=== PATIENT | female | born 1960 | race Caucasian/White ===

== ENCOUNTER 2019-12-01 08:35 | Inpatient (IN) | payer OTHER ==
[~2019-12-01] VITALS: Ht 157.5 cm; Wt 73.2 kg
[~2019-12-01 08:35] MED LIST: ACET325T9 PO; CIPR500T94 PO; LISI-334 PO; MAGN400T22 PO; METR500T PO; NICO1PAT27 TD; OXYC1TAB7 PO; POTA20TA4 PO; SLOW RELEASE I142 MG PO
--- NOTE | 2019-12-01 08:54 | PHYS DOC ---
Past Medical History Past Medical History: Diverticulitis, Other Additional Past Medical Histor: genital warts, miscarriage Past Surgical History: Other Additional Past Surgical Histo: genital warts surgery Smoking Status: Former Smoker Alcohol Use: Occasionally Drug Use: Marijuana General Adult EDM: Chief Complaint: ABDOMINAL PAIN HPI: HPI: Patient is a 59 year old female who was brought here by EMS from home due to left lower abdominal pain for the last 5 days. The pain became more intensified this morning so she called EMS to take her here for evaluation. Patient denies any fever, no diarrhea. Patient denies any cough. No exposure to anybody who tested positive for COVID-19. Review of Systems: Review of Systems: Constitutional: Denies fever or chills. [] Eyes: Denies change in visual acuity. [] HENT: Denies nasal congestion or sore throat. [] Respiratory: Denies cough or shortness of breath. [] Cardiovascular: Denies chest pain or edema. [] GI: Positive for abdominal pain, nausea vomiting, no diarrhea : Denies dysuria. [] Musculoskeletal: Denies back pain or joint pain. [] Integument: Denies rash. [] Neurologic: Denies headache, focal weakness or sensory changes. [] Endocrine: Denies polyuria or polydipsia. [] Lymphatic: Denies swollen glands. [] Psychiatric: Denies depression or anxiety. [] Heart Score: Risk Factors: Risk Factors: DM, Current or recent (<one month) smoker, HTN, HLP, family history of CAD, obesity. Risk Scores: Score 0 - 3: 2.5% MACE over next 6 weeks - Discharge Home Score 4 - 6: 20.3% MACE over next 6 weeks - Admit for Clinical Observation Score 7 - 10: 72.7% MACE over next 6 weeks - Early Invasive Strategies Allergies: Allergies: Allergies Coded Allergies Type Severity Reaction Last Updated Verified No Known Drug Allergies 09/26/15 No Physical Exam: PE: Constitutional: Well developed, well nourished, no acute distress, non-toxic appearance. [] HENT: Normocephalic, atraumatic, bilateral external ears normal, oropharynx moist, no oral exudates, nose normal. [] Eyes: PERRLA, EOMI, conjunctiva normal, no discharge. [] Neck: Normal range of motion, no tenderness, supple, no stridor. [] Cardiovascular:Heart rate regular rhythm, no murmur [] Lungs & Thorax: Bilateral breath sounds clear to auscultation [] Abdomen: Bowel sounds normal, soft, there is tenderness to palpation in the left lower abdominal area, no rebound, no guarding, no masses, no pulsatile masses. [] Skin: Warm, dry, no erythema, no rash. [] Back: No tenderness, no CVA tenderness. [] Extremities: No tenderness, no cyanosis, no clubbing, ROM intact, no edema. [] Neurologic: Alert and oriented X 3, normal motor function, normal sensory function, no focal deficits noted. [] Psychologic: Affect normal, judgement normal, mood normal. [] Current Patient Data: Labs: Laboratory Tests Test 12/01/19 08:47 White Blood Count 10.8 x10^3/uL Red Blood Count 4.69 x10^6/uL Hemoglobin 10.6 g/dL Hematocrit 33.0 % Mean Corpuscular Volume 70 fL Mean Corpuscular Hemoglobin 23 pg Mean Corpuscular Hemoglobin Concent 32 g/dL Red Cell Distribution Width 17.7 % Platelet Count 124 x10^3/uL Neutrophils (%) (Auto) 81 % Lymphocytes (%) (Auto) 12 % Monocytes (%) (Auto) 6 % Eosinophils (%) (Auto) 0 % Basophils (%) (Auto) 0 % Neutrophils # (Auto) 8.8 x10^3/uL Lymphocytes # (Auto) 1.3 x10^3/uL Monocytes # (Auto) 0.7 x10^3/uL Eosinophils # (Auto) 0.0 x10^3/uL Basophils # (Auto) 0.0 x10^3/uL Platelet Estimate Decreased Large Platelets Few Polychromasia Slight Hypochromasia Slight Anisocytosis Slight Target Cells Few Tear Drop Cells Few Ovalocytes Few Prothrombin Time 15.7 SEC Prothromb Time International Ratio 1.3 Activated Partial Thromboplast Time 33 SEC Sodium Level 135 mmol/L Potassium Level 3.8 mmol/L Chloride Level 102 mmol/L Carbon Dioxide Level 23 mmol/L Anion Gap 10 Blood Urea Nitrogen 13 mg/dL Creatinine 0.9 mg/dL Estimated GFR (Cockcroft-Gault) 63.7 BUN/Creatinine Ratio 14 Glucose Level 107 mg/dL Calcium Level 7.9 mg/dL Total Bilirubin 2.7 mg/dL Aspartate Amino Transf (AST/SGOT) 75 U/L Alanine Aminotransferase (ALT/SGPT) 49 U/L Alkaline Phosphatase 129 U/L Total Protein 7.7 g/dL Albumin 2.6 g/dL Albumin/Globulin Ratio 0.5 Lipase 225 U/L Current Medications Medications (Trade) Dose Ordered Sig/Ubaldo Route PRN Reason Start Time Stop Time Status Last Admin Dose Admin Sodium Chloride 1,000 ml @ 1,000 mls/hr 1X ONCE IV 12/01/19 09:00 12/01/19 09:59 DC 12/01/19 09:38 Ondansetron HCl (Zofran) 4 mg 1X ONCE IVP 12/01/19 09:00 12/01/19 09:01 DC 12/01/19 09:38 Morphine Sulfate (Morphine Sulfate) 4 mg 1X ONCE IV 12/01/19 09:15 12/01/19 09:17 DC 12/01/19 09:38 Iohexol (Omnipaque 300 Mg/ml) 75 ml 1X ONCE IV 12/01/19 09:45 12/01/19 09:46 DC 12/01/19 10:10 Metronidazole 100 ml @ 100 mls/hr 1X ONCE IV 12/01/19 11:00 12/01/19 11:59 DC Fentanyl Citrate (Fentanyl 2ml Vial) 75 mcg 1X ONCE IVP 12/01/19 10:45 12/01/19 10:46 DC 12/01/19 10:50 Ondansetron HCl (Zofran) 4 mg PRN Q8HRS PRN IV NAUSEA/VOMITING 12/01/19 10:45 12/02/19 10:44 Morphine Sulfate (Morphine Sulfate) 4 mg PRN Q2HR PRN IV PAIN 12/01/19 10:45 12/02/19 10:44 Sodium Chloride 1,000 ml @ 100 mls/hr Q10H IV 12/01/19 10:36 12/02/19 10:35 EKG: EKG: [] Radiology/Procedures: Radiology/Procedures: [][facility] [address] [place], [place] [id number] IMAGING REPORT Signed PATIENT: ISIAH DESIR ACCOUNT: [id number] : 1960 LOCATION: ER AGE: 59 SEX: F EXAM STATUS: REG ER ORD. PHYSICIAN: FAIZAN BOWEN DO REASON: LLQ ABDOMINAL PAIN PROCEDURE: CT ABD PELV W/ IV CONTRST ONLY EXAM: Abdomen and pelvis CT with intravenous contrast. HISTORY: Left lower quadrant pain. TECHNIQUE: Computed tomographic images of the abdomen and pelvis were obtained following the administration of intravenous contrast. Multiplanar reformatting was performed. *One or more of the following individualized dose reduction techniques were utilized for this examination: 1. Automated exposure control. 2. Adjustment of the mA and/or kV according to patient size. 3. Use of iterative reconstruction technique. COMPARISON: 10/22/2015. FINDINGS: Evaluation of the lower thorax demonstrates mild emphysema. There is basilar atelectasis. There is no infiltrate or pleural effusion. There is hepatic surface nodularity due to cirrhosis. No focal hepatic lesion is seen. There is cholelithiasis. There is splenomegaly, measuring 13.9 cm transaxially. The pancreas and adrenal glands are unremarkable. The stomach is unremarkable. There is no hydronephrosis or suspicious solid or cystic renal lesion. There is a left splenorenal shunt. There is no appendicitis. There are nonspecific air and fluid-filled loops of small bowel within the midabdomen. There is no transition point to suggest obstruction. There is distal colonic diverticulosis. There is superimposed wall thickening and fatty stranding with trace fluid within the mid sigmoid colon due to diverticulitis. No drainable fluid collection is seen. The bladder is unremarkable. There is aortic and aortic branch vessel atherosclerosis. No pathologically enlarged lymph node is seen. There are suspected reactive lymph nodes within the retroperitoneum. There is degenerative change involving the spine. IMPRESSION: 1. Acute diverticulitis involving the mid sigmoid colon. No drainable fluid collection is seen. This is superimposed on distal predominant colonic diverticulosis. 2. Cirrhosis with associated splenomegaly and a left splenorenal shunt. 3. Cholelithiasis. Electronically signed by: Eva Tobias MD (12/01/2019 10:20 AM) [id number] DICTATED and SIGNED BY: EVA TOBIAS MD DATE: 12/01/19 1020 Course & Med Decision Making: Course & Med Decision Making Pertinent Labs and Imaging studies reviewed. (See chart for details) [] Dragon Disclaimer: Dragon Disclaimer: This electronic medical record was generated, in whole or in part, using a voice recognition dictation system. Departure Departure Impression: Primary Impression: Diverticulitis Disposition: ADMITTED INPATIENT Admitting Physician: CELINA (dr. PRUITT) Condition: STABLE Referrals: NO PCP (PCP) Justicifation of Admission Dx: Justifications for Admission: Justification of Admission Dx: N/A FAIZAN BOWEN DO Dec 01, 2019 08:54
[2019-12-01] MEDS ORDERED: IV NORMAL SALINE 1000ML BAG 1,000 ML IV ONE (09:00)
[2019-12-01] MEDS ORDERED: ONDANSETRON PF 4 MG/2 ML VIAL. IVP ONE (09:00)
[2019-12-01 09:01] LABS: BASO % 0 % (0-3); EOS % 0 % (0-3); HEMOGLOBIN 10.6 g/dL (12.0-15.5); LYMPH # 1.3 x10^3/uL (1.0-4.8); LYMPH % 12 % (24-48); MEAN CORPUSCULAR HEMOGLOBIN 23 pg (25-35); MEAN CORPUSCULAR HGB CONC 32 g/dL (31-37); MEAN CORPUSCULAR VOLUME 70 fL (79-100); MONO # 0.7 x10^3/uL (0.0-1.1); MONO % 6 % (0-9); NEUT # 8.8 x10^3/uL (1.8-7.7); NEUT % 81 % (31-73); PLATELET COUNT 124 x10^3/uL (140-400); RED BLOOD COUNT 4.69 x10^6/uL (3.50-5.40); RED CELL DISTRIBUTION WIDTH 17.7 % (11.5-14.5); WHITE BLOOD COUNT 10.8 x10^3/uL (4.0-11.0)
[2019-12-01 09:10] LABS: CALCIUM 7.9 mg/dL (8.5-10.1); CREATININE 0.9 mg/dL (0.6-1.0); GFR 63.7; POTASSIUM 3.8 mmol/L (3.5-5.1); PROTHROMBIN TIME PATIENT 15.7 SEC (11.7-14.0)
[2019-12-01] MEDS ORDERED: MORPHINE SULFATE 4 MG/ML VIAL. IV ONE (09:15)
[2019-12-01 09:16] LABS: ALBUMIN 2.6 g/dL (3.4-5.0); ALBUMIN/GLOBULIN RATIO 0.5 (1.0-1.7); TOTAL BILIRUBIN 2.7 mg/dL (0.2-1.0); TOTAL PROTEIN 7.7 g/dL (6.4-8.2)
[2019-12-01] MEDS ORDERED: IOHEXOL 300 MG/ML 100ML VIAL. IV ONE (09:45)
[2019-12-01 09:59] LABS: ANISOCYTOSIS SLIGHT; HYPOCHROMIA SLIGHT; OVALOCYTES FEW; PLT ESTIMATE DECREASED (ADEQUATE); POLYCHROMASIA SLIGHT; TARGET CELLS FEW; TEAR DROP CELLS FEW
--- NOTE | 2019-12-01 10:23 | RAD ---
EXAM: Abdomen and pelvis CT with intravenous contrast. HISTORY: Left lower quadrant pain. TECHNIQUE: Computed tomographic images of the abdomen and pelvis were obtained following the administration of intravenous contrast. Multiplanar reformatting was performed. *One or more of the following individualized dose reduction techniques were utilized for this examination: 1. Automated exposure control. 2. Adjustment of the mA and/or kV according to patient size. 3. Use of iterative reconstruction technique. COMPARISON: 10/22/2015. FINDINGS: Evaluation of the lower thorax demonstrates mild emphysema. There is basilar atelectasis. There is no infiltrate or pleural effusion. There is hepatic surface nodularity due to cirrhosis. No focal hepatic lesion is seen. There is cholelithiasis. There is splenomegaly, measuring 13.9 cm transaxially. The pancreas and adrenal glands are unremarkable. The stomach is unremarkable. There is no hydronephrosis or suspicious solid or cystic renal lesion. There is a left splenorenal shunt. There is no appendicitis. There are nonspecific air and fluid-filled loops of small bowel within the midabdomen. There is no transition point to suggest obstruction. There is distal colonic diverticulosis. There is superimposed wall thickening and fatty stranding with trace fluid within the mid sigmoid colon due to diverticulitis. No drainable fluid collection is seen. The bladder is unremarkable. There is aortic and aortic branch vessel atherosclerosis. No pathologically enlarged lymph node is seen. There are suspected reactive lymph nodes within the retroperitoneum. There is degenerative change involving the spine. IMPRESSION: 1. Acute diverticulitis involving the mid sigmoid colon. No drainable fluid collection is seen. This is superimposed on distal predominant colonic diverticulosis. 2. Cirrhosis with associated splenomegaly and a left splenorenal shunt. 3. Cholelithiasis. Electronically signed by: Eva Ac MD (12/01/2019 10:20 AM) [id number]
[2019-12-01] MEDS ORDERED: fentaNYL PF VIAL 100 MCG/2 ML VIAL IVP ONE (10:45)
[2019-12-01] MEDS ORDERED: MORPHINE SULFATE 4 MG/ML VIAL. IV PRN (10:45)
[2019-12-01] MEDS ORDERED: ONDANSETRON PF 4 MG/2 ML VIAL. IV PRN (10:45)
--- NOTE | 2019-12-01 11:27 | PDOC1 ---
History and Physical Date of Admission Date of Admission DATE: 12/01/19 TIME: 11:23 Identification/Chief Complaint Chief Complaint Abdominal pain Source Source: Patient History of Present Illness History of Present Illness Ms Joyner is a 59 year old female w/ PMHx diverticulosis with prior perforation from diverticulitis, former smoker, active Hepatitis C who was brought here by EMS from home due to left lower abdominal pain for the last 5 days. The pain became more intensified this morning so she called EMS to take her here for evaluation. Patient denies any fever, no diarrhea. Patient denies any cough. No exposure to anybody who tested positive for COVID-19. CT scan of the abdomen. Reveals diverticulitis in the sigmoid colon without p erforation or leak. Also revealed cirrhosis with splenomegaly and cholelithiasis. No evidence for leak or abscess. No recent dietary indiscretions. Previously had diverticulitis in 2016 and was recommended to have surgery however she lost her insurance and has been lost to care since then, she was also noted to have hepatitis C back then and did not follow-up also due to lack of insurance. She she did have an episode she treated without seeking medical treatment in the last year. She is fastidious about following diverticulosis diet restrictions. Labs significant for WBC 10.8, Hb 10.6 with MCV of 70, platelets 124, INR 1.3, albumin 2.6, NA 135, K3.8, BUN 13, creatinine 0.9, glucose 107, bilirubin 2.7, AST 75, ALT 49, alkaline phosphatase 128. Admitted for further care Past Medical History Cardiovascular: No pertinent hx Pulmonary: No pertinent hx GI: Diverticulosis Heme/Onc: No pertinent hx Hepatobiliary: Hep A/B/C (C) Psych: No pertinent hx Rheumatologic: No pertinent hx Infectious disease: No pertinent hx Renal/: No pertinent hx Endocrine: No pertinent hx Past Surgical History Past Surgical History: No pertinent history Family History Family History: No Significant Social History Smoke: No ALCOHOL: occassional Drugs: None Current Medications Current Medications Current Medications Sodium Chloride 1,000 ml @ 1,000 mls/hr 1X ONCE IV Last administered on 12/01/19at 09:38; Start 12/01/19 at 09:00; Stop 12/01/19 at 09:59; Status DC Ondansetron HCl (Zofran) 4 mg 1X ONCE IVP Last administered on 12/01/19at 09:38; Start 12/01/19 at 09:00; Stop 12/01/19 at 09:01; Status DC Morphine Sulfate (Morphine Sulfate) 4 mg 1X ONCE IV Last administered on 12/01/19at 09:38; Start 12/01/19 at 09:15; Stop 12/01/19 at 09:17; Status DC Iohexol (Omnipaque 300 Mg/ml) 75 ml 1X ONCE IV Last administered on 12/01/19at 10:10; Start 12/01/19 at 09:45; Stop 12/01/19 at 09:46; Status DC Metronidazole 100 ml @ 100 mls/hr 1X ONCE IV ; Start 12/01/19 at 11:00; Stop 12/01/19 at 11:59 Ciprofloxacin/ Dextrose 200 ml @ 200 mls/hr 1X ONCE IV Last administered on 12/01/19at 10:51; Start 12/01/19 at 11:30; Stop 12/01/19 at 12:29 Fentanyl Citrate (Fentanyl 2ml Vial) 75 mcg 1X ONCE IVP Last administered on 12/01/19at 10:50; Start 12/01/19 at 10:45; Stop 12/01/19 at 10:46; Status DC Ondansetron HCl (Zofran) 4 mg PRN Q8HRS PRN IV NAUSEA/VOMITING; Start 12/01/19 at 10:45; Stop 12/02/19 at 10:44 Morphine Sulfate (Morphine Sulfate) 4 mg PRN Q2HR PRN IV PAIN; Start 12/01/19 at 10:45; Stop 12/02/19 at 10:44 Sodium Chloride 1,000 ml @ 100 mls/hr Q10H IV ; Start 12/01/19 at 10:36; Stop 12/02/19 at 10:35 Active Scripts Active Klor-Con M20 (Potassium Chloride) 20 Meq Tab.er.prt 20 Meq PO DAILYWBKFT Oxycodone-Acetaminophen 5-325 (Oxycodone Hcl/Acetaminophen) 1 Each Tablet 1 Tab PO PRN Q4HRS PRN Mag-Oxide (Magnesium Oxide) 400 Mg Tablet 400 Mg PO DAILY Lisinopril 20 Mg Tablet 20 Mg PO DAILY NICODERM CQ 7mg (Nicotine) 1 Each Patch.td24 1 Patch TD DAILY Slow Release Iron (Ferrous Sulfate) 142 Mg Tablet.er 142 Mg PO DAILYWBKFT Reported Tylenol (Acetaminophen) 325 Mg Tablet 650 Mg PO PRN Q4-6HRS PRN Allergies Allergies: Coded Allergies: No Known Drug Allergies (Unverified , 09/26/15) ROS General: YES: Fatigue, Malaise; No: Chills, Night Sweats, Appetite, Other PSYCHOLOGICAL ROS: No: Anxiety, Behavioral Disorder, Concentration difficultie, Decreased libido, Depression, Disorientation, Hallucinations, Hostility, Irritablity, Memory difficulties, Mood Swings, Obsessive thoughts, Physical abuse, Sexual abuse, Sleep disturbances, Suicidal ideation, Other Eyes: No Blurry vision, No Decreased vision, No Double vision, No Dry eyes, No Excessive tearing, No Eye Pain, No Itchy Eyes, No Loss of vision, No Photophobia, No Scotomata, No Uses contacts, No Uses glasses, No Other HEENT: No: Heacaches, Visual Changes, Hearing change, Nasal congestion, Nasal discharge, Oral lesions, Sinus pain, Sore Throat, Epistaxis, Sneezing, Snoring, Tinnitus, Vertigo, Vocal changes, Other ALLERGY AND IMMUNOLOGY: No: Hives, Insect Bite Sensitivity, Itchy/Watery Eyes, Nasal Congestion, Post Nasal Drip, Seasonal Allergies, Other Hematological and Lymphatic: No: Bleeding Problems, Blood Clots, Blood Transfusions, Brusing, Night Sweats, Pallor, Swollen Lymph Nodes, Other ENDOCRINE: No: Breast Changes, Galactorrhea, Hair Pattern Changes, Hot Flashes, Malaise/lethargy, Mood Swings, Palpitations, Polydipsia/polyuria, Skin Changes, Temperature Intolerance, Unexpected Weight Changes, Other Breast: No New/Changing Breast Lumps, No Nipple changes, No Nipple discharge, No Other Respiratory: No: Cough, Hemoptysis, Orthopnea, Pleuritic Pain, Shortness of breath, SOB with excertion, Sputum Changes, Stridor, Tachypnea, Wheezing, Other Cardiovascular: No Chest Pain, No Palpitations, No Orthopnea, No Paroxysmal Noc. Dyspnea, No Edema, No Lt Headedness, No Other Gastrointestinal: Yes Nausea, Yes Abdominal Pain; No Vomiting, No Diarrhea, No Constipation, No Melena, No Hematochezia, No Other Genitourinary: No Dysuria, No Frequency, No Incontinence, No Hematuria, No Retention, No Discharge, No Urgency, No Pain, No Flank Pain, No Other, No , No , No , No , No , No , No Musculoskeletal: No Gait Disturbance, No Joint Pain, No Joint Stiffness, No Joint Swelling, No Muscle Pain, No Muscular Weakness, No Pain In:, No Swelling In:, No Other Neurological: No Behavorial Changes, No Bowel/Bladder ControlChng, No Confusion, No Dizziness, No Gait Disturbance, No Headaches, No Impaired Coord/balance, No Memory Loss, No Numbness/Tingling, No Seizures, No Speech Problems, No Tremors, No Visual Changes, No Weakness, No Other Skin: No Dry Skin, No Eczema, No Hair Changes, No Lumps, No Mole Changes, No Mottling, No Nail Changes, No Pruritus, No Rash, No Skin Lesion Changes, No Other, No Acne Physical Exam General: Alert, Oriented X3, Cooperative, mild distress HEENT: Atraumatic, PERRLA, EOMI, Mucous membr. moist/pink Lungs: Clear to auscultation, Normal air movement Heart: S1S2, RRR, no thrills, no rubs, no gallops, no murmurs Abdomen: Normal bowel sounds, Soft, No hepatosplenomegaly, No masses, Other (LLQ pain) Rectal Exam: not examined Extremities: No clubbing, No cyanosis, No edema, Normal pulses, No tenderness/swelling Skin: No rashes, No breakdown, No significant lesion Neuro: Normal gait, Normal speech, Strength at 5/5 X4 ext, Normal tone, Sensation intact, Cranial nerves 3-12 NL, Reflexes 2+ Psych/Mental Status: Mental status NL, Mood NL Vitals Vitals Vital Signs Date Time Temp Pulse Resp B/P (MAP) Pulse Ox O2 Delivery O2 Flow Rate FiO2 12/01/19 10:50 20 12/01/19 09:08 97.5 61 171/70 (103) 99 Room Air 97.5 Labs Labs Laboratory Tests Test 12/01/19 08:47 White Blood Count 10.8 x10^3/uL (4.0-11.0) Red Blood Count 4.69 x10^6/uL (3.50-5.40) Hemoglobin 10.6 g/dL (12.0-15.5) Hematocrit 33.0 % (36.0-47.0) Mean Corpuscular Volume 70 fL (79-100) Mean Corpuscular Hemoglobin 23 pg (25-35) Mean Corpuscular Hemoglobin Concent 32 g/dL (31-37) Red Cell Distribution Width 17.7 % (11.5-14.5) Platelet Count 124 x10^3/uL (140-400) Neutrophils (%) (Auto) 81 % (31-73) Lymphocytes (%) (Auto) 12 % (24-48) Monocytes (%) (Auto) 6 % (0-9) Eosinophils (%) (Auto) 0 % (0-3) Basophils (%) (Auto) 0 % (0-3) Neutrophils # (Auto) 8.8 x10^3/uL (1.8-7.7) Lymphocytes # (Auto) 1.3 x10^3/uL (1.0-4.8) Monocytes # (Auto) 0.7 x10^3/uL (0.0-1.1) Eosinophils # (Auto) 0.0 x10^3/uL (0.0-0.7) Basophils # (Auto) 0.0 x10^3/uL (0.0-0.2) Platelet Estimate Decreased (ADEQUATE) Large Platelets Few Polychromasia Slight Hypochromasia Slight Anisocytosis Slight Target Cells Few Tear Drop Cells Few Ovalocytes Few Prothrombin Time 15.7 SEC (11.7-14.0) Prothromb Time International Ratio 1.3 (0.8-1.1) Activated Partial Thromboplast Time 33 SEC (24-38) Sodium Level 135 mmol/L (136-145) Potassium Level 3.8 mmol/L (3.5-5.1) Chloride Level 102 mmol/L (98-107) Carbon Dioxide Level 23 mmol/L (21-32) Anion Gap 10 (6-14) Blood Urea Nitrogen 13 mg/dL (7-20) Creatinine 0.9 mg/dL (0.6-1.0) Estimated GFR (Cockcroft-Gault) 63.7 BUN/Creatinine Ratio 14 (6-20) Glucose Level 107 mg/dL (70-99) Calcium Level 7.9 mg/dL (8.5-10.1) Total Bilirubin 2.7 mg/dL (0.2-1.0) Aspartate Amino Transf (AST/SGOT) 75 U/L (15-37) Alanine Aminotransferase (ALT/SGPT) 49 U/L (14-59) Alkaline Phosphatase 129 U/L (46-116) Total Protein 7.7 g/dL (6.4-8.2) Albumin 2.6 g/dL (3.4-5.0) Albumin/Globulin Ratio 0.5 (1.0-1.7) Lipase 225 U/L (73-393) Laboratory Tests Test 12/01/19 08:47 White Blood Count 10.8 x10^3/uL (4.0-11.0) Red Blood Count 4.69 x10^6/uL (3.50-5.40) Hemoglobin 10.6 g/dL (12.0-15.5) Hematocrit 33.0 % (36.0-47.0) Mean Corpuscular Volume 70 fL (79-100) Mean Corpuscular Hemoglobin 23 pg (25-35) Mean Corpuscular Hemoglobin Concent 32 g/dL (31-37) Red Cell Distribution Width 17.7 % (11.5-14.5) Platelet Count 124 x10^3/uL (140-400) Neutrophils (%) (Auto) 81 % (31-73) Lymphocytes (%) (Auto) 12 % (24-48) Monocytes (%) (Auto) 6 % (0-9) Eosinophils (%) (Auto) 0 % (0-3) Basophils (%) (Auto) 0 % (0-3) Neutrophils # (Auto) 8.8 x10^3/uL (1.8-7.7) Lymphocytes # (Auto) 1.3 x10^3/uL (1.0-4.8) Monocytes # (Auto) 0.7 x10^3/uL (0.0-1.1) Eosinophils # (Auto) 0.0 x10^3/uL (0.0-0.7) Basophils # (Auto) 0.0 x10^3/uL (0.0-0.2) Platelet Estimate Decreased (ADEQUATE) Large Platelets Few Polychromasia Slight Hypochromasia Slight Anisocytosis Slight Target Cells Few Tear Drop Cells Few Ovalocytes Few Prothrombin Time 15.7 SEC (11.7-14.0) Prothromb Time International Ratio 1.3 (0.8-1.1) Activated Partial Thromboplast Time 33 SEC (24-38) Sodium Level 135 mmol/L (136-145) Potassium Level 3.8 mmol/L (3.5-5.1) Chloride Level 102 mmol/L (98-107) Carbon Dioxide Level 23 mmol/L (21-32) Anion Gap 10 (6-14) Blood Urea Nitrogen 13 mg/dL (7-20) Creatinine 0.9 mg/dL (0.6-1.0) Estimated GFR (Cockcroft-Gault) 63.7 BUN/Creatinine Ratio 14 (6-20) Glucose Level 107 mg/dL (70-99) Calcium Level 7.9 mg/dL (8.5-10.1) Total Bilirubin 2.7 mg/dL (0.2-1.0) Aspartate Amino Transf (AST/SGOT) 75 U/L (15-37) Alanine Aminotransferase (ALT/SGPT) 49 U/L (14-59) Alkaline Phosphatase 129 U/L (46-116) Total Protein 7.7 g/dL (6.4-8.2) Albumin 2.6 g/dL (3.4-5.0) Albumin/Globulin Ratio 0.5 (1.0-1.7) Lipase 225 U/L (73-393) Images Images CT abdomen/pelvis: Evaluation of the lower thorax demonstrates mild emphysema. There is basilar atelectasis. There is no infiltrate or pleural effusion. There is hepatic surface nodularity due to cirrhosis. No focal hepatic lesion is seen. There is cholelithiasis. There is splenomegaly, measuring 13.9 cm transaxially. The pancreas and adrenal glands are unremarkable. The stomach is unremarkable. There is no hydronephrosis or suspicious solid or cystic renal lesion. There is a left splenorenal shunt. There is no appendicitis. There are nonspecific air and fluid-filled loops of small bowel within the midabdomen. There is no transition point to suggest obstruction. There is distal colonic diverticulosis. There is superimposed wall thickening and fatty stranding with trace fluid within the mid sigmoid colon due to diverticulitis. No drainable fluid collection is seen. The bladder is unremarkable. There is aortic and aortic branch vessel atherosclerosis. No pathologically enlarged lymph node is seen. There are suspected reactive lymph nodes within the retroperitoneum. There is degenerative change involving the spine. IMPRESSION: 1. Acute diverticulitis involving the mid sigmoid colon. No drainable fluid c ollection is seen. This is superimposed on distal predominant colonic diverticulosis. 2. Cirrhosis with associated splenomegaly and a left splenorenal shunt. 3. Cholelithiasis. VTE Prophylaxis Ordered VTE Prophylaxis Devices: Yes VTE Pharmacological Prophylaxi: Yes Assessment/Plan Assessment/Plan A/P: Acute diverticulitis -with prior perforation, high risk. Continue IV Cipro and IV Flagyl. Clear liquid diet, consult GI Chronic anemia - possibly thalassemia versus chronic iron deficiency anemia related to occult GI blood loss vs 2/2 Hep C. Has never had a colonoscopy due to loss to follow up from lack of health insurance since 2016. Hepatitis C - chronic, not treated. GI consulted for consideration of anti- viral treatment, also needs alpha-fetoprotein level checked and ultrasound monitoring every 6 months. 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 MELD 15, 6% 3 month mortality. GI consulted Thrombocytopenialikely secondary to her cirrhosis. Will monitor Transaminitis likely secondary to hepatitis C versus acute diverticulitis, will monitor. GERD - on omeprazole Asymptomatic cholelithiasis FEN - Clear liquid diet PPX - lovenox FULL CODE Dispo - inpatient Justicifation of Admission Dx: Justifications for Admission: Justification of Admission Dx: Yes BANDAR PRUITT MD Dec 01, 2019 11:27
[2019-12-01] MEDS ORDERED: CIPROFLOXACIN 400MG PREMIX 200 ML IV ONE (11:30)
[2019-12-01 12:35] VITALS: BP 165/66
[2019-12-01] MEDS: IV NORMAL SALINE 1000ML BAG 1,000 ML IV SCH ×2 (13:36→21:06)
[2019-12-01 15:00] VITALS: BP 136/65
--- NOTE | 2019-12-01 15:32 | PDOC2 ---
CONSULT Date of Consult Date of Consult DATE: 12/01/19 TIME: 15:21 Reason for Consult Reason for Consult: Abdominal pain, diverticulitis on CT, cirrhosis on CT History of Present Illness Reason for Visit: This is a 59-year-old female who presents with sudden onset of left lower quadrant pain the day before admission which did not improve and subsequently she came to the emergency room. CT scan revealed segmental diverticulitis in the sigmoid region. No evidence for leak or abscess. No recent dietary indiscretions. She was aware of diverticulitis since she had a severe episode back in 2016 requiring percutaneous drainage of a small leak. Surgery was advised at that time but she did not pursue it and then lost her health insurance for quite some time but did not have any further episodes of diverticulitis except for a mild episode in the last year or so that she treated with a clear liquid diet alone. She is pretty careful with her diet and avoids nuts, seeds or other provocative foods. She has a regular bowel pattern without constipation or rectal bleeding. She does have a history of heartburn and reflux that is controlled with omeprazole. She denies nausea, vomiting, dysphagia, fever. She has a known history of hepatitis C which was documented in 2016 but was not treated when she lost her health insurance. At that time she had some nodular liver and mild splenomegaly but those findings have dramatically worsened in the imaging that we see presently. Past Medical History Cardiovascular: No pertinent hx Pulmonary: No pertinent hx GI: No pertinent hx, Diverticulosis, GERD Heme/Onc: No pertinent hx, Anemia NOS Hepatobiliary: No pertinent hx, Cirrhosis, Hep A/B/C Psych: No pertinent hx Rheumatologic: No pertinent hx Infectious disease: No pertinent hx Renal/: No pertinent hx Endocrine: No pertinent hx Past Surgical History Past Surgical History: No pertinent history Family History Family History: No Significant Social History ALCOHOL: occassional Drugs: None Current Problem List Problem List Problems Medical Problems: (1) Diverticulitis Status: Acute Current Medications Current Medications Current Medications Sodium Chloride 1,000 ml @ 1,000 mls/hr 1X ONCE IV Last administered on 12/01/19at 09:38; Start 12/01/19 at 09:00; Stop 12/01/19 at 09:59; Status DC Ondansetron HCl (Zofran) 4 mg 1X ONCE IVP Last administered on 12/01/19at 09:38; Start 12/01/19 at 09:00; Stop 12/01/19 at 09:01; Status DC Morphine Sulfate (Morphine Sulfate) 4 mg 1X ONCE IV Last administered on 12/01/19at 09:38; Start 12/01/19 at 09:15; Stop 12/01/19 at 09:17; Status DC Iohexol (Omnipaque 300 Mg/ml) 75 ml 1X ONCE IV Last administered on 12/01/19at 10:10; Start 12/01/19 at 09:45; Stop 12/01/19 at 09:46; Status DC Metronidazole 100 ml @ 100 mls/hr 1X ONCE IV Last administered on 12/01/19at 14:03; Start 12/01/19 at 11:00; Stop 12/01/19 at 11:59; Status DC Ciprofloxacin/ Dextrose 200 ml @ 200 mls/hr 1X ONCE IV Last administered on 12/01/19at 10:51; Start 12/01/19 at 11:30; Stop 12/01/19 at 12:29; Status DC Fentanyl Citrate (Fentanyl 2ml Vial) 75 mcg 1X ONCE IVP Last administered on 12/01/19at 10:50; Start 12/01/19 at 10:45; Stop 12/01/19 at 10:46; Status DC Ondansetron HCl (Zofran) 4 mg PRN Q8HRS PRN IV NAUSEA/VOMITING; Start 12/01/19 at 10:45; Stop 12/01/19 at 15:03; Status DC Morphine Sulfate (Morphine Sulfate) 4 mg PRN Q2HR PRN IV PAIN Last administered on 12/01/19at 13:37; Start 12/01/19 at 10:45; Stop 12/02/19 at 10:44 Sodium Chloride 1,000 ml @ 100 mls/hr Q10H IV Last administered on 12/01/19at 13:36; Start 12/01/19 at 10:36; Stop 12/02/19 at 10:35 Ondansetron HCl (Zofran) 4 mg PRN Q4HRS PRN IV NAUSEA/VOMITING; Start 12/01/19 at 15:15 Active Scripts Active Klor-Con M20 (Potassium Chloride) 20 Meq Tab.er.prt 20 Meq PO DAILYWBKFT Oxycodone-Acetaminophen 5-325 (Oxycodone Hcl/Acetaminophen) 1 Each Tablet 1 Tab PO PRN Q4HRS PRN Mag-Oxide (Magnesium Oxide) 400 Mg Tablet 400 Mg PO DAILY Lisinopril 20 Mg Tablet 20 Mg PO DAILY NICODERM CQ 7mg (Nicotine) 1 Each Patch.td24 1 Patch TD DAILY Slow Release Iron (Ferrous Sulfate) 142 Mg Tablet.er 142 Mg PO DAILYWBKFT Reported Tylenol (Acetaminophen) 325 Mg Tablet 650 Mg PO PRN Q4-6HRS PRN Allergies Allergies: Coded Allergies: No Known Drug Allergies (Unverified , 09/26/15) Physical Exam General: Alert, Oriented X3, Cooperative HEENT: Atraumatic, PERRLA Lungs: Clear to auscultation Heart: Regular rate, Normal S1, Normal S2 Abdomen: Normal bowel sounds, Soft, Other (Mild to moderate left lower quadrant tenderness without rebound) Extremities: No clubbing, No cyanosis Skin: No rashes Neuro: Normal speech Vitals VITALS Vital Signs Date Time Temp Pulse Resp B/P (MAP) Pulse Ox O2 Delivery O2 Flow Rate FiO2 12/01/19 14:17 16 Room Air 12/01/19 12:35 98.0 65 165/66 (99) 92 98.0 Labs Labs Laboratory Tests Test 12/01/19 08:47 White Blood Count 10.8 x10^3/uL (4.0-11.0) Red Blood Count 4.69 x10^6/uL (3.50-5.40) Hemoglobin 10.6 g/dL (12.0-15.5) Hematocrit 33.0 % (36.0-47.0) Mean Corpuscular Volume 70 fL (79-100) Mean Corpuscular Hemoglobin 23 pg (25-35) Mean Corpuscular Hemoglobin Concent 32 g/dL (31-37) Red Cell Distribution Width 17.7 % (11.5-14.5) Platelet Count 124 x10^3/uL (140-400) Neutrophils (%) (Auto) 81 % (31-73) Lymphocytes (%) (Auto) 12 % (24-48) Monocytes (%) (Auto) 6 % (0-9) Eosinophils (%) (Auto) 0 % (0-3) Basophils (%) (Auto) 0 % (0-3) Neutrophils # (Auto) 8.8 x10^3/uL (1.8-7.7) Lymphocytes # (Auto) 1.3 x10^3/uL (1.0-4.8) Monocytes # (Auto) 0.7 x10^3/uL (0.0-1.1) Eosinophils # (Auto) 0.0 x10^3/uL (0.0-0.7) Basophils # (Auto) 0.0 x10^3/uL (0.0-0.2) Platelet Estimate Decreased (ADEQUATE) Large Platelets Few Polychromasia Slight Hypochromasia Slight Anisocytosis Slight Target Cells Few Tear Drop Cells Few Ovalocytes Few Prothrombin Time 15.7 SEC (11.7-14.0) Prothromb Time International Ratio 1.3 (0.8-1.1) Activated Partial Thromboplast Time 33 SEC (24-38) Sodium Level 135 mmol/L (136-145) Potassium Level 3.8 mmol/L (3.5-5.1) Chloride Level 102 mmol/L (98-107) Carbon Dioxide Level 23 mmol/L (21-32) Anion Gap 10 (6-14) Blood Urea Nitrogen 13 mg/dL (7-20) Creatinine 0.9 mg/dL (0.6-1.0) Estimated GFR (Cockcroft-Gault) 63.7 BUN/Creatinine Ratio 14 (6-20) Glucose Level 107 mg/dL (70-99) Calcium Level 7.9 mg/dL (8.5-10.1) Total Bilirubin 2.7 mg/dL (0.2-1.0) Aspartate Amino Transf (AST/SGOT) 75 U/L (15-37) Alanine Aminotransferase (ALT/SGPT) 49 U/L (14-59) Alkaline Phosphatase 129 U/L (46-116) Total Protein 7.7 g/dL (6.4-8.2) Albumin 2.6 g/dL (3.4-5.0) Albumin/Globulin Ratio 0.5 (1.0-1.7) Lipase 225 U/L (73-393) Laboratory Tests Test 12/01/19 08:47 White Blood Count 10.8 x10^3/uL (4.0-11.0) Red Blood Count 4.69 x10^6/uL (3.50-5.40) Hemoglobin 10.6 g/dL (12.0-15.5) Hematocrit 33.0 % (36.0-47.0) Mean Corpuscular Volume 70 fL (79-100) Mean Corpuscular Hemoglobin 23 pg (25-35) Mean Corpuscular Hemoglobin Concent 32 g/dL (31-37) Red Cell Distribution Width 17.7 % (11.5-14.5) Platelet Count 124 x10^3/uL (140-400) Neutrophils (%) (Auto) 81 % (31-73) Lymphocytes (%) (Auto) 12 % (24-48) Monocytes (%) (Auto) 6 % (0-9) Eosinophils (%) (Auto) 0 % (0-3) Basophils (%) (Auto) 0 % (0-3) Neutrophils # (Auto) 8.8 x10^3/uL (1.8-7.7) Lymphocytes # (Auto) 1.3 x10^3/uL (1.0-4.8) Monocytes # (Auto) 0.7 x10^3/uL (0.0-1.1) Eosinophils # (Auto) 0.0 x10^3/uL (0.0-0.7) Basophils # (Auto) 0.0 x10^3/uL (0.0-0.2) Platelet Estimate Decreased (ADEQUATE) Large Platelets Few Polychromasia Slight Hypochromasia Slight Anisocytosis Slight Target Cells Few Tear Drop Cells Few Ovalocytes Few Prothrombin Time 15.7 SEC (11.7-14.0) Prothromb Time International Ratio 1.3 (0.8-1.1) Activated Partial Thromboplast Time 33 SEC (24-38) Sodium Level 135 mmol/L (136-145) Potassium Level 3.8 mmol/L (3.5-5.1) Chloride Level 102 mmol/L (98-107) Carbon Dioxide Level 23 mmol/L (21-32) Anion Gap 10 (6-14) Blood Urea Nitrogen 13 mg/dL (7-20) Creatinine 0.9 mg/dL (0.6-1.0) Estimated GFR (Cockcroft-Gault) 63.7 BUN/Creatinine Ratio 14 (6-20) Glucose Level 107 mg/dL (70-99) Calcium Level 7.9 mg/dL (8.5-10.1) Total Bilirubin 2.7 mg/dL (0.2-1.0) Aspartate Amino Transf (AST/SGOT) 75 U/L (15-37) Alanine Aminotransferase (ALT/SGPT) 49 U/L (14-59) Alkaline Phosphatase 129 U/L (46-116) Total Protein 7.7 g/dL (6.4-8.2) Albumin 2.6 g/dL (3.4-5.0) Albumin/Globulin Ratio 0.5 (1.0-1.7) Lipase 225 U/L (73-393) Images Images CT scan of the abdomen. Reveals diverticulitis in the sigmoid colon without perforation or leak. Also revealed cirrhosis with splenomegaly and cholel ithiasis. Assessment/Plan Assessment/Plan Diverticulitis. Without perforation at this point. However in reviewing her records from 2016 she had a episode of diverticulitis that was followed a week later by a localized perforation requiring percutaneous drainage. At that time she was advised to have elective surgery but did not pursue it in part because she lost her health insurance later that year. Fortunately since then she has had no further episodes other than a mild episode treated with a clear liquid diet by the patient in the last year. She is fairly strict with her diet and avoids any provocative foods and denies any trigger foods prior to this episode. Her bowel pattern is regular without constipation or bleeding. Chronic anemia. As I review her chart she has had a microcytic anemia since her's admission in 2016. She relates that anemia runs in the family so I wonder if this is a thalassemia versus chronic iron deficiency anemia related to occult GI blood loss. She is never had a colonoscopy which is a concern in this setting. Cirrhosis with hepatitis C. She does drink occasional glass of wine but generally has been known to have hepatitis C for at least 4 years and already had some nodularity and early cirrhosis at that time. She is not been treated due to a loss of health insurance and her cirrhosis has progressed based on the imaging and her presentation with a bilirubin of 2.7 GERD. Symptoms are controlled on omeprazole Asymptomatic cholelithiasis Plan: Clear liquid diet and IV antibiotics, pain control We will check iron profile and hemoglobin electrophoresis to evaluate her chronic microcytic anemia I discussed with her the importance of a screening colonoscopy after she is recovered from this diverticulitis episode. Based on her history of anemia and GERD I would recommend an EGD at that time as well I discussed her hepatitis C diagnosis and the progression of her cirrhosis. Once she is discharged and is stable we can discuss with her insurance the importance of proceeding on with treatment with antiviral agents in the outpatient setting. She will also need every 6-month ultrasounds and alpha-fetoprotein levels to monitor for the increased risk of HCC MANOLO INIGUEZ MD Dec 01, 2019 15:31
[2019-12-01] MEDS: ENOXAPARIN 40 MG/0.4 ML SYRINGE. SQ SCH (15:53)
[2019-12-01] MEDS: HYDROmorphone 2 MG/ML VIAL IV PRN ×2 (15:54→21:09)
[2019-12-01] MEDS: PSYLLIUM HUSK (SUGAR FREE) 1 PKT PACKET PO SCH (17:40)
[2019-12-01 19:00] VITALS: BP 127/64
[2019-12-01] MEDS: CIPROFLOXACIN 200MG PREMIX 100 ML IV SCH (21:06)
[2019-12-01] MEDS: ONDANSETRON PF 4 MG/2 ML VIAL. IV PRN (23:21)
[2019-12-01] MEDS ORDERED: PROCHLORPERAZINE 10 MG/2 ML VIAL. IM PRN (23:30)
[2019-12-02] VITALS (15 sets, daily range): BP systolic 86–134; BP diastolic 44–83
[2019-12-02 04:44] LABS: BASO % 0 % (0-3); EOS % 0 % (0-3); HEMATOCRIT 32.4 % (36.0-47.0); HEMOGLOBIN 10.2 g/dL (12.0-15.5); LYMPH # 0.5 x10^3/uL (1.0-4.8); LYMPH % 3 % (24-48); MEAN CORPUSCULAR HEMOGLOBIN 23 pg (25-35); MEAN CORPUSCULAR HGB CONC 31 g/dL (31-37); MEAN CORPUSCULAR VOLUME 72 fL (79-100); MONO # 0.1 x10^3/uL (0.0-1.1); MONO % 1 % (0-9); NEUT # 16.1 x10^3/uL (1.8-7.7); NEUT % 96 % (31-73); PLATELET COUNT 119 x10^3/uL (140-400); RED CELL DISTRIBUTION WIDTH 17.9 % (11.5-14.5); WHITE BLOOD COUNT 16.8 x10^3/uL (4.0-11.0)
[2019-12-02 05:03] LABS: ALBUMIN 2.2 g/dL (3.4-5.0); ALBUMIN/GLOBULIN RATIO 0.5 (1.0-1.7); CALCIUM 7.5 mg/dL (8.5-10.1); CREATININE 1.6 mg/dL (0.6-1.0); GFR 32.8; POTASSIUM 3.3 mmol/L (3.5-5.1); TOTAL BILIRUBIN 2.4 mg/dL (0.2-1.0); TOTAL PROTEIN 6.7 g/dL (6.4-8.2)
[2019-12-02 06:01] LABS: % BANDS 35 % (0-9); % LYMPHS 1 % (24-48); % METAS 11 % (0-0); % MONOS 2 % (0-10); % SEGS 51 % (35-66); ANISOCYTOSIS MOD; NUCLEATED RBC 2; PLT ESTIMATE DECREASED (ADEQUATE)
[2019-12-02 06:02] LABS: POLYCHROMASIA SLIGHT; TARGET CELLS OCC; TEAR DROP CELLS OCC; TOXIC VACUOLATION MOD
[2019-12-02] MEDS: HYDROmorphone 2 MG/ML VIAL IV PRN (06:35)
--- NOTE | 2019-12-02 07:45 | PDOC ---
GI PROGRESS NOTES Date Date/Time DATE: 12/02/19 TIME: 07:43 Subjective Subjective Describes some emesis last night of liquid. Abdominal pain has improved with Dilaudid pain control. Objective Vitals Vital Signs Date Time Temp Pulse Resp B/P (MAP) Pulse Ox O2 Delivery O2 Flow Rate FiO2 12/02/19 07:08 Room Air 12/02/19 06:35 95 Room Air 12/02/19 03:00 98.6 68 18 122/66 (84) 95 Room Air 98.6 12/01/19 21:39 93 Room Air 12/01/19 21:09 93 Room Air 12/01/19 20:00 Room Air 12/01/19 19:00 98.4 88 18 127/64 (85) 93 Room Air 98.4 12/01/19 16:31 Room Air 12/01/19 16:25 16 Room Air 12/01/19 15:54 16 Room Air 12/01/19 15:00 84 16 136/65 (88) 92 Room Air 12/01/19 14:17 16 Room Air 12/01/19 13:37 16 Room Air 12/01/19 12:35 98.0 65 16 165/66 (99) 92 Room Air 98.0 12/01/19 12:00 66 18 140/64 (89) 91 Room Air 12/01/19 11:00 72 22 146/67 (93) Room Air 12/01/19 10:50 20 12/01/19 10:00 71 18 177/81 (113) 12/01/19 09:38 20 12/01/19 09:08 97.5 61 18 171/70 (103) 99 Room Air 97.5 12/01/19 09:05 60 26 161/74 (103) 98 Room Air 12/01/19 08:35 66 21 171/70 (103) 99 Room Air Labs Labs Laboratory Tests Test 12/01/19 08:47 12/02/19 03:25 White Blood Count 10.8 x10^3/uL (4.0-11.0) 16.8 x10^3/uL (4.0-11.0) Red Blood Count 4.69 x10^6/uL (3.50-5.40) 4.50 x10^6/uL (3.50-5.40) Hemoglobin 10.6 g/dL (12.0-15.5) 10.2 g/dL (12.0-15.5) Hematocrit 33.0 % (36.0-47.0) 32.4 % (36.0-47.0) Mean Corpuscular Volume 70 fL (79-100) 72 fL (79-100) Mean Corpuscular Hemoglobin 23 pg (25-35) 23 pg (25-35) Mean Corpuscular Hemoglobin Concent 32 g/dL (31-37) 31 g/dL (31-37) Red Cell Distribution Width 17.7 % (11.5-14.5) 17.9 % (11.5-14.5) Platelet Count 124 x10^3/uL (140-400) 119 x10^3/uL (140-400) Neutrophils (%) (Auto) 81 % (31-73) 96 % (31-73) Lymphocytes (%) (Auto) 12 % (24-48) 3 % (24-48) Monocytes (%) (Auto) 6 % (0-9) 1 % (0-9) Eosinophils (%) (Auto) 0 % (0-3) 0 % (0-3) Basophils (%) (Auto) 0 % (0-3) 0 % (0-3) Neutrophils # (Auto) 8.8 x10^3/uL (1.8-7.7) 16.1 x10^3/uL (1.8-7.7) Lymphocytes # (Auto) 1.3 x10^3/uL (1.0-4.8) 0.5 x10^3/uL (1.0-4.8) Monocytes # (Auto) 0.7 x10^3/uL (0.0-1.1) 0.1 x10^3/uL (0.0-1.1) Eosinophils # (Auto) 0.0 x10^3/uL (0.0-0.7) 0.0 x10^3/uL (0.0-0.7) Basophils # (Auto) 0.0 x10^3/uL (0.0-0.2) 0.0 x10^3/uL (0.0-0.2) Platelet Estimate Decreased (ADEQUATE) Decreased (ADEQUATE) Large Platelets Few Polychromasia Slight Slight Hypochromasia Slight Anisocytosis Slight Mod Target Cells Few Occ Tear Drop Cells Few Occ Ovalocytes Few Prothrombin Time 15.7 SEC (11.7-14.0) Prothromb Time International Ratio 1.3 (0.8-1.1) Activated Partial Thromboplast Time 33 SEC (24-38) Sodium Level 135 mmol/L (136-145) 135 mmol/L (136-145) Potassium Level 3.8 mmol/L (3.5-5.1) 3.3 mmol/L (3.5-5.1) Chloride Level 102 mmol/L (98-107) 103 mmol/L (98-107) Carbon Dioxide Level 23 mmol/L (21-32) 19 mmol/L (21-32) Anion Gap 10 (6-14) 13 (6-14) Blood Urea Nitrogen 13 mg/dL (7-20) 16 mg/dL (7-20) Creatinine 0.9 mg/dL (0.6-1.0) 1.6 mg/dL (0.6-1.0) Estimated GFR (Cockcroft-Gault) 63.7 32.8 BUN/Creatinine Ratio 14 (6-20) 10 (6-20) Glucose Level 107 mg/dL (70-99) 56 mg/dL (70-99) Calcium Level 7.9 mg/dL (8.5-10.1) 7.5 mg/dL (8.5-10.1) Iron Level 103 ug/dL (50-170) 82 ug/dL (50-170) Total Iron Binding Capacity 211 ug/dL (250-450) 183 ug/dL (250-450) Iron Saturation 49 % (15-34) 45 % (15-34) Total Bilirubin 2.7 mg/dL (0.2-1.0) 2.4 mg/dL (0.2-1.0) Aspartate Amino Transf (AST/SGOT) 75 U/L (15-37) 63 U/L (15-37) Alanine Aminotransferase (ALT/SGPT) 49 U/L (14-59) 37 U/L (14-59) Alkaline Phosphatase 129 U/L (46-116) 339 U/L (46-116) Total Protein 7.7 g/dL (6.4-8.2) 6.7 g/dL (6.4-8.2) Albumin 2.6 g/dL (3.4-5.0) 2.2 g/dL (3.4-5.0) Albumin/Globulin Ratio 0.5 (1.0-1.7) 0.5 (1.0-1.7) Lipase 225 U/L (73-393) Segmented Neutrophils % 51 % (35-66) Band Neutrophils % 35 % (0-9) Lymphocytes % 1 % (24-48) Monocytes % 2 % (0-10) Metamyelocytes % 11 % (0-0) Nucleated Red Blood Cells 2 Toxic Vacuolation Mod Dohle Bodies Present Physical Exam Physical Exam Alert Chest clear Heart regular rate and rhythm Abdomen soft, normal bowel sounds, mildly tender in the left lower quadrant Assessment Assessment Sigmoid diverticulitis. Pain control has improved on Dilaudid. However she did have emesis last night and a bump in her white count. This may raise the question of ileus. Also need to consider if her pain worsens that she may have developed a leak. Hepatitis C. She has genotype 3 from 2016. She has developed cirrhosis. We discussed treatment options for her as an outpatient later. Cirrhosis. Plan Plan Will check KUB to rule out ileus Continue IV antibiotics Continue clear liquid diet but if she continues with emesis we will make her n.p.o. Justicifation of Admission Dx: Justifications for Admission: Justification of Admission Dx: Yes MANOLO NIIGUEZ MD Dec 02, 2019 07:45
[2019-12-02] MEDS: IV NORMAL SALINE 1000ML BAG 1,000 ML IV SCH ×3 (07:56→14:04)
[2019-12-02] MEDS: CIPROFLOXACIN 200MG PREMIX 100 ML IV SCH (07:57)
[2019-12-02] MEDS ORDERED: CIPROFLOXACIN 400MG PREMIX 200 ML IV SCH (09:00)
--- NOTE | 2019-12-02 10:22 | NUR ---
SW following. Discussed with RN, pt from home alone, gets around fine. Currently on IV abx. RN advised no SW needs at this time. SW will continue to follow, should any discharge planning needs arise.
--- NOTE | 2019-12-02 11:31 | PDOC ---
PROGRESS NOTES Chief Complaint Chief Complaint Assessment/Plan A/P: Acute diverticulitis -with prior perforation, high risk. Continue IV Cipro and IV Flagyl. Clear liquid diet, consult GI Chronic anemia - possibly thalassemia versus chronic iron deficiency anemia related to occult GI blood loss vs 2/2 Hep C. Has never had a colonoscopy due to loss to follow up from lack of health insurance since 2016. Hepatitis C - chronic, not treated. GI consulted for consideration of anti- viral treatment, also needs alpha-fetoprotein level checked and ultrasound monitoring every 6 months. 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 MELD 15, 6% 3 month mortality. GI consulted Thrombocytopenialikely secondary to her cirrhosis. Will monitor Transaminitis likely secondary to hepatitis C versus acute diverticulitis, will monitor. GERD - on omeprazole Asymptomatic cholelithiasis elevated lactic acid without evidence of shock Sepsis secondary to diverticulitis, continue to follow hemodynamics closely I have discussed with nursing staff to reach out if she becomes unstable FEN - Clear liquid diet, continue with fluid resuscitation with normal saline at 100 mL/h PPX - lovenox FULL CODE Dispo - inpatient History of Present Illness History of Present Illness 12/01: No acute events reported overnight, case discussed with nursing staff patient in no acute distress no complaints during my visit Vitals Vitals Vital Signs Date Time Temp Pulse Resp B/P (MAP) Pulse Ox O2 Delivery O2 Flow Rate FiO2 12/02/19 11:00 97.5 81 18 97/45 (62) 93 Room Air 97.5 Physical Exam General: Alert, Oriented X3, Cooperative, mild distress Heart: Regular rate, Normal S1, Normal S2 Lungs: Clear Abdomen: Normal bowel sounds, Soft, No hepatosplenomegaly, No masses, Other (LLQ pain) Extremities: No clubbing, No cyanosis, No edema, Normal pulses, No tenderness/swelling Skin: No rashes, No breakdown, No significant lesion Labs LABS Laboratory Tests Test 12/02/19 03:25 12/02/19 08:25 White Blood Count 16.8 x10^3/uL (4.0-11.0) Red Blood Count 4.50 x10^6/uL (3.50-5.40) Hemoglobin 10.2 g/dL (12.0-15.5) Hematocrit 32.4 % (36.0-47.0) Mean Corpuscular Volume 72 fL (79-100) Mean Corpuscular Hemoglobin 23 pg (25-35) Mean Corpuscular Hemoglobin Concent 31 g/dL (31-37) Red Cell Distribution Width 17.9 % (11.5-14.5) Platelet Count 119 x10^3/uL (140-400) Neutrophils (%) (Auto) 96 % (31-73) Lymphocytes (%) (Auto) 3 % (24-48) Monocytes (%) (Auto) 1 % (0-9) Eosinophils (%) (Auto) 0 % (0-3) Basophils (%) (Auto) 0 % (0-3) Neutrophils # (Auto) 16.1 x10^3/uL (1.8-7.7) Lymphocytes # (Auto) 0.5 x10^3/uL (1.0-4.8) Monocytes # (Auto) 0.1 x10^3/uL (0.0-1.1) Eosinophils # (Auto) 0.0 x10^3/uL (0.0-0.7) Basophils # (Auto) 0.0 x10^3/uL (0.0-0.2) Segmented Neutrophils % 51 % (35-66) Band Neutrophils % 35 % (0-9) Lymphocytes % 1 % (24-48) Monocytes % 2 % (0-10) Metamyelocytes % 11 % (0-0) Nucleated Red Blood Cells 2 Toxic Vacuolation Mod Dohle Bodies Present Platelet Estimate Decreased (ADEQUATE) Polychromasia Slight Anisocytosis Mod Target Cells Occ Tear Drop Cells Occ Sodium Level 135 mmol/L (136-145) Potassium Level 3.3 mmol/L (3.5-5.1) Chloride Level 103 mmol/L (98-107) Carbon Dioxide Level 19 mmol/L (21-32) Anion Gap 13 (6-14) Blood Urea Nitrogen 16 mg/dL (7-20) Creatinine 1.6 mg/dL (0.6-1.0) Estimated GFR (Cockcroft-Gault) 32.8 BUN/Creatinine Ratio 10 (6-20) Glucose Level 56 mg/dL (70-99) Calcium Level 7.5 mg/dL (8.5-10.1) Iron Level 82 ug/dL (50-170) Total Iron Binding Capacity 183 ug/dL (250-450) Iron Saturation 45 % (15-34) Total Bilirubin 2.4 mg/dL (0.2-1.0) Aspartate Amino Transf (AST/SGOT) 63 U/L (15-37) Alanine Aminotransferase (ALT/SGPT) 37 U/L (14-59) Alkaline Phosphatase 339 U/L (46-116) Total Protein 6.7 g/dL (6.4-8.2) Albumin 2.2 g/dL (3.4-5.0) Albumin/Globulin Ratio 0.5 (1.0-1.7) Vitamin B12 Level > 2000 pg/mL (247-911) Lactic Acid Level 5.4 mmol/L (0.4-2.0) Review of Systems Review of Systems Pertinent as per HPI otherwise 10 point review of system is negative Assessment and Plan Assessmemt and Plan Problems Medical Problems: (1) Diverticulitis Status: Acute Comment Review of Relevant I have reviewed the following items jing (where applicable) has been applied. Labs Laboratory Tests Test 12/01/19 08:47 12/02/19 03:25 12/02/19 08:25 White Blood Count 10.8 x10^3/uL (4.0-11.0) 16.8 x10^3/uL (4.0-11.0) Red Blood Count 4.69 x10^6/uL (3.50-5.40) 4.50 x10^6/uL (3.50-5.40) Hemoglobin 10.6 g/dL (12.0-15.5) 10.2 g/dL (12.0-15.5) Hematocrit 33.0 % (36.0-47.0) 32.4 % (36.0-47.0) Mean Corpuscular Volume 70 fL (79-100) 72 fL (79-100) Mean Corpuscular Hemoglobin 23 pg (25-35) 23 pg (25-35) Mean Corpuscular Hemoglobin Concent 32 g/dL (31-37) 31 g/dL (31-37) Red Cell Distribution Width 17.7 % (11.5-14.5) 17.9 % (11.5-14.5) Platelet Count 124 x10^3/uL (140-400) 119 x10^3/uL (140-400) Neutrophils (%) (Auto) 81 % (31-73) 96 % (31-73) Lymphocytes (%) (Auto) 12 % (24-48) 3 % (24-48) Monocytes (%) (Auto) 6 % (0-9) 1 % (0-9) Eosinophils (%) (Auto) 0 % (0-3) 0 % (0-3) Basophils (%) (Auto) 0 % (0-3) 0 % (0-3) Neutrophils # (Auto) 8.8 x10^3/uL (1.8-7.7) 16.1 x10^3/uL (1.8-7.7) Lymphocytes # (Auto) 1.3 x10^3/uL (1.0-4.8) 0.5 x10^3/uL (1.0-4.8) Monocytes # (Auto) 0.7 x10^3/uL (0.0-1.1) 0.1 x10^3/uL (0.0-1.1) Eosinophils # (Auto) 0.0 x10^3/uL (0.0-0.7) 0.0 x10^3/uL (0.0-0.7) Basophils # (Auto) 0.0 x10^3/uL (0.0-0.2) 0.0 x10^3/uL (0.0-0.2) Platelet Estimate Decreased (ADEQUATE) Decreased (ADEQUATE) Large Platelets Few Polychromasia Slight Slight Hypochromasia Slight Anisocytosis Slight Mod Target Cells Few Occ Tear Drop Cells Few Occ Ovalocytes Few Prothrombin Time 15.7 SEC (11.7-14.0) Prothromb Time International Ratio 1.3 (0.8-1.1) Activated Partial Thromboplast Time 33 SEC (24-38) Sodium Level 135 mmol/L (136-145) 135 mmol/L (136-145) Potassium Level 3.8 mmol/L (3.5-5.1) 3.3 mmol/L (3.5-5.1) Chloride Level 102 mmol/L (98-107) 103 mmol/L (98-107) Carbon Dioxide Level 23 mmol/L (21-32) 19 mmol/L (21-32) Anion Gap 10 (6-14) 13 (6-14) Blood Urea Nitrogen 13 mg/dL (7-20) 16 mg/dL (7-20) Creatinine 0.9 mg/dL (0.6-1.0) 1.6 mg/dL (0.6-1.0) Estimated GFR (Cockcroft-Gault) 63.7 32.8 BUN/Creatinine Ratio 14 (6-20) 10 (6-20) Glucose Level 107 mg/dL (70-99) 56 mg/dL (70-99) Calcium Level 7.9 mg/dL (8.5-10.1) 7.5 mg/dL (8.5-10.1) Iron Level 103 ug/dL (50-170) 82 ug/dL (50-170) Total Iron Binding Capacity 211 ug/dL (250-450) 183 ug/dL (250-450) Iron Saturation 49 % (15-34) 45 % (15-34) Total Bilirubin 2.7 mg/dL (0.2-1.0) 2.4 mg/dL (0.2-1.0) Aspartate Amino Transf (AST/SGOT) 75 U/L (15-37) 63 U/L (15-37) Alanine Aminotransferase (ALT/SGPT) 49 U/L (14-59) 37 U/L (14-59) Alkaline Phosphatase 129 U/L (46-116) 339 U/L (46-116) Total Protein 7.7 g/dL (6.4-8.2) 6.7 g/dL (6.4-8.2) Albumin 2.6 g/dL (3.4-5.0) 2.2 g/dL (3.4-5.0) Albumin/Globulin Ratio 0.5 (1.0-1.7) 0.5 (1.0-1.7) Lipase 225 U/L (73-393) Segmented Neutrophils % 51 % (35-66) Band Neutrophils % 35 % (0-9) Lymphocytes % 1 % (24-48) Monocytes % 2 % (0-10) Metamyelocytes % 11 % (0-0) Nucleated Red Blood Cells 2 Toxic Vacuolation Mod Dohle Bodies Present Vitamin B12 Level > 2000 pg/mL (247-911) Lactic Acid Level 5.4 mmol/L (0.4-2.0) Laboratory Tests Test 7/27/20 03:25 12/02/19 08:25 White Blood Count 16.8 x10^3/uL (4.0-11.0) Red Blood Count 4.50 x10^6/uL (3.50-5.40) Hemoglobin 10.2 g/dL (12.0-15.5) Hematocrit 32.4 % (36.0-47.0) Mean Corpuscular Volume 72 fL (79-100) Mean Corpuscular Hemoglobin 23 pg (25-35) Mean Corpuscular Hemoglobin Concent 31 g/dL (31-37) Red Cell Distribution Width 17.9 % (11.5-14.5) Platelet Count 119 x10^3/uL (140-400) Neutrophils (%) (Auto) 96 % (31-73) Lymphocytes (%) (Auto) 3 % (24-48) Monocytes (%) (Auto) 1 % (0-9) Eosinophils (%) (Auto) 0 % (0-3) Basophils (%) (Auto) 0 % (0-3) Neutrophils # (Auto) 16.1 x10^3/uL (1.8-7.7) Lymphocytes # (Auto) 0.5 x10^3/uL (1.0-4.8) Monocytes # (Auto) 0.1 x10^3/uL (0.0-1.1) Eosinophils # (Auto) 0.0 x10^3/uL (0.0-0.7) Basophils # (Auto) 0.0 x10^3/uL (0.0-0.2) Segmented Neutrophils % 51 % (35-66) Band Neutrophils % 35 % (0-9) Lymphocytes % 1 % (24-48) Monocytes % 2 % (0-10) Metamyelocytes % 11 % (0-0) Nucleated Red Blood Cells 2 Toxic Vacuolation Mod Dohle Bodies Present Platelet Estimate Decreased (ADEQUATE) Polychromasia Slight Anisocytosis Mod Target Cells Occ Tear Drop Cells Occ Sodium Level 135 mmol/L (136-145) Potassium Level 3.3 mmol/L (3.5-5.1) Chloride Level 103 mmol/L (98-107) Carbon Dioxide Level 19 mmol/L (21-32) Anion Gap 13 (6-14) Blood Urea Nitrogen 16 mg/dL (7-20) Creatinine 1.6 mg/dL (0.6-1.0) Estimated GFR (Cockcroft-Gault) 32.8 BUN/Creatinine Ratio 10 (6-20) Glucose Level 56 mg/dL (70-99) Calcium Level 7.5 mg/dL (8.5-10.1) Iron Level 82 ug/dL (50-170) Total Iron Binding Capacity 183 ug/dL (250-450) Iron Saturation 45 % (15-34) Total Bilirubin 2.4 mg/dL (0.2-1.0) Aspartate Amino Transf (AST/SGOT) 63 U/L (15-37) Alanine Aminotransferase (ALT/SGPT) 37 U/L (14-59) Alkaline Phosphatase 339 U/L (46-116) Total Protein 6.7 g/dL (6.4-8.2) Albumin 2.2 g/dL (3.4-5.0) Albumin/Globulin Ratio 0.5 (1.0-1.7) Vitamin B12 Level > 2000 pg/mL (247-911) Lactic Acid Level 5.4 mmol/L (0.4-2.0) Medications Current Medications Sodium Chloride 1,000 ml @ 1,000 mls/hr 1X ONCE IV Last administered on 12/01/19at 09:38; Start 12/01/19 at 09:00; Stop 12/01/19 at 09:59; Status DC Ondansetron HCl (Zofran) 4 mg 1X ONCE IVP Last administered on 12/01/19at 09:38; Start 12/01/19 at 09:00; Stop 12/01/19 at 09:01; Status DC Morphine Sulfate (Morphine Sulfate) 4 mg 1X ONCE IV Last administered on 12/01/19at 09:38; Start 12/01/19 at 09:15; Stop 12/01/19 at 09:17; Status DC Iohexol (Omnipaque 300 Mg/ml) 75 ml 1X ONCE IV Last administered on 12/01/19at 10:10; Start 12/01/19 at 09:45; Stop 12/01/19 at 09:46; Status DC Metronidazole 100 ml @ 100 mls/hr 1X ONCE IV Last administered on 12/01/19at 14:03; Start 12/01/19 at 11:00; Stop 12/01/19 at 11:59; Status DC Ciprofloxacin/ Dextrose 200 ml @ 200 mls/hr 1X ONCE IV Last administered on 12/01/19at 10:51; Start 12/01/19 at 11:30; Stop 12/01/19 at 12:29; Status DC Fentanyl Citrate (Fentanyl 2ml Vial) 75 mcg 1X ONCE IVP Last administered on 12/01/19at 10:50; Start 12/01/19 at 10:45; Stop 12/01/19 at 10:46; Status DC Ondansetron HCl (Zofran) 4 mg PRN Q8HRS PRN IV NAUSEA/VOMITING; Start 12/01/19 at 10:45; Stop 12/01/19 at 15:03; Status DC Morphine Sulfate (Morphine Sulfate) 4 mg PRN Q2HR PRN IV PAIN Last administered on 12/01/19at 13:37; Start 12/01/19 at 10:45; Stop 12/01/19 at 15:26; Status DC Sodium Chloride 1,000 ml @ 100 mls/hr Q10H IV Last administered on 12/02/19at 07:56; Start 12/01/19 at 10:36; Stop 12/02/19 at 10:35; Status DC Ondansetron HCl (Zofran) 4 mg PRN Q4HRS PRN IV NAUSEA/VOMITING Last administered on 12/01/19at 23:21; Start 12/01/19 at 15:15 Hydromorphone HCl (Dilaudid) 1 mg PRN Q4HRS PRN IV PAIN Last administered on 12/02/19at 06:35; Start 12/01/19 at 15:30 Ciprofloxacin/ Dextrose 100 ml @ 100 mls/hr Q12HR IV Last administered on 12/02/19at 07:57; Start 12/01/19 at 21:00 Metronidazole 100 ml @ 100 mls/hr Q8HRS IV ; Start 12/01/19 at 22:00; Status UNV Ciprofloxacin/ Dextrose 200 ml @ 200 mls/hr DAILY IV ; Start 12/02/19 at 09:00; Status UNV Metronidazole 100 ml @ 100 mls/hr Q12HR IV Last administered on 12/02/19at 09:09; Start 12/01/19 at 21:00 Enoxaparin Sodium (Lovenox 40mg Syringe) 40 mg Q24H SQ Last administered on 12/01/19at 15:53; Start 12/01/19 at 16:00 Psyllium Hydrophilic Mucilloid (Metamucil Fiber Packet) 1 pkt QPM PO Last administered on 12/01/19at 17:40; Start 12/01/19 at 18:00 Prochlorperazine Edisylate (Compazine) 10 mg PRN Q6HRS PRN IM NAUSEA/VOMITING; Start 12/01/19 at 23:30 Active Scripts Active Klor-Con M20 (Potassium Chloride) 20 Meq Tab.er.prt 20 Meq PO DAILYWBKFT Oxycodone-Acetaminophen 5-325 (Oxycodone Hcl/Acetaminophen) 1 Each Tablet 1 Tab PO PRN Q4HRS PRN Mag-Oxide (Magnesium Oxide) 400 Mg Tablet 400 Mg PO DAILY Lisinopril 20 Mg Tablet 20 Mg PO DAILY NICODERM CQ 7mg (Nicotine) 1 Each Patch.td24 1 Patch TD DAILY Slow Release Iron (Ferrous Sulfate) 142 Mg Tablet.er 142 Mg PO DAILYWBKFT Reported Tylenol (Acetaminophen) 325 Mg Tablet 650 Mg PO PRN Q4-6HRS PRN Vitals/I & O Vital Sign - Last 24 Hours 12/01/19 12/01/19 12/01/19 12/01/19 12:00 12:35 13:37 14:17 Temp 98.0 98.0 Pulse 66 65 Resp 18 16 16 16 B/P (MAP) 140/64 (89) 165/66 (99) Pulse Ox 91 92 O2 Delivery Room Air Room Air Room Air Room Air 12/01/19 12/01/19 12/01/19 12/01/19 15:00 15:54 16:25 16:31 Pulse 84 Resp 16 16 16 B/P (MAP) 136/65 (88) Pulse Ox 92 O2 Delivery Room Air Room Air Room Air Room Air 12/01/19 12/01/19 12/01/19 12/01/19 19:00 20:00 21:09 21:39 Temp 98.4 98.4 Pulse 88 Resp 18 B/P (MAP) 127/64 (85) Pulse Ox 93 93 93 O2 Delivery Room Air Room Air Room Air Room Air 12/02/19 12/02/19 12/02/19 12/02/19 03:00 06:35 07:00 07:08 Temp 98.6 97.8 98.6 97.8 Pulse 68 85 Resp 18 18 B/P (MAP) 122/66 (84) 129/63 (85) Pulse Ox 95 95 94 O2 Delivery Room Air Room Air Room Air Room Air 12/02/19 12/02/19 07:55 11:00 Temp 97.5 97.5 Pulse 81 Resp 18 B/P (MAP) 97/45 (62) Pulse Ox 94 93 O2 Delivery Room Air Room Air Intake and Output 12/01/19 12/01/19 12/02/19 15:00 23:00 07:00 Intake Total 200 ml Balance 200 ml Justicifation of Admission Dx: Justifications for Admission: Justification of Admission Dx: Yes MEGHAN CHERY MD Dec 02, 2019 11:31
[2019-12-02] MEDS ORDERED: IV NORMAL SALINE 1000ML BAG 1,000 ML IV SCH (13:27)
[2019-12-02] MEDS ORDERED: IV NORMAL SALINE 1000ML BAG 1,000 ML IV ONE (13:30)
[2019-12-02] MEDS ORDERED: ONDANSETRON PF 4 MG/2 ML VIAL. IVP PRN (13:30)
[2019-12-02] MEDS ORDERED: LACTULOSE 20 GM/30 ML SOLUTION. PO PRN (13:30)
[2019-12-02] MEDS ORDERED: NOREPINEPHRINE VIAL 8 MG in IV DEXTROSE 5% 250 ML IV PRN (13:30)
[2019-12-02] MEDS ORDERED: IV NORMAL SALINE 500ML BAG 500 ML IV PRN (13:30)
--- NOTE | 2019-12-02 13:36 | NUR ---
Notified Dr. Mcclelland of critical lactic acid of 5.5 and last low blood pressure reading, re-took blood pressure and it was 99/52, pulse 83. Received new orders from Dr. Mcclelland for 1 liter bolus of NS and transfer to ICU, notified patient and brine supervisor, received ICU bed of 106. Addendum: 12/02/19 at 1424 by ZANE FRENCH RN Report given to CORAL Noguera in ICU.
[2019-12-02] MEDS: SENNOSIDES/DOCUSATE 8.6/50MG TABLET. PO SCH ×2 (14:00→21:35)
--- NOTE | 2019-12-02 14:41 | RAD ---
KUB compared to CT scan of the abdomen and pelvis dated November 302019 for rule out ileus. FINDINGS: There are scattered abdominal bowel gas in a nonobstructive pattern, with air and stool seen throughout the distal colon and rectum. No significant soft tissue or osseous abnormalities. IMPRESSION: 1. Nonobstructive nonspecific bowel gas pattern. Electronically signed by: Mark Bourne MD (12/02/2019 2:38 PM) [id number]
--- NOTE | 2019-12-02 16:38 | PDOC2 ---
CONSULT Date of Consult Date of Consult DATE: 12/02/19 TIME: 16:35 Reason for Consult Reason for Consult: Diverticulitis Referring Physician Referring Physician: Dr. Betts Identification/Chief Complaint Chief Complaint LLQ abd pain Source Source: Chart review, Patient History of Present Illness Reason for Visit: 59 yo F with hx of diverticulitis, presents with c/o LLQ abd pain. Pain is now resolved and she feels better. Pt was transferred to ICU for concerns for infection, but feels well now. Past Medical History Cardiovascular: No pertinent hx Pulmonary: No pertinent hx GI: Diverticulosis Heme/Onc: No pertinent hx, Anemia NOS Hepatobiliary: Hep A/B/C (C) Psych: No pertinent hx Rheumatologic: No pertinent hx Infectious disease: No pertinent hx Renal/: No pertinent hx Endocrine: No pertinent hx Past Surgical History Past Surgical History: No pertinent history Family History Family History: No Significant Social History No ALCOHOL: occassional Drugs: None Current Problem List Problem List Problems Medical Problems: (1) Diverticulitis Status: Acute Current Medications Current Medications Current Medications Sodium Chloride 1,000 ml @ 1,000 mls/hr 1X ONCE IV Last administered on 12/01/19at 09:38; Start 12/01/19 at 09:00; Stop 12/01/19 at 09:59; Status DC Ondansetron HCl (Zofran) 4 mg 1X ONCE IVP Last administered on 12/01/19at 09:38; Start 12/01/19 at 09:00; Stop 12/01/19 at 09:01; Status DC Morphine Sulfate (Morphine Sulfate) 4 mg 1X ONCE IV Last administered on 12/01/19at 09:38; Start 12/01/19 at 09:15; Stop 12/01/19 at 09:17; Status DC Iohexol (Omnipaque 300 Mg/ml) 75 ml 1X ONCE IV Last administered on 12/01/19at 10:10; Start 12/01/19 at 09:45; Stop 12/01/19 at 09:46; Status DC Metronidazole 100 ml @ 100 mls/hr 1X ONCE IV Last administered on 12/01/19at 14:03; Start 12/01/19 at 11:00; Stop 12/01/19 at 11:59; Status DC Ciprofloxacin/ Dextrose 200 ml @ 200 mls/hr 1X ONCE IV Last administered on 12/01/19at 10:51; Start 12/01/19 at 11:30; Stop 12/01/19 at 12:29; Status DC Fentanyl Citrate (Fentanyl 2ml Vial) 75 mcg 1X ONCE IVP Last administered on 12/01/19at 10:50; Start 12/01/19 at 10:45; Stop 12/01/19 at 10:46; Status DC Ondansetron HCl (Zofran) 4 mg PRN Q8HRS PRN IV NAUSEA/VOMITING; Start 12/01/19 at 10:45; Stop 12/01/19 at 15:03; Status DC Morphine Sulfate (Morphine Sulfate) 4 mg PRN Q2HR PRN IV PAIN Last administered on 12/01/19at 13:37; Start 12/01/19 at 10:45; Stop 12/01/19 at 15:26; Status DC Sodium Chloride 1,000 ml @ 100 mls/hr Q10H IV Last administered on 12/02/19at 07:56; Start 12/01/19 at 10:36; Stop 12/02/19 at 10:35; Status DC Ondansetron HCl (Zofran) 4 mg PRN Q4HRS PRN IV NAUSEA/VOMITING Last administered on 12/01/19at 23:21; Start 12/01/19 at 15:15 Hydromorphone HCl (Dilaudid) 1 mg PRN Q4HRS PRN IV PAIN Last administered on 12/02/19at 06:35; Start 12/01/19 at 15:30 Ciprofloxacin/ Dextrose 100 ml @ 100 mls/hr Q12HR IV Last administered on 12/02/19at 07:57; Start 12/01/19 at 21:00; Stop 12/02/19 at 14:32; Status DC Metronidazole 100 ml @ 100 mls/hr Q8HRS IV ; Start 12/01/19 at 22:00; Status UNV Ciprofloxacin/ Dextrose 200 ml @ 200 mls/hr DAILY IV ; Start 12/02/19 at 09:00; Status UNV Metronidazole 100 ml @ 100 mls/hr Q12HR IV Last administered on 12/02/19at 09:09; Start 12/01/19 at 21:00 Enoxaparin Sodium (Lovenox 40mg Syringe) 40 mg Q24H SQ Last administered on 12/01/19at 15:53; Start 12/01/19 at 16:00 Psyllium Hydrophilic Mucilloid (Metamucil Fiber Packet) 1 pkt QPM PO Last administered on 12/01/19at 17:40; Start 12/01/19 at 18:00 Prochlorperazine Edisylate (Compazine) 10 mg PRN Q6HRS PRN IM NAUSEA/VOMITING; Start 12/01/19 at 23:30 Sodium Chloride 1,000 ml @ 1,000 mls/hr 1X ONCE IV Last administered on 12/02/19at 13:30; Start 12/02/19 at 13:30; Stop 12/02/19 at 14:29; Status DC Lorazepam (Ativan Inj) 0.5 mg PRN Q6HRS PRN IVP ANXIETY / AGITATION; Start 12/02/19 at 13:30 Ondansetron HCl (Zofran) 4 mg PRN Q6HRS PRN IVP NAUSEA/VOMITING; Start 12/02/19 at 13:30 Info (Icu Electrolyte Protocol) 1 ea DAILY MC ; Start 12/03/19 at 09:00 Sodium Chloride 1,000 ml @ 1,000 mls/hr Q1H IV Last administered on 12/02/19at 13:27; Start 12/02/19 at 13:27; Stop 12/02/19 at 14:26; Status DC Senna/Docusate Sodium (Senna Plus) 1 tab BID PO ; Start 12/02/19 at 14:00 Lactulose (Lactulose) 20 gm PRN Q12HR PRN PO CONSTIPATION; Start 12/02/19 at 13:30 Sodium Chloride 1,000 ml @ 1,650 mls/hr Q37M IV ; Start 12/02/19 at 13:27; Stop 12/02/19 at 14:27; Status DC Sodium Chloride 500 ml @ 1,000 mls/hr PRN Q30MIN PRN IV shock; Start 12/02/19 at 13:30 Cefepime HCl (Maxipime) 2 gm Q12HR IVP ; Start 12/02/19 at 14:00 Norepinephrine Bitartrate 8 mg/ Dextrose 258 ml @ 0 mls/hr CONT PRN IV SHOCK; Start 12/02/19 at 13:30 Dobutamine HCl/ Dextrose 250 ml @ 0 mls/hr CONT PRN IV shock; Start 12/02/19 at 13:30 Norepinephrine Bitartrate 8 mg/ Dextrose 258 ml @ 14.067 mls/ hr CONT PRN IV PER PROTOCOL; Start 12/02/19 at 16:15 Active Scripts Active Klor-Con M20 (Potassium Chloride) 20 Meq Tab.er.prt 20 Meq PO DAILYWBKFT Oxycodone-Acetaminophen 5-325 (Oxycodone Hcl/Acetaminophen) 1 Each Tablet 1 Tab PO PRN Q4HRS PRN Mag-Oxide (Magnesium Oxide) 400 Mg Tablet 400 Mg PO DAILY Lisinopril 20 Mg Tablet 20 Mg PO DAILY NICODERM CQ 7mg (Nicotine) 1 Each Patch.td24 1 Patch TD DAILY Slow Release Iron (Ferrous Sulfate) 142 Mg Tablet.er 142 Mg PO DAILYWBKFT Reported Tylenol (Acetaminophen) 325 Mg Tablet 650 Mg PO PRN Q4-6HRS PRN Allergies Allergies: Coded Allergies: No Known Drug Allergies (Unverified , 09/26/15) ROS Gastrointestinal: Yes Abdominal Pain Physical Exam General: Alert, Oriented X3, Cooperative, No acute distress HEENT: Atraumatic, EOMI Lungs: Normal air movement Abdomen: Soft, No tenderness, No masses Extremities: No clubbing, No cyanosis Skin: No rashes, No breakdown Neuro: Normal speech, Sensation intact Psych/Mental Status: Mental status NL, Mood NL Vitals VITALS Vital Signs Date Time Temp Pulse Resp B/P (MAP) Pulse Ox O2 Delivery O2 Flow Rate FiO2 12/02/19 11:00 97.5 81 18 97/45 (62) 93 Room Air 97.5 Labs Labs Laboratory Tests Test 12/01/19 08:47 12/02/19 03:25 12/02/19 08:25 12/02/19 12:30 White Blood Count 10.8 x10^3/uL (4.0-11.0) 16.8 x10^3/uL (4.0-11.0) Red Blood Count 4.69 x10^6/uL (3.50-5.40) 4.50 x10^6/uL (3.50-5.40) Hemoglobin 10.6 g/dL (12.0-15.5) 10.2 g/dL (12.0-15.5) Hematocrit 33.0 % (36.0-47.0) 32.4 % (36.0-47.0) Mean Corpuscular Volume 70 fL (79-100) 72 fL (79-100) Mean Corpuscular Hemoglobin 23 pg (25-35) 23 pg (25-35) Mean Corpuscular Hemoglobin Concent 32 g/dL (31-37) 31 g/dL (31-37) Red Cell Distribution Width 17.7 % (11.5-14.5) 17.9 % (11.5-14.5) Platelet Count 124 x10^3/uL (140-400) 119 x10^3/uL (140-400) Neutrophils (%) (Auto) 81 % (31-73) 96 % (31-73) Lymphocytes (%) (Auto) 12 % (24-48) 3 % (24-48) Monocytes (%) (Auto) 6 % (0-9) 1 % (0-9) Eosinophils (%) (Auto) 0 % (0-3) 0 % (0-3) Basophils (%) (Auto) 0 % (0-3) 0 % (0-3) Neutrophils # (Auto) 8.8 x10^3/uL (1.8-7.7) 16.1 x10^3/uL (1.8-7.7) Lymphocytes # (Auto) 1.3 x10^3/uL (1.0-4.8) 0.5 x10^3/uL (1.0-4.8) Monocytes # (Auto) 0.7 x10^3/uL (0.0-1.1) 0.1 x10^3/uL (0.0-1.1) Eosinophils # (Auto) 0.0 x10^3/uL (0.0-0.7) 0.0 x10^3/uL (0.0-0.7) Basophils # (Auto) 0.0 x10^3/uL (0.0-0.2) 0.0 x10^3/uL (0.0-0.2) Platelet Estimate Decreased (ADEQUATE) Decreased (ADEQUATE) Large Platelets Few Polychromasia Slight Slight Hypochromasia Slight Anisocytosis Slight Mod Target Cells Few Occ Tear Drop Cells Few Occ Ovalocytes Few Prothrombin Time 15.7 SEC (11.7-14.0) Prothromb Time International Ratio 1.3 (0.8-1.1) Activated Partial Thromboplast Time 33 SEC (24-38) Sodium Level 135 mmol/L (136-145) 135 mmol/L (136-145) Potassium Level 3.8 mmol/L (3.5-5.1) 3.3 mmol/L (3.5-5.1) Chloride Level 102 mmol/L (98-107) 103 mmol/L (98-107) Carbon Dioxide Level 23 mmol/L (21-32) 19 mmol/L (21-32) Anion Gap 10 (6-14) 13 (6-14) Blood Urea Nitrogen 13 mg/dL (7-20) 16 mg/dL (7-20) Creatinine 0.9 mg/dL (0.6-1.0) 1.6 mg/dL (0.6-1.0) Estimated GFR (Cockcroft-Gault) 63.7 32.8 BUN/Creatinine Ratio 14 (6-20) 10 (6-20) Glucose Level 107 mg/dL (70-99) 56 mg/dL (70-99) Calcium Level 7.9 mg/dL (8.5-10.1) 7.5 mg/dL (8.5-10.1) Iron Level 103 ug/dL (50-170) 82 ug/dL (50-170) Total Iron Binding Capacity 211 ug/dL (250-450) 183 ug/dL (250-450) Iron Saturation 49 % (15-34) 45 % (15-34) Total Bilirubin 2.7 mg/dL (0.2-1.0) 2.4 mg/dL (0.2-1.0) Aspartate Amino Transf (AST/SGOT) 75 U/L (15-37) 63 U/L (15-37) Alanine Aminotransferase (ALT/SGPT) 49 U/L (14-59) 37 U/L (14-59) Alkaline Phosphatase 129 U/L (46-116) 339 U/L (46-116) Total Protein 7.7 g/dL (6.4-8.2) 6.7 g/dL (6.4-8.2) Albumin 2.6 g/dL (3.4-5.0) 2.2 g/dL (3.4-5.0) Albumin/Globulin Ratio 0.5 (1.0-1.7) 0.5 (1.0-1.7) Lipase 225 U/L (73-393) Segmented Neutrophils % 51 % (35-66) Band Neutrophils % 35 % (0-9) Lymphocytes % 1 % (24-48) Monocytes % 2 % (0-10) Metamyelocytes % 11 % (0-0) Nucleated Red Blood Cells 2 Toxic Vacuolation Mod Dohle Bodies Present Vitamin B12 Level > 2000 pg/mL (247-911) Lactic Acid Level 5.4 mmol/L (0.4-2.0) 5.5 mmol/L (0.4-2.0) Procalcitonin 91.13 ng/mL (0.00-0.10) Laboratory Tests Test 12/02/19 03:25 12/02/19 08:25 12/02/19 12:30 White Blood Count 16.8 x10^3/uL (4.0-11.0) Red Blood Count 4.50 x10^6/uL (3.50-5.40) Hemoglobin 10.2 g/dL (12.0-15.5) Hematocrit 32.4 % (36.0-47.0) Mean Corpuscular Volume 72 fL (79-100) Mean Corpuscular Hemoglobin 23 pg (25-35) Mean Corpuscular Hemoglobin Concent 31 g/dL (31-37) Red Cell Distribution Width 17.9 % (11.5-14.5) Platelet Count 119 x10^3/uL (140-400) Neutrophils (%) (Auto) 96 % (31-73) Lymphocytes (%) (Auto) 3 % (24-48) Monocytes (%) (Auto) 1 % (0-9) Eosinophils (%) (Auto) 0 % (0-3) Basophils (%) (Auto) 0 % (0-3) Neutrophils # (Auto) 16.1 x10^3/uL (1.8-7.7) Lymphocytes # (Auto) 0.5 x10^3/uL (1.0-4.8) Monocytes # (Auto) 0.1 x10^3/uL (0.0-1.1) Eosinophils # (Auto) 0.0 x10^3/uL (0.0-0.7) Basophils # (Auto) 0.0 x10^3/uL (0.0-0.2) Segmented Neutrophils % 51 % (35-66) Band Neutrophils % 35 % (0-9) Lymphocytes % 1 % (24-48) Monocytes % 2 % (0-10) Metamyelocytes % 11 % (0-0) Nucleated Red Blood Cells 2 Toxic Vacuolation Mod Dohle Bodies Present Platelet Estimate Decreased (ADEQUATE) Polychromasia Slight Anisocytosis Mod Target Cells Occ Tear Drop Cells Occ Sodium Level 135 mmol/L (136-145) Potassium Level 3.3 mmol/L (3.5-5.1) Chloride Level 103 mmol/L (98-107) Carbon Dioxide Level 19 mmol/L (21-32) Anion Gap 13 (6-14) Blood Urea Nitrogen 16 mg/dL (7-20) Creatinine 1.6 mg/dL (0.6-1.0) Estimated GFR (Cockcroft-Gault) 32.8 BUN/Creatinine Ratio 10 (6-20) Glucose Level 56 mg/dL (70-99) Calcium Level 7.5 mg/dL (8.5-10.1) Iron Level 82 ug/dL (50-170) Total Iron Binding Capacity 183 ug/dL (250-450) Iron Saturation 45 % (15-34) Total Bilirubin 2.4 mg/dL (0.2-1.0) Aspartate Amino Transf (AST/SGOT) 63 U/L (15-37) Alanine Aminotransferase (ALT/SGPT) 37 U/L (14-59) Alkaline Phosphatase 339 U/L (46-116) Total Protein 6.7 g/dL (6.4-8.2) Albumin 2.2 g/dL (3.4-5.0) Albumin/Globulin Ratio 0.5 (1.0-1.7) Vitamin B12 Level > 2000 pg/mL (247-911) Lactic Acid Level 5.4 mmol/L (0.4-2.0) 5.5 mmol/L (0.4-2.0) Procalcitonin 91.13 ng/mL (0.00-0.10) Images Images CT with diverticulitis and cirrhosis changes Assessment/Plan Assessment/Plan diverticulitis agree with supportive care and abx. given cirrhosis changes and evidence of shunting, pt is a prohibitive surgical candidate. Thanks for consult! CRISTIAN LUIS MD Dec 02, 2019 16:38
[2019-12-02] MEDS: ENOXAPARIN 40 MG/0.4 ML SYRINGE. SQ SCH (16:53)
[2019-12-02] MEDS: CEFEPIME HCL IV Push 2 GM VIAL. IVP SCH ×2 (16:54→21:37)
[2019-12-02] MEDS: NOREPINEPHRINE VIAL 8 MG in IV DEXTROSE 5% 250 ML IV PRN (17:09)
[2019-12-02] MEDS: PSYLLIUM HUSK (SUGAR FREE) 1 PKT PACKET PO SCH (17:13)
--- NOTE | 2019-12-02 19:51 | NUR ---
late entry Received patient into 106. A/O anxious ie Transfer to ICU. Amb from bed in hallway to bed 106 per floor nurse suggestion. Patient denies orthostatic symptoms. Fluids restarted. Pressures w low map. Levo started after #20 IV start per [place] RN REJ. (note call to anesthesia for cetral line but gone for the day)Tearful after BP med started. Ativan per order w assist in relief from anxious feelings diminished. GHas not voisd at this time and denies "urge" . No bladder distension palpated. Titrate meds per parameters . Repeat lactic down 3.2.
[2019-12-02] MEDS: ONDANSETRON PF 4 MG/2 ML VIAL. IV PRN (21:12)
[2019-12-02 21:34] LABS: BILIRUBIN,URINE LARGE (NEG); CLARITY,URINE TURBID; NITRITE,URINE POSITIVE (NEG); PROTEIN,URINE 100 mg/dL (NEG-TRACE)
[2019-12-02 21:44] LABS: COLOR,URINE BROWN
[2019-12-02 21:47] LABS: BACTERIA,URINE MANY /HPF (0-FEW); SQUAMOUS EPITHELIAL CELL,UR MOD /LPF; WBC,URINE >40 /HPF (0-4)
[2019-12-02 23:24] LABS: CALCIUM 7.1 mg/dL (8.5-10.1); GFR 15.9; POTASSIUM 4.6 mmol/L (3.5-5.1)
[2019-12-02 23:40] LABS: BASO % 0 % (0-3); EOS # 0.4 x10^3/uL (0.0-0.7); EOS % 4 % (0-3); HEMATOCRIT 33.2 % (36.0-47.0); HEMOGLOBIN 10.6 g/dL (12.0-15.5); LYMPH # 1.1 x10^3/uL (1.0-4.8); LYMPH % 11 % (24-48); MEAN CORPUSCULAR HEMOGLOBIN 23 pg (25-35); MEAN CORPUSCULAR HGB CONC 32 g/dL (31-37); MEAN CORPUSCULAR VOLUME 72 fL (79-100); MONO # 0.2 x10^3/uL (0.0-1.1); MONO % 2 % (0-9); NEUT # 8.5 x10^3/uL (1.8-7.7); NEUT % 83 % (31-73); PLATELET COUNT 136 x10^3/uL (140-400); RED BLOOD COUNT 4.63 x10^6/uL (3.50-5.40); RED CELL DISTRIBUTION WIDTH 18.3 % (11.5-14.5); WHITE BLOOD COUNT 10.1 x10^3/uL (4.0-11.0)
[2019-12-03] VITALS (24 sets, daily range): BP systolic 90–128; BP diastolic 42–88
--- NOTE | 2019-12-03 00:30 | NUR ---
Pt c/o LLQ tenderness but wants to abstain from pain medications for the time being at roughly 2200. Pt c/o suddenly getting extremely cold at 2230, pt begins shivering uncontrollably and breathing shallow and rapidly to where O2 saturation was only reading between high 70's to mid 80's. Pt provided warm blankets. Pt temperature taken, noted to be 100.3 up from an earlier 98.6. Pt heart rate in 120's and BP 130's/ 80's by 2300. Pt A&O only x2 in comparison to an earlier x4 score. Pt speech slightly slurred. Pt given Ativan IVP. Pt heart rate and breathing rate and shivering decreased shortly after med was given. Stat CBC and BMP was drawn and analyzed. [place] in Lab called to verify pt did not receive potassium today, concern of shift in potassium present from 12/01 am's value of 3.3 to the current potassium level of 4.6. Lab advised that this RN will update them if he receives further instruction/ follow up from provider guidance. Provider paged at [phone]. Provider answering service connected this RN to provider at [phone]. Provider updated on pt events leading to admission and xfer to ICU from upstairs floor, pt diagnoses, pt history, demographics information, current physicians following case, current medical interventions and medications, current vitals, recent details of episode regarding rapid breathing and elevated vitals, pt c/o pain in LLQ, recent UA results and minimal urine presentation/ characteristics, recent CBC and BMP values findings and concern from Lab, insignificant bladder scan findings. Provider ordered this RN to consult renal and infectious disease in am of 12/02. Provider order this RN to not change fluids rate at this time. Provider acknowledged this RN's mention of no Renal Ultrasound being performed yet and advised this RN that renal would typically order ultrasound and advised that one could be ordered for the morning with Renal providers discretion. Provider ordered 27mg Nicotine patch scheduled daily for pt. Will continue to assess and monitor for significant changes in pt status from this point in time.
[2019-12-03] MEDS: NOREPINEPHRINE VIAL 8 MG in IV DEXTROSE 5% 250 ML IV PRN ×3 (06:08→22:01)
[2019-12-03 06:11] LABS: CREATININE 3.1 mg/dL (0.6-1.0); GFR 15.3; POTASSIUM 5.3 mmol/L (3.5-5.1)
[2019-12-03 06:26] LABS: BASO % 0 % (0-3); EOS % 0 % (0-3); HEMATOCRIT 30.8 % (36.0-47.0); HEMOGLOBIN 9.8 g/dL (12.0-15.5); LYMPH # 0.6 x10^3/uL (1.0-4.8); LYMPH % 2 % (24-48); MEAN CORPUSCULAR HEMOGLOBIN 22 pg (25-35); MEAN CORPUSCULAR HGB CONC 32 g/dL (31-37); MEAN CORPUSCULAR VOLUME 70 fL (79-100); MONO # 1.5 x10^3/uL (0.0-1.1); MONO % 4 % (0-9); NEUT # 38.6 x10^3/uL (1.8-7.7); NEUT % 95 % (31-73); PLATELET COUNT 99 x10^3/uL (140-400); RED BLOOD COUNT 4.38 x10^6/uL (3.50-5.40); RED CELL DISTRIBUTION WIDTH 18.2 % (11.5-14.5)
[2019-12-03 06:35] LABS: WHITE BLOOD COUNT 40.8 x10^3/uL (4.0-11.0)
--- NOTE | 2019-12-03 06:54 | PDOC ---
Infectious Disease Note Vital Sign Vital Signs Vital Signs Date Time Temp Pulse Resp B/P (MAP) Pulse Ox O2 Delivery O2 Flow Rate FiO2 12/03/19 05:00 82 17 91/49 (63) 99 Room Air 12/03/19 04:00 98.9 98.9 12/03/19 00:00 3.0 Labs Lab Laboratory Tests Test 12/02/19 08:25 12/02/19 12:30 12/02/19 16:40 12/02/19 20:17 Lactic Acid Level 5.4 mmol/L (0.4-2.0) 5.5 mmol/L (0.4-2.0) 3.2 mmol/L (0.4-2.0) 2.8 mmol/L (0.4-2.0) Procalcitonin 91.13 ng/mL (0.00-0.10) Test 12/02/19 21:30 12/02/19 23:10 12/03/19 05:35 Urine Collection Type Unknown Urine Color Brown Urine Clarity Turbid Urine pH 5.0 (<5.0-8.0) Urine Specific [place] >=1.030 (1.000-1.030) Urine Protein 100 mg/dL (NEG-TRACE) Urine Glucose (UA) Negative mg/dL (NEG) Urine Ketones (Stick) 15 mg/dL (NEG) Urine Blood Negative (NEG) Urine Nitrite Positive (NEG) Urine Bilirubin Large (NEG) Urine Urobilinogen Dipstick 2.0 mg/dL (0.2 mg/dL) Urine Leukocyte Esterase Moderate (NEG) Urine RBC 6-10 /HPF (0-2) Urine WBC >40 /HPF (0-4) Urine Squamous Epithelial Cells Mod /LPF Urine Bacteria Many /HPF (0-FEW) White Blood Count 10.1 x10^3/uL (4.0-11.0) Red Blood Count 4.63 x10^6/uL (3.50-5.40) Hemoglobin 10.6 g/dL (12.0-15.5) Hematocrit 33.2 % (36.0-47.0) Mean Corpuscular Volume 72 fL (79-100) Mean Corpuscular Hemoglobin 23 pg (25-35) Mean Corpuscular Hemoglobin Concent 32 g/dL (31-37) Red Cell Distribution Width 18.3 % (11.5-14.5) Platelet Count 136 x10^3/uL (140-400) Neutrophils (%) (Auto) 83 % (31-73) Lymphocytes (%) (Auto) 11 % (24-48) Monocytes (%) (Auto) 2 % (0-9) Eosinophils (%) (Auto) 4 % (0-3) Basophils (%) (Auto) 0 % (0-3) Neutrophils # (Auto) 8.5 x10^3/uL (1.8-7.7) Lymphocytes # (Auto) 1.1 x10^3/uL (1.0-4.8) Monocytes # (Auto) 0.2 x10^3/uL (0.0-1.1) Eosinophils # (Auto) 0.4 x10^3/uL (0.0-0.7) Basophils # (Auto) 0.0 x10^3/uL (0.0-0.2) Sodium Level 133 mmol/L (136-145) 133 mmol/L (136-145) Potassium Level 4.6 mmol/L (3.5-5.1) 5.3 mmol/L (3.5-5.1) Chloride Level 101 mmol/L (98-107) 102 mmol/L (98-107) Carbon Dioxide Level 16 mmol/L (21-32) 18 mmol/L (21-32) Anion Gap 16 (6-14) 13 (6-14) Blood Urea Nitrogen 26 mg/dL (7-20) 31 mg/dL (7-20) Creatinine 3.0 mg/dL (0.6-1.0) 3.1 mg/dL (0.6-1.0) Estimated GFR (Cockcroft-Gault) 15.9 15.3 Glucose Level 67 mg/dL (70-99) 53 mg/dL (70-99) Calcium Level 7.1 mg/dL (8.5-10.1) 7.0 mg/dL (8.5-10.1) Objective Assessment Sepsis MICHELLE - not retaining based on bladder scan Acute Sigmoid Diverticulitis Leukocytosis Cirrhosis H/o Hep C Possible UTI but a lot of squamous cells Ongoing tobacco abuse Plan Plan of Care Change to Meropenem/Dapto/Fluconoazole F/u labs and cults May need re-imaging but await GI and surgical f/u Renal conulted by primary Crtically ill 35 mins CC time D/w nursing Thank you # [id number] MARICARMEN BOWEN MD Dec 03, 2019 06:54
--- NOTE | 2019-12-03 07:47 | CONS ---
DATE OF CONSULTATION: 12/03/2019 LOCATION: The patient is in room 106. REQUESTING PHYSICIAN: Dr. Garcia. REASON FOR CONSULTATION: Abnormal UA. HISTORY OF PRESENT ILLNESS: The patient is a 59-year-old female with a known history of hepatitis C that she states has not been treated, also has a history of previous diverticulitis of the sigmoid area. She presented to [facility] Emergency Room on 12/01/2019 secondary to left lower abdominal pain that has been going on for several days. She had some nausea, but did not vomit. She did not have any complications with fevers. She has some chills. No gross sweats. No headaches. No sore throat or cough. She denies any bloody stools. Denied any dysuria, frequency or urgency. On arrival, she had a white count of 16.8. She was given Cipro and Flagyl, but then changed to cefepime and Flagyl was continued. She underwent a CT scan of the abdomen and pelvis, which showed acute diverticulitis involving the mid sigmoid colon. She also had cirrhosis and associated splenomegaly with a left splenorenal shunt and cholelithiasis. Subsequently, she was admitted to the hospital where she was then transferred to the ICU after she became more anxious. I was consulted this morning. Currently, she is on Levophed. She is alert and currently comfortable. PAST MEDICAL HISTORY: Positive for diverticulitis, gastroesophageal reflux disease, anemia, hepatitis C, cirrhosis, and diverticular abscess. PAST SURGICAL HISTORY: Positive for previous CT-guided drainage of a pelvic abscess. She has had cataract surgery as well as D and C. REVIEW OF SYSTEMS: Otherwise negative. ALLERGIES: No known drug allergies. SOCIAL HISTORY: She is a smoker. She has no pets at home. Occasional alcohol. FAMILY HISTORY: Mother may have had diverticulitis. CURRENT MEDICATIONS: She received Cipro. She is on metronidazole. Currently, she is on cefepime. She is on Levophed, Lovenox, lactulose, Dilaudid, nicotine patch. PHYSICAL EXAMINATION: VITAL SIGNS: She had a temperature of 100.3, currently is 99, pulse 80, respirations 18, blood pressure 94/43, satting 98% on room air. CONSTITUTIONAL: She is lying in bed. She is cooperative. She looks comfortable. She is in no acute distress. HEENT: Normal conjunctivae. Oral cavity, pharynx was clear. NECK: Supple. Good range of motion. LUNGS: Clear to auscultation. She is on nasal cannula oxygen. HEART: S1, S2. ABDOMEN: Obese. It is mildly distended. There is no guarding. There is mild tenderness. EXTREMITIES: Without clubbing, cyanosis or gross edema. SKIN: Warm to touch without signs of rash. NEUROLOGIC: She is alert, nonfocal. PSYCHIATRIC: Affect is appropriate. LABORATORY DATA: White count increased to 40.8 from 10.1, hemoglobin 9.8, platelets of 99, neutrophils of 95. Creatinine is 3.1, glucose was 53. Creatinine was 0.9 at presentation. Most recent AST 63, ALT 37, alkaline phosphatase 339. Procalcitonin was 91.13. Urinalysis, moderate squamous, greater than 40 wbc's, moderate leukocyte esterase, nitrite positive as well. CT scan reviewed in history of present illness. KUB, nonobstructive, nonspecific bowel gas pattern. IMPRESSION: 1. Sepsis. 2. Acute kidney injury, not retaining urine based on bladder scan. 3. Acute sigmoid diverticulosis. 4. Leukocytosis. 5. Cirrhosis. 6. Hepatitis C. 7. Possible urinary tract infection with lot of squamous cells. 8. Ongoing tobacco abuse. RECOMMENDATIONS: We will change to meropenem, daptomycin and fluconazole. Follow up labs and cultures. She may need reimaging. She is critically ill. Renal has been consulted by primary. I spent 35 minutes of critical care time. This was discussed with nursing. Thank you for allowing me to participate in the patient's care. If you have any further questions, please do not hesitate to contact me. MARICARMEN BOWEN MD DR: HUBER/yakov JOB#: [id number] / [id number] RICCI
[2019-12-03] MEDS: FLUCONAZOLE 200MG/100ML PREMIX 100 ML IV SCH (08:10)
[2019-12-03] MEDS: MEROPENEM 500 MG in IV NORMAL SALINE 50ML 50 ML IV SCH ×3 (08:10→21:33)
[2019-12-03 08:16] LABS: % BANDS 24 % (0-9); % LYMPHS 2 % (24-48); % METAS 3 % (0-0); % MONOS 3 % (0-10); % SEGS 68 % (35-66); ANISOCYTOSIS SLIGHT; PLT ESTIMATE DECREASED (ADEQUATE); POLYCHROMASIA SLIGHT
[2019-12-03 08:17] LABS: TOXIC GRANULATION SLIGHT; TOXIC VACUOLATION MOD
[2019-12-03 08:18] LABS: TARGET CELLS OCC; TEAR DROP CELLS OCC
[2019-12-03] MEDS: SENNOSIDES/DOCUSATE 8.6/50MG TABLET. PO SCH ×2 (09:00→21:32)
[2019-12-03] MEDS: NICOTINE 21MG PATCH. TD SCH (09:00)
[2019-12-03] MEDS: ELECTROLYTE (ICU) PROTOCOL. MC SCH (09:00)
--- NOTE | 2019-12-03 09:22 | PDOC ---
PROGRESS NOTES Subjective Subjective episode of hypotension last night, pain; levophed started; pt more comfortable this morning Objective Objective Vital Signs Date Time Temp Pulse Resp B/P (MAP) Pulse Ox O2 Delivery O2 Flow Rate FiO2 12/03/19 06:00 80 18 94/43 (60) 98 Room Air 12/03/19 04:00 98.9 98.9 12/03/19 00:00 3.0 Intake and Output 12/03/19 07:00 Intake Total 3227 ml Output Total 30 ml Balance 3197 ml Intake Oral 600 ml IV Total 2627 ml Output Urine Total 30 ml Physical Exam Abdomen: Soft (mildly tender LLQ, no guarding or peritoneal signs) General: Alert, Oriented X3 HEENT: Atraumatic Neuro: Normal speech Psych/Mental Status: Mental status NL Assessment Assessment Problems Medical Problems: (1) Diverticulitis Status: Acute Plan Plan of Care Continue medical management; no new surgical recs Comment Review of Relevant I have reviewed the following items jing (where applicable) has been applied. Labs Laboratory Tests Test 12/02/19 03:25 12/02/19 08:25 12/02/19 12:30 12/02/19 16:40 White Blood Count 16.8 x10^3/uL (4.0-11.0) Red Blood Count 4.50 x10^6/uL (3.50-5.40) Hemoglobin 10.2 g/dL (12.0-15.5) Hematocrit 32.4 % (36.0-47.0) Mean Corpuscular Volume 72 fL (79-100) Mean Corpuscular Hemoglobin 23 pg (25-35) Mean Corpuscular Hemoglobin Concent 31 g/dL (31-37) Red Cell Distribution Width 17.9 % (11.5-14.5) Platelet Count 119 x10^3/uL (140-400) Neutrophils (%) (Auto) 96 % (31-73) Lymphocytes (%) (Auto) 3 % (24-48) Monocytes (%) (Auto) 1 % (0-9) Eosinophils (%) (Auto) 0 % (0-3) Basophils (%) (Auto) 0 % (0-3) Neutrophils # (Auto) 16.1 x10^3/uL (1.8-7.7) Lymphocytes # (Auto) 0.5 x10^3/uL (1.0-4.8) Monocytes # (Auto) 0.1 x10^3/uL (0.0-1.1) Eosinophils # (Auto) 0.0 x10^3/uL (0.0-0.7) Basophils # (Auto) 0.0 x10^3/uL (0.0-0.2) Segmented Neutrophils % 51 % (35-66) Band Neutrophils % 35 % (0-9) Lymphocytes % 1 % (24-48) Monocytes % 2 % (0-10) Metamyelocytes % 11 % (0-0) Nucleated Red Blood Cells 2 Toxic Vacuolation Mod Dohle Bodies Present Platelet Estimate Decreased (ADEQUATE) Polychromasia Slight Anisocytosis Mod Target Cells Occ Tear Drop Cells Occ Sodium Level 135 mmol/L (136-145) Potassium Level 3.3 mmol/L (3.5-5.1) Chloride Level 103 mmol/L (98-107) Carbon Dioxide Level 19 mmol/L (21-32) Anion Gap 13 (6-14) Blood Urea Nitrogen 16 mg/dL (7-20) Creatinine 1.6 mg/dL (0.6-1.0) Estimated GFR (Cockcroft-Gault) 32.8 BUN/Creatinine Ratio 10 (6-20) Glucose Level 56 mg/dL (70-99) Calcium Level 7.5 mg/dL (8.5-10.1) Iron Level 82 ug/dL (50-170) Total Iron Binding Capacity 183 ug/dL (250-450) Iron Saturation 45 % (15-34) Total Bilirubin 2.4 mg/dL (0.2-1.0) Aspartate Amino Transf (AST/SGOT) 63 U/L (15-37) Alanine Aminotransferase (ALT/SGPT) 37 U/L (14-59) Alkaline Phosphatase 339 U/L (46-116) Total Protein 6.7 g/dL (6.4-8.2) Albumin 2.2 g/dL (3.4-5.0) Albumin/Globulin Ratio 0.5 (1.0-1.7) Vitamin B12 Level > 2000 pg/mL (247-911) Lactic Acid Level 5.4 mmol/L (0.4-2.0) 5.5 mmol/L (0.4-2.0) 3.2 mmol/L (0.4-2.0) Procalcitonin 91.13 ng/mL (0.00-0.10) Test 12/02/19 20:17 12/02/19 21:30 12/02/19 23:10 12/03/19 05:35 Lactic Acid Level 2.8 mmol/L (0.4-2.0) Urine Collection Type Unknown Urine Color Brown Urine Clarity Turbid Urine pH 5.0 (<5.0-8.0) Urine Specific [place] >=1.030 (1.000-1.030) Urine Protein 100 mg/dL (NEG-TRACE) Urine Glucose (UA) Negative mg/dL (NEG) Urine Ketones (Stick) 15 mg/dL (NEG) Urine Blood Negative (NEG) Urine Nitrite Positive (NEG) Urine Bilirubin Large (NEG) Urine Urobilinogen Dipstick 2.0 mg/dL (0.2 mg/dL) Urine Leukocyte Esterase Moderate (NEG) Urine RBC 6-10 /HPF (0-2) Urine WBC >40 /HPF (0-4) Urine Squamous Epithelial Cells Mod /LPF Urine Bacteria Many /HPF (0-FEW) White Blood Count 10.1 x10^3/uL (4.0-11.0) Red Blood Count 4.63 x10^6/uL (3.50-5.40) Hemoglobin 10.6 g/dL (12.0-15.5) Hematocrit 33.2 % (36.0-47.0) Mean Corpuscular Volume 72 fL (79-100) Mean Corpuscular Hemoglobin 23 pg (25-35) Mean Corpuscular Hemoglobin Concent 32 g/dL (31-37) Red Cell Distribution Width 18.3 % (11.5-14.5) Platelet Count 136 x10^3/uL (140-400) Neutrophils (%) (Auto) 83 % (31-73) Lymphocytes (%) (Auto) 11 % (24-48) Monocytes (%) (Auto) 2 % (0-9) Eosinophils (%) (Auto) 4 % (0-3) Basophils (%) (Auto) 0 % (0-3) Neutrophils # (Auto) 8.5 x10^3/uL (1.8-7.7) Lymphocytes # (Auto) 1.1 x10^3/uL (1.0-4.8) Monocytes # (Auto) 0.2 x10^3/uL (0.0-1.1) Eosinophils # (Auto) 0.4 x10^3/uL (0.0-0.7) Basophils # (Auto) 0.0 x10^3/uL (0.0-0.2) Sodium Level 133 mmol/L (136-145) 133 mmol/L (136-145) Potassium Level 4.6 mmol/L (3.5-5.1) 5.3 mmol/L (3.5-5.1) Chloride Level 101 mmol/L (98-107) 102 mmol/L (98-107) Carbon Dioxide Level 16 mmol/L (21-32) 18 mmol/L (21-32) Anion Gap 16 (6-14) 13 (6-14) Blood Urea Nitrogen 26 mg/dL (7-20) 31 mg/dL (7-20) Creatinine 3.0 mg/dL (0.6-1.0) 3.1 mg/dL (0.6-1.0) Estimated GFR (Cockcroft-Gault) 15.9 15.3 Glucose Level 67 mg/dL (70-99) 53 mg/dL (70-99) Calcium Level 7.1 mg/dL (8.5-10.1) 7.0 mg/dL (8.5-10.1) Test 12/03/19 06:15 White Blood Count 40.8 x10^3/uL (4.0-11.0) Red Blood Count 4.38 x10^6/uL (3.50-5.40) Hemoglobin 9.8 g/dL (12.0-15.5) Hematocrit 30.8 % (36.0-47.0) Mean Corpuscular Volume 70 fL (79-100) Mean Corpuscular Hemoglobin 22 pg (25-35) Mean Corpuscular Hemoglobin Concent 32 g/dL (31-37) Red Cell Distribution Width 18.2 % (11.5-14.5) Platelet Count 99 x10^3/uL (140-400) Neutrophils (%) (Auto) 95 % (31-73) Lymphocytes (%) (Auto) 2 % (24-48) Monocytes (%) (Auto) 4 % (0-9) Eosinophils (%) (Auto) 0 % (0-3) Basophils (%) (Auto) 0 % (0-3) Neutrophils # (Auto) 38.6 x10^3/uL (1.8-7.7) Lymphocytes # (Auto) 0.6 x10^3/uL (1.0-4.8) Monocytes # (Auto) 1.5 x10^3/uL (0.0-1.1) Eosinophils # (Auto) 0.0 x10^3/uL (0.0-0.7) Basophils # (Auto) 0.0 x10^3/uL (0.0-0.2) Segmented Neutrophils % 68 % (35-66) Band Neutrophils % 24 % (0-9) Lymphocytes % 2 % (24-48) Monocytes % 3 % (0-10) Metamyelocytes % 3 % (0-0) Toxic Granulation Slight Toxic Vacuolation Mod Dohle Bodies Mod Platelet Estimate Decreased (ADEQUATE) Polychromasia Slight Anisocytosis Slight Target Cells Occ Tear Drop Cells Occ Laboratory Tests Test 12/02/19 12:30 12/02/19 16:40 12/02/19 20:17 12/02/19 21:30 Lactic Acid Level 5.5 mmol/L (0.4-2.0) 3.2 mmol/L (0.4-2.0) 2.8 mmol/L (0.4-2.0) Urine Collection Type Unknown Urine Color Brown Urine Clarity Turbid Urine pH 5.0 (<5.0-8.0) Urine Specific [place] >=1.030 (1.000-1.030) Urine Protein 100 mg/dL (NEG-TRACE) Urine Glucose (UA) Negative mg/dL (NEG) Urine Ketones (Stick) 15 mg/dL (NEG) Urine Blood Negative (NEG) Urine Nitrite Positive (NEG) Urine Bilirubin Large (NEG) Urine Urobilinogen Dipstick 2.0 mg/dL (0.2 mg/dL) Urine Leukocyte Esterase Moderate (NEG) Urine RBC 6-10 /HPF (0-2) Urine WBC >40 /HPF (0-4) Urine Squamous Epithelial Cells Mod /LPF Urine Bacteria Many /HPF (0-FEW) Test 12/02/19 23:10 12/03/19 05:35 12/03/19 06:15 White Blood Count 10.1 x10^3/uL (4.0-11.0) 40.8 x10^3/uL (4.0-11.0) Red Blood Count 4.63 x10^6/uL (3.50-5.40) 4.38 x10^6/uL (3.50-5.40) Hemoglobin 10.6 g/dL (12.0-15.5) 9.8 g/dL (12.0-15.5) Hematocrit 33.2 % (36.0-47.0) 30.8 % (36.0-47.0) Mean Corpuscular Volume 72 fL (79-100) 70 fL (79-100) Mean Corpuscular Hemoglobin 23 pg (25-35) 22 pg (25-35) Mean Corpuscular Hemoglobin Concent 32 g/dL (31-37) 32 g/dL (31-37) Red Cell Distribution Width 18.3 % (11.5-14.5) 18.2 % (11.5-14.5) Platelet Count 136 x10^3/uL (140-400) 99 x10^3/uL (140-400) Neutrophils (%) (Auto) 83 % (31-73) 95 % (31-73) Lymphocytes (%) (Auto) 11 % (24-48) 2 % (24-48) Monocytes (%) (Auto) 2 % (0-9) 4 % (0-9) Eosinophils (%) (Auto) 4 % (0-3) 0 % (0-3) Basophils (%) (Auto) 0 % (0-3) 0 % (0-3) Neutrophils # (Auto) 8.5 x10^3/uL (1.8-7.7) 38.6 x10^3/uL (1.8-7.7) Lymphocytes # (Auto) 1.1 x10^3/uL (1.0-4.8) 0.6 x10^3/uL (1.0-4.8) Monocytes # (Auto) 0.2 x10^3/uL (0.0-1.1) 1.5 x10^3/uL (0.0-1.1) Eosinophils # (Auto) 0.4 x10^3/uL (0.0-0.7) 0.0 x10^3/uL (0.0-0.7) Basophils # (Auto) 0.0 x10^3/uL (0.0-0.2) 0.0 x10^3/uL (0.0-0.2) Sodium Level 133 mmol/L (136-145) 133 mmol/L (136-145) Potassium Level 4.6 mmol/L (3.5-5.1) 5.3 mmol/L (3.5-5.1) Chloride Level 101 mmol/L (98-107) 102 mmol/L (98-107) Carbon Dioxide Level 16 mmol/L (21-32) 18 mmol/L (21-32) Anion Gap 16 (6-14) 13 (6-14) Blood Urea Nitrogen 26 mg/dL (7-20) 31 mg/dL (7-20) Creatinine 3.0 mg/dL (0.6-1.0) 3.1 mg/dL (0.6-1.0) Estimated GFR (Cockcroft-Gault) 15.9 15.3 Glucose Level 67 mg/dL (70-99) 53 mg/dL (70-99) Calcium Level 7.1 mg/dL (8.5-10.1) 7.0 mg/dL (8.5-10.1) Segmented Neutrophils % 68 % (35-66) Band Neutrophils % 24 % (0-9) Lymphocytes % 2 % (24-48) Monocytes % 3 % (0-10) Metamyelocytes % 3 % (0-0) Toxic Granulation Slight Toxic Vacuolation Mod Dohle Bodies Mod Platelet Estimate Decreased (ADEQUATE) Polychromasia Slight Anisocytosis Slight Target Cells Occ Tear Drop Cells Occ Medications Current Medications Sodium Chloride 1,000 ml @ 1,000 mls/hr 1X ONCE IV Last administered on 12/01/19at 09:38; Start 12/01/19 at 09:00; Stop 12/01/19 at 09:59; Status DC Ondansetron HCl (Zofran) 4 mg 1X ONCE IVP Last administered on 12/01/19at 09:38; Start 12/01/19 at 09:00; Stop 12/01/19 at 09:01; Status DC Morphine Sulfate (Morphine Sulfate) 4 mg 1X ONCE IV Last administered on 12/01/19at 09:38; Start 12/01/19 at 09:15; Stop 12/01/19 at 09:17; Status DC Iohexol (Omnipaque 300 Mg/ml) 75 ml 1X ONCE IV Last administered on 12/01/19at 10:10; Start 12/01/19 at 09:45; Stop 12/01/19 at 09:46; Status DC Metronidazole 100 ml @ 100 mls/hr 1X ONCE IV Last administered on 12/01/19at 14:03; Start 12/01/19 at 11:00; Stop 12/01/19 at 11:59; Status DC Ciprofloxacin/ Dextrose 200 ml @ 200 mls/hr 1X ONCE IV Last administered on 12/01/19at 10:51; Start 12/01/19 at 11:30; Stop 12/01/19 at 12:29; Status DC Fentanyl Citrate (Fentanyl 2ml Vial) 75 mcg 1X ONCE IVP Last administered on 12/01/19at 10:50; Start 12/01/19 at 10:45; Stop 12/01/19 at 10:46; Status DC Ondansetron HCl (Zofran) 4 mg PRN Q8HRS PRN IV NAUSEA/VOMITING; Start 12/01/19 at 10:45; Stop 12/01/19 at 15:03; Status DC Morphine Sulfate (Morphine Sulfate) 4 mg PRN Q2HR PRN IV PAIN Last administered on 12/01/19at 13:37; Start 12/01/19 at 10:45; Stop 12/01/19 at 15:26; Status DC Sodium Chloride 1,000 ml @ 100 mls/hr Q10H IV Last administered on 12/02/19at 07:56; Start 12/01/19 at 10:36; Stop 12/02/19 at 10:35; Status DC Ondansetron HCl (Zofran) 4 mg PRN Q4HRS PRN IV NAUSEA/VOMITING Last administered on 12/02/19at 21:12; Start 12/01/19 at 15:15; Stop 12/03/19 at 07:45; Status DC Hydromorphone HCl (Dilaudid) 1 mg PRN Q4HRS PRN IV PAIN Last administered on 12/02/19at 06:35; Start 12/01/19 at 15:30 Ciprofloxacin/ Dextrose 100 ml @ 100 mls/hr Q12HR IV Last administered on 12/02/19at 07:57; Start 12/01/19 at 21:00; Stop 12/02/19 at 14:32; Status DC Metronidazole 100 ml @ 100 mls/hr Q8HRS IV ; Start 12/01/19 at 22:00; Status UNV Ciprofloxacin/ Dextrose 200 ml @ 200 mls/hr DAILY IV ; Start 12/02/19 at 09:00; Status UNV Metronidazole 100 ml @ 100 mls/hr Q12HR IV Last administered on 12/02/19at 21:36; Start 12/01/19 at 21:00; Stop 12/03/19 at 06:41; Status DC Enoxaparin Sodium (Lovenox 40mg Syringe) 40 mg Q24H SQ Last administered on 12/02/19at 16:53; Start 12/01/19 at 16:00 Psyllium Hydrophilic Mucilloid (Metamucil Fiber Packet) 1 pkt QPM PO Last administered on 12/01/19at 17:40; Start 12/01/19 at 18:00 Prochlorperazine Edisylate (Compazine) 10 mg PRN Q6HRS PRN IM NAUSEA/VOMITING; Start 12/01/19 at 23:30 Sodium Chloride 1,000 ml @ 1,000 mls/hr 1X ONCE IV Last administered on 12/02/19at 13:30; Start 12/02/19 at 13:30; Stop 12/02/19 at 14:29; Status DC Lorazepam (Ativan Inj) 0.5 mg PRN Q6HRS PRN IVP ANXIETY / AGITATION Last administered on 12/02/19at 22:35; Start 12/02/19 at 13:30 Ondansetron HCl (Zofran) 4 mg PRN Q6HRS PRN IVP NAUSEA/VOMITING; Start 12/02/19 at 13:30 Info (Icu Electrolyte Protocol) 1 ea DAILY MC ; Start 12/03/19 at 09:00 Sodium Chloride 1,000 ml @ 1,000 mls/hr Q1H IV Last administered on 12/02/19at 13:27; Start 12/02/19 at 13:27; Stop 12/02/19 at 14:26; Status DC Senna/Docusate Sodium (Senna Plus) 1 tab BID PO Last administered on 12/02/19at 21:35; Start 12/02/19 at 14:00 Lactulose (Lactulose) 20 gm PRN Q12HR PRN PO CONSTIPATION; Start 12/02/19 at 13:30 Sodium Chloride 1,000 ml @ 1,650 mls/hr Q37M IV Last administered on 12/02/19at 14:04; Start 12/02/19 at 13:27; Stop 12/02/19 at 14:27; Status DC Sodium Chloride 500 ml @ 1,000 mls/hr PRN Q30MIN PRN IV SEE PARAMETERS; Start 12/02/19 at 13:30 Cefepime HCl (Maxipime) 2 gm Q12HR IVP Last administered on 12/02/19at 21:37; Start 12/02/19 at 14:00; Stop 12/03/19 at 06:41; Status DC Norepinephrine Bitartrate 8 mg/ Dextrose 258 ml @ 0 mls/hr CONT PRN IV SHOCK; Start 12/02/19 at 13:30; Stop 12/03/19 at 07:44; Status DC Dobutamine HCl/ Dextrose 250 ml @ 0 mls/hr CONT PRN IV PER PROTOCOL; Start 12/02/19 at 13:30 Norepinephrine Bitartrate 8 mg/ Dextrose 258 ml @ 14.067 mls/ hr CONT PRN IV PER PROTOCOL Last administered on 12/03/19at 06:08; Start 12/02/19 at 16:15 Nicotine (Nicoderm Cq 21mg) 1 patch DAILY TD ; Start 12/03/19 at 09:00 Meropenem 500 mg/ Sodium Chloride 50 ml @ 100 mls/hr Q8HRS IV Last administe red on 12/03/19at 08:10; Start 12/03/19 at 07:00 Daptomycin 440 mg/ Sodium Chloride 50 ml @ 100 mls/hr QODAY IV ; Start 12/03/19 at 09:00 Fluconazole/ Sodium Chloride 100 ml @ 100 mls/hr Q24H IV Last administered on 12/03/19at 08:10; Start 12/03/19 at 06:30 Active Scripts Active Klor-Con M20 (Potassium Chloride) 20 Meq Tab.er.prt 20 Meq PO DAILYWBKFT Oxycodone-Acetaminophen 5-325 (Oxycodone Hcl/Acetaminophen) 1 Each Tablet 1 Tab PO PRN Q4HRS PRN Mag-Oxide (Magnesium Oxide) 400 Mg Tablet 400 Mg PO DAILY Lisinopril 20 Mg Tablet 20 Mg PO DAILY NICODERM CQ 7mg (Nicotine) 1 Each Patch.td24 1 Patch TD DAILY Slow Release Iron (Ferrous Sulfate) 142 Mg Tablet.er 142 Mg PO DAILYWBKFT Reported Tylenol (Acetaminophen) 325 Mg Tablet 650 Mg PO PRN Q4-6HRS PRN Vitals/I & O Vital Sign - Last 24 Hours 12/02/19 12/02/19 12/02/19 12/02/19 11:00 14:15 14:30 15:00 Temp 97.5 97.5 Pulse 81 80 78 Resp 18 16 B/P (MAP) 97/45 (62) 98/51 (67) 100/53 (69) Pulse Ox 93 92 O2 Delivery Room Air Room Air Room Air Room Air 12/02/19 12/02/19 12/02/19 12/02/19 15:30 16:00 16:30 17:00 Temp 98.0 98.0 Pulse 76 82 88 78 Resp 18 26 15 12 B/P (MAP) 92/48 (63) 92/50 (64) 100/54 (69) 86/44 (58) Pulse Ox 91 92 O2 Delivery Room Air Room Air Room Air Room Air 12/02/19 12/02/19 12/02/19 12/02/19 18:00 18:30 20:00 20:00 Temp 98.6 98.6 Pulse 84 88 76 Resp 18 28 13 B/P (MAP) 100/48 (65) 88/52 (64) 99/56 (70) Pulse Ox 88 93 97 O2 Delivery Room Air Room Air Room Air Nasal Cannula O2 Flow Rate 3.0 12/02/19 12/02/19 12/02/19 12/03/19 21:00 22:00 23:00 00:00 Pulse 80 82 96 Resp 16 18 21 B/P (MAP) 90/50 (63) 115/83 (94) 134/82 (99) Pulse Ox 97 95 98 O2 Delivery Room Air Room Air Room Air Nasal Cannula O2 Flow Rate 3.0 12/03/19 12/03/19 12/03/1928/20 00:00 01:00 02:00 03:00 Temp 100.3 100.3 Pulse 98 88 85 83 Resp 18 17 B/P (MAP) 109/46 (67) 91/42 (58) 100/51 (67) 91/50 (64) Pulse Ox 97 97 98 99 O2 Delivery Room Air Room Air Room Air Room Air 12/03/19 12/03/19 12/03/19 04:00 05:00 06:00 Temp 98.9 98.9 Pulse 84 82 80 Resp 18 B/P (MAP) 91/50 (64) 91/49 (63) 94/43 (60) Pulse Ox 99 99 98 O2 Delivery Room Air Room Air Room Air Intake and Output 12/02/19 12/02/19 12/03/19 15:00 23:00 07:00 Intake Total 250 ml 200 ml 2777 ml Output Total 30 ml 0 ml Balance 250 ml 170 ml 2777 ml Justicifation of Admission Dx: Justifications for Admission: Justification of Admission Dx: Yes HELEN DE SANTIAGO MD Dec 03, 2019 09:22
--- NOTE | 2019-12-03 11:18 | PDOC ---
[facility] PROGRESS NOTE Chief Complaint Chief Complaint Assessment/Plan A/P: Acute diverticulitis -with prior perforation, high risk. We will switch to meropenem, daptomycin and fluconazole per ID recommendations. Clear liquid diet, consult GI. No surgery at this time Chronic anemia - possibly thalassemia versus chronic iron deficiency anemia related to occult GI blood loss vs 2/2 Hep C. Has never had a colonoscopy due to loss to follow up from lack of health insurance since 2016. Hepatitis C - chronic, not treated. GI consulted for consideration of anti- viral treatment, also needs alpha-fetoprotein level checked and ultrasound monitoring every 6 months. 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 MELD 15, 6% 3 month mortality. GI consulted Thrombocytopenialikely secondary to her cirrhosis. Will monitor Transaminitis likely secondary to hepatitis C versus acute diverticulitis, will monitor. GERD - on omeprazole Asymptomatic cholelithiasis elevated lactic acid without evidence of shock Sepsis secondary to diverticulitis, continue to follow hemodynamics closely I have discussed with nursing staff to reach out if she becomes unstable FEN - Clear liquid diet, continue with fluid resuscitation with normal saline at 100 mL/h PPX - lovenox FULL CODE Dispo -continue ICU care while on vasopressors Total total critical care time spent over 32 minutes History of Present Illness History of Present Illness 12/03/2019 No acute events overnight. Patient remains on vasopressors for hemodynamic support. She has already received about 5 L of fluids. She has not had any bloody stools since transferred to the ICU. 12/01: No acute events reported overnight, case discussed with nursing staff patient in no acute distress no complaints during my visit Vitals/I&O Vitals/I&O: Vital Signs Date Time Temp Pulse Resp B/P (MAP) Pulse Ox O2 Delivery O2 Flow Rate FiO2 12/03/19 06:00 80 18 94/43 (60) 98 Room Air 12/03/19 04:00 98.9 98.9 12/03/19 00:00 3.0 I & O 12/02/19 12/02/19 12/03/19 15:00 23:00 07:00 Intake Total 250 ml 200 ml 2777 ml Output Total 30 ml 0 ml Balance 250 ml 170 ml 2777 ml Physical Exam Physical Exam: General: Alert, Oriented X3, Cooperative, mild distress Heart: Regular rate, Normal S1, Normal S2 Lungs: Clear Abdomen: Normal bowel sounds, Soft, No hepatosplenomegaly, No masses, lower abdominal tender to palpation Extremities: No clubbing, No cyanosis, No edema, Normal pulses, No tenderness/swelling Skin: No rashes, No breakdown, No significant lesion General: Alert, Oriented X3 Heart: Regular rate, Normal S1, Normal S2 Lungs: Clear Abdomen: Soft (mildly tender LLQ, no guarding or peritoneal signs) Extremities: No clubbing, No cyanosis Skin: No rashes, No breakdown Labs Labs: Images and labs reviewed Laboratory Tests Test 12/02/19 12:30 12/02/19 16:40 12/02/19 20:17 12/02/19 21:30 Lactic Acid Level 5.5 mmol/L (0.4-2.0) 3.2 mmol/L (0.4-2.0) 2.8 mmol/L (0.4-2.0) Urine Collection Type Unknown Urine Color Brown Urine Clarity Turbid Urine pH 5.0 (<5.0-8.0) Urine Specific [place] >=1.030 (1.000-1.030) Urine Protein 100 mg/dL (NEG-TRACE) Urine Glucose (UA) Negative mg/dL (NEG) Urine Ketones (Stick) 15 mg/dL (NEG) Urine Blood Negative (NEG) Urine Nitrite Positive (NEG) Urine Bilirubin Large (NEG) Urine Urobilinogen Dipstick 2.0 mg/dL (0.2 mg/dL) Urine Leukocyte Esterase Moderate (NEG) Urine RBC 6-10 /HPF (0-2) Urine WBC >40 /HPF (0-4) Urine Squamous Epithelial Cells Mod /LPF Urine Bacteria Many /HPF (0-FEW) Test 12/02/19 23:10 12/03/19 05:35 12/03/19 06:15 White Blood Count 10.1 x10^3/uL (4.0-11.0) 40.8 x10^3/uL (4.0-11.0) Red Blood Count 4.63 x10^6/uL (3.50-5.40) 4.38 x10^6/uL (3.50-5.40) Hemoglobin 10.6 g/dL (12.0-15.5) 9.8 g/dL (12.0-15.5) Hematocrit 33.2 % (36.0-47.0) 30.8 % (36.0-47.0) Mean Corpuscular Volume 72 fL (79-100) 70 fL (79-100) Mean Corpuscular Hemoglobin 23 pg (25-35) 22 pg (25-35) Mean Corpuscular Hemoglobin Concent 32 g/dL (31-37) 32 g/dL (31-37) Red Cell Distribution Width 18.3 % (11.5-14.5) 18.2 % (11.5-14.5) Platelet Count 136 x10^3/uL (140-400) 99 x10^3/uL (140-400) Neutrophils (%) (Auto) 83 % (31-73) 95 % (31-73) Lymphocytes (%) (Auto) 11 % (24-48) 2 % (24-48) Monocytes (%) (Auto) 2 % (0-9) 4 % (0-9) Eosinophils (%) (Auto) 4 % (0-3) 0 % (0-3) Basophils (%) (Auto) 0 % (0-3) 0 % (0-3) Neutrophils # (Auto) 8.5 x10^3/uL (1.8-7.7) 38.6 x10^3/uL (1.8-7.7) Lymphocytes # (Auto) 1.1 x10^3/uL (1.0-4.8) 0.6 x10^3/uL (1.0-4.8) Monocytes # (Auto) 0.2 x10^3/uL (0.0-1.1) 1.5 x10^3/uL (0.0-1.1) Eosinophils # (Auto) 0.4 x10^3/uL (0.0-0.7) 0.0 x10^3/uL (0.0-0.7) Basophils # (Auto) 0.0 x10^3/uL (0.0-0.2) 0.0 x10^3/uL (0.0-0.2) Sodium Level 133 mmol/L (136-145) 133 mmol/L (136-145) Potassium Level 4.6 mmol/L (3.5-5.1) 5.3 mmol/L (3.5-5.1) Chloride Level 101 mmol/L (98-107) 102 mmol/L (98-107) Carbon Dioxide Level 16 mmol/L (21-32) 18 mmol/L (21-32) Anion Gap 16 (6-14) 13 (6-14) Blood Urea Nitrogen 26 mg/dL (7-20) 31 mg/dL (7-20) Creatinine 3.0 mg/dL (0.6-1.0) 3.1 mg/dL (0.6-1.0) Estimated GFR (Cockcroft-Gault) 15.9 15.3 Glucose Level 67 mg/dL (70-99) 53 mg/dL (70-99) Calcium Level 7.1 mg/dL (8.5-10.1) 7.0 mg/dL (8.5-10.1) Segmented Neutrophils % 68 % (35-66) Band Neutrophils % 24 % (0-9) Lymphocytes % 2 % (24-48) Monocytes % 3 % (0-10) Metamyelocytes % 3 % (0-0) Toxic Granulation Slight Toxic Vacuolation Mod Dohle Bodies Mod Platelet Estimate Decreased (ADEQUATE) Polychromasia Slight Anisocytosis Slight Target Cells Occ Tear Drop Cells Occ Assessment and Plan Assessmemt and Plan Problems Medical Problems: (1) Diverticulitis Status: Acute Comment Review of Relevant I have reviewed the following items jing (where applicable) has been applied. Medications: Current Medications Medications (Trade) Dose Ordered Sig/Ubaldo Route PRN Reason Start Time Stop Time Status Last Admin Dose Admin Sodium Chloride 1,000 ml @ 1,000 mls/hr 1X ONCE IV 12/02/19 13:30 12/02/19 14:29 DC 12/02/19 13:30 Lorazepam (Ativan Inj) 0.5 mg PRN Q6HRS PRN IVP ANXIETY / AGITATION 12/02/19 13:30 12/02/19 22:35 Sodium Chloride 1,000 ml @ 1,000 mls/hr Q1H IV 12/02/19 13:27 12/02/19 14:26 DC 12/02/19 13:27 Senna/Docusate Sodium (Senna Plus) 1 tab BID PO 12/02/19 14:00 12/02/19 21:35 Sodium Chloride 1,000 ml @ 1,650 mls/hr Q37M IV 12/02/19 13:27 12/02/19 14:27 DC 12/02/19 14:04 Cefepime HCl (Maxipime) 2 gm Q12HR IVP 12/02/19 14:00 12/03/19 06:41 DC 12/02/19 21:37 Norepinephrine Bitartrate 8 mg/ Dextrose 258 ml @ 14.067 mls/ hr CONT PRN IV PER PROTOCOL 12/02/19 16:15 12/03/19 06:08 Meropenem 500 mg/ Sodium Chloride 50 ml @ 100 mls/hr Q8HRS IV 12/03/19 07:00 12/03/19 08:10 Fluconazole/ Sodium Chloride 100 ml @ 100 mls/hr Q24H IV 12/03/19 06:30 12/03/19 08:10 Justicifation of Admission Dx: Justifications for Admission: Justification of Admission Dx: Yes DANNI ARNDT MD Dec 03, 2019 11:18
[2019-12-03] MEDS ORDERED: IV DEXTROSE 5 %-0.45 % NACL 1,000 ML IV SCH (11:45)
[2019-12-03] MEDS: SODIUM BICARBONATE VIAL 50 MEQ in IV DEXTROSE 5 %-0.45 % NACL 1,000 ML IV SCH ×2 (12:07→22:02)
--- NOTE | 2019-12-03 12:22 | PDOC2 ---
CONSULT Date of Consult Date of Consult DATE: 12/03/19 TIME: 12:15 Reason for Consult Reason for Consult: MICHELLE Referring Physician Referring Physician: EDMOND Identification/Chief Complaint Chief Complaint ABD PAIN Source Source: Chart review, Patient History of Present Illness Reason for Visit: THIS IS A 59 YR OLD WITH ABD PAIN, HAS HX OF DIVERTICULOSIS. NOW ADMITTED WITH DIVERTICULITIS OF THE SIGMOID COLON. APPARENTLY IMAGING ALSO SUGGESTIVE OF CIRRHOSIS ALONG WITH INCREASED LFT'S. LABS C/W MICHELLE WITH CR OF 3.1 AND UTI. ALSO HAS LEUCOCYTOSIS AND UTI AND CURRENTLY SEPTIC WITH HYPOTENSION. SHE IS AWAKE ALERT AND ORIENTED AND APPEARS TO BE COMFORTABLE. NO HX OF ANY CKD AND DENIED ANY HX Past Medical History Cardiovascular: No pertinent hx Pulmonary: No pertinent hx GI: Diverticulosis Heme/Onc: No pertinent hx, Anemia NOS Hepatobiliary: Hep A/B/C (C) Psych: No pertinent hx Rheumatologic: No pertinent hx Infectious disease: No pertinent hx Renal/: No pertinent hx Endocrine: No pertinent hx Past Surgical History Past Surgical History: No pertinent history Family History Family History: No Significant Social History No ALCOHOL: occassional Drugs: None Lives: with Family Current Problem List Problem List Problems Medical Problems: (1) Diverticulitis Status: Acute Current Medications Current Medications Current Medications Sodium Chloride 1,000 ml @ 1,000 mls/hr 1X ONCE IV Last administered on 11/30at 09:38; Start 12/01/19 at 09:00; Stop 12/01/19 at 09:59; Status DC Ondansetron HCl (Zofran) 4 mg 1X ONCE IVP Last administered on 12/01/19at 09:38; Start 12/01/19 at 09:00; Stop 12/01/19 at 09:01; Status DC Morphine Sulfate (Morphine Sulfate) 4 mg 1X ONCE IV Last administered on 12/01/19at 09:38; Start 12/01/19 at 09:15; Stop 12/01/19 at 09:17; Status DC Iohexol (Omnipaque 300 Mg/ml) 75 ml 1X ONCE IV Last administered on 12/01/19at 10:10; Start 12/01/19 at 09:45; Stop 12/01/19 at 09:46; Status DC Metronidazole 100 ml @ 100 mls/hr 1X ONCE IV Last administered on 12/01/19at 14:03; Start 12/01/19 at 11:00; Stop 12/01/19 at 11:59; Status DC Ciprofloxacin/ Dextrose 200 ml @ 200 mls/hr 1X ONCE IV Last administered on 12/01/19at 10:51; Start 12/01/19 at 11:30; Stop 12/01/19 at 12:29; Status DC Fentanyl Citrate (Fentanyl 2ml Vial) 75 mcg 1X ONCE IVP Last administered on at 10:50; Start 12/01/19 at 10:45; Stop 12/01/19 at 10:46; Status DC Ondansetron HCl (Zofran) 4 mg PRN Q8HRS PRN IV NAUSEA/VOMITING; Start 12/01/19 at 10:45; Stop 12/01/19 at 15:03; Status DC Morphine Sulfate (Morphine Sulfate) 4 mg PRN Q2HR PRN IV PAIN Last administered on 12/01/19at 13:37; Start 12/01/19 at 10:45; Stop 12/01/19 at 15:26; Status DC Sodium Chloride 1,000 ml @ 100 mls/hr Q10H IV Last administered on 12/02/19at 07:56; Start 12/01/19 at 10:36; Stop 12/02/19 at 10:35; Status DC Ondansetron HCl (Zofran) 4 mg PRN Q4HRS PRN IV NAUSEA/VOMITING Last administered on 12/02/19at 21:12; Start 12/01/19 at 15:15; Stop 12/03/19 at 07:45; Status DC Hydromorphone HCl (Dilaudid) 1 mg PRN Q4HRS PRN IV PAIN Last administered on 12/02/19at 06:35; Start 12/01/19 at 15:30 Ciprofloxacin/ Dextrose 100 ml @ 100 mls/hr Q12HR IV Last administered on 12/02/19at 07:57; Start 12/01/19 at 21:00; Stop 12/02/19 at 14:32; Status DC Metronidazole 100 ml @ 100 mls/hr Q8HRS IV ; Start 12/01/19 at 22:00; Status UNV Ciprofloxacin/ Dextrose 200 ml @ 200 mls/hr DAILY IV ; Start 12/02/19 at 09:00; Status UNV Metronidazole 100 ml @ 100 mls/hr Q12HR IV Last administered on 12/02/19at 21:36; Start 12/01/19 at 21:00; Stop 12/03/19 at 06:41; Status DC Enoxaparin Sodium (Lovenox 40mg Syringe) 40 mg Q24H SQ Last administered on 12/02/19at 16:53; Start 12/01/19 at 16:00; Stop 12/03/19 at 11:15; Status DC Psyllium Hydrophilic Mucilloid (Metamucil Fiber Packet) 1 pkt QPM PO Last administered on 12/01/19at 17:40; Start 12/01/19 at 18:00 Prochlorperazine Edisylate (Compazine) 10 mg PRN Q6HRS PRN IM NAUSEA/VOMITING; Start 12/01/19 at 23:30 Sodium Chloride 1,000 ml @ 1,000 mls/hr 1X ONCE IV Last administered on 12/02/19at 13:30; Start 12/02/19 at 13:30; Stop 12/02/19 at 14:29; Status DC Lorazepam (Ativan Inj) 0.5 mg PRN Q6HRS PRN IVP ANXIETY / AGITATION Last administered on 12/02/19at 22:35; Start 12/02/19 at 13:30 Ondansetron HCl (Zofran) 4 mg PRN Q6HRS PRN IVP NAUSEA/VOMITING; Start 12/02/19 at 13:30 Info (Icu Electrolyte Protocol) 1 ea DAILY MC ; Start 12/03/19 at 09:00 Sodium Chloride 1,000 ml @ 1,000 mls/hr Q1H IV Last administered on 12/02/19at 13:27; Start 12/02/19 at 13:27; Stop 12/02/19 at 14:26; Status DC Senna/Docusate Sodium (Senna Plus) 1 tab BID PO Last administered on 12/02/19at 21:35; Start 12/02/19 at 14:00 Lactulose (Lactulose) 20 gm PRN Q12HR PRN PO CONSTIPATION; Start 12/02/19 at 13:30 Sodium Chloride 1,000 ml @ 1,650 mls/hr Q37M IV Last administered on 12/02/19at 14:04; Start 12/02/19 at 13:27; Stop 12/02/19 at 14:27; Status DC Sodium Chloride 500 ml @ 1,000 mls/hr PRN Q30MIN PRN IV SEE PARAMETERS; Start 12/02/19 at 13:30 Cefepime HCl (Maxipime) 2 gm Q12HR IVP Last administered on 12/02/19at 21:37; Start 12/02/19 at 14:00; Stop 12/03/19 at 06:41; Status DC Norepinephrine Bitartrate 8 mg/ Dextrose 258 ml @ 0 mls/hr CONT PRN IV SHOCK; Start 12/02/19 at 13:30; Stop 12/03/19 at 07:44; Status DC Dobutamine HCl/ Dextrose 250 ml @ 0 mls/hr CONT PRN IV PER PROTOCOL; Start 12/02/19 at 13:30 Norepinephrine Bitartrate 8 mg/ Dextrose 258 ml @ 14.067 mls/ hr CONT PRN IV PER PROTOCOL Last administered on 12/03/19at 06:08; Start 12/02/19 at 16:15 Nicotine (Nicoderm Cq 21mg) 1 patch DAILY TD ; Start 12/03/19 at 09:00 Meropenem 500 mg/ Sodium Chloride 50 ml @ 100 mls/hr Q8HRS IV Last administered on 12/03/19at 08:10; Start 12/03/19 at 07:00 Daptomycin 440 mg/ Sodium Chloride 50 ml @ 100 mls/hr QODAY IV ; Start 12/03/19 at 09:00 Fluconazole/ Sodium Chloride 100 ml @ 100 mls/hr Q24H IV Last administered on 12/03/19at 08:10; Start 12/03/19 at 06:30 Enoxaparin Sodium (Lovenox 30mg Syringe) 30 mg Q24H SQ ; Start 12/03/19 at 16:00 Dextrose/Sodium Chloride 1,000 ml @ 100 mls/hr Q10H IV ; Start 12/03/19 at 11:45; Stop 12/03/19 at 11:44; Status DC Sodium Bicarbonate 50 meq/Dextrose/ Sodium Chloride 1,050 ml @ 100 mls/hr [id number] IV Last administered on 12/03/19at 12:07; Start 12/03/19 at 12:00 Active Scripts Active Klor-Con M20 (Potassium Chloride) 20 Meq Tab.er.prt 20 Meq PO [id number] Oxycodone-Acetaminophen 5-325 (Oxycodone Hcl/Acetaminophen) 1 Each Tablet 1 Tab PO PRN Q4HRS PRN Mag-Oxide (Magnesium Oxide) 400 Mg Tablet 400 Mg PO DAILY Lisinopril 20 Mg Tablet 20 Mg PO DAILY NICODERM CQ 7mg (Nicotine) 1 Each Patch.td24 1 Patch TD DAILY Slow Release Iron (Ferrous Sulfate) 142 Mg Tablet.er 142 Mg PO DAILYWBKFT Reported Tylenol (Acetaminophen) 325 Mg Tablet 650 Mg PO PRN Q4-6HRS PRN Allergies Allergies: Coded Allergies: No Known Drug Allergies (Unverified , 09/26/15) ROS General: YES: Fatigue, Malaise, Appetite PSYCHOLOGICAL ROS: YES: Anxiety Eyes: Yes Decreased vision HEENT: YES: [place] ALLERGY AND IMMUNOLOGY: YES: Seasonal Allergies Respiratory: YES: Cough Gastrointestinal: Yes Nausea, Yes Abdominal Pain Genitourinary: YES Other (ANURIA) Musculoskeletal: Yes Muscular Weakness Neurological: Yes Weakness Skin: Yes Dry Skin Physical Exam General: Alert, Oriented X3, Cooperative, No acute distress HEENT: Atraumatic, PERRLA, EOMI Lungs: Clear to auscultation Heart: Regular rate Abdomen: Soft, Other (HYPOACTIVE) Extremities: No clubbing, No cyanosis Skin: No rashes Neuro: Normal speech, Sensation intact Psych/Mental Status: Mental status NL, Mood NL MUSCULOSKELETAL: No joint tenderness, No deformity, No swelling Vitals VITALS Vital Signs Date Time Temp Pulse Resp B/P (MAP) Pulse Ox O2 Delivery O2 Flow Rate FiO2 12/03/19 06:00 80 18 94/43 (60) 98 Room Air 12/03/19 04:00 98.9 98.9 12/03/19 00:00 3.0 Labs Labs Laboratory Tests Test 12/02/19 03:25 12/02/19 08:25 12/02/19 12:30 12/02/19 16:40 White Blood Count 16.8 x10^3/uL (4.0-11.0) Red Blood Count 4.50 x10^6/uL (3.50-5.40) Hemoglobin 10.2 g/dL (12.0-15.5) Hematocrit 32.4 % (36.0-47.0) Mean Corpuscular Volume 72 fL (79-100) Mean Corpuscular Hemoglobin 23 pg (25-35) Mean Corpuscular Hemoglobin Concent 31 g/dL (31-37) Red Cell Distribution Width 17.9 % (11.5-14.5) Platelet Count 119 x10^3/uL (140-400) Neutrophils (%) (Auto) 96 % (31-73) Lymphocytes (%) (Auto) 3 % (24-48) Monocytes (%) (Auto) 1 % (0-9) Eosinophils (%) (Auto) 0 % (0-3) Basophils (%) (Auto) 0 % (0-3) Neutrophils # (Auto) 16.1 x10^3/uL (1.8-7.7) Lymphocytes # (Auto) 0.5 x10^3/uL (1.0-4.8) Monocytes # (Auto) 0.1 x10^3/uL (0.0-1.1) Eosinophils # (Auto) 0.0 x10^3/uL (0.0-0.7) Basophils # (Auto) 0.0 x10^3/uL (0.0-0.2) Segmented Neutrophils % 51 % (35-66) Band Neutrophils % 35 % (0-9) Lymphocytes % 1 % (24-48) Monocytes % 2 % (0-10) Metamyelocytes % 11 % (0-0) Nucleated Red Blood Cells 2 Toxic Vacuolation Mod Dohle Bodies Present Platelet Estimate Decreased (ADEQUATE) Polychromasia Slight Anisocytosis Mod Target Cells Occ Tear Drop Cells Occ Sodium Level 135 mmol/L (136-145) Potassium Level 3.3 mmol/L (3.5-5.1) Chloride Level 103 mmol/L (98-107) Carbon Dioxide Level 19 mmol/L (21-32) Anion Gap 13 (6-14) Blood Urea Nitrogen 16 mg/dL (7-20) Creatinine 1.6 mg/dL (0.6-1.0) Estimated GFR (Cockcroft-Gault) 32.8 BUN/Creatinine Ratio 10 (6-20) Glucose Level 56 mg/dL (70-99) Calcium Level 7.5 mg/dL (8.5-10.1) Iron Level 82 ug/dL (50-170) Total Iron Binding Capacity 183 ug/dL (250-450) Iron Saturation 45 % (15-34) Total Bilirubin 2.4 mg/dL (0.2-1.0) Aspartate Amino Transf (AST/SGOT) 63 U/L (15-37) Alanine Aminotransferase (ALT/SGPT) 37 U/L (14-59) Alkaline Phosphatase 339 U/L (46-116) Total Protein 6.7 g/dL (6.4-8.2) Albumin 2.2 g/dL (3.4-5.0) Albumin/Globulin Ratio 0.5 (1.0-1.7) Vitamin B12 Level > 2000 pg/mL (247-911) Lactic Acid Level 5.4 mmol/L (0.4-2.0) 5.5 mmol/L (0.4-2.0) 3.2 mmol/L (0.4-2.0) Procalcitonin 91.13 ng/mL (0.00-0.10) Test 12/02/19 20:17 12/02/19 21:30 12/02/19 23:10 12/03/19 05:35 Lactic Acid Level 2.8 mmol/L (0.4-2.0) Urine Collection Type Unknown Urine Color Brown Urine Clarity Turbid Urine pH 5.0 (<5.0-8.0) Urine Specific [place] >=1.030 (1.000-1.030) Urine Protein 100 mg/dL (NEG-TRACE) Urine Glucose (UA) Negative mg/dL (NEG) Urine Ketones (Stick) 15 mg/dL (NEG) Urine Blood Negative (NEG) Urine Nitrite Positive (NEG) Urine Bilirubin Large (NEG) Urine Urobilinogen Dipstick 2.0 mg/dL (0.2 mg/dL) Urine Leukocyte Esterase Moderate (NEG) Urine RBC 6-10 /HPF (0-2) Urine WBC >40 /HPF (0-4) Urine Squamous Epithelial Cells Mod /LPF Urine Bacteria Many /HPF (0-FEW) White Blood Count 10.1 x10^3/uL (4.0-11.0) Red Blood Count 4.63 x10^6/uL (3.50-5.40) Hemoglobin 10.6 g/dL (12.0-15.5) Hematocrit 33.2 % (36.0-47.0) Mean Corpuscular Volume 72 fL (79-100) Mean Corpuscular Hemoglobin 23 pg (25-35) Mean Corpuscular Hemoglobin Concent 32 g/dL (31-37) Red Cell Distribution Width 18.3 % (11.5-14.5) Platelet Count 136 x10^3/uL (140-400) Neutrophils (%) (Auto) 83 % (31-73) Lymphocytes (%) (Auto) 11 % (24-48) Monocytes (%) (Auto) 2 % (0-9) Eosinophils (%) (Auto) 4 % (0-3) Basophils (%) (Auto) 0 % (0-3) Neutrophils # (Auto) 8.5 x10^3/uL (1.8-7.7) Lymphocytes # (Auto) 1.1 x10^3/uL (1.0-4.8) Monocytes # (Auto) 0.2 x10^3/uL (0.0-1.1) Eosinophils # (Auto) 0.4 x10^3/uL (0.0-0.7) Basophils # (Auto) 0.0 x10^3/uL (0.0-0.2) Sodium Level 133 mmol/L (136-145) 133 mmol/L (136-145) Potassium Level 4.6 mmol/L (3.5-5.1) 5.3 mmol/L (3.5-5.1) Chloride Level 101 mmol/L (98-107) 102 mmol/L (98-107) Carbon Dioxide Level 16 mmol/L (21-32) 18 mmol/L (21-32) Anion Gap 16 (6-14) 13 (6-14) Blood Urea Nitrogen 26 mg/dL (7-20) 31 mg/dL (7-20) Creatinine 3.0 mg/dL (0.6-1.0) 3.1 mg/dL (0.6-1.0) Estimated GFR (Cockcroft-Gault) 15.9 15.3 Glucose Level 67 mg/dL (70-99) 53 mg/dL (70-99) Calcium Level 7.1 mg/dL (8.5-10.1) 7.0 mg/dL (8.5-10.1) Test 12/03/19 06:15 White Blood Count 40.8 x10^3/uL (4.0-11.0) Red Blood Count 4.38 x10^6/uL (3.50-5.40) Hemoglobin 9.8 g/dL (12.0-15.5) Hematocrit 30.8 % (36.0-47.0) Mean Corpuscular Volume 70 fL (79-100) Mean Corpuscular Hemoglobin 22 pg (25-35) Mean Corpuscular Hemoglobin Concent 32 g/dL (31-37) Red Cell Distribution Width 18.2 % (11.5-14.5) Platelet Count 99 x10^3/uL (140-400) Neutrophils (%) (Auto) 95 % (31-73) Lymphocytes (%) (Auto) 2 % (24-48) Monocytes (%) (Auto) 4 % (0-9) Eosinophils (%) (Auto) 0 % (0-3) Basophils (%) (Auto) 0 % (0-3) Neutrophils # (Auto) 38.6 x10^3/uL (1.8-7.7) Lymphocytes # (Auto) 0.6 x10^3/uL (1.0-4.8) Monocytes # (Auto) 1.5 x10^3/uL (0.0-1.1) Eosinophils # (Auto) 0.0 x10^3/uL (0.0-0.7) Basophils # (Auto) 0.0 x10^3/uL (0.0-0.2) Segmented Neutrophils % 68 % (35-66) Band Neutrophils % 24 % (0-9) Lymphocytes % 2 % (24-48) Monocytes % 3 % (0-10) Metamyelocytes % 3 % (0-0) Toxic Granulation Slight Toxic Vacuolation Mod Dohle Bodies Mod Platelet Estimate Decreased (ADEQUATE) Polychromasia Slight Anisocytosis Slight Target Cells Occ Tear Drop Cells Occ Laboratory Tests Test 12/02/19 12:30 12/02/19 16:40 12/02/19 20:17 12/02/19 21:30 Lactic Acid Level 5.5 mmol/L (0.4-2.0) 3.2 mmol/L (0.4-2.0) 2.8 mmol/L (0.4-2.0) Urine Collection Type Unknown Urine Color Brown Urine Clarity Turbid Urine pH 5.0 (<5.0-8.0) Urine Specific [place] >=1.030 (1.000-1.030) Urine Protein 100 mg/dL (NEG-TRACE) Urine Glucose (UA) Negative mg/dL (NEG) Urine Ketones (Stick) 15 mg/dL (NEG) Urine Blood Negative (NEG) Urine Nitrite Positive (NEG) Urine Bilirubin Large (NEG) Urine Urobilinogen Dipstick 2.0 mg/dL (0.2 mg/dL) Urine Leukocyte Esterase Moderate (NEG) Urine RBC 6-10 /HPF (0-2) Urine WBC >40 /HPF (0-4) Urine Squamous Epithelial Cells Mod /LPF Urine Bacteria Many /HPF (0-FEW) Test 12/02/19 23:10 12/03/19 05:35 12/03/19 06:15 White Blood Count 10.1 x10^3/uL (4.0-11.0) 40.8 x10^3/uL (4.0-11.0) Red Blood Count 4.63 x10^6/uL (3.50-5.40) 4.38 x10^6/uL (3.50-5.40) Hemoglobin 10.6 g/dL (12.0-15.5) 9.8 g/dL (12.0-15.5) Hematocrit 33.2 % (36.0-47.0) 30.8 % (36.0-47.0) Mean Corpuscular Volume 72 fL (79-100) 70 fL (79-100) Mean Corpuscular Hemoglobin 23 pg (25-35) 22 pg (25-35) Mean Corpuscular Hemoglobin Concent 32 g/dL (31-37) 32 g/dL (31-37) Red Cell Distribution Width 18.3 % (11.5-14.5) 18.2 % (11.5-14.5) Platelet Count 136 x10^3/uL (140-400) 99 x10^3/uL (140-400) Neutrophils (%) (Auto) 83 % (31-73) 95 % (31-73) Lymphocytes (%) (Auto) 11 % (24-48) 2 % (24-48) Monocytes (%) (Auto) 2 % (0-9) 4 % (0-9) Eosinophils (%) (Auto) 4 % (0-3) 0 % (0-3) Basophils (%) (Auto) 0 % (0-3) 0 % (0-3) Neutrophils # (Auto) 8.5 x10^3/uL (1.8-7.7) 38.6 x10^3/uL (1.8-7.7) Lymphocytes # (Auto) 1.1 x10^3/uL (1.0-4.8) 0.6 x10^3/uL (1.0-4.8) Monocytes # (Auto) 0.2 x10^3/uL (0.0-1.1) 1.5 x10^3/uL (0.0-1.1) Eosinophils # (Auto) 0.4 x10^3/uL (0.0-0.7) 0.0 x10^3/uL (0.0-0.7) Basophils # (Auto) 0.0 x10^3/uL (0.0-0.2) 0.0 x10^3/uL (0.0-0.2) Sodium Level 133 mmol/L (136-145) 133 mmol/L (136-145) Potassium Level 4.6 mmol/L (3.5-5.1) 5.3 mmol/L (3.5-5.1) Chloride Level 101 mmol/L (98-107) 102 mmol/L (98-107) Carbon Dioxide Level 16 mmol/L (21-32) 18 mmol/L (21-32) Anion Gap 16 (6-14) 13 (6-14) Blood Urea Nitrogen 26 mg/dL (7-20) 31 mg/dL (7-20) Creatinine 3.0 mg/dL (0.6-1.0) 3.1 mg/dL (0.6-1.0) Estimated GFR (Cockcroft-Gault) 15.9 15.3 Glucose Level 67 mg/dL (70-99) 53 mg/dL (70-99) Calcium Level 7.1 mg/dL (8.5-10.1) 7.0 mg/dL (8.5-10.1) Segmented Neutrophils % 68 % (35-66) Band Neutrophils % 24 % (0-9) Lymphocytes % 2 % (24-48) Monocytes % 3 % (0-10) Metamyelocytes % 3 % (0-0) Toxic Granulation Slight Toxic Vacuolation Mod Dohle Bodies Mod Platelet Estimate Decreased (ADEQUATE) Polychromasia Slight Anisocytosis Slight Target Cells Occ Tear Drop Cells Occ Assessment/Plan Assessment/Plan IMP MICHELLE WITH CR OF 3.1 LEUCOCYTOSIS URINARY TRACT INFECTION ACUTE DIVERTICULITIS HEP C HX CIRRHOSIS SEPSIS HYPOTENSION PLAN ANTIBIOTICS HCO3 GTT PRESSORS NEEDED PLACE VANCE WILL PROB NEED DIALYSIS D/W PT WILL FOLLOW I ERIC LEMA MD Dec 03, 2019 12:22
--- NOTE | 2019-12-03 12:37 | PDOC ---
GI PROGRESS NOTES Date Date/Time DATE: 12/03/19 TIME: 12:33 Subjective Subjective Significant changes from yesterday. Although KUB was unremarkable her lactic acid level remained quite high and this morning her white blood cell count jumped to over 40,000. Her pain has not really changed but we are concerned at this point about the possibility of abscess. Objective Vitals Vital Signs Date Time Temp Pulse Resp B/P (MAP) Pulse Ox O2 Delivery O2 Flow Rate FiO2 12/03/19 06:00 80 18 94/43 (60) 98 Room Air 12/03/19 05:00 82 17 91/49 (63) 99 Room Air 12/03/19 04:00 98.9 84 23 91/50 (64) 99 Room Air 98.9 12/03/19 03:00 83 17 91/50 (64) 99 Room Air 12/03/19 02:00 85 18 100/51 (67) 98 Room Air 12/03/19 01:00 88 17 91/42 (58) 97 Room Air 12/03/19 00:00 100.3 98 23 109/46 (67) 97 Room Air 100.3 12/03/19 00:00 Nasal Cannula 3.0 12/02/19 23:00 96 21 134/82 (99) 98 Room Air 12/02/19 22:00 82 18 115/83 (94) 95 Room Air 12/02/19 21:00 80 16 90/50 (63) 97 Room Air 12/02/19 20:00 Nasal Cannula 3.0 12/02/19 20:00 98.6 76 13 99/56 (70) 97 Room Air 98.6 12/02/19 18:30 88 28 88/52 (64) 93 Room Air 12/02/19 18:00 84 18 100/48 (65) 88 Room Air 12/02/19 17:00 78 12 86/44 (58) 92 Room Air 12/02/19 16:30 88 15 100/54 (69) Room Air 12/02/19 16:00 98.0 82 26 92/50 (64) 91 Room Air 98.0 12/02/19 15:30 76 18 92/48 (63) Room Air 12/02/19 15:00 78 100/53 (69) Room Air 12/02/19 14:30 Room Air 12/02/19 14:15 80 16 98/51 (67) 92 Room Air Labs Labs Laboratory Tests Test 12/02/19 16:40 12/02/19 20:17 12/02/19 21:30 12/02/19 23:10 Lactic Acid Level 3.2 mmol/L (0.4-2.0) 2.8 mmol/L (0.4-2.0) Urine Collection Type Unknown Urine Color Brown Urine Clarity Turbid Urine pH 5.0 (<5.0-8.0) Urine Specific [place] >=1.030 (1.000-1.030) Urine Protein 100 mg/dL (NEG-TRACE) Urine Glucose (UA) Negative mg/dL (NEG) Urine Ketones (Stick) 15 mg/dL (NEG) Urine Blood Negative (NEG) Urine Nitrite Positive (NEG) Urine Bilirubin Large (NEG) Urine Urobilinogen Dipstick 2.0 mg/dL (0.2 mg/dL) Urine Leukocyte Esterase Moderate (NEG) Urine RBC 6-10 /HPF (0-2) Urine WBC >40 /HPF (0-4) Urine Squamous Epithelial Cells Mod /LPF Urine Bacteria Many /HPF (0-FEW) White Blood Count 10.1 x10^3/uL (4.0-11.0) Red Blood Count 4.63 x10^6/uL (3.50-5.40) Hemoglobin 10.6 g/dL (12.0-15.5) Hematocrit 33.2 % (36.0-47.0) Mean Corpuscular Volume 72 fL (79-100) Mean Corpuscular Hemoglobin 23 pg (25-35) Mean Corpuscular Hemoglobin Concent 32 g/dL (31-37) Red Cell Distribution Width 18.3 % (11.5-14.5) Platelet Count 136 x10^3/uL (140-400) Neutrophils (%) (Auto) 83 % (31-73) Lymphocytes (%) (Auto) 11 % (24-48) Monocytes (%) (Auto) 2 % (0-9) Eosinophils (%) (Auto) 4 % (0-3) Basophils (%) (Auto) 0 % (0-3) Neutrophils # (Auto) 8.5 x10^3/uL (1.8-7.7) Lymphocytes # (Auto) 1.1 x10^3/uL (1.0-4.8) Monocytes # (Auto) 0.2 x10^3/uL (0.0-1.1) Eosinophils # (Auto) 0.4 x10^3/uL (0.0-0.7) Basophils # (Auto) 0.0 x10^3/uL (0.0-0.2) Sodium Level 133 mmol/L (136-145) Potassium Level 4.6 mmol/L (3.5-5.1) Chloride Level 101 mmol/L (98-107) Carbon Dioxide Level 16 mmol/L (21-32) Anion Gap 16 (6-14) Blood Urea Nitrogen 26 mg/dL (7-20) Creatinine 3.0 mg/dL (0.6-1.0) Estimated GFR (Cockcroft-Gault) 15.9 Glucose Level 67 mg/dL (70-99) Calcium Level 7.1 mg/dL (8.5-10.1) Test 12/03/19 05:35 12/03/19 06:15 Sodium Level 133 mmol/L (136-145) Potassium Level 5.3 mmol/L (3.5-5.1) Chloride Level 102 mmol/L (98-107) Carbon Dioxide Level 18 mmol/L (21-32) Anion Gap 13 (6-14) Blood Urea Nitrogen 31 mg/dL (7-20) Creatinine 3.1 mg/dL (0.6-1.0) Estimated GFR (Cockcroft-Gault) 15.3 Glucose Level 53 mg/dL (70-99) Calcium Level 7.0 mg/dL (8.5-10.1) White Blood Count 40.8 x10^3/uL (4.0-11.0) Red Blood Count 4.38 x10^6/uL (3.50-5.40) Hemoglobin 9.8 g/dL (12.0-15.5) Hematocrit 30.8 % (36.0-47.0) Mean Corpuscular Volume 70 fL (79-100) Mean Corpuscular Hemoglobin 22 pg (25-35) Mean Corpuscular Hemoglobin Concent 32 g/dL (31-37) Red Cell Distribution Width 18.2 % (11.5-14.5) Platelet Count 99 x10^3/uL (140-400) Neutrophils (%) (Auto) 95 % (31-73) Lymphocytes (%) (Auto) 2 % (24-48) Monocytes (%) (Auto) 4 % (0-9) Eosinophils (%) (Auto) 0 % (0-3) Basophils (%) (Auto) 0 % (0-3) Neutrophils # (Auto) 38.6 x10^3/uL (1.8-7.7) Lymphocytes # (Auto) 0.6 x10^3/uL (1.0-4.8) Monocytes # (Auto) 1.5 x10^3/uL (0.0-1.1) Eosinophils # (Auto) 0.0 x10^3/uL (0.0-0.7) Basophils # (Auto) 0.0 x10^3/uL (0.0-0.2) Segmented Neutrophils % 68 % (35-66) Band Neutrophils % 24 % (0-9) Lymphocytes % 2 % (24-48) Monocytes % 3 % (0-10) Metamyelocytes % 3 % (0-0) Toxic Granulation Slight Toxic Vacuolation Mod Dohle Bodies Mod Platelet Estimate Decreased (ADEQUATE) Polychromasia Slight Anisocytosis Slight Target Cells Occ Tear Drop Cells Occ Physical Exam Physical Exam Alert Chest clear Heart regular rate and rhythm Abdomen soft, normal bowel sounds, tender in the left lower quadrant but without rebound. Assessment Assessment Sigmoid diverticulitis. Pain control has improved on Dilaudid. However she did have emesis Monday night and a dramatic increase in her white count and lactic acid. This may raise the question of sepsis, localized perforation and/or abscess. She was transferred to the ICU yesterday due to the the elevated lactic acid and this morning her white count dramatically increased over 40,000. ID has broadened her antibiotic coverage. Hepatitis C. She has genotype 3 from 2016. She has developed cirrhosis. We discussed treatment options for her as an outpatient later. Cirrhosis. Plan Plan Consider repeat noncontrast CT of the abdomen and pelvis Continue IV antibiotics as ordered by ID Continue clear liquid diet but if she has further pain or emesis we will make her n.p.o. Justicifation of Admission Dx: Justifications for Admission: Justification of Admission Dx: Yes MANOLO INIGUEZ MD Dec 03, 2019 12:37
--- NOTE | 2019-12-03 13:23 | NUR ---
SS following for discharge planning. SS reviewed pt chart and discussed with pt RN. Pt is from home and is currently on room air. Pt on IV Daptomycin, IV Meropenem, and IV Fluconazole. Pt on Levophed. Pt to have CT of abdomen today. SS will continue to follow for discharge planning.
--- NOTE | 2019-12-03 15:14 | RAD ---
Exam: CT abdomen and pelvis without contrast INDICATION: History of diverticulitis, worsening white blood cell count TECHNIQUE: Sequential axial images through the abdomen and pelvis obtained without IV contrast. Sagittal and coronal reformatted images were reconstructed from the axial data and reviewed. Comparisons: CT 12/01/2019 FINDINGS: Heart size is normal. No pericardial effusion. Trace right and left pleural effusions greater on the right. There is adjacent atelectasis. Evaluation of solid organs is limited secondary to noncontrast technique. Mild diffuse hepatic steatosis. Mildly nodular contour is noted to the liver. Spleen is mildly enlarged measuring 14.3 cm in long axis. Pancreas and adrenals are unremarkable. Gallstones are noted in the dependent portion of the gallbladder. No pericholecystic fluid or wall thickening. No perinephric inflammation or hydronephrosis. No renal or ureteral calculi are identified. Bladder is partially distended and not well evaluated. Uterus is absent. No abnormal adnexal mass. Extensive diverticulosis at the descending and sigmoid colon with inflammatory changes at the mid sigmoid colon. Small amount of extraluminal air is noted adjacent to the site of wall thickening. There is mild adjacent inflammatory changes. No focal fluid collection is seen. Remainder of the large and small bowel are unremarkable. No obstruction. Abdominal aorta has a normal course and caliber. Extensive collateral vessels are again noted predominantly at the left periaortic region. No enlarged intra-abdominal lymph nodes are identified. No suspicious osseous lesions or acute fractures. Soft tissue anasarca noted at the flanks bilaterally. IMPRESSION: 1. Redemonstration of diverticulitis at the sigmoid colon with a small adjacent contained perforation. No focal fluid collection to suggest abscess. 2. Interval development of trace bilateral pleural effusions greater on the right. Additionally there is soft tissue anasarca. Correlate with volume status. 3. Other stable findings as described above. Exposure: One or more of the following in the visualized dose reduction techniques were utilized for this examination: 1. Automated exposure control 2. Adjustment of the MA and/or KV according to patient size 3. Use of iterative of reconstructive technique Electronically signed by: Uzair Marr MD (12/03/2019 3:11 PM) [id number]
[2019-12-03] MEDS: ENOXAPARIN 30 MG/0.3 ML SYRINGE. SQ SCH (17:40)
[2019-12-03] MEDS: DAPTOmycin (GENERIC) IVPB 440 MG in IV NORMAL SALINE 50ML 50 ML IV SCH (17:47)
[2019-12-03] MEDS: PSYLLIUM HUSK (SUGAR FREE) 1 PKT PACKET PO SCH (17:48)
[2019-12-04] VITALS (25 sets, daily range): BP systolic 102–145; BP diastolic 55–87
[2019-12-04] MEDS ORDERED: ALBUTEROL SULFATE 2.5 MG/3 ML NEBU. NEB ONE (02:15)
--- NOTE | 2019-12-04 03:11 | RAD ---
Chest AP portable at 0252: Reason for examination: Wheezing. Comparison is made to previous chest dated 10/05/2015. The heart size is normal. Mediastinum is unremarkable. Lung swanson however show presence of bilateral interstitial infiltrates which are predominantly upper lobe. No pleural effusions are seen. No acute bony abnormalities are present. IMPRESSION: Bilateral interstitial infiltrates which are predominantly upper lobe. Electronically signed by: Elle Garcia MD (12/04/2019 3:09 AM) [id number]
[2019-12-04 05:29] LABS: BASO % 0 % (0-3); EOS # 0.2 x10^3/uL (0.0-0.7); EOS % 1 % (0-3); HEMATOCRIT 29.9 % (36.0-47.0); HEMOGLOBIN 9.6 g/dL (12.0-15.5); LYMPH # 1.1 x10^3/uL (1.0-4.8); LYMPH % 4 % (24-48); MEAN CORPUSCULAR HEMOGLOBIN 22 pg (25-35); MEAN CORPUSCULAR HGB CONC 32 g/dL (31-37); MEAN CORPUSCULAR VOLUME 70 fL (79-100); MONO % 4 % (0-9); NEUT # 25.3 x10^3/uL (1.8-7.7); NEUT % 92 % (31-73); PLATELET COUNT 70 x10^3/uL (140-400); RED BLOOD COUNT 4.27 x10^6/uL (3.50-5.40); RED CELL DISTRIBUTION WIDTH 18.1 % (11.5-14.5); WHITE BLOOD COUNT 27.6 x10^3/uL (4.0-11.0)
[2019-12-04 05:39] LABS: ALBUMIN 1.9 g/dL (3.4-5.0); ALBUMIN/GLOBULIN RATIO 0.5 (1.0-1.7); CALCIUM 6.5 mg/dL (8.5-10.1); CREATININE 3.4 mg/dL (0.6-1.0); GFR 13.7; TOTAL BILIRUBIN 2.7 mg/dL (0.2-1.0); TOTAL PROTEIN 6.1 g/dL (6.4-8.2)
[2019-12-04] MEDS: MEROPENEM 500 MG in IV NORMAL SALINE 50ML 50 ML IV SCH ×3 (05:44→21:16)
[2019-12-04] MEDS: FLUCONAZOLE 200MG/100ML PREMIX 100 ML IV SCH (05:45)
--- NOTE | 2019-12-04 06:39 | PDOC ---
Infectious Disease Note Subjective Subjective States ok. No F/C/s/abd pain + Cough but no SOA ROS ROS o/w neg Vital Sign Vital Signs Vital Signs Date Time Temp Pulse Resp B/P (MAP) Pulse Ox O2 Delivery O2 Flow Rate FiO2 12/04/19 06:02 82 24 102/68 (79) 98 Nasal Cannula 2.0 12/04/19 04:00 98.1 98.1 Physical Exam PHYSICAL EXAM CONSTITUTIONAL: She is lying in bed. She is cooperative. She looks comfortable. She is in no acute distress. HEENT: Normal conjunctivae. Oral cavity, pharynx was clear. NECK: Supple. Good range of motion. LUNGS: Mild wheeze She is on nasal cannula oxygen. HEART: S1, S2. ABDOMEN: Obese. It is mildly distended. There is no guarding. There is no gross tenderness. : Vital EXTREMITIES: Without clubbing, cyanosis or gross edema. SKIN: Warm to touch without signs of rash. NEUROLOGIC: She is alert, nonfocal but slightly confused PSYCHIATRIC: Affect is appropriate. Labs Lab Laboratory Tests Test 12/04/19 05:05 White Blood Count 27.6 x10^3/uL (4.0-11.0) Red Blood Count 4.27 x10^6/uL (3.50-5.40) Hemoglobin 9.6 g/dL (12.0-15.5) Hematocrit 29.9 % (36.0-47.0) Mean Corpuscular Volume 70 fL (79-100) Mean Corpuscular Hemoglobin 22 pg (25-35) Mean Corpuscular Hemoglobin Concent 32 g/dL (31-37) Red Cell Distribution Width 18.1 % (11.5-14.5) Platelet Count 70 x10^3/uL (140-400) Neutrophils (%) (Auto) 92 % (31-73) Lymphocytes (%) (Auto) 4 % (24-48) Monocytes (%) (Auto) 4 % (0-9) Eosinophils (%) (Auto) 1 % (0-3) Basophils (%) (Auto) 0 % (0-3) Neutrophils # (Auto) 25.3 x10^3/uL (1.8-7.7) Lymphocytes # (Auto) 1.1 x10^3/uL (1.0-4.8) Monocytes # (Auto) 1.0 x10^3/uL (0.0-1.1) Eosinophils # (Auto) 0.2 x10^3/uL (0.0-0.7) Basophils # (Auto) 0.0 x10^3/uL (0.0-0.2) Sodium Level 130 mmol/L (136-145) Potassium Level 4.0 mmol/L (3.5-5.1) Chloride Level 101 mmol/L (98-107) Carbon Dioxide Level 19 mmol/L (21-32) Anion Gap 10 (6-14) Blood Urea Nitrogen 45 mg/dL (7-20) Creatinine 3.4 mg/dL (0.6-1.0) Estimated GFR (Cockcroft-Gault) 13.7 BUN/Creatinine Ratio 13 (6-20) Glucose Level 142 mg/dL (70-99) Calcium Level 6.5 mg/dL (8.5-10.1) Total Bilirubin 2.7 mg/dL (0.2-1.0) Aspartate Amino Transf (AST/SGOT) 213 U/L (15-37) Alanine Aminotransferase (ALT/SGPT) 113 U/L (14-59) Alkaline Phosphatase 124 U/L (46-116) Total Protein 6.1 g/dL (6.4-8.2) Albumin 1.9 g/dL (3.4-5.0) Albumin/Globulin Ratio 0.5 (1.0-1.7) Micro CT IMPRESSION: 1. Redemonstration of diverticulitis at the sigmoid colon with a small adjacent contained perforation. No focal fluid collection to suggest abscess. 2. Interval development of trace bilateral pleural effusions greater on the right. Additionally there is soft tissue anasarca. Correlate with volume status. CXR: IMPRESSION: Bilateral interstitial infiltrates which are predominantly upper lobe. Objective Assessment Sepsis - Levophed tapering down MICHELLE - Acute Sigmoid Diverticulitis Leukocytosis - better Thrombocytopenia Transaminitis Mild Wheeze today - breathing treatments given Cirrhosis H/o Hep C Possible UTI but a lot of squamous cells Ongoing tobacco abuse Plan Plan of Care Changed to Meropenem/Dapto/Fluconoazole 12/02 Adjust Meropenem to q 12 12/03 F/u labs and cults Resp per primary - appears comfortable currently - Add BNP Critically ill D/w nursing MARICARMEN BOWEN MD Dec 04, 2019 06:39
--- NOTE | 2019-12-04 08:54 | NUR ---
Merrem scheduled for 899 not given since 0600 dose just completed at 0700
[2019-12-04] MEDS: NICOTINE 21MG PATCH. TD SCH (09:00)
[2019-12-04] MEDS: ELECTROLYTE (ICU) PROTOCOL. MC SCH (09:00)
[2019-12-04] MEDS: SENNOSIDES/DOCUSATE 8.6/50MG TABLET. PO SCH ×2 (09:11→21:00)
[2019-12-04] MEDS: SODIUM BICARBONATE VIAL 50 MEQ in IV DEXTROSE 5 %-0.45 % NACL 1,000 ML IV SCH ×2 (09:12→20:25)
[2019-12-04] MEDS ORDERED: FUROSEMIDE 40 MG/4 ML VIAL. IVP ONE (09:15)
--- NOTE | 2019-12-04 10:02 | PDOC ---
Renal-Progress Notes Subjective Notes Notes NO NEW COMPLAINTS History of Present Illness Hx of present illness STABLE Vitals Vitals Vital Signs Date Time Temp Pulse Resp B/P (MAP) Pulse Ox O2 Delivery O2 Flow Rate FiO2 12/04/19 09:00 73 24 124/66 (85) 95 Nasal Cannula 2.0 12/04/19 07:00 97.6 97.6 Weight Weight [ ] I.O. Intake and Output Intake and Output 12/04/19 07:00 Intake Total 1306 ml Output Total 310 ml Balance 996 ml Intake Oral 50 ml IV Total 1256 ml Output Urine Total 310 ml Labs Labs Laboratory Tests Test 12/04/19 05:05 White Blood Count 27.6 x10^3/uL (4.0-11.0) Red Blood Count 4.27 x10^6/uL (3.50-5.40) Hemoglobin 9.6 g/dL (12.0-15.5) Hematocrit 29.9 % (36.0-47.0) Mean Corpuscular Volume 70 fL (79-100) Mean Corpuscular Hemoglobin 22 pg (25-35) Mean Corpuscular Hemoglobin Concent 32 g/dL (31-37) Red Cell Distribution Width 18.1 % (11.5-14.5) Platelet Count 70 x10^3/uL (140-400) Neutrophils (%) (Auto) 92 % (31-73) Lymphocytes (%) (Auto) 4 % (24-48) Monocytes (%) (Auto) 4 % (0-9) Eosinophils (%) (Auto) 1 % (0-3) Basophils (%) (Auto) 0 % (0-3) Neutrophils # (Auto) 25.3 x10^3/uL (1.8-7.7) Lymphocytes # (Auto) 1.1 x10^3/uL (1.0-4.8) Monocytes # (Auto) 1.0 x10^3/uL (0.0-1.1) Eosinophils # (Auto) 0.2 x10^3/uL (0.0-0.7) Basophils # (Auto) 0.0 x10^3/uL (0.0-0.2) Sodium Level 130 mmol/L (136-145) Potassium Level 4.0 mmol/L (3.5-5.1) Chloride Level 101 mmol/L (98-107) Carbon Dioxide Level 19 mmol/L (21-32) Anion Gap 10 (6-14) Blood Urea Nitrogen 45 mg/dL (7-20) Creatinine 3.4 mg/dL (0.6-1.0) Estimated GFR (Cockcroft-Gault) 13.7 BUN/Creatinine Ratio 13 (6-20) Glucose Level 142 mg/dL (70-99) Calcium Level 6.5 mg/dL (8.5-10.1) Total Bilirubin 2.7 mg/dL (0.2-1.0) Aspartate Amino Transf (AST/SGOT) 213 U/L (15-37) Alanine Aminotransferase (ALT/SGPT) 113 U/L (14-59) Alkaline Phosphatase 124 U/L (46-116) PC-Rrc-S-Type Natriuretic Peptide > 91935 pg/mL (0-124) Total Protein 6.1 g/dL (6.4-8.2) Albumin 1.9 g/dL (3.4-5.0) Albumin/Globulin Ratio 0.5 (1.0-1.7) Micro Micro Microbiology 12/02/19 Urine Culture - Final, Complete Review of Systems Constitutional: yes: weakness, alert Ears/Nose/Throat: Yes: no symptom reported Eyes: Yes: no symptom reported Pulmonary: Yes no symptom reported Cardiovascular: Yes no symptom reported Gastrointestional: Yes: no symptom reported Musculoskeletal: Yes: no symptom reported Psychiatric/Neurological: Yes: no symptom reported Physical Exam General Appearance: no apparent distress Skin: warm Respiratory: decreased breath sounds Heart: S1S2 Abdomen: soft, bowel sounds present Genitourinary: hurley catheter Extremities: pulses present, no edema Neurology: alert Assessment Assessment IMP MICHELLE WITH CR OF 3.5 HYPERVOLEMIA LEUCOCYTOSIS URINARY TRACT INFECTION ACUTE DIVERTICULITIS HEP C HX CIRRHOSIS SEPSIS HYPOTENSION PLAN ANTIBIOTICS HCO3 GTT PRESSORS NEEDED LOW DOSE LASIX PLACE [facility]LEY MAY NEED DIALYSIS D/W PT WILL FOLLOW ERIC LEMA MD Dec 04, 2019 10:02
--- NOTE | 2019-12-04 12:36 | PDOC ---
SURGICAL PROGRESS NOTE Subjective Pt awake in ICU, but minimally responsive, does not appear to have abd pain Vital Signs Vital Signs Date Time Temp Pulse Resp B/P (MAP) Pulse Ox O2 Delivery O2 Flow Rate FiO2 12/04/19 10:00 73 24 119/68 (85) 93 Nasal Cannula 2.0 12/04/19 07:00 97.6 97.6 I&O Intake and Output 12/04/19 07:00 Intake Total 1306 ml Output Total 310 ml Balance 996 ml Intake Oral 50 ml IV Total 1256 ml Output Urine Total 310 ml General: Alert, No acute distress Abdomen: Soft, No tenderness Labs Laboratory Tests Test 12/02/19 16:40 12/02/19 20:17 12/02/19 21:30 12/02/19 23:10 Lactic Acid Level 3.2 mmol/L (0.4-2.0) 2.8 mmol/L (0.4-2.0) Urine Collection Type Unknown Urine Color Brown Urine Clarity Turbid Urine pH 5.0 (<5.0-8.0) Urine Specific Kimberly >=1.030 (1.000-1.030) Urine Protein 100 mg/dL (NEG-TRACE) Urine Glucose (UA) Negative mg/dL (NEG) Urine Ketones (Stick) 15 mg/dL (NEG) Urine Blood Negative (NEG) Urine Nitrite Positive (NEG) Urine Bilirubin Large (NEG) Urine Urobilinogen Dipstick 2.0 mg/dL (0.2 mg/dL) Urine Leukocyte Esterase Moderate (NEG) Urine RBC 6-10 /HPF (0-2) Urine WBC >40 /HPF (0-4) Urine Squamous Epithelial Cells Mod /LPF Urine Bacteria Many /HPF (0-FEW) White Blood Count 10.1 x10^3/uL (4.0-11.0) Red Blood Count 4.63 x10^6/uL (3.50-5.40) Hemoglobin 10.6 g/dL (12.0-15.5) Hematocrit 33.2 % (36.0-47.0) Mean Corpuscular Volume 72 fL (79-100) Mean Corpuscular Hemoglobin 23 pg (25-35) Mean Corpuscular Hemoglobin Concent 32 g/dL (31-37) Red Cell Distribution Width 18.3 % (11.5-14.5) Platelet Count 136 x10^3/uL (140-400) Neutrophils (%) (Auto) 83 % (31-73) Lymphocytes (%) (Auto) 11 % (24-48) Monocytes (%) (Auto) 2 % (0-9) Eosinophils (%) (Auto) 4 % (0-3) Basophils (%) (Auto) 0 % (0-3) Neutrophils # (Auto) 8.5 x10^3/uL (1.8-7.7) Lymphocytes # (Auto) 1.1 x10^3/uL (1.0-4.8) Monocytes # (Auto) 0.2 x10^3/uL (0.0-1.1) Eosinophils # (Auto) 0.4 x10^3/uL (0.0-0.7) Basophils # (Auto) 0.0 x10^3/uL (0.0-0.2) Sodium Level 133 mmol/L (136-145) Potassium Level 4.6 mmol/L (3.5-5.1) Chloride Level 101 mmol/L (98-107) Carbon Dioxide Level 16 mmol/L (21-32) Anion Gap 16 (6-14) Blood Urea Nitrogen 26 mg/dL (7-20) Creatinine 3.0 mg/dL (0.6-1.0) Estimated GFR (Cockcroft-Gault) 15.9 Glucose Level 67 mg/dL (70-99) Calcium Level 7.1 mg/dL (8.5-10.1) Test 12/03/19 05:35 12/03/19 06:15 12/04/19 05:05 Sodium Level 133 mmol/L (136-145) 130 mmol/L (136-145) Potassium Level 5.3 mmol/L (3.5-5.1) 4.0 mmol/L (3.5-5.1) Chloride Level 102 mmol/L (98-107) 101 mmol/L (98-107) Carbon Dioxide Level 18 mmol/L (21-32) 19 mmol/L (21-32) Anion Gap 13 (6-14) 10 (6-14) Blood Urea Nitrogen 31 mg/dL (7-20) 45 mg/dL (7-20) Creatinine 3.1 mg/dL (0.6-1.0) 3.4 mg/dL (0.6-1.0) Estimated GFR (Cockcroft-Gault) 15.3 13.7 Glucose Level 53 mg/dL (70-99) 142 mg/dL (70-99) Calcium Level 7.0 mg/dL (8.5-10.1) 6.5 mg/dL (8.5-10.1) White Blood Count 40.8 x10^3/uL (4.0-11.0) 27.6 x10^3/uL (4.0-11.0) Red Blood Count 4.38 x10^6/uL (3.50-5.40) 4.27 x10^6/uL (3.50-5.40) Hemoglobin 9.8 g/dL (12.0-15.5) 9.6 g/dL (12.0-15.5) Hematocrit 30.8 % (36.0-47.0) 29.9 % (36.0-47.0) Mean Corpuscular Volume 70 fL (79-100) 70 fL (79-100) Mean Corpuscular Hemoglobin 22 pg (25-35) 22 pg (25-35) Mean Corpuscular Hemoglobin Concent 32 g/dL (31-37) 32 g/dL (31-37) Red Cell Distribution Width 18.2 % (11.5-14.5) 18.1 % (11.5-14.5) Platelet Count 99 x10^3/uL (140-400) 70 x10^3/uL (140-400) Neutrophils (%) (Auto) 95 % (31-73) 92 % (31-73) Lymphocytes (%) (Auto) 2 % (24-48) 4 % (24-48) Monocytes (%) (Auto) 4 % (0-9) 4 % (0-9) Eosinophils (%) (Auto) 0 % (0-3) 1 % (0-3) Basophils (%) (Auto) 0 % (0-3) 0 % (0-3) Neutrophils # (Auto) 38.6 x10^3/uL (1.8-7.7) 25.3 x10^3/uL (1.8-7.7) Lymphocytes # (Auto) 0.6 x10^3/uL (1.0-4.8) 1.1 x10^3/uL (1.0-4.8) Monocytes # (Auto) 1.5 x10^3/uL (0.0-1.1) 1.0 x10^3/uL (0.0-1.1) Eosinophils # (Auto) 0.0 x10^3/uL (0.0-0.7) 0.2 x10^3/uL (0.0-0.7) Basophils # (Auto) 0.0 x10^3/uL (0.0-0.2) 0.0 x10^3/uL (0.0-0.2) Segmented Neutrophils % 68 % (35-66) Band Neutrophils % 24 % (0-9) Lymphocytes % 2 % (24-48) Monocytes % 3 % (0-10) Metamyelocytes % 3 % (0-0) Toxic Granulation Slight Toxic Vacuolation Mod Dohle Bodies Mod Platelet Estimate Decreased (ADEQUATE) Polychromasia Slight Anisocytosis Slight Target Cells Occ Tear Drop Cells Occ BUN/Creatinine Ratio 13 (6-20) Total Bilirubin 2.7 mg/dL (0.2-1.0) Aspartate Amino Transf (AST/SGOT) 213 U/L (15-37) Alanine Aminotransferase (ALT/SGPT) 113 U/L (14-59) Alkaline Phosphatase 124 U/L (46-116) IO-Ifp-R-Type Natriuretic Peptide > 63404 pg/mL (0-124) Total Protein 6.1 g/dL (6.4-8.2) Albumin 1.9 g/dL (3.4-5.0) Albumin/Globulin Ratio 0.5 (1.0-1.7) Laboratory Tests Test 12/04/19 05:05 White Blood Count 27.6 x10^3/uL (4.0-11.0) Red Blood Count 4.27 x10^6/uL (3.50-5.40) Hemoglobin 9.6 g/dL (12.0-15.5) Hematocrit 29.9 % (36.0-47.0) Mean Corpuscular Volume 70 fL (79-100) Mean Corpuscular Hemoglobin 22 pg (25-35) Mean Corpuscular Hemoglobin Concent 32 g/dL (31-37) Red Cell Distribution Width 18.1 % (11.5-14.5) Platelet Count 70 x10^3/uL (140-400) Neutrophils (%) (Auto) 92 % (31-73) Lymphocytes (%) (Auto) 4 % (24-48) Monocytes (%) (Auto) 4 % (0-9) Eosinophils (%) (Auto) 1 % (0-3) Basophils (%) (Auto) 0 % (0-3) Neutrophils # (Auto) 25.3 x10^3/uL (1.8-7.7) Lymphocytes # (Auto) 1.1 x10^3/uL (1.0-4.8) Monocytes # (Auto) 1.0 x10^3/uL (0.0-1.1) Eosinophils # (Auto) 0.2 x10^3/uL (0.0-0.7) Basophils # (Auto) 0.0 x10^3/uL (0.0-0.2) Sodium Level 130 mmol/L (136-145) Potassium Level 4.0 mmol/L (3.5-5.1) Chloride Level 101 mmol/L (98-107) Carbon Dioxide Level 19 mmol/L (21-32) Anion Gap 10 (6-14) Blood Urea Nitrogen 45 mg/dL (7-20) Creatinine 3.4 mg/dL (0.6-1.0) Estimated GFR (Cockcroft-Gault) 13.7 BUN/Creatinine Ratio 13 (6-20) Glucose Level 142 mg/dL (70-99) Calcium Level 6.5 mg/dL (8.5-10.1) Total Bilirubin 2.7 mg/dL (0.2-1.0) Aspartate Amino Transf (AST/SGOT) 213 U/L (15-37) Alanine Aminotransferase (ALT/SGPT) 113 U/L (14-59) Alkaline Phosphatase 124 U/L (46-116) LP-Sxb-H-Type Natriuretic Peptide > 38548 pg/mL (0-124) Total Protein 6.1 g/dL (6.4-8.2) Albumin 1.9 g/dL (3.4-5.0) Albumin/Globulin Ratio 0.5 (1.0-1.7) I have reviewed the following CT with diverticulitis, but no abscess Problem List Problems Medical Problems: (1) Diverticulitis Status: Acute Assessment/Plan diverticulitis cont abx unknown etiology of significant WBC elevation pt remains prohibitive surgical candidate, given cirrhosis and CHF. Justicifation of Admission Dx: Justifications for Admission: Justification of Admission Dx: Yes CRISTIAN LUIS MD Dec 04, 2019 12:36
--- NOTE | 2019-12-04 13:45 | PDOC ---
GI PROGRESS NOTES Date Date/Time DATE: 12/04/19 TIME: 13:43 Subjective Subjective Somnolent, somewhat confused in the ICU today. Denies abdominal pain. Objective Vitals Vital Signs Date Time Temp Pulse Resp B/P (MAP) Pulse Ox O2 Delivery O2 Flow Rate FiO2 12/04/19 10:00 73 24 119/68 (85) 93 Nasal Cannula 2.0 12/04/19 09:00 73 24 124/66 (85) 95 Nasal Cannula 2.0 12/04/19 08:00 Nasal Cannula 3.0 12/04/19 08:00 73 22 134/87 (103) 95 Nasal Cannula 2.0 12/04/19 07:00 97.6 76 28 131/63 (85) 98 Nasal Cannula 3.0 97.6 12/04/19 06:02 82 24 102/68 (79) 98 Nasal Cannula 2.0 12/04/19 05:00 74 19 121/67 (85) 96 Nasal Cannula 2.0 12/04/19 04:00 98.1 74 21 111/62 (78) 94 Nasal Cannula 2.0 98.1 12/04/19 04:00 Nasal Cannula 3.0 12/04/19 03:09 107 16 115/83 (94) 98 Nasal Cannula 2.0 12/04/19 02:42 94 Nasal Cannula 3.0 12/04/19 02:39 86 17 135/65 (88) 98 Nasal Cannula 2.0 12/04/19 02:00 93 17 135/75 (95) 98 Nasal Cannula 3.0 12/04/19 01:00 86 17 135/65 (88) 98 Nasal Cannula 2.0 12/03/19 23:59 Nasal Cannula 3.0 12/03/19 23:59 97.6 86 17 116/59 (78) 98 Nasal Cannula 2.0 97.6 12/03/19 23:00 98 17 115/58 (77) 98 Nasal Cannula 2.0 12/03/19 22:00 101 20 115/68 (84) 98 Nasal Cannula 2.0 12/03/19 21:00 92 23 102/88 (93) 98 Nasal Cannula 2.0 12/03/19 20:00 97.0 78 23 118/58 (78) 95 Nasal Cannula 2.0 97.0 12/03/19 20:00 Nasal Cannula 3.0 12/03/19 19:00 78 18 125/66 (85) 95 Nasal Cannula 2.0 12/03/19 18:00 74 23 127/66 (86) 97 Nasal Cannula 2.0 12/03/19 17:00 98.0 70 26 128/74 (92) 98 Nasal Cannula 2.0 98.0 12/03/19 16:00 Nasal Cannula 3.0 12/03/19 15:00 70 19 100/44 (62) 97 Nasal Cannula 2.0 12/03/19 14:00 64 32 106/50 (68) 97 Nasal Cannula 2.0 Labs Labs Laboratory Tests Test 12/04/19 05:05 White Blood Count 27.6 x10^3/uL (4.0-11.0) Red Blood Count 4.27 x10^6/uL (3.50-5.40) Hemoglobin 9.6 g/dL (12.0-15.5) Hematocrit 29.9 % (36.0-47.0) Mean Corpuscular Volume 70 fL (79-100) Mean Corpuscular Hemoglobin 22 pg (25-35) Mean Corpuscular Hemoglobin Concent 32 g/dL (31-37) Red Cell Distribution Width 18.1 % (11.5-14.5) Platelet Count 70 x10^3/uL (140-400) Neutrophils (%) (Auto) 92 % (31-73) Lymphocytes (%) (Auto) 4 % (24-48) Monocytes (%) (Auto) 4 % (0-9) Eosinophils (%) (Auto) 1 % (0-3) Basophils (%) (Auto) 0 % (0-3) Neutrophils # (Auto) 25.3 x10^3/uL (1.8-7.7) Lymphocytes # (Auto) 1.1 x10^3/uL (1.0-4.8) Monocytes # (Auto) 1.0 x10^3/uL (0.0-1.1) Eosinophils # (Auto) 0.2 x10^3/uL (0.0-0.7) Basophils # (Auto) 0.0 x10^3/uL (0.0-0.2) Sodium Level 130 mmol/L (136-145) Potassium Level 4.0 mmol/L (3.5-5.1) Chloride Level 101 mmol/L (98-107) Carbon Dioxide Level 19 mmol/L (21-32) Anion Gap 10 (6-14) Blood Urea Nitrogen 45 mg/dL (7-20) Creatinine 3.4 mg/dL (0.6-1.0) Estimated GFR (Cockcroft-Gault) 13.7 BUN/Creatinine Ratio 13 (6-20) Glucose Level 142 mg/dL (70-99) Calcium Level 6.5 mg/dL (8.5-10.1) Total Bilirubin 2.7 mg/dL (0.2-1.0) Aspartate Amino Transf (AST/SGOT) 213 U/L (15-37) Alanine Aminotransferase (ALT/SGPT) 113 U/L (14-59) Alkaline Phosphatase 124 U/L (46-116) FT-Lpy-X-Type Natriuretic Peptide > 96719 pg/mL (0-124) Total Protein 6.1 g/dL (6.4-8.2) Albumin 1.9 g/dL (3.4-5.0) Albumin/Globulin Ratio 0.5 (1.0-1.7) Physical Exam Physical Exam Awake but somewhat confused Chest clear Heart regular rate and rhythm Abdomen soft, normal bowel sounds, tender in the left lower quadrant but without rebound. Assessment Assessment Sigmoid diverticulitis. Repeat CT scan yesterday did reveal some small areas of extraluminal gas but no randy perforation or leak. No abscess. She did have emesis Monday night and a dramatic increase in her white count and lactic acid. This may raise the question of sepsis- She was transferred to the ICU yesterday due to the the elevated lactic acid and yesterday her white count dramatically increased over 40,000. ID has broadened her antibiotic coverage.-Source is not completely clear. However her clinical course is likely complicated by her underlying cirrhosis Hepatitis C. She has genotype 3 from 2016. She has developed cirrhosis. We discussed treatment options for her as an outpatient later. Cirrhosis. Plan Plan Continue IV antibiotics as ordered by ID Continue clear liquid diet but if she has further pain or emesis we will make her n.p.o. Justicifation of Admission Dx: Justifications for Admission: Justification of Admission Dx: Yes MANOLO INIGUEZ MD Dec 04, 2019 13:45
--- NOTE | 2019-12-04 14:55 | NUR ---
SS following up with discharge planning. SS reviewed pt chart and discussed with pt RN. Pt is currently requiring oxygen. Pt on IV Daptomycin, IV Meropenem, and IV Fluconazole. Pt on Levophed. Possible LTACH need. SS phoned and faxed referral to [facility], ; fax [phone], if LTACH is needed. SS will continue to follow for discharge planning.
[2019-12-04 15:14] LABS: HGB ELECROPHORESIS COMMENT Note: (.)
--- NOTE | 2019-12-04 15:16 | PDOC ---
[employer] PROGRESS NOTE Chief Complaint Chief Complaint Assessment/Plan Acute diverticulitis -with prior perforation, high risk. We will switch to meropenem, daptomycin and fluconazole per ID recommendations. Clear liquid diet, consult GI. No surgery at this time Chronic anemia - possibly thalassemia versus chronic iron deficiency anemia related to occult GI blood loss vs 2/2 Hep C. Has never had a colonoscopy due to loss to follow up from lack of health insurance since 2016. Hepatitis C - chronic, not treated. GI consulted for consideration of anti- viral treatment, also needs alpha-fetoprotein level checked and ultrasound monitoring every 6 months. 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 MELD 15, 6% 3 month mortality. GI consulted Thrombocytopenialikely secondary to her cirrhosis. Will monitor Transaminitis likely secondary to hepatitis C versus acute diverticulitis, will monitor. GERD - on omeprazole Asymptomatic cholelithiasis elevated lactic acid without evidence of shock Sepsis secondary to diverticulitis, continue to follow hemodynamics closely I have discussed with nursing staff to reach out if she becomes unstable FEN - Clear liquid diet, continue with fluid resuscitation with normal saline at 100 mL/h PPX - lovenox FULL CODE Dispo -continue ICU care while on vasopressors Total total critical care time spent over 35 minutes History of Present Illness History of Present Illness 12/04/2019 No acute events overnight. Patient is tolerating clear liquid diet. Abdominal pain has improved. Patient's chart, labs, images were reviewed and discussed with RN 12/03/2019 No acute events overnight. Patient remains on vasopressors for hemodynamic support. She has already received about 5 L of fluids. She has not had any bloody stools since transferred to the ICU. 12/01: No acute events reported overnight, case discussed with nursing staff patient in no acute distress no complaints during my visit Vitals/I&O Vitals/I&O: Vital Signs Date Time Temp Pulse Resp B/P (MAP) Pulse Ox O2 Delivery O2 Flow Rate FiO2 12/04/19 14:00 77 26 128/69 (88) 92 Nasal Cannula 2.0 12/04/19 12:00 97.5 97.5 I & O 12/03/19 12/03/19 12/04/19 15:00 23:00 07:00 Intake Total 50 ml 650 ml 606 ml Output Total 0 ml 0 ml 310 ml Balance 50 ml 650 ml 296 ml Physical Exam Physical Exam: CONSTITUTIONAL: She is lying in bed. She is cooperative. She looks comfortable. She is in no acute distress. HEENT: Normal conjunctivae. Oral cavity, pharynx was clear. NECK: Supple. Good range of motion. LUNGS: Mild wheeze She is on nasal cannula oxygen. HEART: S1, S2. ABDOMEN: Obese. It is mildly distended. There is no guarding. There is no gross tenderness. : Vital EXTREMITIES: Without clubbing, cyanosis or gross edema. SKIN: Warm to touch without signs of rash. NEUROLOGIC: She is alert, nonfocal but slightly confused PSYCHIATRIC: Affect is appropriate. General: Alert, No acute distress Heart: Regular rate Lungs: Clear Abdomen: Soft, No tenderness Extremities: No clubbing, No cyanosis Skin: No rashes Labs Labs: Laboratory Tests Test 12/04/19 05:05 White Blood Count 27.6 x10^3/uL (4.0-11.0) Red Blood Count 4.27 x10^6/uL (3.50-5.40) Hemoglobin 9.6 g/dL (12.0-15.5) Hematocrit 29.9 % (36.0-47.0) Mean Corpuscular Volume 70 fL (79-100) Mean Corpuscular Hemoglobin 22 pg (25-35) Mean Corpuscular Hemoglobin Concent 32 g/dL (31-37) Red Cell Distribution Width 18.1 % (11.5-14.5) Platelet Count 70 x10^3/uL (140-400) Neutrophils (%) (Auto) 92 % (31-73) Lymphocytes (%) (Auto) 4 % (24-48) Monocytes (%) (Auto) 4 % (0-9) Eosinophils (%) (Auto) 1 % (0-3) Basophils (%) (Auto) 0 % (0-3) Neutrophils # (Auto) 25.3 x10^3/uL (1.8-7.7) Lymphocytes # (Auto) 1.1 x10^3/uL (1.0-4.8) Monocytes # (Auto) 1.0 x10^3/uL (0.0-1.1) Eosinophils # (Auto) 0.2 x10^3/uL (0.0-0.7) Basophils # (Auto) 0.0 x10^3/uL (0.0-0.2) Sodium Level 130 mmol/L (136-145) Potassium Level 4.0 mmol/L (3.5-5.1) Chloride Level 101 mmol/L (98-107) Carbon Dioxide Level 19 mmol/L (21-32) Anion Gap 10 (6-14) Blood Urea Nitrogen 45 mg/dL (7-20) Creatinine 3.4 mg/dL (0.6-1.0) Estimated GFR (Cockcroft-Gault) 13.7 BUN/Creatinine Ratio 13 (6-20) Glucose Level 142 mg/dL (70-99) Calcium Level 6.5 mg/dL (8.5-10.1) Total Bilirubin 2.7 mg/dL (0.2-1.0) Aspartate Amino Transf (AST/SGOT) 213 U/L (15-37) Alanine Aminotransferase (ALT/SGPT) 113 U/L (14-59) Alkaline Phosphatase 124 U/L (46-116) NJ-Svv-S-Type Natriuretic Peptide > 87511 pg/mL (0-124) Total Protein 6.1 g/dL (6.4-8.2) Albumin 1.9 g/dL (3.4-5.0) Albumin/Globulin Ratio 0.5 (1.0-1.7) Assessment and Plan Assessmemt and Plan Problems Medical Problems: (1) Diverticulitis Status: Acute Comment Review of Relevant I have reviewed the following items jing (where applicable) has been applied. Medications: Current Medications Medications (Trade) Dose Ordered Sig/Ubaldo Route PRN Reason Start Time Stop Time Status Last Admin Dose Admin Enoxaparin Sodium (Lovenox 30mg Syringe) 30 mg Q24H SQ 12/03/19 16:00 12/03/19 17:40 Albuterol Sulfate (Ventolin Neb Soln) 2.5 mg 1X ONCE NEB 12/04/19 02:15 12/04/19 02:16 DC 12/04/19 02:42 Furosemide (Lasix) 40 mg 1X ONCE IVP 12/04/19 09:15 12/04/19 09:18 DC 12/04/19 09:44 Justicifation of Admission Dx: Justifications for Admission: Justification of Admission Dx: Yes DANNI ARNDT MD Dec 04, 2019 15:16
[2019-12-04] MEDS: ENOXAPARIN 30 MG/0.3 ML SYRINGE. SQ SCH (16:11)
[2019-12-04] MEDS: NOREPINEPHRINE VIAL 8 MG in IV DEXTROSE 5% 250 ML IV PRN (16:29)
[2019-12-04] MEDS: IPRATRPIUM/ALBUTEROL 0.5/2.5MG 3 ML NEBU. NEB SCH ×2 (16:44→20:05)
[2019-12-04] MEDS: PSYLLIUM HUSK (SUGAR FREE) 1 PKT PACKET PO SCH (18:00)
[2019-12-05] VITALS (31 sets, daily range): BP systolic 94–144; BP diastolic 48–91
[2019-12-05 05:04] LABS: BASO % 0 % (0-3); EOS # 0.1 x10^3/uL (0.0-0.7); EOS % 1 % (0-3); HEMATOCRIT 29.9 % (36.0-47.0); HEMOGLOBIN 9.6 g/dL (12.0-15.5); LYMPH # 0.9 x10^3/uL (1.0-4.8); LYMPH % 5 % (24-48); MEAN CORPUSCULAR HEMOGLOBIN 22 pg (25-35); MEAN CORPUSCULAR HGB CONC 32 g/dL (31-37); MEAN CORPUSCULAR VOLUME 69 fL (79-100); MONO # 1.3 x10^3/uL (0.0-1.1); MONO % 7 % (0-9); NEUT # 17.2 x10^3/uL (1.8-7.7); NEUT % 88 % (31-73); PLATELET COUNT 41 x10^3/uL (140-400); RED BLOOD COUNT 4.32 x10^6/uL (3.50-5.40); WHITE BLOOD COUNT 19.6 x10^3/uL (4.0-11.0)
[2019-12-05 05:20] LABS: ALBUMIN 1.6 g/dL (3.4-5.0); ALBUMIN/GLOBULIN RATIO 0.4 (1.0-1.7); CALCIUM 6.8 mg/dL (8.5-10.1); CREATININE 2.1 mg/dL (0.6-1.0); GFR 23.9; POTASSIUM 3.5 mmol/L (3.5-5.1); TOTAL BILIRUBIN 3.2 mg/dL (0.2-1.0); TOTAL PROTEIN 5.7 g/dL (6.4-8.2)
[2019-12-05] MEDS: FLUCONAZOLE 200MG/100ML PREMIX 100 ML IV SCH (06:11)
--- NOTE | 2019-12-05 06:27 | PDOC ---
Infectious Disease Note Subjective Subjective States ok. No F/C/s/abd pain + Cough but no SOA Vital Sign Vital Signs Vital Signs Date Time Temp Pulse Resp B/P (MAP) Pulse Ox O2 Delivery O2 Flow Rate FiO2 12/05/19 05:00 77 30 118/63 (81) 95 Nasal Cannula 3.0 12/04/19 23:59 97.5 97.5 Physical Exam PHYSICAL EXAM CONSTITUTIONAL: She is lying in bed. She is cooperative. She looks comfortable. She is in no acute distress. HEENT: Normal conjunctivae. Oral cavity, pharynx was clear. NECK: Supple. Good range of motion. LUNGS: She is on nasal cannula oxygen. Mild rhonchi R> L HEART: S1, S2. ABDOMEN: Obese. It is mildly distended. There is no guarding. There is no gross tenderness. : Vital EXTREMITIES: Without clubbing, cyanosis or gross edema. SKIN: Warm to touch without signs of rash. NEUROLOGIC: She is alert, nonfocal but confused PSYCHIATRIC: Affect is appropriate. REJ 12/01 Labs Lab Laboratory Tests Test 12/05/19 04:30 White Blood Count 19.6 x10^3/uL (4.0-11.0) Red Blood Count 4.32 x10^6/uL (3.50-5.40) Hemoglobin 9.6 g/dL (12.0-15.5) Hematocrit 29.9 % (36.0-47.0) Mean Corpuscular Volume 69 fL (79-100) Mean Corpuscular Hemoglobin 22 pg (25-35) Mean Corpuscular Hemoglobin Concent 32 g/dL (31-37) Red Cell Distribution Width 18.0 % (11.5-14.5) Platelet Count 41 x10^3/uL (140-400) Neutrophils (%) (Auto) 88 % (31-73) Lymphocytes (%) (Auto) 5 % (24-48) Monocytes (%) (Auto) 7 % (0-9) Eosinophils (%) (Auto) 1 % (0-3) Basophils (%) (Auto) 0 % (0-3) Neutrophils # (Auto) 17.2 x10^3/uL (1.8-7.7) Lymphocytes # (Auto) 0.9 x10^3/uL (1.0-4.8) Monocytes # (Auto) 1.3 x10^3/uL (0.0-1.1) Eosinophils # (Auto) 0.1 x10^3/uL (0.0-0.7) Basophils # (Auto) 0.0 x10^3/uL (0.0-0.2) Sodium Level 136 mmol/L (136-145) Potassium Level 3.5 mmol/L (3.5-5.1) Chloride Level 105 mmol/L (98-107) Carbon Dioxide Level 24 mmol/L (21-32) Anion Gap 7 (6-14) Blood Urea Nitrogen 45 mg/dL (7-20) Creatinine 2.1 mg/dL (0.6-1.0) Estimated GFR (Cockcroft-Gault) 23.9 BUN/Creatinine Ratio 21 (6-20) Glucose Level 111 mg/dL (70-99) Calcium Level 6.8 mg/dL (8.5-10.1) Total Bilirubin 3.2 mg/dL (0.2-1.0) Aspartate Amino Transf (AST/SGOT) 128 U/L (15-37) Alanine Aminotransferase (ALT/SGPT) 92 U/L (14-59) Alkaline Phosphatase 112 U/L (46-116) Total Protein 5.7 g/dL (6.4-8.2) Albumin 1.6 g/dL (3.4-5.0) Albumin/Globulin Ratio 0.4 (1.0-1.7) Micro CT IMPRESSION: 1. Redemonstration of diverticulitis at the sigmoid colon with a small adjacent contained perforation. No focal fluid collection to suggest abscess. 2. Interval development of trace bilateral pleural effusions greater on the right. Additionally there is soft tissue anasarca. Correlate with volume status. CXR: IMPRESSION: Bilateral interstitial infiltrates which are predominantly upper lobe. Objective Assessment Sepsis - Off Levophed - MICHELLE - improved Acute Sigmoid Diverticulitis Leukocytosis - better Thrombocytopenia - worse Encephalopathy Transaminitis- better CHF - elevated BNP Cirrhosis H/o Hep C Possible UTI but a lot of squamous cells -cults neg Ongoing tobacco abuse Plan Plan of Care Check ammonia Changed to Meropenem/Dapto/Fluconoazole 12/02 Adjusted Meropenem to q 12 12/03 but back to q 8 this am F/u labs in am and cults Critically ill D/w nursing MARICARMEN BOWEN MD Dec 05, 2019 06:27
[2019-12-05] MEDS: IPRATRPIUM/ALBUTEROL 0.5/2.5MG 3 ML NEBU. NEB SCH ×4 (07:32→20:58)
[2019-12-05] MEDS: MEROPENEM 500 MG in IV NORMAL SALINE 50ML 50 ML IV SCH ×3 (08:12→22:01)
[2019-12-05] MEDS: SENNOSIDES/DOCUSATE 8.6/50MG TABLET. PO SCH ×2 (08:12→19:41)
--- NOTE | 2019-12-05 08:16 | RAD ---
EXAM: Chest, single view. HISTORY: Infiltrate. COMPARISON: 12/04/2019 FINDINGS: A frontal view of the chest is obtained. There has been interval increase in right greater than left upper lobe predominant diffuse mixed interstitial and alveolar infiltrate. No pleural effusion or pneumothorax is seen. There is a stable cardiac silhouette. IMPRESSION: Increase in right greater than left upper lobe predominant diffuse mixed interstitial and alveolar infiltrate. Electronically signed by: Eva Ac MD (12/05/2019 8:13 AM) [id number]
[2019-12-05] MEDS: SODIUM BICARBONATE VIAL 50 MEQ in IV DEXTROSE 5 %-0.45 % NACL 1,000 ML IV SCH (08:36)
[2019-12-05] MEDS: BENZONATATE 100 MG CAPSULE. PO SCH ×4 (08:37→22:00)
[2019-12-05] MEDS: NICOTINE 21MG PATCH. TD SCH (08:37)
[2019-12-05] MEDS: ELECTROLYTE (ICU) PROTOCOL. MC SCH (09:00)
[2019-12-05] MEDS ORDERED: FUROSEMIDE 40 MG/4 ML VIAL. IVP ONE (09:00)
[2019-12-05] MEDS: DAPTOmycin (GENERIC) IVPB 440 MG in IV NORMAL SALINE 50ML 50 ML IV SCH (09:12)
[2019-12-05] MEDS: IV RINGERS,LACTATED 1000ML 1,000 ML IV SCH ×2 (09:12→22:58)
--- NOTE | 2019-12-05 09:28 | PDOC ---
SURGICAL PROGRESS NOTE Subjective awake, off pressors Vital Signs Vital Signs Date Time Temp Pulse Resp B/P (MAP) Pulse Ox O2 Delivery O2 Flow Rate FiO2 12/05/19 07:34 97 Nasal Cannula 5.0 12/05/19 07:00 82 30 116/59 (78) 12/05/19 04:00 98.1 98.1 I&O Intake and Output 12/05/19 07:00 Intake Total 2908 ml Output Total 2155 ml Balance 753 ml Intake Oral 50 ml IV Total 2858 ml Output Urine Total 2155 ml # Bowel Movements 3 General: Alert, Cooperative Abdomen: Soft, Other (ND, NTTP) Labs Laboratory Tests Test 12/04/19 05:05 12/05/19 04:30 12/05/19 07:08 White Blood Count 27.6 x10^3/uL (4.0-11.0) 19.6 x10^3/uL (4.0-11.0) Red Blood Count 4.27 x10^6/uL (3.50-5.40) 4.32 x10^6/uL (3.50-5.40) Hemoglobin 9.6 g/dL (12.0-15.5) 9.6 g/dL (12.0-15.5) Hematocrit 29.9 % (36.0-47.0) 29.9 % (36.0-47.0) Mean Corpuscular Volume 70 fL (79-100) 69 fL (79-100) Mean Corpuscular Hemoglobin 22 pg (25-35) 22 pg (25-35) Mean Corpuscular Hemoglobin Concent 32 g/dL (31-37) 32 g/dL (31-37) Red Cell Distribution Width 18.1 % (11.5-14.5) 18.0 % (11.5-14.5) Platelet Count 70 x10^3/uL (140-400) 41 x10^3/uL (140-400) Neutrophils (%) (Auto) 92 % (31-73) 88 % (31-73) Lymphocytes (%) (Auto) 4 % (24-48) 5 % (24-48) Monocytes (%) (Auto) 4 % (0-9) 7 % (0-9) Eosinophils (%) (Auto) 1 % (0-3) 1 % (0-3) Basophils (%) (Auto) 0 % (0-3) 0 % (0-3) Neutrophils # (Auto) 25.3 x10^3/uL (1.8-7.7) 17.2 x10^3/uL (1.8-7.7) Lymphocytes # (Auto) 1.1 x10^3/uL (1.0-4.8) 0.9 x10^3/uL (1.0-4.8) Monocytes # (Auto) 1.0 x10^3/uL (0.0-1.1) 1.3 x10^3/uL (0.0-1.1) Eosinophils # (Auto) 0.2 x10^3/uL (0.0-0.7) 0.1 x10^3/uL (0.0-0.7) Basophils # (Auto) 0.0 x10^3/uL (0.0-0.2) 0.0 x10^3/uL (0.0-0.2) Sodium Level 130 mmol/L (136-145) 136 mmol/L (136-145) Potassium Level 4.0 mmol/L (3.5-5.1) 3.5 mmol/L (3.5-5.1) Chloride Level 101 mmol/L (98-107) 105 mmol/L (98-107) Carbon Dioxide Level 19 mmol/L (21-32) 24 mmol/L (21-32) Anion Gap 10 (6-14) 7 (6-14) Blood Urea Nitrogen 45 mg/dL (7-20) 45 mg/dL (7-20) Creatinine 3.4 mg/dL (0.6-1.0) 2.1 mg/dL (0.6-1.0) Estimated GFR (Cockcroft-Gault) 13.7 23.9 BUN/Creatinine Ratio 13 (6-20) 21 (6-20) Glucose Level 142 mg/dL (70-99) 111 mg/dL (70-99) Calcium Level 6.5 mg/dL (8.5-10.1) 6.8 mg/dL (8.5-10.1) Total Bilirubin 2.7 mg/dL (0.2-1.0) 3.2 mg/dL (0.2-1.0) Aspartate Amino Transf (AST/SGOT) 213 U/L (15-37) 128 U/L (15-37) Alanine Aminotransferase (ALT/SGPT) 113 U/L (14-59) 92 U/L (14-59) Alkaline Phosphatase 124 U/L (46-116) 112 U/L (46-116) UH-Eoc-I-Type Natriuretic Peptide > 04511 pg/mL (0-124) Total Protein 6.1 g/dL (6.4-8.2) 5.7 g/dL (6.4-8.2) Albumin 1.9 g/dL (3.4-5.0) 1.6 g/dL (3.4-5.0) Albumin/Globulin Ratio 0.5 (1.0-1.7) 0.4 (1.0-1.7) Ammonia 39 mcmol/L (11-34) Laboratory Tests Test 12/05/19 04:30 12/05/19 07:08 White Blood Count 19.6 x10^3/uL (4.0-11.0) Red Blood Count 4.32 x10^6/uL (3.50-5.40) Hemoglobin 9.6 g/dL (12.0-15.5) Hematocrit 29.9 % (36.0-47.0) Mean Corpuscular Volume 69 fL (79-100) Mean Corpuscular Hemoglobin 22 pg (25-35) Mean Corpuscular Hemoglobin Concent 32 g/dL (31-37) Red Cell Distribution Width 18.0 % (11.5-14.5) Platelet Count 41 x10^3/uL (140-400) Neutrophils (%) (Auto) 88 % (31-73) Lymphocytes (%) (Auto) 5 % (24-48) Monocytes (%) (Auto) 7 % (0-9) Eosinophils (%) (Auto) 1 % (0-3) Basophils (%) (Auto) 0 % (0-3) Neutrophils # (Auto) 17.2 x10^3/uL (1.8-7.7) Lymphocytes # (Auto) 0.9 x10^3/uL (1.0-4.8) Monocytes # (Auto) 1.3 x10^3/uL (0.0-1.1) Eosinophils # (Auto) 0.1 x10^3/uL (0.0-0.7) Basophils # (Auto) 0.0 x10^3/uL (0.0-0.2) Sodium Level 136 mmol/L (136-145) Potassium Level 3.5 mmol/L (3.5-5.1) Chloride Level 105 mmol/L (98-107) Carbon Dioxide Level 24 mmol/L (21-32) Anion Gap 7 (6-14) Blood Urea Nitrogen 45 mg/dL (7-20) Creatinine 2.1 mg/dL (0.6-1.0) Estimated GFR (Cockcroft-Gault) 23.9 BUN/Creatinine Ratio 21 (6-20) Glucose Level 111 mg/dL (70-99) Calcium Level 6.8 mg/dL (8.5-10.1) Total Bilirubin 3.2 mg/dL (0.2-1.0) Aspartate Amino Transf (AST/SGOT) 128 U/L (15-37) Alanine Aminotransferase (ALT/SGPT) 92 U/L (14-59) Alkaline Phosphatase 112 U/L (46-116) Total Protein 5.7 g/dL (6.4-8.2) Albumin 1.6 g/dL (3.4-5.0) Albumin/Globulin Ratio 0.4 (1.0-1.7) Ammonia 39 mcmol/L (11-34) Problem List Problems Medical Problems: (1) Diverticulitis Status: Acute Assessment/Plan some improvement wbc improved Justicifation of Admission Dx: Justifications for Admission: Justification of Admission Dx: Yes WILBERT WHALEY [employer]ANCE OFFICER Dec 05, 2019 09:28
--- NOTE | 2019-12-05 10:08 | NUR ---
SS following up with discharge planning. SS reviewed pt chart and discussed with pt RN. Pt is currently requiring nasal canula oxygen. Pt on IV Meropenem, IV Daptomycin, and IV Fluconazole. COVID19 negative. Pt accepted at [facility] pending insurance authorization if LTACH is needed. SS will continue to follow for discharge planning.
[2019-12-05] MEDS: POTASSIUM CHLORIDE 10MEQ 100 ML IV SCH ×4 (11:42→15:28)
--- NOTE | 2019-12-05 12:19 | PDOC ---
[employer] PROGRESS NOTE Chief Complaint Chief Complaint Assessment/Plan Acute diverticulitis -with prior perforation, high risk. We will switch to meropenem, daptomycin and fluconazole per ID recommendations. Clear liquid diet, consult GI. No surgery at this time Chronic anemia - possibly thalassemia versus chronic iron deficiency anemia related to occult GI blood loss vs 2/2 Hep C. Has never had a colonoscopy due to loss to follow up from lack of health insurance since 2016. Hepatitis C - chronic, not treated. GI consulted for consideration of anti- viral treatment, also needs alpha-fetoprotein level checked and ultrasound monitoring every 6 months. 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 MELD 15, 6% 3 month mortality. GI consulted Thrombocytopenialikely secondary to her cirrhosis. Will monitor Transaminitis likely secondary to hepatitis C versus acute diverticulitis, will monitor. GERD - on omeprazole Asymptomatic cholelithiasis elevated lactic acid without evidence of shock Sepsis secondary to diverticulitis, continue to follow hemodynamics closely I have discussed with nursing staff to reach out if she becomes unstable Acute pulmonary edema40 mg Lasix IV x1. Acute electrolyte derangementsreplace with IV 40 mEq of potassium Acute metabolic encephalopathytitrate bowel movements to at least 3 times per day. Restart lactulose as needed if worsening confusion. FEN - Clear liquid diet, continue with fluid resuscitation with normal saline at 100 mL/h PPX - lovenox FULL CODE Dispo -continue ICU care while on vasopressors Total total critical care time spent over 40 minutes minutes History of Present Illness History of Present Illness 12/05/2019 No acute events overnight. Patient seen and examined bedside. Patient is tolerating clear liquid diet. Patient does have some confusion on examination. Patient's chart, labs, images were reviewed and discussed with RN 12/04/2019 No acute events overnight. Patient is tolerating clear liquid diet. Abdominal pain has improved. Patient's chart, labs, images were reviewed and discussed with RN 12/03/2019 No acute events overnight. Patient remains on vasopressors for hemodynamic support. She has already received about 5 L of fluids. She has not had any bloody stools since transferred to the ICU. 12/01: No acute events reported overnight, case discussed with nursing staff patient in no acute distress no complaints during my visit Vitals/I&O Vitals/I&O: Vital Signs Date Time Temp Pulse Resp B/P (MAP) Pulse Ox O2 Delivery O2 Flow Rate FiO2 12/05/19 12:09 97 Nasal Cannula 5.0 12/05/19 12:00 97.5 80 29 137/64 (88) 97.5 I & O 12/04/19 12/04/19 12/05/19 15:00 23:00 07:00 Intake Total 50 ml 1493 ml 1365 ml Output Total 900 ml 735 ml 620 ml Balance -850 ml 758 ml 745 ml Physical Exam Physical Exam: CONSTITUTIONAL: She is lying in bed. She is cooperative. She looks comfortable. She is in no acute distress. HEENT: Normal conjunctivae. Oral cavity, pharynx was clear. NECK: Supple. Good range of motion. LUNGS: She is on nasal cannula oxygen. Mild rhonchi R> L HEART: S1, S2. ABDOMEN: Obese. It is mildly distended. There is no guarding. There is no gross tenderness. : Vital EXTREMITIES: Without clubbing, cyanosis or gross edema. SKIN: Warm to touch without signs of rash. NEUROLOGIC: She is alert, nonfocal but confused PSYCHIATRIC: Affect is appropriate. REJ 12/01 General: Alert, Cooperative Heart: Regular rate Lungs: Clear Abdomen: Soft, Other (ND, NTTP) Extremities: No clubbing, No cyanosis Skin: No rashes Labs Labs: Laboratory Tests Test 12/05/19 04:30 12/05/19 07:08 White Blood Count 19.6 x10^3/uL (4.0-11.0) Red Blood Count 4.32 x10^6/uL (3.50-5.40) Hemoglobin 9.6 g/dL (12.0-15.5) Hematocrit 29.9 % (36.0-47.0) Mean Corpuscular Volume 69 fL (79-100) Mean Corpuscular Hemoglobin 22 pg (25-35) Mean Corpuscular Hemoglobin Concent 32 g/dL (31-37) Red Cell Distribution Width 18.0 % (11.5-14.5) Platelet Count 41 x10^3/uL (140-400) Neutrophils (%) (Auto) 88 % (31-73) Lymphocytes (%) (Auto) 5 % (24-48) Monocytes (%) (Auto) 7 % (0-9) Eosinophils (%) (Auto) 1 % (0-3) Basophils (%) (Auto) 0 % (0-3) Neutrophils # (Auto) 17.2 x10^3/uL (1.8-7.7) Lymphocytes # (Auto) 0.9 x10^3/uL (1.0-4.8) Monocytes # (Auto) 1.3 x10^3/uL (0.0-1.1) Eosinophils # (Auto) 0.1 x10^3/uL (0.0-0.7) Basophils # (Auto) 0.0 x10^3/uL (0.0-0.2) Sodium Level 136 mmol/L (136-145) Potassium Level 3.5 mmol/L (3.5-5.1) Chloride Level 105 mmol/L (98-107) Carbon Dioxide Level 24 mmol/L (21-32) Anion Gap 7 (6-14) Blood Urea Nitrogen 45 mg/dL (7-20) Creatinine 2.1 mg/dL (0.6-1.0) Estimated GFR (Cockcroft-Gault) 23.9 BUN/Creatinine Ratio 21 (6-20) Glucose Level 111 mg/dL (70-99) Calcium Level 6.8 mg/dL (8.5-10.1) Total Bilirubin 3.2 mg/dL (0.2-1.0) Aspartate Amino Transf (AST/SGOT) 128 U/L (15-37) Alanine Aminotransferase (ALT/SGPT) 92 U/L (14-59) Alkaline Phosphatase 112 U/L (46-116) Total Protein 5.7 g/dL (6.4-8.2) Albumin 1.6 g/dL (3.4-5.0) Albumin/Globulin Ratio 0.4 (1.0-1.7) Ammonia 39 mcmol/L (11-34) Assessment and Plan Assessmemt and Plan Problems Medical Problems: (1) Diverticulitis Status: Acute Comment Review of Relevant I have reviewed the following items jing (where applicable) has been applied. Medications: Current Medications Medications (Trade) Dose Ordered Sig/Ubaldo Route PRN Reason Start Time Stop Time Status Last Admin Dose Admin Albuterol/ Ipratropium (Duoneb) 3 ml RTQID NEB 12/04/19 17:00 12/05/19 12:06 Meropenem 500 mg/ Sodium Chloride 50 ml @ 100 mls/hr Q8HRS IV 12/05/19 07:00 12/05/19 08:12 Benzonatate (Tessalon Perle) 100 mg [id number] PO 12/05/19 09:00 12/05/19 08:37 Furosemide (Lasix) 40 mg 1X ONCE IVP 12/05/19 09:00 12/05/19 09:01 DC 12/05/19 09:11 Potassium Chloride/Water 100 ml @ 100 mls/hr Q1H IV 12/05/19 10:00 12/05/19 13:59 12/05/19 11:42 Ringer's Solution 1,000 ml @ 75 mls/hr [id number] IV 12/05/19 09:00 12/05/19 09:12 Justicifation of Admission Dx: Justifications for Admission: Justification of Admission Dx: Yes DANNI ARNDT MD Dec 05, 2019 12:19
--- NOTE | 2019-12-05 12:43 | PDOC ---
Renal-Progress Notes Subjective Notes Notes SITTING UP History of Present Illness Hx of present illness BETTER Vitals Vitals Vital Signs Date Time Temp Pulse Resp B/P (MAP) Pulse Ox O2 Delivery O2 Flow Rate FiO2 12/05/19 12:09 97 Nasal Cannula 5.0 12/05/19 12:00 97.5 80 29 137/64 (88) 97.5 Weight Weight [ ] I.O. Intake and Output Intake and Output 12/05/19 07:00 Intake Total 2908 ml Output Total 2255 ml Balance 653 ml Intake Oral 50 ml IV Total 2858 ml Output Urine Total 2255 ml # Bowel Movements 3 Labs Labs Laboratory Tests Test 12/05/19 04:30 12/05/19 07:08 White Blood Count 19.6 x10^3/uL (4.0-11.0) Red Blood Count 4.32 x10^6/uL (3.50-5.40) Hemoglobin 9.6 g/dL (12.0-15.5) Hematocrit 29.9 % (36.0-47.0) Mean Corpuscular Volume 69 fL (79-100) Mean Corpuscular Hemoglobin 22 pg (25-35) Mean Corpuscular Hemoglobin Concent 32 g/dL (31-37) Red Cell Distribution Width 18.0 % (11.5-14.5) Platelet Count 41 x10^3/uL (140-400) Neutrophils (%) (Auto) 88 % (31-73) Lymphocytes (%) (Auto) 5 % (24-48) Monocytes (%) (Auto) 7 % (0-9) Eosinophils (%) (Auto) 1 % (0-3) Basophils (%) (Auto) 0 % (0-3) Neutrophils # (Auto) 17.2 x10^3/uL (1.8-7.7) Lymphocytes # (Auto) 0.9 x10^3/uL (1.0-4.8) Monocytes # (Auto) 1.3 x10^3/uL (0.0-1.1) Eosinophils # (Auto) 0.1 x10^3/uL (0.0-0.7) Basophils # (Auto) 0.0 x10^3/uL (0.0-0.2) Sodium Level 136 mmol/L (136-145) Potassium Level 3.5 mmol/L (3.5-5.1) Chloride Level 105 mmol/L (98-107) Carbon Dioxide Level 24 mmol/L (21-32) Anion Gap 7 (6-14) Blood Urea Nitrogen 45 mg/dL (7-20) Creatinine 2.1 mg/dL (0.6-1.0) Estimated GFR (Cockcroft-Gault) 23.9 BUN/Creatinine Ratio 21 (6-20) Glucose Level 111 mg/dL (70-99) Calcium Level 6.8 mg/dL (8.5-10.1) Total Bilirubin 3.2 mg/dL (0.2-1.0) Aspartate Amino Transf (AST/SGOT) 128 U/L (15-37) Alanine Aminotransferase (ALT/SGPT) 92 U/L (14-59) Alkaline Phosphatase 112 U/L (46-116) Total Protein 5.7 g/dL (6.4-8.2) Albumin 1.6 g/dL (3.4-5.0) Albumin/Globulin Ratio 0.4 (1.0-1.7) Ammonia 39 mcmol/L (11-34) Micro Micro Microbiology 12/02/19 Urine Culture - Final, Complete Review of Systems Constitutional: yes: weakness, alert Ears/Nose/Throat: Yes: no symptom reported Eyes: Yes: no symptom reported Pulmonary: Yes no symptom reported Cardiovascular: Yes no symptom reported Gastrointestional: Yes: no symptom reported Musculoskeletal: Yes: no symptom reported Psychiatric/Neurological: Yes: no symptom reported Physical Exam General Appearance: no apparent distress Skin: warm Respiratory: decreased breath sounds Heart: S1S2 Abdomen: soft, bowel sounds present Genitourinary: hurley catheter Extremities: pulses present, no edema Neurology: alert Assessment Assessment IMP MICHELLE MUCH BETTER WITH CR DOWN TO 2.1 HYPERVOLEMIA-STABLE LEUCOCYTOSIS URINARY TRACT INFECTION ACUTE DIVERTICULITIS HEP C HX CIRRHOSIS SEPSIS HYPOTENSION PLAN ANTIBIOTICS HCO3 GTT PRESSORS NEEDED LOW DOSE LASIX CONT [place]LEY MAY NEED DIALYSIS D/W PT WILL FOLLOW ERIC LEMA MD Dec 05, 2019 12:43
--- NOTE | 2019-12-05 13:43 | PDOC ---
GI PROGRESS NOTES Date Date/Time DATE: 12/05/19 TIME: 13:42 Subjective Subjective Clinically improving. Up in the chair. Less pain. Apparently off pressors today. Objective Vitals Vital Signs Date Time Temp Pulse Resp B/P (MAP) Pulse Ox O2 Delivery O2 Flow Rate FiO2 12/05/19 13:00 80 27 113/57 (75) 94 Nasal Cannula 5.0 12/05/19 12:09 97 Nasal Cannula 5.0 12/05/19 12:00 Nasal Cannula 5.0 12/05/19 12:00 97.5 80 29 137/64 (88) 94 Nasal Cannula 5.0 97.5 12/05/19 11:00 78 30 113/64 (80) 94 Nasal Cannula 5.0 12/05/19 10:00 78 26 96/48 (64) 94 Nasal Cannula 5.0 12/05/19 09:00 80 38 105/58 (74) 90 Nasal Cannula 5.0 12/05/19 08:00 98.4 86 30 144/63 (90) 82 Nasal Cannula 5.0 98.4 12/05/19 08:00 Nasal Cannula 5.0 12/05/19 07:34 97 Nasal Cannula 5.0 12/05/19 07:00 82 30 116/59 (78) 94 Nasal Cannula 3.0 12/05/19 06:00 87 32 120/56 (77) 86 Nasal Cannula 3.0 12/05/19 05:00 77 30 118/63 (81) 95 Nasal Cannula 3.0 12/05/19 04:00 Nasal Cannula 3.0 12/05/19 04:00 98.1 86 30 114/58 (76) 90 Nasal Cannula 3.0 98.1 12/05/19 03:15 75 24 133/68 (89) 93 Nasal Cannula 3.0 12/05/19 03:00 73 28 119/67 (84) 94 Nasal Cannula 3.0 12/05/19 02:30 78 28 110/71 (84) 94 Nasal Cannula 3.0 12/05/19 02:15 76 22 119/64 (82) 94 Nasal Cannula 3.0 12/05/19 02:00 73 28 128/68 (88) 97 Nasal Cannula 3.0 12/05/19 01:30 75 30 135/59 (84) 94 Nasal Cannula 3.0 12/05/19 01:15 75 30 142/91 (108) 94 Nasal Cannula 3.0 12/05/19 01:00 73 32 131/67 (88) 95 Nasal Cannula 3.0 12/05/19 00:45 77 26 123/66 (85) 96 Nasal Cannula 3.0 12/05/19 00:30 80 26 125/64 (84) 95 Nasal Cannula 3.0 12/05/19 00:15 76 28 127/70 (89) 95 Nasal Cannula 3.0 12/04/19 23:59 Nasal Cannula 3.0 12/04/19 23:59 97.5 77 24 145/72 (96) 100 Nasal Cannula 3.0 97.5 12/04/19 23:00 72 26 120/66 (84) 95 Nasal Cannula 3.0 12/04/19 22:00 76 28 119/68 (85) 97 Nasal Cannula 3.0 12/04/19 21:00 82 30 127/63 (84) 93 Nasal Cannula 3.0 12/04/19 20:05 96 Nasal Cannula 3.0 12/04/19 20:00 98.1 81 26 117/62 (80) 98 Nasal Cannula 3.0 98.1 12/04/19 20:00 Nasal Cannula 3.0 12/04/19 19:00 75 28 135/68 (90) 96 Nasal Cannula 3.0 12/04/19 18:00 79 32 124/70 (88) 94 Nasal Cannula 2.0 12/04/19 17:00 98.5 78 28 124/59 (80) 95 Nasal Cannula 2.0 98.5 12/04/19 16:51 97 Nasal Cannula 3.0 12/04/19 16:00 74 28 134/79 (97) 96 Nasal Cannula 2.0 12/04/19 16:00 Nasal Cannula 2.0 12/04/19 15:00 74 26 131/68 (89) 95 Nasal Cannula 2.0 12/04/19 14:00 77 26 128/69 (88) 92 Nasal Cannula 2.0 Labs Labs Laboratory Tests Test 12/05/19 04:30 12/05/19 07:08 White Blood Count 19.6 x10^3/uL (4.0-11.0) Red Blood Count 4.32 x10^6/uL (3.50-5.40) Hemoglobin 9.6 g/dL (12.0-15.5) Hematocrit 29.9 % (36.0-47.0) Mean Corpuscular Volume 69 fL (79-100) Mean Corpuscular Hemoglobin 22 pg (25-35) Mean Corpuscular Hemoglobin Concent 32 g/dL (31-37) Red Cell Distribution Width 18.0 % (11.5-14.5) Platelet Count 41 x10^3/uL (140-400) Neutrophils (%) (Auto) 88 % (31-73) Lymphocytes (%) (Auto) 5 % (24-48) Monocytes (%) (Auto) 7 % (0-9) Eosinophils (%) (Auto) 1 % (0-3) Basophils (%) (Auto) 0 % (0-3) Neutrophils # (Auto) 17.2 x10^3/uL (1.8-7.7) Lymphocytes # (Auto) 0.9 x10^3/uL (1.0-4.8) Monocytes # (Auto) 1.3 x10^3/uL (0.0-1.1) Eosinophils # (Auto) 0.1 x10^3/uL (0.0-0.7) Basophils # (Auto) 0.0 x10^3/uL (0.0-0.2) Sodium Level 136 mmol/L (136-145) Potassium Level 3.5 mmol/L (3.5-5.1) Chloride Level 105 mmol/L (98-107) Carbon Dioxide Level 24 mmol/L (21-32) Anion Gap 7 (6-14) Blood Urea Nitrogen 45 mg/dL (7-20) Creatinine 2.1 mg/dL (0.6-1.0) Estimated GFR (Cockcroft-Gault) 23.9 BUN/Creatinine Ratio 21 (6-20) Glucose Level 111 mg/dL (70-99) Calcium Level 6.8 mg/dL (8.5-10.1) Total Bilirubin 3.2 mg/dL (0.2-1.0) Aspartate Amino Transf (AST/SGOT) 128 U/L (15-37) Alanine Aminotransferase (ALT/SGPT) 92 U/L (14-59) Alkaline Phosphatase 112 U/L (46-116) Total Protein 5.7 g/dL (6.4-8.2) Albumin 1.6 g/dL (3.4-5.0) Albumin/Globulin Ratio 0.4 (1.0-1.7) Ammonia 39 mcmol/L (11-34) Physical Exam Physical Exam Awake but somewhat confused Chest clear Heart regular rate and rhythm Abdomen soft, normal bowel sounds, much less tender in the left lower quadrant but without rebound. Assessment Assessment Sigmoid diverticulitis. Repeat CT scan did reveal some small areas of extraluminal gas but no randy perforation or leak. No abscess. She was transferred to the ICU yesterday due to the the elevated lactic acid and her white count dramatically increased over 40,000. ID has broadened her antibiotic coverage. And now her white count is down to 19,000. -Source is not completely clear. However her clinical course is likely complicated by her underlying cirrhosis Hepatitis C. She has genotype 3 from 2016. She has developed cirrhosis. We discussed treatment options for her as an outpatient later. Cirrhosis. Plan Plan Continue IV antibiotics as ordered by ID Continue liquid diet\ Justicifation of Admission Dx: Justifications for Admission: Justification of Admission Dx: Yes MANOLO INIGUEZ MD Dec 05, 2019 13:43
[2019-12-05] MEDS: ENOXAPARIN 30 MG/0.3 ML SYRINGE. SQ SCH (15:02)
[2019-12-05] MEDS: PSYLLIUM HUSK (SUGAR FREE) 1 PKT PACKET PO SCH (16:13)
[2019-12-06] VITALS (23 sets, daily range): BP systolic 86–110; BP diastolic 41–63
[2019-12-06] MEDS: HYDROmorphone 2 MG/ML VIAL IV PRN (00:40)
[2019-12-06 04:13] LABS: BASO % 0 % (0-3); EOS # 0.2 x10^3/uL (0.0-0.7); EOS % 1 % (0-3); HEMATOCRIT 30.8 % (36.0-47.0); HEMOGLOBIN 9.7 g/dL (12.0-15.5); LYMPH % 4 % (24-48); MEAN CORPUSCULAR HEMOGLOBIN 22 pg (25-35); MEAN CORPUSCULAR HGB CONC 31 g/dL (31-37); MEAN CORPUSCULAR VOLUME 70 fL (79-100); MONO # 0.9 x10^3/uL (0.0-1.1); MONO % 3 % (0-9); NEUT # 23.5 x10^3/uL (1.8-7.7); NEUT % 92 % (31-73); PLATELET COUNT 56 x10^3/uL (140-400); RED BLOOD COUNT 4.38 x10^6/uL (3.50-5.40); RED CELL DISTRIBUTION WIDTH 17.9 % (11.5-14.5); WHITE BLOOD COUNT 25.6 x10^3/uL (4.0-11.0)
[2019-12-06 04:33] LABS: ALBUMIN 1.5 g/dL (3.4-5.0); ALBUMIN/GLOBULIN RATIO 0.4 (1.0-1.7); CALCIUM 7.3 mg/dL (8.5-10.1); CREATININE 1.5 mg/dL (0.6-1.0); GFR 35.3; POTASSIUM 3.9 mmol/L (3.5-5.1); TOTAL BILIRUBIN 4.3 mg/dL (0.2-1.0); TOTAL PROTEIN 5.3 g/dL (6.4-8.2)
[2019-12-06] MEDS ORDERED: NALOXONE 0.4 MG/ML VIAL. ONE (05:01)
[2019-12-06] MEDS: NALOXONE 0.4 MG/ML VIAL. IV PRN ×2 (05:04→05:19)
[2019-12-06] MEDS: MEROPENEM 500 MG in IV NORMAL SALINE 50ML 50 ML IV SCH (05:26)
[2019-12-06] MEDS: FLUCONAZOLE 200MG/100ML PREMIX 100 ML IV SCH (06:31)
--- NOTE | 2019-12-06 06:38 | NUR ---
0040-Patient c/o LLQ abdominal pain at 10/10 on scale. Dilaudid 1 mg IVP given per PRN order. VSS. 0140-Patient resting comfortably at this time. VSS. 0530-During patient rounds at 0500 patient 02 sat 80-85% on 5LNC and hard to wake up. Will open eyes but fall right back to sleep. Patient also mouth breathing. NC up to 15L without change in 02 sat. Ventimask then applied at 50%. Narcan 0.4mg IVP given at 0502. Patient remains drowsy but able to answer yes or no questions with stimulation. 02 sat on ventimask at 50% 85-88%. A second dose of narcan was given at 0519. Bipap 16/6, 16, 40% placed on patient with 02 sat increasing to 94-96%. Patient more awake following second dose of narcan. Other VSS remained stable. Will continue to monitor.
--- NOTE | 2019-12-06 07:59 | PDOC ---
Infectious Disease Note Subjective Subjective On Bipap Opens eyes ROS ROS unable to obtain Vital Sign Vital Signs Vital Signs Date Time Temp Pulse Resp B/P (MAP) Pulse Ox O2 Delivery O2 Flow Rate FiO2 12/06/19 07:00 98.1 83 23 98/45 (62) 99 BiPAP/CPAP 98.1 12/06/19 05:00 5.0 Physical Exam PHYSICAL EXAM CONSTITUTIONAL: She is lying in bed. She is on Bipap. She looks comfortable. She is in no acute distress. HEENT: Normal conjunctivae. NECK: Supple. Good range of motion. LUNGS: Brian rhonchi R> L HEART: S1, S2. ABDOMEN: Obese. It is mildly distended. There is no guarding. There is no gross tenderness. : Vital EXTREMITIES: Without clubbing, cyanosis or gross edema. SKIN: Warm to touch without signs of rash. NEUROLOGIC: She is alert, nonfocal but confused PSYCHIATRIC: Affect is appropriate. REJ 12/01 Labs Lab Laboratory Tests Test 12/05/19 16:39 12/06/19 04:00 Glucose (Fingerstick) 73 mg/dL (70-99) White Blood Count 25.6 x10^3/uL (4.0-11.0) Red Blood Count 4.38 x10^6/uL (3.50-5.40) Hemoglobin 9.7 g/dL (12.0-15.5) Hematocrit 30.8 % (36.0-47.0) Mean Corpuscular Volume 70 fL (79-100) Mean Corpuscular Hemoglobin 22 pg (25-35) Mean Corpuscular Hemoglobin Concent 31 g/dL (31-37) Red Cell Distribution Width 17.9 % (11.5-14.5) Platelet Count 56 x10^3/uL (140-400) Neutrophils (%) (Auto) 92 % (31-73) Lymphocytes (%) (Auto) 4 % (24-48) Monocytes (%) (Auto) 3 % (0-9) Eosinophils (%) (Auto) 1 % (0-3) Basophils (%) (Auto) 0 % (0-3) Neutrophils # (Auto) 23.5 x10^3/uL (1.8-7.7) Lymphocytes # (Auto) 1.0 x10^3/uL (1.0-4.8) Monocytes # (Auto) 0.9 x10^3/uL (0.0-1.1) Eosinophils # (Auto) 0.2 x10^3/uL (0.0-0.7) Basophils # (Auto) 0.0 x10^3/uL (0.0-0.2) Sodium Level 140 mmol/L (136-145) Potassium Level 3.9 mmol/L (3.5-5.1) Chloride Level 108 mmol/L (98-107) Carbon Dioxide Level 28 mmol/L (21-32) Anion Gap 4 (6-14) Blood Urea Nitrogen 46 mg/dL (7-20) Creatinine 1.5 mg/dL (0.6-1.0) Estimated GFR (Cockcroft-Gault) 35.3 BUN/Creatinine Ratio 31 (6-20) Glucose Level 75 mg/dL (70-99) Calcium Level 7.3 mg/dL (8.5-10.1) Magnesium Level 1.7 mg/dL (1.8-2.4) Total Bilirubin 4.3 mg/dL (0.2-1.0) Aspartate Amino Transf (AST/SGOT) 91 U/L (15-37) Alanine Aminotransferase (ALT/SGPT) 68 U/L (14-59) Alkaline Phosphatase 121 U/L (46-116) Creatine Kinase 43 U/L (26-192) Total Protein 5.3 g/dL (6.4-8.2) Albumin 1.5 g/dL (3.4-5.0) Albumin/Globulin Ratio 0.4 (1.0-1.7) Micro CXR 12/04 IMPRESSION: Increase in right greater than left upper lobe predominant diffuse mixed interstitial and alveolar infiltrate. CT IMPRESSION: 1. Redemonstration of diverticulitis at the sigmoid colon with a small adjacent contained perforation. No focal fluid collection to suggest abscess. 2. Interval development of trace bilateral pleural effusions greater on the right. Additionally there is soft tissue anasarca. Correlate with volume status. CXR: IMPRESSION: Bilateral interstitial infiltrates which are predominantly upper lobe. Objective Assessment Sepsis - Off Levophed - MICHELLE - improved Acute Sigmoid Diverticulitis Leukocytosis - increased Lung infiltrates - worse Thrombocytopenia - better Encephalopathy Transaminitis- better CHF - elevated BNP Cirrhosis H/o Hep C Possible UTI but a lot of squamous cells -cults neg Ongoing tobacco abuse Plan Plan of Care Consult Pulm CXR/ABG this am Lasix 40 mg IV times one BNP/TSH/procalcitonin and Troponin I now D/c Dapto with neg cult but begin Zyvox 12/05with CXR and 02 changes With increasing WBC will D/c Meropenem and begin Zosyn 12/05 May need ECHO Discont Fluconoazole 12/02 begin Micafungin F/u labs in am and cults Critically ill D/w nursing MARICARMEN BOWEN MD Dec 06, 2019 07:59
[2019-12-06] MEDS ORDERED: FUROSEMIDE 40 MG/4 ML VIAL. IVP ONE (08:00)
[2019-12-06] MEDS: IPRATRPIUM/ALBUTEROL 0.5/2.5MG 3 ML NEBU. NEB SCH ×4 (08:17→20:37)
--- NOTE | 2019-12-06 08:49 | RAD ---
EXAM: CHEST AP ONLY INDICATION: Reason: worsening resp failure / Spl. Instructions: / History: . TECHNIQUE: Single view COMPARISON: 12/05/2019 FINDINGS: The heart size is normal. The great vessels appear unremarkable. There is no hilar or mediastinal mass. Lungs show bilateral interstitial opacities with more confluent alveolar consolidation in the anterior right upper lobe. There is no pleural effusion or pneumothorax. There are no significant osseous abnormalities. IMPRESSION: Stable bilateral upper lobe predominant interstitial and alveolar opacities. Electronically signed by: Leeann Noyola MD (12/06/2019 8:46 AM) [id number]
[2019-12-06 08:51] LABS: BASE EXCESS ABG -3 mmol/L (-3-3); HCO3 ABG 23 mmol/L (21-28); PCO2 ABG 45 mmHg (35-46); PO2 ABG 76 mmHg (65-108); SAT O2 ABG 93 % (92-99)
[2019-12-06] MEDS: PIPERACILLIN/TAZOBACTAM 3.375 GM in IV NORMAL SALINE 50ML 50 ML IV SCH ×3 (08:57→18:46)
[2019-12-06] MEDS: BENZONATATE 100 MG CAPSULE. PO SCH ×3 (09:00→21:16)
[2019-12-06] MEDS: NICOTINE 21MG PATCH. TD SCH (09:00)
[2019-12-06] MEDS: ELECTROLYTE (ICU) PROTOCOL. MC SCH (09:00)
[2019-12-06] MEDS: SENNOSIDES/DOCUSATE 8.6/50MG TABLET. PO SCH ×2 (09:00→21:16)
[2019-12-06] MEDS ORDERED: MAGNESIUM SULFATE 2GM 50 ML IV ONE ×2 (09:00→11:15)
--- NOTE | 2019-12-06 09:44 | PDOC2 ---
JOHANNE ALLEN [employer] 12/06/19 0944: CARDIAC CONSULT DATE OF CONSULT Date of Consult DATE: 12/06/19 TIME: 09:37 REASON FOR CONSULT Reason for Consult: Respiratory failure, elevated troponin REFERRING PHYSICIAN Referring Physician: Miriam SOURCE Source: Chart review HISTORY OF PRESENT ILLNESS HISTORY OF PRESENT ILLNESS This is a 59 yo female admitted for complains of abdominal pain. She has known recurrent diverticulitis She has been treated with antibiotics with diverticulitis with sepsis. She then developed SOA and now has bipap. She is drowsy so could not obtain any details as far as any cardiac history. No CAD per chart review. PAST MEDICAL HISTORY Cardiovascular: HTN GI: Diverticulosis Heme/Onc: Anemia NOS Hepatobiliary: Hep A/B/C ENT: Other (cataract) PAST SURGICAL HISTORY Past Surgical History: Other (D & C) SOCIAL HISTORY Smoke: <1 pack per day ALCOHOL: occassional CURRENT MEDICATIONS CURRENT MEDICATIONS Current Medications Medications (Trade) Dose Ordered Sig/Ubaldo Route PRN Reason Start Time Stop Time Status Last Admin Dose Admin Potassium Chloride/Water 100 ml @ 100 mls/hr Q1H IV 12/05/19 10:00 12/05/19 13:59 DC 12/05/19 15:28 Naloxone HCl (Narcan) 0.4 mg PRN Q2MIN PRN IV SEE COMMENTS 12/06/19 05:00 12/06/19 05:19 Piperacillin Sod/ Tazobactam Sod 3.375 gm/Sodium Chloride 50 ml @ 100 mls/hr Q6HRS IV 12/06/19 08:00 12/06/19 08:57 Furosemide (Lasix) 40 mg 1X ONCE IVP 12/06/19 08:00 12/06/19 08:05 DC 12/06/19 08:53 Magnesium Sulfate 50 ml @ 25 mls/hr 1X ONCE IV 12/06/19 09:00 12/06/19 10:59 12/06/19 08:56 ALLERGIES ALLERGIES: Coded Allergies: No Known Drug Allergies (Unverified , 09/26/15) ROS Review of System limited, due to bipap use and SOA PHYSICAL EXAM General: mild distress HEENT: Atraumatic Lungs: Other (diminished, bipap) Heart: Regular rate (SR), Normal S1, Normal S2, No murmurs Abdomen: Other (soft with some tenderenss with palpation) Extremities: No cyanosis Skin: No breakdown Neuro: Other (drowsy) Psych/Mental Status: Other (drowsy) MUSCULOSKELETAL: Osteoarthritic changes both hands VITALS/I&O VITALS/I&O: Vital Signs Date Time Temp Pulse Resp B/P (MAP) Pulse Ox O2 Delivery O2 Flow Rate FiO2 12/06/19 09:14 80 22 98/49 (65) 97 BiPAP/CPAP 12/06/19 07:00 98.1 98.1 12/06/19 05:00 5.0 I & O 12/05/19 12/05/19 12/06/19 15:00 23:00 07:00 Intake Total 100 ml 1288 ml 1336 ml Output Total 1735 ml 415 ml 262 ml Balance -1635 ml 873 ml 1074 ml LABS Lab: Laboratory Tests Test 12/05/19 16:39 12/06/19 04:00 Glucose (Fingerstick) 73 mg/dL (70-99) White Blood Count 25.6 x10^3/uL (4.0-11.0) H Red Blood Count 4.38 x10^6/uL (3.50-5.40) Hemoglobin 9.7 g/dL (12.0-15.5) L Hematocrit 30.8 % (36.0-47.0) L Mean Corpuscular Volume 70 fL (79-100) L Mean Corpuscular Hemoglobin 22 pg (25-35) L Mean Corpuscular Hemoglobin Concent 31 g/dL (31-37) Red Cell Distribution Width 17.9 % (11.5-14.5) H Platelet Count 56 x10^3/uL (140-400) L Neutrophils (%) (Auto) 92 % (31-73) H Lymphocytes (%) (Auto) 4 % (24-48) L Monocytes (%) (Auto) 3 % (0-9) Eosinophils (%) (Auto) 1 % (0-3) Basophils (%) (Auto) 0 % (0-3) Neutrophils # (Auto) 23.5 x10^3/uL (1.8-7.7) H Lymphocytes # (Auto) 1.0 x10^3/uL (1.0-4.8) Monocytes # (Auto) 0.9 x10^3/uL (0.0-1.1) Eosinophils # (Auto) 0.2 x10^3/uL (0.0-0.7) Basophils # (Auto) 0.0 x10^3/uL (0.0-0.2) Sodium Level 140 mmol/L (136-145) Potassium Level 3.9 mmol/L (3.5-5.1) Chloride Level 108 mmol/L (98-107) H Carbon Dioxide Level 28 mmol/L (21-32) Anion Gap 4 (6-14) L Blood Urea Nitrogen 46 mg/dL (7-20) H Creatinine 1.5 mg/dL (0.6-1.0) H Estimated GFR (Cockcroft-Gault) 35.3 BUN/Creatinine Ratio 31 (6-20) H Glucose Level 75 mg/dL (70-99) Calcium Level 7.3 mg/dL (8.5-10.1) L Magnesium Level 1.7 mg/dL (1.8-2.4) L Total Bilirubin 4.3 mg/dL (0.2-1.0) H Aspartate Amino Transferase (AST) 91 U/L (15-37) H Alanine Aminotransferase (ALT) 68 U/L (14-59) H Alkaline Phosphatase 121 U/L (46-116) H Creatine Kinase 43 U/L (26-192) Troponin I Quantitative 0.263 ng/mL (0.000-0.055) QE-Ius-H-Type Natriuretic Peptide 83941 pg/mL (0-124) H Total Protein 5.3 g/dL (6.4-8.2) L Albumin 1.5 g/dL (3.4-5.0) L Albumin/Globulin Ratio 0.4 (1.0-1.7) L Procalcitonin 6.97 ng/mL (0.00-0.10) H Thyroid Stimulating Hormone (TSH) 1.021 uIU/mL (0.358-3.74) Laboratory Tests 12/06/19 04:00 Laboratory Tests 12/06/19 04:00 ASSESSMENT/PLAN ASSESSMENT/PLAN 1. Abdominal pain with sigmoid diverticulitis with contained perforation 2. Sepsis/shock with possible pneumonia 3. Acute respiratory failure: requiring bipap with above culprits 4. Severe MICHELLE: Cr improved 5. Microcytic anemia 6. Mildy elevated troponin: suspect demand mediated, type 2 with above culprits 7. Hx of Cirrhosis with hepC: GI following 8. Acute CHF with possible diastolic dysfunction, multifactorial as above 9. Possible COPD with underlying chronic tobaccoism 10. Metabolic encephalopathy Recommendations TTE/EKG Lasix PRN, Pressor as warranted. IVF Bipap , ABGs, Ammonia Antibiotics per ID Supportive care LILIANA NANCE MD 12/06/19 1831: CARDIAC CONSULT ASSESSMENT/PLAN ASSESSMENT/PLAN Patient seen and examined. Agree with M[employer]ER's assessment and plan. Mildly elevated troponin level most probably demand ischemia Acute on chr diast HF better compensated 2D echo showed normal LVF Continue management of sigmoid diverticulitis per GI team and sepsis per ID We will consider outpatient ischemic evaluation Thank you for your consultation JOHANNE ALLEN APRN Dec 06, 2019 09:44 LILIANA NANCE MD Dec 06, 2019 18:31
--- NOTE | 2019-12-06 09:50 | CONS ---
DATE OF CONSULTATION: PULMONARY CONSULTATION ATTENDING PHYSICIAN: Dr. Betts. REASON FOR CONSULTATION: Respiratory failure, hypoxia, and diffuse lung infiltrates. HISTORY OF PRESENT ILLNESS: The patient is a 59-year-old female who has heavy history of tobacco use and previous history of diverticulitis. She presented to the [facility] on 11/30 secondary to left lower abdominal pain, which has been going on for several days. She has some nausea, but no vomiting. The patient had leukocytosis on arrival. A CT abdomen and pelvis showed diverticulitis involving the mid sigmoid colon and also had contained perforation. Over the course of hospital stay, her white cell count has fluctuated, but she has become progressively hypoxic. She was in MICHELLE on admission, which worsened during several days of initial hospital stay. However, her chest x-ray sequence has been reviewed. She developed progressive extensive upper lobe and mid lung infiltrates. She received Lasix on the , , and this morning and chest x-ray findings have not improved. She is currently on BiPAP at 40% FiO2. ABGs are pending. She does have a cough, but no fever. No chest pain. No vomiting reported, but had some stomach pain. No lower extremity edema. I have been asked to see her for further evaluation. She is not on any pressors. PAST MEDICAL HISTORY: Significant for history of diverticulitis and history of tobacco use, suspect underlying COPD. PAST SURGICAL HISTORY: No recent surgeries. FAMILY HISTORY: Noncontributory to lungs. SOCIAL HISTORY: Reportedly had long history of tobacco use. ALLERGIES: None. CURRENT MEDICATIONS: Reviewed as listed in the MRAD including broad-spectrum antibiotics. REVIEW OF SYSTEMS: Twelve-point system obtained. Pertinent positives discussed in my history of present illness, otherwise noncontributory. All systems that were negative were reviewed as well. PHYSICAL EXAMINATION: VITAL SIGNS: Reviewed. Blood pressure 98/49, pulse ox 97%, afebrile. HEENT: Sclerae nonicteric. NECK: Supple. LUNGS: With few crackles posteriorly. CARDIOVASCULAR: With a regular rate. ABDOMEN: Soft, nontender. EXTREMITIES: With trace pitting edema. LABORATORY DATA: Reviewed. Sodium 140, potassium 3.9, BUN 46, and creatinine 1.5. Albumin is 1.5. White cell count was 40,000 on , now 25.6. Platelets are 56. They have been trending down. IMPRESSION: 1. Acute hypoxic respiratory failure, likely secondary to noncardiogenic pulmonary edema/acute lung injury/acute respiratory distress syndrome resulting from acute diverticulitis with contained perforation and possible aspiration. 2. Underlying chronic obstructive pulmonary disease. Unknown FEV1. 3. Abnormal chest x-ray with progression of infiltrates in the upper lobe. Without any response to diuretics. Suggesting less likely cardiogenic edema. 4. Acute diverticulitis with contained perforation. 5. Prerenal azotemia. 6. History of cirrhosis with splenomegaly and cholelithiasis. 7. Severe protein-calorie malnutrition. 8. Thrombocytopenia, likely sepsis induced. 9. Marked leukocytosis secondary to infectious etiology. RECOMMENDATIONS: 1. I have discussed with RN. At this time, I will continue with present BiPAP and keep saturation 94 and above. 2. Continue broad-spectrum antibiotics. 3. Monitor renal function closely and may have to withhold further Lasix. 4. Monitor the clinical response to treatment. 5. Continue nutrition per GI. 6. DVT and stress ulcer prophylaxis. She is currently on Lovenox. 7. Discussed with RN and RT. We will obtain ABGs. We will follow along with you. 8. Hold off on further lasix 9. Monitor platelets CRITICAL CARE TIME: cct 40 min, including review of the chart, imaging studies, and decision making. LAUREN GONZALEZ MD DR: GABE/yakov JOB#: [id number] / [id number] RICCI
--- NOTE | 2019-12-06 10:43 | PDOC ---
SURGICAL PROGRESS NOTE Subjective bipap denies abd pain Vital Signs Vital Signs Date Time Temp Pulse Resp B/P (MAP) Pulse Ox O2 Delivery O2 Flow Rate FiO2 12/06/19 10:28 80 22 90/46 (61) 92 BiPAP/CPAP 12/06/19 07:00 98.1 98.1 12/06/19 05:00 5.0 I&O Intake and Output 12/06/19 07:00 Intake Total 2724 ml Output Total 2412 ml Balance 312 ml Intake Oral 500 ml IV Total 2224 ml Output Urine Total 2412 ml # Bowel Movements 1 General: Cooperative, No acute distress Abdomen: Soft, No tenderness Labs Laboratory Tests Test 12/05/19 04:30 12/05/19 07:08 12/05/19 16:39 12/06/19 04:00 White Blood Count 19.6 x10^3/uL (4.0-11.0) 25.6 x10^3/uL (4.0-11.0) Red Blood Count 4.32 x10^6/uL (3.50-5.40) 4.38 x10^6/uL (3.50-5.40) Hemoglobin 9.6 g/dL (12.0-15.5) 9.7 g/dL (12.0-15.5) Hematocrit 29.9 % (36.0-47.0) 30.8 % (36.0-47.0) Mean Corpuscular Volume 69 fL (79-100) 70 fL (79-100) Mean Corpuscular Hemoglobin 22 pg (25-35) 22 pg (25-35) Mean Corpuscular Hemoglobin Concent 32 g/dL (31-37) 31 g/dL (31-37) Red Cell Distribution Width 18.0 % (11.5-14.5) 17.9 % (11.5-14.5) Platelet Count 41 x10^3/uL (140-400) 56 x10^3/uL (140-400) Neutrophils (%) (Auto) 88 % (31-73) 92 % (31-73) Lymphocytes (%) (Auto) 5 % (24-48) 4 % (24-48) Monocytes (%) (Auto) 7 % (0-9) 3 % (0-9) Eosinophils (%) (Auto) 1 % (0-3) 1 % (0-3) Basophils (%) (Auto) 0 % (0-3) 0 % (0-3) Neutrophils # (Auto) 17.2 x10^3/uL (1.8-7.7) 23.5 x10^3/uL (1.8-7.7) Lymphocytes # (Auto) 0.9 x10^3/uL (1.0-4.8) 1.0 x10^3/uL (1.0-4.8) Monocytes # (Auto) 1.3 x10^3/uL (0.0-1.1) 0.9 x10^3/uL (0.0-1.1) Eosinophils # (Auto) 0.1 x10^3/uL (0.0-0.7) 0.2 x10^3/uL (0.0-0.7) Basophils # (Auto) 0.0 x10^3/uL (0.0-0.2) 0.0 x10^3/uL (0.0-0.2) Sodium Level 136 mmol/L (136-145) 140 mmol/L (136-145) Potassium Level 3.5 mmol/L (3.5-5.1) 3.9 mmol/L (3.5-5.1) Chloride Level 105 mmol/L (98-107) 108 mmol/L (98-107) Carbon Dioxide Level 24 mmol/L (21-32) 28 mmol/L (21-32) Anion Gap 7 (6-14) 4 (6-14) Blood Urea Nitrogen 45 mg/dL (7-20) 46 mg/dL (7-20) Creatinine 2.1 mg/dL (0.6-1.0) 1.5 mg/dL (0.6-1.0) Estimated GFR (Cockcroft-Gault) 23.9 35.3 BUN/Creatinine Ratio 21 (6-20) 31 (6-20) Glucose Level 111 mg/dL (70-99) 75 mg/dL (70-99) Calcium Level 6.8 mg/dL (8.5-10.1) 7.3 mg/dL (8.5-10.1) Total Bilirubin 3.2 mg/dL (0.2-1.0) 4.3 mg/dL (0.2-1.0) Aspartate Amino Transf (AST/SGOT) 128 U/L (15-37) 91 U/L (15-37) Alanine Aminotransferase (ALT/SGPT) 92 U/L (14-59) 68 U/L (14-59) Alkaline Phosphatase 112 U/L (46-116) 121 U/L (46-116) Total Protein 5.7 g/dL (6.4-8.2) 5.3 g/dL (6.4-8.2) Albumin 1.6 g/dL (3.4-5.0) 1.5 g/dL (3.4-5.0) Albumin/Globulin Ratio 0.4 (1.0-1.7) 0.4 (1.0-1.7) Ammonia 39 mcmol/L (11-34) Glucose (Fingerstick) 73 mg/dL (70-99) Magnesium Level 1.7 mg/dL (1.8-2.4) Creatine Kinase 43 U/L (26-192) Troponin I Quantitative 0.263 ng/mL (0.000-0.055) KQ-Gdt-A-Type Natriuretic Peptide 15038 pg/mL (0-124) Procalcitonin 6.97 ng/mL (0.00-0.10) Thyroid Stimulating Hormone (TSH) 1.021 uIU/mL (0.358-3.74) Laboratory Tests Test 12/05/19 16:39 12/06/19 04:00 Glucose (Fingerstick) 73 mg/dL (70-99) White Blood Count 25.6 x10^3/uL (4.0-11.0) Red Blood Count 4.38 x10^6/uL (3.50-5.40) Hemoglobin 9.7 g/dL (12.0-15.5) Hematocrit 30.8 % (36.0-47.0) Mean Corpuscular Volume 70 fL (79-100) Mean Corpuscular Hemoglobin 22 pg (25-35) Mean Corpuscular Hemoglobin Concent 31 g/dL (31-37) Red Cell Distribution Width 17.9 % (11.5-14.5) Platelet Count 56 x10^3/uL (140-400) Neutrophils (%) (Auto) 92 % (31-73) Lymphocytes (%) (Auto) 4 % (24-48) Monocytes (%) (Auto) 3 % (0-9) Eosinophils (%) (Auto) 1 % (0-3) Basophils (%) (Auto) 0 % (0-3) Neutrophils # (Auto) 23.5 x10^3/uL (1.8-7.7) Lymphocytes # (Auto) 1.0 x10^3/uL (1.0-4.8) Monocytes # (Auto) 0.9 x10^3/uL (0.0-1.1) Eosinophils # (Auto) 0.2 x10^3/uL (0.0-0.7) Basophils # (Auto) 0.0 x10^3/uL (0.0-0.2) Sodium Level 140 mmol/L (136-145) Potassium Level 3.9 mmol/L (3.5-5.1) Chloride Level 108 mmol/L (98-107) Carbon Dioxide Level 28 mmol/L (21-32) Anion Gap 4 (6-14) Blood Urea Nitrogen 46 mg/dL (7-20) Creatinine 1.5 mg/dL (0.6-1.0) Estimated GFR (Cockcroft-Gault) 35.3 BUN/Creatinine Ratio 31 (6-20) Glucose Level 75 mg/dL (70-99) Calcium Level 7.3 mg/dL (8.5-10.1) Magnesium Level 1.7 mg/dL (1.8-2.4) Total Bilirubin 4.3 mg/dL (0.2-1.0) Aspartate Amino Transf (AST/SGOT) 91 U/L (15-37) Alanine Aminotransferase (ALT/SGPT) 68 U/L (14-59) Alkaline Phosphatase 121 U/L (46-116) Creatine Kinase 43 U/L (26-192) Troponin I Quantitative 0.263 ng/mL (0.000-0.055) LI-Yzr-Z-Type Natriuretic Peptide 52794 pg/mL (0-124) Total Protein 5.3 g/dL (6.4-8.2) Albumin 1.5 g/dL (3.4-5.0) Albumin/Globulin Ratio 0.4 (1.0-1.7) Procalcitonin 6.97 ng/mL (0.00-0.10) Thyroid Stimulating Hormone (TSH) 1.021 uIU/mL (0.358-3.74) Problem List Problems Medical Problems: (1) Diverticulitis Status: Acute Assessment/Plan WBC up today pulm and cardiac evals noted supportive care Justicifation of Admission Dx: Justifications for Admission: Justification of Admission Dx: Yes WILBERT WHALEY LEADLIGHTER Dec 06, 2019 10:43
[2019-12-06] MEDS: MICAFUNGIN 100 MG in IV DEXTROSE 5% 100ML 100 ML IV SCH (10:50)
--- NOTE | 2019-12-06 11:01 | PDOC ---
Renal-Progress Notes Subjective Notes Notes NO NEW COMPLAINTS History of Present Illness Hx of present illness STABLE Vitals Vitals Vital Signs Date Time Temp Pulse Resp B/P (MAP) Pulse Ox O2 Delivery O2 Flow Rate FiO2 12/06/19 10:28 80 22 90/46 (61) 92 BiPAP/CPAP 12/06/19 07:00 98.1 98.1 12/06/19 05:00 5.0 Weight Weight [ ] I.O. Intake and Output Intake and Output 12/06/19 07:00 Intake Total 2724 ml Output Total 2412 ml Balance 312 ml Intake Oral 500 ml IV Total 2224 ml Output Urine Total 2412 ml # Bowel Movements 1 Labs Labs Laboratory Tests Test 12/05/19 16:39 12/06/19 04:00 Glucose (Fingerstick) 73 mg/dL (70-99) White Blood Count 25.6 x10^3/uL (4.0-11.0) Red Blood Count 4.38 x10^6/uL (3.50-5.40) Hemoglobin 9.7 g/dL (12.0-15.5) Hematocrit 30.8 % (36.0-47.0) Mean Corpuscular Volume 70 fL (79-100) Mean Corpuscular Hemoglobin 22 pg (25-35) Mean Corpuscular Hemoglobin Concent 31 g/dL (31-37) Red Cell Distribution Width 17.9 % (11.5-14.5) Platelet Count 56 x10^3/uL (140-400) Neutrophils (%) (Auto) 92 % (31-73) Lymphocytes (%) (Auto) 4 % (24-48) Monocytes (%) (Auto) 3 % (0-9) Eosinophils (%) (Auto) 1 % (0-3) Basophils (%) (Auto) 0 % (0-3) Neutrophils # (Auto) 23.5 x10^3/uL (1.8-7.7) Lymphocytes # (Auto) 1.0 x10^3/uL (1.0-4.8) Monocytes # (Auto) 0.9 x10^3/uL (0.0-1.1) Eosinophils # (Auto) 0.2 x10^3/uL (0.0-0.7) Basophils # (Auto) 0.0 x10^3/uL (0.0-0.2) Sodium Level 140 mmol/L (136-145) Potassium Level 3.9 mmol/L (3.5-5.1) Chloride Level 108 mmol/L (98-107) Carbon Dioxide Level 28 mmol/L (21-32) Anion Gap 4 (6-14) Blood Urea Nitrogen 46 mg/dL (7-20) Creatinine 1.5 mg/dL (0.6-1.0) Estimated GFR (Cockcroft-Gault) 35.3 BUN/Creatinine Ratio 31 (6-20) Glucose Level 75 mg/dL (70-99) Calcium Level 7.3 mg/dL (8.5-10.1) Magnesium Level 1.7 mg/dL (1.8-2.4) Total Bilirubin 4.3 mg/dL (0.2-1.0) Aspartate Amino Transf (AST/SGOT) 91 U/L (15-37) Alanine Aminotransferase (ALT/SGPT) 68 U/L (14-59) Alkaline Phosphatase 121 U/L (46-116) Creatine Kinase 43 U/L (26-192) Troponin I Quantitative 0.263 ng/mL (0.000-0.055) SZ-Vbq-T-Type Natriuretic Peptide 28200 pg/mL (0-124) Total Protein 5.3 g/dL (6.4-8.2) Albumin 1.5 g/dL (3.4-5.0) Albumin/Globulin Ratio 0.4 (1.0-1.7) Procalcitonin 6.97 ng/mL (0.00-0.10) Thyroid Stimulating Hormone (TSH) 1.021 uIU/mL (0.358-3.74) Micro Micro Microbiology 12/02/19 Urine Culture - Final, Complete Review of Systems Constitutional: yes: weakness, alert Ears/Nose/Throat: Yes: no symptom reported Eyes: Yes: no symptom reported Pulmonary: Yes no symptom reported Cardiovascular: Yes no symptom reported Gastrointestional: Yes: no symptom reported Musculoskeletal: Yes: no symptom reported Psychiatric/Neurological: Yes: no symptom reported Physical Exam General Appearance: no apparent distress Skin: warm Respiratory: decreased breath sounds Heart: S1S2 Abdomen: soft, bowel sounds present Genitourinary: hurley catheter Extremities: pulses present, no edema Neurology: alert Assessment Assessment IMP MICHELLE MUCH BETTER WITH CR DOWN TO 1.5 LOW MAG HYPERVOLEMIA-STABLE LEUCOCYTOSIS URINARY TRACT INFECTION ACUTE DIVERTICULITIS HEP C HX CIRRHOSIS SEPSIS HYPOTENSION PLAN ANTIBIOTICS HCO3 GTT PRESSORS NEEDED LOW DOSE LASIX CONT H[place]LEY MAY NEED DIALYSIS D/W PT WILL FOLLOW ERIC LEMA MD Dec 06, 2019 11:01
[2019-12-06] MEDS: IV RINGERS,LACTATED 1000ML 1,000 ML IV SCH (11:11)
--- NOTE | 2019-12-06 12:15 | NUR ---
SS following up with discharge planning. SS reviewed pt chart and discussed with pt RN. Pt is currently on BIPAP. Pt on IV Micafungin, IV Zosyn, and IV Zyvox. Pt accepted at [facility], ; fax [phone], pending insurance authorization. SS phoned and faxed clinical updates to [facility]. SS will continue to follow for discharge planning.
--- NOTE | 2019-12-06 13:27 | CARD ---
MR#: [id number] Date of Study: 12/06/2019 Ordering Physician: LAUREN GONZALEZ, Referring Physician: LAUREN GONZALEZ, Tech: Regine Magana APPROVED REPORT EXAM: Two-dimensional and M-mode echocardiogram with Doppler and color Doppler. Other Information Quality : Fair Technically limited study due to Bipap breathing INDICATION Dyspnea 2D DIMENSIONS Left Atrium(2D)3.8 (1.6-4.0cm)IVSd1.0 (0.7-1.1cm) Aortic Root(2D)2.7 (2.0-3.7cm)LVDd4.5 (3.9-5.9cm) LVOT Diameter1.9 (1.8-2.4cm)PWd1.0 (0.7-1.1cm) LVDs2.0 (2.5-4.0cm)FS (%) 54.5 % SV79.0 mlLVEF(%)85.4 (>50%) Aortic Valve AoV Peak Ceferino.180.2cm/sAoV VTI41.2cm AO Peak GR.13.0mmHgLVOT VTI 31.59cm AO Mean GR.12mmHg Mitral Valve MV E Bdedtkgh693.9cm/sMV E Peak Gr.6mmHg MV DECEL [id number] A Wqhdcgwg24.7cm/s MV E Mean Gr.3mmHgE/A Ratio1.5 TDI Lateral E' P. V10.94cm/sMedial E' P. V6.76cm/s E/Lateral E'10.2E/Medial E'16.6 Tricuspid Valve TR P. Plccsdtu943nn/sRAP IBDBJMHU9dmHr TR Peak Gr.42vaGjGQZS99tjPi LEFT VENTRICLE The left ventricle is normal size. There is normal left ventricular wall thickness. The left ventricu lar systolic function is normal and the ejection fraction is within normal range. The Ejection Fracti on is 60-65%. There is normal LV segmental wall motion. Transmitral Doppler flow pattern is Grade II- pseudonormal filling dynamics. RIGHT VENTRICLE The right ventricle moderately dilated. There is normal right ventricular wall thickness. The right v entricular systolic function is normal. ATRIA The left atrium is moderately dilated. The right atrium is moderately dilated. The interatrial septum is intact with no evidence for an atrial septal defect or patent foramen ovale as noted on 2-D or Do ppler imaging. AORTIC VALVE The aortic valve is normal in structure and function. Doppler and Color Flow revealed no significant aortic regurgitation. There is no significant aortic valvular stenosis. Calculated aortic valve area is 2.26 cm2 with maximum pressure gradient of 22 mmHg and mean pressure gradient of 12 mmHg. MITRAL VALVE The mitral valve is thickened but opens well. There is no evidence of mitral valve prolapse. There is no mitral valve stenosis. Doppler and Color-flow revealed trace mitral regurgitation. TRICUSPID VALVE The tricuspid valve is normal in structure and function. Doppler and Color Flow revealed trace tricus pid regurgitation with an estimated PAP of 48 mmHg. There is no tricuspid valve prolapse or vegetatio n. PULMONIC VALVE The pulmonic valve is not well visualized. Doppler and Color Flow revealed no pulmonic valvular regur gitation. There is no pulmonic valvular stenosis. GREAT VESSELS The aortic root is normal in size. The IVC is normal in size and collapses >50% with inspiration. PERICARDIAL EFFUSION There is no evidence of significant pericardial effusion. Critical Notification Critical Value: No <Conclusion> The left ventricular systolic function is normal and the ejection fraction is within normal range. Th e Ejection Fraction is 60-65%. There is normal LV segmental wall motion. The right ventricle moderately dilated. Doppler and Color Flow revealed trace tricuspid regurgitation with an estimated PAP of 48 mmHg. Signed by : Abdiel Leung, Electronically Approved : 12/06/2019 13:27:10
--- NOTE | 2019-12-06 14:52 | PDOC ---
[employer] PROGRESS NOTE Chief Complaint Chief Complaint Assessment/Plan Acute pulmonary edema with bilateral infiltrates seen on chest x-ray Acute diverticulitis -with prior perforation, high risk. We will switch to meropenem, daptomycin and fluconazole per ID recommendations. Clear liquid diet, consult GI. No surgery at this time Chronic anemia - possibly thalassemia versus chronic iron deficiency anemia related to occult GI blood loss vs 2/2 Hep C. Has never had a colonoscopy due to loss to follow up from lack of health insurance since 2016. Hepatitis C - chronic, not treated. GI consulted for consideration of anti- viral treatment, also needs alpha-fetoprotein level checked and ultrasound monitoring every 6 months. 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 MELD 15, 6% 3 month mortality. GI consulted Thrombocytopenialikely secondary to her cirrhosis. Will monitor Transaminitis likely secondary to hepatitis C versus acute diverticulitis, will monitor. GERD - on omeprazole Asymptomatic cholelithiasis elevated lactic acid without evidence of shock Sepsis secondary to diverticulitis, continue to follow hemodynamics closely I have discussed with nursing staff to reach out if she becomes unstable Acute pulmonary edema40 mg Lasix IV x1. Acute electrolyte derangementsreplace with IV 40 mEq of potassium Acute metabolic encephalopathytitrate bowel movements to at least 3 times per day. Schedule lactulose to titrate at least 2-3 bowel movements per day Appreciate pulmonary evaluation. Hold Lasix for now FEN - Clear liquid diet, PPX - lovenox FULL CODE Dispo -continue ICU care while on vasopressors Total total critical care time spent over 35 minutes History of Present Illness History of Present Illness 12/06/2019 No acute events overnight. Patient is tolerating BiPAP. No altered mental status at this time. Patient's chart, labs, images were reviewed and discussed with RN 12/05/2019 No acute events overnight. Patient seen and examined bedside. Patient is tolerating clear liquid diet. Patient does have some confusion on examination. Patient's chart, labs, images were reviewed and discussed with RN 12/04/2019 No acute events overnight. Patient is tolerating clear liquid diet. Abdominal pain has improved. Patient's chart, labs, images were reviewed and discussed with RN 12/03/2019 No acute events overnight. Patient remains on vasopressors for hemodynamic support. She has already received about 5 L of fluids. She has not had any bloody stools since transferred to the ICU. 12/01: No acute events reported overnight, case discussed with nursing staff patient in no acute distress no complaints during my visit Vitals/I&O Vitals/I&O: Vital Signs Date Time Temp Pulse Resp B/P (MAP) Pulse Ox O2 Delivery O2 Flow Rate FiO2 12/06/19 14:37 72 26 86/41 (56) 94 BiPAP/CPAP 12/06/19 12:00 97.7 97.7 12/06/19 05:00 5.0 I & O 12/05/19 12/05/19 12/06/19 15:00 23:00 07:00 Intake Total 100 ml 1288 ml 1336 ml Output Total 1735 ml 415 ml 262 ml Balance -1635 ml 873 ml 1074 ml Physical Exam Physical Exam: CONSTITUTIONAL: She is lying in bed. She is on Bipap. She looks comfortable. She is in no acute distress. HEENT: Normal conjunctivae. NECK: Supple. Good range of motion. LUNGS: Brian rhonchi R> L HEART: S1, S2. ABDOMEN: Obese. It is mildly distended. There is no guarding. There is no gross tenderness. : Vital EXTREMITIES: Without clubbing, cyanosis or gross edema. SKIN: Warm to touch without signs of rash. NEUROLOGIC: She is alert, nonfocal but confused PSYCHIATRIC: Affect is appropriate. REJ 12/01 General: Cooperative, No acute distress Heart: Regular rate Lungs: Clear Abdomen: Soft, No tenderness Extremities: No clubbing, No cyanosis Skin: No rashes Labs Labs: Laboratory Tests Test 12/05/19 16:39 12/06/19 04:00 12/06/19 10:40 Glucose (Fingerstick) 73 mg/dL (70-99) White Blood Count 25.6 x10^3/uL (4.0-11.0) Red Blood Count 4.38 x10^6/uL (3.50-5.40) Hemoglobin 9.7 g/dL (12.0-15.5) Hematocrit 30.8 % (36.0-47.0) Mean Corpuscular Volume 70 fL (79-100) Mean Corpuscular Hemoglobin 22 pg (25-35) Mean Corpuscular Hemoglobin Concent 31 g/dL (31-37) Red Cell Distribution Width 17.9 % (11.5-14.5) Platelet Count 56 x10^3/uL (140-400) Neutrophils (%) (Auto) 92 % (31-73) Lymphocytes (%) (Auto) 4 % (24-48) Monocytes (%) (Auto) 3 % (0-9) Eosinophils (%) (Auto) 1 % (0-3) Basophils (%) (Auto) 0 % (0-3) Neutrophils # (Auto) 23.5 x10^3/uL (1.8-7.7) Lymphocytes # (Auto) 1.0 x10^3/uL (1.0-4.8) Monocytes # (Auto) 0.9 x10^3/uL (0.0-1.1) Eosinophils # (Auto) 0.2 x10^3/uL (0.0-0.7) Basophils # (Auto) 0.0 x10^3/uL (0.0-0.2) Sodium Level 140 mmol/L (136-145) Potassium Level 3.9 mmol/L (3.5-5.1) Chloride Level 108 mmol/L (98-107) Carbon Dioxide Level 28 mmol/L (21-32) Anion Gap 4 (6-14) Blood Urea Nitrogen 46 mg/dL (7-20) Creatinine 1.5 mg/dL (0.6-1.0) Estimated GFR (Cockcroft-Gault) 35.3 BUN/Creatinine Ratio 31 (6-20) Glucose Level 75 mg/dL (70-99) Calcium Level 7.3 mg/dL (8.5-10.1) Magnesium Level 1.7 mg/dL (1.8-2.4) Total Bilirubin 4.3 mg/dL (0.2-1.0) Aspartate Amino Transf (AST/SGOT) 91 U/L (15-37) Alanine Aminotransferase (ALT/SGPT) 68 U/L (14-59) Alkaline Phosphatase 121 U/L (46-116) Creatine Kinase 43 U/L (26-192) Troponin I Quantitative 0.263 ng/mL (0.000-0.055) 0.164 ng/mL (0.000-0.055) IG-Vrq-L-Type Natriuretic Peptide 24168 pg/mL (0-124) Total Protein 5.3 g/dL (6.4-8.2) Albumin 1.5 g/dL (3.4-5.0) Albumin/Globulin Ratio 0.4 (1.0-1.7) Procalcitonin 6.97 ng/mL (0.00-0.10) Thyroid Stimulating Hormone (TSH) 1.021 uIU/mL (0.358-3.74) Assessment and Plan Assessmemt and Plan Problems Medical Problems: (1) Diverticulitis Status: Acute Comment Review of Relevant I have reviewed the following items jing (where applicable) has been applied. Medications: Current Medications Medications (Trade) Dose Ordered Sig/Ubaldo Route PRN Reason Start Time Stop Time Status Last Admin Dose Admin Naloxone HCl (Narcan) 0.4 mg PRN Q2MIN PRN IV SEE COMMENTS 12/06/19 05:00 12/06/19 05:19 Piperacillin Sod/ Tazobactam Sod 3.375 gm/Sodium Chloride 50 ml @ 100 mls/hr Q6HRS IV 12/06/19 08:00 12/06/19 13:30 Linezolid/Dextrose 300 ml @ 300 mls/hr Q12HR IV 12/06/19 09:00 12/06/19 09:56 Micafungin Sodium 100 mg/Dextrose 100 ml @ 100 mls/hr Q24H IV 12/06/19 10:00 12/06/19 10:50 Furosemide (Lasix) 40 mg 1X ONCE IVP 12/06/19 08:00 12/06/19 08:05 DC 12/06/19 08:53 Magnesium Sulfate 50 ml @ 25 mls/hr 1X ONCE IV 12/06/19 09:00 12/06/19 10:59 DC 12/06/19 08:56 Justicifation of Admission Dx: Justifications for Admission: Justification of Admission Dx: Yes DANNI ARNDT MD Dec 06, 2019 14:52
--- NOTE | 2019-12-06 14:56 | EKG ---
[facility] [address] [place] [address] Test Date: 2019-12-06 Test Time: 14:52:34 Pat Name: ISIAH DESIR Department: Room: [facility] Gender: F Lab Coordinator: JAIME : 1960 Requested By: JOHANNE ALLEN Order Number: [id number] Reading MD: Measurements Intervals [place] Rate: 70 P: 59 OR: 128 QRS: 70 QRSD: 84 T: 31 QT: 434 QTc: 472 Interpretive Statements SINUS RHYTHM LOW LIMB LEAD VOLTAGE PROLONGED QT NO SPECIFIC ECG ABNORMALITIES RI6.02 No previous ECG available for comparison
[2019-12-06] MEDS ORDERED: ALBUMIN HUMAN 5% 500 ML IV ONE (16:00)
[2019-12-06] MEDS: ENOXAPARIN 30 MG/0.3 ML SYRINGE. SQ SCH (16:00)
--- NOTE | 2019-12-06 16:46 | PDOC ---
GI PROGRESS NOTES Date Date/Time DATE: 12/06/19 TIME: 16:44 Subjective Subjective abd pain improved. But WBC up again Objective Vitals Vital Signs Date Time Temp Pulse Resp B/P (MAP) Pulse Ox O2 Delivery O2 Flow Rate FiO2 12/06/19 16:41 Bi-pap 12/06/19 16:38 97.8 77 22 92/44 (60) 96 BiPAP/CPAP 97.8 12/06/19 15:12 94 BiPAP/CPAP 12/06/19 14:37 72 26 86/41 (56) 94 BiPAP/CPAP 12/06/19 14:32 81 22 99/47 (64) 97 BiPAP/CPAP 12/06/19 13:20 81 22 99/47 (64) 97 BiPAP/CPAP 12/06/19 12:00 Bi-pap 12/06/19 12:00 97.7 80 22 98/48 (65) 96 BiPAP/CPAP 97.7 12/06/19 11:07 79 24 89/42 (58) 95 BiPAP/CPAP 12/06/19 11:07 94 BiPAP/CPAP 12/06/19 10:28 80 22 90/46 (61) 92 BiPAP/CPAP 12/06/19 09:14 80 22 98/49 (65) 97 BiPAP/CPAP 12/06/19 08:51 81 22 95/47 (63) 95 BiPAP/CPAP 12/06/19 08:17 97 BiPAP/CPAP 12/06/19 08:00 Bi-pap 12/06/19 07:00 98.1 83 23 98/45 (62) 99 BiPAP/CPAP 98.1 12/06/19 06:00 67 24 91/44 (60) 100 BiPAP/CPAP 12/06/19 05:32 95 BiPAP/CPAP 12/06/19 05:00 98 14 97/42 (60) 80 Nasal Cannula 5.0 12/06/19 04:00 97.6 70 16 102/63 (76) 94 Nasal Cannula 5.0 97.6 12/06/19 04:00 Nasal Cannula 5.0 12/06/19 03:00 91 14 98/51 (67) 93 Nasal Cannula 5.0 12/06/19 02:00 99 18 110/55 (73) 95 Nasal Cannula 5.0 12/06/19 01:15 24 94 Nasal Cannula 5.0 12/06/19 01:00 82 17 103/59 (74) 94 Nasal Cannula 5.0 12/06/19 00:40 33 92 Nasal Cannula 5.0 12/06/19 00:00 Nasal Cannula 5.0 12/06/19 00:00 97.7 82 33 101/46 (64) 94 Nasal Cannula 5.0 97.7 12/05/19 23:00 82 33 115/53 (73) 92 Nasal Cannula 5.0 12/05/19 22:00 84 32 110/56 (74) 94 Nasal Cannula 5.0 12/05/19 21:00 80 26 140/57 (84) 96 Nasal Cannula 5.0 12/05/19 20:57 94 Nasal Cannula 5.0 12/05/19 20:00 97.9 78 24 118/55 (76) 94 Nasal Cannula 5.0 97.9 12/05/19 20:00 Nasal Cannula 5.0 12/05/19 19:00 82 22 110/54 (72) 94 Nasal Cannula 5.0 12/05/19 18:00 84 29 108/50 (69) 92 Nasal Cannula 5.0 12/05/19 17:00 82 30 125/61 (82) 92 Nasal Cannula 5.0 Labs Labs Laboratory Tests Test 12/06/19 04:00 12/06/19 10:40 12/06/19 15:40 White Blood Count 25.6 x10^3/uL (4.0-11.0) Red Blood Count 4.38 x10^6/uL (3.50-5.40) Hemoglobin 9.7 g/dL (12.0-15.5) Hematocrit 30.8 % (36.0-47.0) Mean Corpuscular Volume 70 fL (79-100) Mean Corpuscular Hemoglobin 22 pg (25-35) Mean Corpuscular Hemoglobin Concent 31 g/dL (31-37) Red Cell Distribution Width 17.9 % (11.5-14.5) Platelet Count 56 x10^3/uL (140-400) Neutrophils (%) (Auto) 92 % (31-73) Lymphocytes (%) (Auto) 4 % (24-48) Monocytes (%) (Auto) 3 % (0-9) Eosinophils (%) (Auto) 1 % (0-3) Basophils (%) (Auto) 0 % (0-3) Neutrophils # (Auto) 23.5 x10^3/uL (1.8-7.7) Lymphocytes # (Auto) 1.0 x10^3/uL (1.0-4.8) Monocytes # (Auto) 0.9 x10^3/uL (0.0-1.1) Eosinophils # (Auto) 0.2 x10^3/uL (0.0-0.7) Basophils # (Auto) 0.0 x10^3/uL (0.0-0.2) Sodium Level 140 mmol/L (136-145) Potassium Level 3.9 mmol/L (3.5-5.1) Chloride Level 108 mmol/L (98-107) Carbon Dioxide Level 28 mmol/L (21-32) Anion Gap 4 (6-14) Blood Urea Nitrogen 46 mg/dL (7-20) Creatinine 1.5 mg/dL (0.6-1.0) Estimated GFR (Cockcroft-Gault) 35.3 BUN/Creatinine Ratio 31 (6-20) Glucose Level 75 mg/dL (70-99) Calcium Level 7.3 mg/dL (8.5-10.1) Magnesium Level 1.7 mg/dL (1.8-2.4) Total Bilirubin 4.3 mg/dL (0.2-1.0) Aspartate Amino Transf (AST/SGOT) 91 U/L (15-37) Alanine Aminotransferase (ALT/SGPT) 68 U/L (14-59) Alkaline Phosphatase 121 U/L (46-116) Creatine Kinase 43 U/L (26-192) Troponin I Quantitative 0.263 ng/mL (0.000-0.055) 0.164 ng/mL (0.000-0.055) SA-Rtz-E-Type Natriuretic Peptide 96862 pg/mL (0-124) Total Protein 5.3 g/dL (6.4-8.2) Albumin 1.5 g/dL (3.4-5.0) Albumin/Globulin Ratio 0.4 (1.0-1.7) Procalcitonin 6.97 ng/mL (0.00-0.10) Thyroid Stimulating Hormone (TSH) 1.021 uIU/mL (0.358-3.74) Ammonia 18 mcmol/L (11-34) Physical Exam Physical Exam Awake Chest clear Heart regular rate and rhythm Abdomen soft, normal bowel sounds, much less tender in the left lower quadrant but without rebound. Assessment Assessment Sigmoid diverticulitis. Repeat CT scan did reveal some small areas of extraluminal gas but no randy perforation or leak. No abscess. She was transferred to the ICU due to the the elevated lactic acid and her white count dramatically increased over 40,000. ID has broadened her antibiotic coverage. her white count was down to 19,000. now back up to 25,000 -Source is not completely clear. However her clinical course is likely complicated by her underlying cirrhosis Hepatitis C. She has genotype 3 from 2016. She has developed cirrhosis. We discussed treatment options for her as an outpatient later. Cirrhosis. Plan Plan Continue IV antibiotics as ordered by ID Continue liquid diet\ Justicifation of Admission Dx: Justifications for Admission: Justification of Admission Dx: Yes MANOLO INIGUEZ MD Dec 06, 2019 16:46
[2019-12-06] MEDS: PSYLLIUM HUSK (SUGAR FREE) 1 PKT PACKET PO SCH (18:00)
[2019-12-06 18:24] LABS: FIO2 ABG 40
[2019-12-07] VITALS (23 sets, daily range): BP systolic 92–116; BP diastolic 46–60
[2019-12-07] MEDS: PIPERACILLIN/TAZOBACTAM 3.375 GM in IV NORMAL SALINE 50ML 50 ML IV SCH ×5 (00:07→23:58)
[2019-12-07] MEDS: IV RINGERS,LACTATED 1000ML 1,000 ML IV SCH (00:08)
--- NOTE | 2019-12-07 06:02 | PDOC ---
Infectious Disease Note Subjective Subjective On Bipap Looks better Conversant but hard to understand with Bipap ROS ROS Difficult to obtain Vital Sign Vital Signs Vital Signs Date Time Temp Pulse Resp B/P (MAP) Pulse Ox O2 Delivery O2 Flow Rate FiO2 12/07/19 05:00 72 26 108/50 (69) 99 BiPAP/CPAP 12/07/19 04:00 97.5 97.5 Physical Exam PHYSICAL EXAM CONSTITUTIONAL: She is lying in bed. She is on Bipap. She looks comfortable. She is in no acute distress. More alert HEENT: Normal conjunctivae. NECK: Supple. Good range of motion. LUNGS: Brian rhonchi R> L HEART: S1, S2. ABDOMEN: Obese. It is mildly distended. There is no guarding. There is no gross tenderness. : Vital EXTREMITIES: Without clubbing, cyanosis or gross edema. SKIN: Warm to touch without signs of rash. NEUROLOGIC: She is alert, nonfocal but confused PSYCHIATRIC: Affect is appropriate. REJ 12/01 Labs Lab Laboratory Tests Test 12/06/19 10:40 12/06/19 15:40 Troponin I Quantitative 0.164 ng/mL (0.000-0.055) Ammonia 18 mcmol/L (11-34) Micro ECHO 12/05<Conclusion> The left ventricular systolic function is normal and the ejection fraction is within normal range. The Ejection Fraction is 60-65%. There is normal LV segmental wall motion. The right ventricle moderately dilated. Doppler and Color Flow revealed trace tricuspid regurgitation with an estimated PAP of 48 mmHg. CXR 12/04 IMPRESSION: Increase in right greater than left upper lobe predominant diffuse mixed interstitial and alveolar infiltrate. CT IMPRESSION: 1. Redemonstration of diverticulitis at the sigmoid colon with a small adjacent contained perforation. No focal fluid collection to suggest abscess. 2. Interval development of trace bilateral pleural effusions greater on the right. Additionally there is soft tissue anasarca. Correlate with volume status. CXR: IMPRESSION: Bilateral interstitial infiltrates which are predominantly upper lobe. Objective Assessment Sepsis - Off Levophed - MICHELLE - improved Acute Sigmoid Diverticulitis Leukocytosis - increased Lung infiltrates - worse Thrombocytopenia - better Encephalopathy Transaminitis- better CHF - elevated BNP Cirrhosis H/o Hep C Possible UTI but a lot of squamous cells -cults neg Ongoing tobacco abuse Plan Plan of Care Zyvox 12/05with CXR and 02 changes With increasing WBC will D/c Meropenem and begin Zosyn 12/05 Discont Fluconoazole 12/02 begin Micafungin F/u labs - pending in am and cults Critically ill D/w nursing MARICARMEN BOWEN MD Dec 07, 2019 06:02
[2019-12-07] MEDS: IPRATRPIUM/ALBUTEROL 0.5/2.5MG 3 ML NEBU. NEB SCH ×4 (07:50→19:59)
[2019-12-07 08:27] LABS: BASE EXCESS ABG -5 mmol/L (-3-3); HCO3 ABG 21 mmol/L (21-28); PCO2 ABG 44 mmHg (35-46); PO2 ABG 91 mmHg (65-108); SAT O2 ABG 95 % (92-99)
--- NOTE | 2019-12-07 08:45 | RAD ---
CHEST AP ONLY INDICATION: pulmonary edema . COMPARISON STUDY: 12/06/2019. FINDINGS: Lungs: Normal lung volume. Stable bilateral perihilar and basilar heterogeneous opacities. Indistinct pulmonary vasculature. Pleura: Stable pleural spaces. Heart and Mediastinum: Stable cardiomediastinal silhouette and great vessels. IMPRESSION: Stable bilateral perihilar and basilar opacities. Electronically signed by: Dannie Turner MD (12/07/2019 8:42 AM) [id number]
[2019-12-07] MEDS: NICOTINE 21MG PATCH. TD SCH (09:00)
[2019-12-07] MEDS: ELECTROLYTE (ICU) PROTOCOL. MC SCH (09:00)
[2019-12-07 09:28] LABS: FIO2 ABG 40% BIPAP
[2019-12-07] MEDS: SENNOSIDES/DOCUSATE 8.6/50MG TABLET. PO SCH ×2 (09:33→21:02)
[2019-12-07] MEDS: BENZONATATE 100 MG CAPSULE. PO SCH ×3 (09:33→21:02)
[2019-12-07] MEDS: MICAFUNGIN 100 MG in IV DEXTROSE 5% 100ML 100 ML IV SCH (09:36)
--- NOTE | 2019-12-07 10:43 | PDOC ---
[employer] PROGRESS NOTE Chief Complaint Chief Complaint Assessment/Plan Acute pulmonary edema with bilateral infiltrates seen on chest x-rayminimal improvement compared to 12/06/2019 chest x-ray Acute diverticulitis -with prior perforation, high risk. Continue with Zyvox and Zosyn. And micafungin. No surgery at this time Chronic anemia - possibly thalassemia versus chronic iron deficiency anemia related to occult GI blood loss vs 2/2 Hep C. Has never had a colonoscopy due to loss to follow up from lack of health insurance since 2016. Hepatitis C - chronic, not treated. GI consulted for consideration of anti- viral treatment, also needs alpha-fetoprotein level checked and ultrasound monitoring every 6 months. 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 MELD 15, 6% 3 month mortality. GI consulted Thrombocytopenialikely secondary to her cirrhosis. Will monitor Transaminitis likely secondary to hepatitis C versus acute diverticulitis, will monitor. GERD - on omeprazole Asymptomatic cholelithiasis elevated lactic acid without evidence of shock Sepsis secondary to diverticulitis, continue to follow hemodynamics closely I have discussed with nursing staff to reach out if she becomes unstable Acute pulmonary edema40 mg Lasix IV x1. Acute electrolyte derangementsreplace with IV 40 mEq of potassium Acute metabolic encephalopathytitrate bowel movements to at least 3 times per day. Schedule lactulose to titrate at least 2-3 bowel movements per day Chronic respiratory acidosis -appropriate compensation. Continue BiPAP PRN Appreciate pulmonary evaluation. Hold Lasix for now 6 chest x-ray in the a.m. FEN - Clear liquid diet, PPX - lovenox FULL CODE Dispo -continue ICU care while on vasopressors Total total critical care time spent over 33 minutes History of Present Illness History of Present Illness 12/07/2019 No acute events overnight. Patient is tolerated nocturnal BiPAP. Patient's chart, labs, images were reviewed and discussed with RN 12/06/2019 No acute events overnight. Patient is tolerating BiPAP. No altered mental status at this time. Patient's chart, labs, images were reviewed and discussed with RN 12/05/2019 No acute events overnight. Patient seen and examined bedside. Patient is tolerating clear liquid diet. Patient does have some confusion on examination. Patient's chart, labs, images were reviewed and discussed with RN 12/04/2019 No acute events overnight. Patient is tolerating clear liquid diet. Abdominal pain has improved. Patient's chart, labs, images were reviewed and discussed with RN 12/03/2019 No acute events overnight. Patient remains on vasopressors for hemodynamic support. She has already received about 5 L of fluids. She has not had any bloody stools since transferred to the ICU. 12/01: No acute events reported overnight, case discussed with nursing staff patient in no acute distress no complaints during my visit Vitals/I&O Vitals/I&O: Vital Signs Date Time Temp Pulse Resp B/P (MAP) Pulse Ox O2 Delivery O2 Flow Rate FiO2 12/07/19 08:00 74 26 98 BiPAP/CPAP 12/07/19 04:00 97.5 97.5 I & O 12/06/19 12/06/19 12/07/19 15:00 23:00 07:00 Intake Total 500 ml 1134 ml 900 ml Output Total 270 ml 75 ml 325 ml Balance 230 ml 1059 ml 575 ml Physical Exam Physical Exam: CONSTITUTIONAL: She is lying in bed. She is on Bipap. She looks comfortable. She is in no acute distress. More alert HEENT: Normal conjunctivae. NECK: Supple. Good range of motion. LUNGS: Brian rhonchi R> L HEART: S1, S2. ABDOMEN: Obese. It is mildly distended. There is no guarding. There is no gross tenderness. : Vital EXTREMITIES: Without clubbing, cyanosis or gross edema. SKIN: Warm to touch without signs of rash. NEUROLOGIC: She is alert, nonfocal but confused PSYCHIATRIC: Affect is appropriate. REJ 12/01 General: mild distress Heart: Regular rate (SR), Normal S1, Normal S2, No murmurs Lungs: Clear Abdomen: Other (soft with some tenderenss with palpation) Extremities: No cyanosis Skin: No breakdown Labs Labs: Laboratory Tests Test 12/06/19 10:40 12/06/19 15:40 12/07/19 08:15 Troponin I Quantitative 0.164 ng/mL (0.000-0.055) Ammonia 18 mcmol/L (11-34) O2 Saturation 95 % (92-99) Arterial Blood pH 7.30 (7.35-7.45) Arterial Blood pCO2 at Patient Temp 44 mmHg (35-46) Arterial Blood pO2 at Patient Temp 91 mmHg (65-108) Arterial Blood HCO3 21 mmol/L (21-28) Arterial Blood Base Excess -5 mmol/L (-3-3) FiO2 40% bipap Assessment and Plan Assessmemt and Plan Problems Medical Problems: (1) Diverticulitis Status: Acute Comment Review of Relevant I have reviewed the following items jing (where applicable) has been applied. Medications: Current Medications Medications (Trade) Dose Ordered Sig/Ubaldo Route PRN Reason Start Time Stop Time Status Last Admin Dose Admin Albumin Human 500 ml @ 125 mls/hr 1X ONCE IV 12/06/19 16:00 12/06/19 19:59 DC 12/06/19 16:42 Justicifation of Admission Dx: Justifications for Admission: Justification of Admission Dx: Yes DANNI ARNDT MD Dec 07, 2019 10:43
--- NOTE | 2019-12-07 11:17 | PDOC ---
CARDIOLOGY PROGRESS NOTE SUBJECTIVE: No acute events overnight. OBJECTIVE: Vital Signs/I&O: Vital Signs Date Time Temp Pulse Resp B/P (MAP) Pulse Ox O2 Delivery O2 Flow Rate FiO2 12/07/19 08:00 74 26 98 BiPAP/CPAP 12/07/19 04:00 97.5 97.5 I & O 12/06/19 12/06/19 12/07/19 15:00 23:00 07:00 Intake Total 500 ml 1134 ml 900 ml Output Total 270 ml 75 ml 325 ml Balance 230 ml 1059 ml 575 ml Objective: On Bipap. a/o x 3. Decreased breath sounds. normal heart tones. Soft abd Trace edema. CURRENT MEDICATIONS: Current Medications Medications (Trade) Dose Ordered Sig/Ubaldo Route PRN Reason Start Time Stop Time Status Last Admin Dose Admin Albumin Human 500 ml @ 125 mls/hr 1X ONCE IV 12/06/19 16:00 12/06/19 19:59 DC 12/06/19 16:42 DIAGNOSTIC TESTING: Labs and imaging reviewed. Labs: Laboratory Tests Test 12/06/19 15:40 12/07/19 08:15 Ammonia 18 mcmol/L (11-34) O2 Saturation 95 % (92-99) Arterial Blood pH 7.30 (7.35-7.45) L Arterial Blood pCO2 at Patient Temp 44 mmHg (35-46) Arterial Blood pO2 at Patient Temp 91 mmHg (65-108) Arterial Blood HCO3 21 mmol/L (21-28) Arterial Blood Base Excess -5 mmol/L (-3-3) L FiO2 40% bipap ASSESSMENT: 1. Abdominal pain with sigmoid diverticulitis with contained perforation 2. Sepsis/shock with possible pneumonia 3. Acute respiratory failure: requiring bipap with above culprits 4. Severe MICHELLE: Cr improved 5. Microcytic anemia 6. Mildy elevated troponin: suspect demand mediated, type 2 with above culprits 7. Hx of Cirrhosis with hepC: GI following 8. Acute CHF with possible diastolic dysfunction, multifactorial as above 9. Possible COPD with underlying chronic tobaccoism 10. Metabolic encephalopathy PLAN: 1. Supportive care from CV standpoint. Echo WNL Will follow along. Thanks Justicifation of Admission Dx: Justifications for Admission: Justification of Admission Dx: Yes DORIAN MCKEON MD Dec 07, 2019 11:17
--- NOTE | 2019-12-07 11:51 | PDOC ---
G I PROGRESS NOTE Subjective On BIPAP. Hard to understand. A little confused? No complaints. Physical Exam Lungs with sonorous sounds bilaterally. RRR Abdomen seems tender LLQ. Review of Relevant I have reviewed the following items jing (where applicable) has been applied. Labs Laboratory Tests Test 12/05/19 16:39 12/06/19 04:00 12/06/19 04:59 12/06/19 10:40 Glucose (Fingerstick) 73 mg/dL (70-99) White Blood Count 25.6 x10^3/uL (4.0-11.0) Red Blood Count 4.38 x10^6/uL (3.50-5.40) Hemoglobin 9.7 g/dL (12.0-15.5) Hematocrit 30.8 % (36.0-47.0) Mean Corpuscular Volume 70 fL (79-100) Mean Corpuscular Hemoglobin 22 pg (25-35) Mean Corpuscular Hemoglobin Concent 31 g/dL (31-37) Red Cell Distribution Width 17.9 % (11.5-14.5) Platelet Count 56 x10^3/uL (140-400) Neutrophils (%) (Auto) 92 % (31-73) Lymphocytes (%) (Auto) 4 % (24-48) Monocytes (%) (Auto) 3 % (0-9) Eosinophils (%) (Auto) 1 % (0-3) Basophils (%) (Auto) 0 % (0-3) Neutrophils # (Auto) 23.5 x10^3/uL (1.8-7.7) Lymphocytes # (Auto) 1.0 x10^3/uL (1.0-4.8) Monocytes # (Auto) 0.9 x10^3/uL (0.0-1.1) Eosinophils # (Auto) 0.2 x10^3/uL (0.0-0.7) Basophils # (Auto) 0.0 x10^3/uL (0.0-0.2) Sodium Level 140 mmol/L (136-145) Potassium Level 3.9 mmol/L (3.5-5.1) Chloride Level 108 mmol/L (98-107) Carbon Dioxide Level 28 mmol/L (21-32) Anion Gap 4 (6-14) Blood Urea Nitrogen 46 mg/dL (7-20) Creatinine 1.5 mg/dL (0.6-1.0) Estimated GFR (Cockcroft-Gault) 35.3 BUN/Creatinine Ratio 31 (6-20) Glucose Level 75 mg/dL (70-99) Calcium Level 7.3 mg/dL (8.5-10.1) Magnesium Level 1.7 mg/dL (1.8-2.4) Total Bilirubin 4.3 mg/dL (0.2-1.0) Aspartate Amino Transf (AST/SGOT) 91 U/L (15-37) Alanine Aminotransferase (ALT/SGPT) 68 U/L (14-59) Alkaline Phosphatase 121 U/L (46-116) Creatine Kinase 43 U/L (26-192) Troponin I Quantitative 0.263 ng/mL (0.000-0.055) 0.164 ng/mL (0.000-0.055) MS-Kju-R-Type Natriuretic Peptide 70199 pg/mL (0-124) Total Protein 5.3 g/dL (6.4-8.2) Albumin 1.5 g/dL (3.4-5.0) Albumin/Globulin Ratio 0.4 (1.0-1.7) Procalcitonin 6.97 ng/mL (0.00-0.10) Thyroid Stimulating Hormone (TSH) 1.021 uIU/mL (0.358-3.74) O2 Saturation 93 % (92-99) Arterial Blood pH 7.33 (7.35-7.45) Arterial Blood pCO2 at Patient Temp 45 mmHg (35-46) Arterial Blood pO2 at Patient Temp 76 mmHg (65-108) Arterial Blood HCO3 23 mmol/L (21-28) Arterial Blood Base Excess -3 mmol/L (-3-3) FiO2 40 Test 12/06/19 15:40 12/07/19 08:15 Ammonia 18 mcmol/L (11-34) O2 Saturation 95 % (92-99) Arterial Blood pH 7.30 (7.35-7.45) Arterial Blood pCO2 at Patient Temp 44 mmHg (35-46) Arterial Blood pO2 at Patient Temp 91 mmHg (65-108) Arterial Blood HCO3 21 mmol/L (21-28) Arterial Blood Base Excess -5 mmol/L (-3-3) FiO2 40% bipap Laboratory Tests Test 12/06/19 15:40 12/07/19 08:15 Ammonia 18 mcmol/L (11-34) O2 Saturation 95 % (92-99) Arterial Blood pH 7.30 (7.35-7.45) Arterial Blood pCO2 at Patient Temp 44 mmHg (35-46) Arterial Blood pO2 at Patient Temp 91 mmHg (65-108) Arterial Blood HCO3 21 mmol/L (21-28) Arterial Blood Base Excess -5 mmol/L (-3-3) FiO2 40% bipap Microbiology 12/02/19 Urine Culture - Final, Complete Stilll with respiratory acidosis. Vitals/I & O Vital Sign - Last 24 Hours 12/06/19 12/06/19 12/06/19 12/06/19 12:00 12:00 12:55 13:20 Temp 97.7 97.7 Pulse 80 81 Resp 22 22 B/P (MAP) 98/48 (65) 99/47 (64) Pulse Ox 96 93 97 O2 Delivery BiPAP/CPAP Bi-pap BiPAP/CPAP BiPAP/CPAP 12/06/19 12/06/19 12/06/19 12/06/19 14:32 14:37 15:12 16:38 Temp 97.8 97.8 Pulse 81 72 77 Resp 22 22 B/P (MAP) 99/47 (64) 86/41 (56) 92/44 (60) Pulse Ox 97 94 94 96 O2 Delivery BiPAP/CPAP BiPAP/CPAP BiPAP/CPAP BiPAP/CPAP 12/06/19 12/06/19 12/06/19 12/06/19 16:41 17:36 18:44 19:00 Pulse 81 78 Resp 24 26 B/P (MAP) 99/46 (63) 107/46 (66) Pulse Ox 94 96 99 O2 Delivery Bi-pap BiPAP/CPAP BiPAP/CPAP BiPAP/CPAP 12/06/19 12/06/19 12/06/19 12/06/19 20:00 20:00 20:37 21:00 Temp 97.3 97.3 Pulse 78 84 Resp 27 B/P (MAP) 100/46 (64) 99/47 (64) Pulse Ox 97 94 98 O2 Delivery Bi-pap BiPAP/CPAP BiPAP/CPAP BiPAP/CPAP 12/06/19 12/06/19 12/06/19 8/1/20 22:00 23:00 23:07 00:00 Temp 97.5 97.5 Pulse 80 84 78 Resp 25 22 25 B/P (MAP) 98/48 (65) 104/51 (68) 101/48 (65) Pulse Ox 98 98 94 97 O2 Delivery BiPAP/CPAP BiPAP/CPAP BiPAP/CPAP BiPAP/CPAP 12/07/19 12/07/19 12/07/19 12/07/19 00:00 01:00 02:00 03:00 Pulse 76 74 71 Resp 23 26 24 B/P (MAP) 95/49 (64) 103/48 (66) 107/53 (71) Pulse Ox 97 97 97 O2 Delivery Bi-pap BiPAP/CPAP BiPAP/CPAP BiPAP/CPAP 12/07/19 12/07/19 12/07/19 12/07/19 04:00 04:00 04:30 05:00 Temp 97.5 97.5 Pulse 77 72 Resp 26 B/P (MAP) 92/52 (65) 108/50 (69) Pulse Ox 99 96 99 O2 Delivery Bi-pap BiPAP/CPAP BiPAP/CPAP BiPAP/CPAP 12/07/19 12/07/19 12/07/19 12/07/19 06:00 07:00 07:31 08:00 Pulse 76 77 74 Resp 28 26 B/P (MAP) 109/53 (71) 109/54 (72) Pulse Ox 99 98 98 98 O2 Delivery BiPAP/CPAP BiPAP/CPAP BiPAP/CPAP BiPAP/CPAP 12/07/19 11:42 Pulse Ox 98 O2 Delivery BiPAP/CPAP Intake and Output 12/06/19 12/06/19 12/07/19 15:00 23:00 07:00 Intake Total 500 ml 1134 ml 900 ml Output Total 270 ml 75 ml 325 ml Balance 230 ml 1059 ml 575 ml Problem List Problems Medical Problems: (1) Diverticulitis Status: Acute Assessment Diverticulitis, stable. Cirrhosis due to HCV--not clear to me PSE is an issue. Normal ammonia and still fuzzy. Respiratory issues. Plan of Care Note Continue support. Justicifation of Admission Dx: Justifications for Admission: Justification of Admission Dx: Yes MARTY CURRY MD Dec 07, 2019 11:51
--- NOTE | 2019-12-07 11:58 | PDOC ---
Renal-Progress Notes Subjective Notes Notes ON BIPAP History of Present Illness Hx of present illness NO CHANGE Vitals Vitals Vital Signs Date Time Temp Pulse Resp B/P (MAP) Pulse Ox O2 Delivery O2 Flow Rate FiO2 12/07/19 11:42 98 BiPAP/CPAP 12/07/19 08:00 74 26 12/07/19 04:00 97.5 97.5 Weight Weight [ ] I.O. Intake and Output Intake and Output 12/07/19 07:00 Intake Total 2534 ml Output Total 670 ml Balance 1864 ml IV Total 2534 ml Output Urine Total 670 ml Labs Labs Laboratory Tests Test 12/06/19 15:40 12/07/19 08:15 Ammonia 18 mcmol/L (11-34) O2 Saturation 95 % (92-99) Arterial Blood pH 7.30 (7.35-7.45) Arterial Blood pCO2 at Patient Temp 44 mmHg (35-46) Arterial Blood pO2 at Patient Temp 91 mmHg (65-108) Arterial Blood HCO3 21 mmol/L (21-28) Arterial Blood Base Excess -5 mmol/L (-3-3) FiO2 40% bipap Micro Micro Microbiology 12/02/19 Urine Culture - Final, Complete Review of Systems Constitutional: yes: weakness, alert Ears/Nose/Throat: Yes: no symptom reported Eyes: Yes: no symptom reported Pulmonary: Yes no symptom reported Cardiovascular: Yes no symptom reported Gastrointestional: Yes: no symptom reported Musculoskeletal: Yes: no symptom reported Psychiatric/Neurological: Yes: no symptom reported Physical Exam General Appearance: no apparent distress Skin: warm Respiratory: decreased breath sounds Heart: S1S2 Abdomen: soft, bowel sounds present Genitourinary: hurley catheter Extremities: pulses present, no edema Neurology: alert Assessment Assessment IMP MICHELLE MUCH BETTER WITH CR DOWN TO 1.5 LOW MAG HYPERVOLEMIA LEUCOCYTOSIS URINARY TRACT INFECTION ACUTE DIVERTICULITIS HEP C HX CIRRHOSIS SEPSIS HYPOTENSION-BETTER PLAN ANTIBIOTICS STOP HER IVF'S OFF PRESSORS IV LASIX CONT HURLEY D/W PT WILL FOLLOW ERIC LEMA MD Dec 07, 2019 11:57
--- NOTE | 2019-12-07 12:03 | PDOC ---
PULMONARY PROGRESS NOTES Subjective was desating, back on bipap 21/10, rr 18, fio2 35%, is weak, has cough Vitals Vital Signs Date Time Temp Pulse Resp B/P (MAP) Pulse Ox O2 Delivery O2 Flow Rate FiO2 12/07/19 11:42 98 BiPAP/CPAP 12/07/19 08:00 74 26 12/07/19 04:00 97.5 97.5 Comments ros as mentioned above otherwise neg General: Alert HEENT: Other (nc at perrl bipap mask on neck no lad no thyromegaly) Lungs: Crackles Cardiovascular: S1, S2 Abdomen: Soft Neuro Exam: Alert Extremities: Other Skin: Warm Labs Laboratory Tests Test 12/05/19 16:39 12/06/19 04:00 12/06/19 04:59 12/06/19 10:40 Glucose (Fingerstick) 73 mg/dL (70-99) White Blood Count 25.6 x10^3/uL (4.0-11.0) Red Blood Count 4.38 x10^6/uL (3.50-5.40) Hemoglobin 9.7 g/dL (12.0-15.5) Hematocrit 30.8 % (36.0-47.0) Mean Corpuscular Volume 70 fL (79-100) Mean Corpuscular Hemoglobin 22 pg (25-35) Mean Corpuscular Hemoglobin Concent 31 g/dL (31-37) Red Cell Distribution Width 17.9 % (11.5-14.5) Platelet Count 56 x10^3/uL (140-400) Neutrophils (%) (Auto) 92 % (31-73) Lymphocytes (%) (Auto) 4 % (24-48) Monocytes (%) (Auto) 3 % (0-9) Eosinophils (%) (Auto) 1 % (0-3) Basophils (%) (Auto) 0 % (0-3) Neutrophils # (Auto) 23.5 x10^3/uL (1.8-7.7) Lymphocytes # (Auto) 1.0 x10^3/uL (1.0-4.8) Monocytes # (Auto) 0.9 x10^3/uL (0.0-1.1) Eosinophils # (Auto) 0.2 x10^3/uL (0.0-0.7) Basophils # (Auto) 0.0 x10^3/uL (0.0-0.2) Sodium Level 140 mmol/L (136-145) Potassium Level 3.9 mmol/L (3.5-5.1) Chloride Level 108 mmol/L (98-107) Carbon Dioxide Level 28 mmol/L (21-32) Anion Gap 4 (6-14) Blood Urea Nitrogen 46 mg/dL (7-20) Creatinine 1.5 mg/dL (0.6-1.0) Estimated GFR (Cockcroft-Gault) 35.3 BUN/Creatinine Ratio 31 (6-20) Glucose Level 75 mg/dL (70-99) Calcium Level 7.3 mg/dL (8.5-10.1) Magnesium Level 1.7 mg/dL (1.8-2.4) Total Bilirubin 4.3 mg/dL (0.2-1.0) Aspartate Amino Transf (AST/SGOT) 91 U/L (15-37) Alanine Aminotransferase (ALT/SGPT) 68 U/L (14-59) Alkaline Phosphatase 121 U/L (46-116) Creatine Kinase 43 U/L (26-192) Troponin I Quantitative 0.263 ng/mL (0.000-0.055) 0.164 ng/mL (0.000-0.055) RR-Iye-N-Type Natriuretic Peptide 47005 pg/mL (0-124) Total Protein 5.3 g/dL (6.4-8.2) Albumin 1.5 g/dL (3.4-5.0) Albumin/Globulin Ratio 0.4 (1.0-1.7) Procalcitonin 6.97 ng/mL (0.00-0.10) Thyroid Stimulating Hormone (TSH) 1.021 uIU/mL (0.358-3.74) O2 Saturation 93 % (92-99) Arterial Blood pH 7.33 (7.35-7.45) Arterial Blood pCO2 at Patient Temp 45 mmHg (35-46) Arterial Blood pO2 at Patient Temp 76 mmHg (65-108) Arterial Blood HCO3 23 mmol/L (21-28) Arterial Blood Base Excess -3 mmol/L (-3-3) FiO2 40 Test 12/06/19 15:40 12/07/19 08:15 Ammonia 18 mcmol/L (11-34) O2 Saturation 95 % (92-99) Arterial Blood pH 7.30 (7.35-7.45) Arterial Blood pCO2 at Patient Temp 44 mmHg (35-46) Arterial Blood pO2 at Patient Temp 91 mmHg (65-108) Arterial Blood HCO3 21 mmol/L (21-28) Arterial Blood Base Excess -5 mmol/L (-3-3) FiO2 40% bipap Laboratory Tests Test 12/06/19 15:40 12/07/19 08:15 Ammonia 18 mcmol/L (11-34) O2 Saturation 95 % (92-99) Arterial Blood pH 7.30 (7.35-7.45) Arterial Blood pCO2 at Patient Temp 44 mmHg (35-46) Arterial Blood pO2 at Patient Temp 91 mmHg (65-108) Arterial Blood HCO3 21 mmol/L (21-28) Arterial Blood Base Excess -5 mmol/L (-3-3) FiO2 40% bipap Medications Active Scripts Medications Dose Route/Sig Max Daily Dose Days Date Category Klor-Con M20 (Potassium Chloride) 20 Meq Tab.er.prt 20 Meq PO DAILYWBKFT 10/14/15 Rx Oxycodone-Acetaminophen 5-325 (Oxycodone Hcl/Acetaminophen) 1 Each Tablet 1 Tab PO PRN Q4HRS PRN 10/14/15 Rx Mag-Oxide (Magnesium Oxide) 400 Mg Tablet 400 Mg PO DAILY 10/14/15 Rx Lisinopril 20 Mg Tablet 20 Mg PO DAILY 10/14/15 Rx Tylenol (Acetaminophen) 325 Mg Tablet 650 Mg PO PRN Q4-6HRS PRN 10/05/15 Reported NICODERM CQ 7mg (Nicotine) 1 Each Patch.td24 1 Patch TD DAILY 10/02/15 Rx Slow Release Iron (Ferrous Sulfate) 142 Mg Tablet.er 142 Mg PO DAILYWBKFT 10/02/15 Rx Comments cxr reviewed Stable bilateral perihilar and basilar opacities. Impression . IMPRESSION: 1. Acute hypoxic respiratory failure, likely secondary to noncardiogenic pulmonary edema/acute lung injury/acute respiratory distress syndrome resulting from acute diverticulitis with contained perforation and possible aspiration. 2. Underlying chronic obstructive pulmonary disease. Unknown FEV1. 3. Abnormal chest x-ray . 4. Acute diverticulitis with contained perforation. 5. Prerenal azotemia. 6. History of cirrhosis with splenomegaly and cholelithiasis. 7. Severe protein-calorie malnutrition. 8. Thrombocytopenia, likely sepsis induced. improving 9. Marked leukocytosis secondary to infectious etiology. improving Plan . RECOMME 1. continue with BiPAP, setting reviewed and 02 titration, keep saturation 90% 2. Continue broad-spectrum antibiotics. 3. Monitor renal function closely lasix prn. 4. Monitor the clinical response to treatment. 5. Continue nutrition per GI. 6. DVT and stress ulcer prophylaxis. She is currently on Lovenox. 7. Discussed with RN and RT. 8. Monitor platelets, wbc, cr discussed w ANGELA Araujo MD Dec 07, 2019 12:03
--- NOTE | 2019-12-07 12:43 | PDOC ---
SURGICAL PROGRESS NOTE Subjective Pt without c/o, on bipap Vital Signs Vital Signs Date Time Temp Pulse Resp B/P (MAP) Pulse Ox O2 Delivery O2 Flow Rate FiO2 12/07/19 11:42 98 BiPAP/CPAP 12/07/19 08:00 74 26 12/07/19 04:00 97.5 97.5 I&O Intake and Output 12/07/19 07:00 Intake Total 2534 ml Output Total 670 ml Balance 1864 ml IV Total 2534 ml Output Urine Total 670 ml General: Alert, moderate distress Abdomen: Soft, No tenderness Labs Laboratory Tests Test 12/05/19 16:39 12/06/19 04:00 12/06/19 04:59 12/06/19 10:40 Glucose (Fingerstick) 73 mg/dL (70-99) White Blood Count 25.6 x10^3/uL (4.0-11.0) Red Blood Count 4.38 x10^6/uL (3.50-5.40) Hemoglobin 9.7 g/dL (12.0-15.5) Hematocrit 30.8 % (36.0-47.0) Mean Corpuscular Volume 70 fL (79-100) Mean Corpuscular Hemoglobin 22 pg (25-35) Mean Corpuscular Hemoglobin Concent 31 g/dL (31-37) Red Cell Distribution Width 17.9 % (11.5-14.5) Platelet Count 56 x10^3/uL (140-400) Neutrophils (%) (Auto) 92 % (31-73) Lymphocytes (%) (Auto) 4 % (24-48) Monocytes (%) (Auto) 3 % (0-9) Eosinophils (%) (Auto) 1 % (0-3) Basophils (%) (Auto) 0 % (0-3) Neutrophils # (Auto) 23.5 x10^3/uL (1.8-7.7) Lymphocytes # (Auto) 1.0 x10^3/uL (1.0-4.8) Monocytes # (Auto) 0.9 x10^3/uL (0.0-1.1) Eosinophils # (Auto) 0.2 x10^3/uL (0.0-0.7) Basophils # (Auto) 0.0 x10^3/uL (0.0-0.2) Sodium Level 140 mmol/L (136-145) Potassium Level 3.9 mmol/L (3.5-5.1) Chloride Level 108 mmol/L (98-107) Carbon Dioxide Level 28 mmol/L (21-32) Anion Gap 4 (6-14) Blood Urea Nitrogen 46 mg/dL (7-20) Creatinine 1.5 mg/dL (0.6-1.0) Estimated GFR (Cockcroft-Gault) 35.3 BUN/Creatinine Ratio 31 (6-20) Glucose Level 75 mg/dL (70-99) Calcium Level 7.3 mg/dL (8.5-10.1) Magnesium Level 1.7 mg/dL (1.8-2.4) Total Bilirubin 4.3 mg/dL (0.2-1.0) Aspartate Amino Transf (AST/SGOT) 91 U/L (15-37) Alanine Aminotransferase (ALT/SGPT) 68 U/L (14-59) Alkaline Phosphatase 121 U/L (46-116) Creatine Kinase 43 U/L (26-192) Troponin I Quantitative 0.263 ng/mL (0.000-0.055) 0.164 ng/mL (0.000-0.055) SD-Fhg-H-Type Natriuretic Peptide 03039 pg/mL (0-124) Total Protein 5.3 g/dL (6.4-8.2) Albumin 1.5 g/dL (3.4-5.0) Albumin/Globulin Ratio 0.4 (1.0-1.7) Procalcitonin 6.97 ng/mL (0.00-0.10) Thyroid Stimulating Hormone (TSH) 1.021 uIU/mL (0.358-3.74) O2 Saturation 93 % (92-99) Arterial Blood pH 7.33 (7.35-7.45) Arterial Blood pCO2 at Patient Temp 45 mmHg (35-46) Arterial Blood pO2 at Patient Temp 76 mmHg (65-108) Arterial Blood HCO3 23 mmol/L (21-28) Arterial Blood Base Excess -3 mmol/L (-3-3) FiO2 40 Test 12/06/19 15:40 12/07/19 08:15 Ammonia 18 mcmol/L (11-34) O2 Saturation 95 % (92-99) Arterial Blood pH 7.30 (7.35-7.45) Arterial Blood pCO2 at Patient Temp 44 mmHg (35-46) Arterial Blood pO2 at Patient Temp 91 mmHg (65-108) Arterial Blood HCO3 21 mmol/L (21-28) Arterial Blood Base Excess -5 mmol/L (-3-3) FiO2 40% bipap Laboratory Tests Test 12/06/19 15:40 12/07/19 08:15 Ammonia 18 mcmol/L (11-34) O2 Saturation 95 % (92-99) Arterial Blood pH 7.30 (7.35-7.45) Arterial Blood pCO2 at Patient Temp 44 mmHg (35-46) Arterial Blood pO2 at Patient Temp 91 mmHg (65-108) Arterial Blood HCO3 21 mmol/L (21-28) Arterial Blood Base Excess -5 mmol/L (-3-3) FiO2 40% bipap Problem List Problems Medical Problems: (1) Diverticulitis Status: Acute Assessment/Plan cont abx and supportive care pt is prohibitive surgical candidate, given cirrhosis and pulm status. Justicifation of Admission Dx: Justifications for Admission: Justification of Admission Dx: Yes CRISTIAN LUIS MD Dec 07, 2019 12:43
[2019-12-07 15:14] LABS: BASO % 0 % (0-3); EOS # 0.2 x10^3/uL (0.0-0.7); EOS % 1 % (0-3); HEMATOCRIT 29.1 % (36.0-47.0); HEMOGLOBIN 9.3 g/dL (12.0-15.5); LYMPH # 1.5 x10^3/uL (1.0-4.8); LYMPH % 9 % (24-48); MEAN CORPUSCULAR HEMOGLOBIN 22 pg (25-35); MEAN CORPUSCULAR HGB CONC 32 g/dL (31-37); MEAN CORPUSCULAR VOLUME 70 fL (79-100); MONO # 0.8 x10^3/uL (0.0-1.1); MONO % 5 % (0-9); NEUT # 14.8 x10^3/uL (1.8-7.7); NEUT % 85 % (31-73); PLATELET COUNT 81 x10^3/uL (140-400); RED BLOOD COUNT 4.15 x10^6/uL (3.50-5.40); RED CELL DISTRIBUTION WIDTH 17.4 % (11.5-14.5); WHITE BLOOD COUNT 17.4 x10^3/uL (4.0-11.0)
[2019-12-07] MEDS ORDERED: FUROSEMIDE 100 MG/10 ML VIAL. IVP ONE (15:30)
[2019-12-07 15:32] LABS: MAGNESIUM 2.2 mg/dL (1.8-2.4); PHOSPHORUS 3.7 mg/dL (2.6-4.7)
[2019-12-07 15:45] LABS: ALBUMIN 1.7 g/dL (3.4-5.0); ALBUMIN/GLOBULIN RATIO 0.5 (1.0-1.7); CALCIUM 7.6 mg/dL (8.5-10.1); CREATININE 1.6 mg/dL (0.6-1.0); GFR 32.8; TOTAL PROTEIN 5.4 g/dL (6.4-8.2)
[2019-12-07] MEDS: ENOXAPARIN 30 MG/0.3 ML SYRINGE. SQ SCH (15:45)
[2019-12-07 16:15] LABS: % BANDS 12 % (0-9); % EOS 4 % (0-5); % LYMPHS 7 % (24-48); % METAS 1 % (0-0); % MONOS 3 % (0-10); % SEGS 73 % (35-66); NUCLEATED RBC 2; PLT ESTIMATE DECREASED (ADEQUATE)
[2019-12-07 16:17] LABS: ANISOCYTOSIS SLIGHT; HYPOCHROMIA MOD; MICROCYTOSIS MOD; OVALOCYTES FEW; SCHISTOCYTES FEW; TARGET CELLS PRESENT; TEAR DROP CELLS OCC; TOXIC GRANULATION MOD
[2019-12-07 16:18] LABS: POIKILOCYTOSIS PRESENT
[2019-12-07] MEDS: PSYLLIUM HUSK (SUGAR FREE) 1 PKT PACKET PO SCH (18:00)
[2019-12-08] VITALS (23 sets, daily range): BP systolic 101–132; BP diastolic 48–77
[2019-12-08] MEDS: PIPERACILLIN/TAZOBACTAM 3.375 GM in IV NORMAL SALINE 50ML 50 ML IV SCH ×3 (05:43→18:35)
[2019-12-08] MEDS: IPRATRPIUM/ALBUTEROL 0.5/2.5MG 3 ML NEBU. NEB SCH ×4 (07:26→20:22)
[2019-12-08] MEDS: BENZONATATE 100 MG CAPSULE. PO SCH ×3 (07:37→22:01)
[2019-12-08] MEDS: SENNOSIDES/DOCUSATE 8.6/50MG TABLET. PO SCH ×2 (07:37→19:40)
[2019-12-08] MEDS: NICOTINE 21MG PATCH. TD SCH (07:38)
--- NOTE | 2019-12-08 07:38 | PDOC ---
Infectious Disease Note Subjective Subjective On Bipap Looks better Conversant but hard to understand with Bipap Hungry Vital Sign Vital Signs Vital Signs Date Time Temp Pulse Resp B/P (MAP) Pulse Ox O2 Delivery O2 Flow Rate FiO2 12/08/19 07:25 95 BiPAP/CPAP 12/08/19 06:00 71 26 102/61 (75) 12/08/19 04:00 97.8 97.8 12/07/19 10:00 6.0 Physical Exam PHYSICAL EXAM CONSTITUTIONAL: She is lying in bed. She is on Bipap. She looks comfortable. She is in no acute distress. More alert. looks better HEENT: Normal conjunctivae. NECK: Supple. Good range of motion. LUNGS: Brian rhonchi R> L HEART: S1, S2. ABDOMEN: Obese. It is mildly distended. There is no guarding. There is no gross tenderness. : Vital EXTREMITIES: Without clubbing, cyanosis or gross edema. SKIN: Warm to touch without signs of rash. NEUROLOGIC: She is alert, nonfocal but confused PSYCHIATRIC: Affect is appropriate. REJ 12/01 Labs Lab Laboratory Tests Test 12/07/19 08:15 12/07/19 14:45 O2 Saturation 95 % (92-99) Arterial Blood pH 7.30 (7.35-7.45) Arterial Blood pCO2 at Patient Temp 44 mmHg (35-46) Arterial Blood pO2 at Patient Temp 91 mmHg (65-108) Arterial Blood HCO3 21 mmol/L (21-28) Arterial Blood Base Excess -5 mmol/L (-3-3) FiO2 40% bipap White Blood Count 17.4 x10^3/uL (4.0-11.0) Red Blood Count 4.15 x10^6/uL (3.50-5.40) Hemoglobin 9.3 g/dL (12.0-15.5) Hematocrit 29.1 % (36.0-47.0) Mean Corpuscular Volume 70 fL (79-100) Mean Corpuscular Hemoglobin 22 pg (25-35) Mean Corpuscular Hemoglobin Concent 32 g/dL (31-37) Red Cell Distribution Width 17.4 % (11.5-14.5) Platelet Count 81 x10^3/uL (140-400) Neutrophils (%) (Auto) 85 % (31-73) Lymphocytes (%) (Auto) 9 % (24-48) Monocytes (%) (Auto) 5 % (0-9) Eosinophils (%) (Auto) 1 % (0-3) Basophils (%) (Auto) 0 % (0-3) Neutrophils # (Auto) 14.8 x10^3/uL (1.8-7.7) Lymphocytes # (Auto) 1.5 x10^3/uL (1.0-4.8) Monocytes # (Auto) 0.8 x10^3/uL (0.0-1.1) Eosinophils # (Auto) 0.2 x10^3/uL (0.0-0.7) Basophils # (Auto) 0.0 x10^3/uL (0.0-0.2) Segmented Neutrophils % 73 % (35-66) Band Neutrophils % 12 % (0-9) Lymphocytes % 7 % (24-48) Monocytes % 3 % (0-10) Eosinophils % 4 % (0-5) Metamyelocytes % 1 % (0-0) Nucleated Red Blood Cells 2 Toxic Granulation Mod Platelet Estimate Decreased (ADEQUATE) Hypochromasia Mod Poikilocytosis Present Basophilic Stippling Present Anisocytosis Slight Microcytosis Mod Target Cells Present Tear Drop Cells Occ Ovalocytes Few Schistocytes Few Sodium Level 140 mmol/L (136-145) Potassium Level 4.0 mmol/L (3.5-5.1) Chloride Level 108 mmol/L (98-107) Carbon Dioxide Level 26 mmol/L (21-32) Anion Gap 6 (6-14) Blood Urea Nitrogen 60 mg/dL (7-20) Creatinine 1.6 mg/dL (0.6-1.0) Estimated GFR (Cockcroft-Gault) 32.8 BUN/Creatinine Ratio 38 (6-20) Glucose Level 107 mg/dL (70-99) Calcium Level 7.6 mg/dL (8.5-10.1) Phosphorus Level 3.7 mg/dL (2.6-4.7) Magnesium Level 2.2 mg/dL (1.8-2.4) Total Bilirubin 4.0 mg/dL (0.2-1.0) Aspartate Amino Transf (AST/SGOT) 68 U/L (15-37) Alanine Aminotransferase (ALT/SGPT) 43 U/L (14-59) Alkaline Phosphatase 95 U/L (46-116) Total Protein 5.4 g/dL (6.4-8.2) Albumin 1.7 g/dL (3.4-5.0) Albumin/Globulin Ratio 0.5 (1.0-1.7) Procalcitonin 4.07 ng/mL (0.00-0.10) Micro ECHO 12/05<Conclusion> The left ventricular systolic function is normal and the ejection fraction is within normal range. The Ejection Fraction is 60-65%. There is normal LV segmental wall motion. The right ventricle moderately dilated. Doppler and Color Flow revealed trace tricuspid regurgitation with an estimated PAP of 48 mmHg. CXR 12/04 IMPRESSION: Increase in right greater than left upper lobe predominant diffuse mixed interstitial and alveolar infiltrate. CT IMPRESSION: 1. Redemonstration of diverticulitis at the sigmoid colon with a small adjacent contained perforation. No focal fluid collection to suggest abscess. 2. Interval development of trace bilateral pleural effusions greater on the right. Additionally there is soft tissue anasarca. Correlate with volume status. CXR: IMPRESSION: Bilateral interstitial infiltrates which are predominantly upper lobe. Objective Assessment Sepsis - Off Levophed - Acute Hypoxic resp failure on Bipap - was off for an hour lst pm MICHELLE - improved Acute Sigmoid Diverticulitis Leukocytosis - better Lung infiltrates - stable Thrombocytopenia - better Encephalopathy Transaminitis- better CHF - elevated BNP Cirrhosis H/o Hep C Possible UTI but a lot of squamous cells -cults neg Ongoing tobacco abuse Plan Plan of Care Zyvox 12/05with CXR and 02 changes With increasing WBC will D/c Meropenem and begin Zosyn 12/05 Discont Fluconoazole 12/02 begin Micafungin F/u labs - pending in am and cults Critically ill D/w nursing MARICARMEN BOWEN MD Dec 08, 2019 07:38
[2019-12-08 08:06] LABS: BASO % 0 % (0-3); EOS # 0.3 x10^3/uL (0.0-0.7); EOS % 2 % (0-3); HEMATOCRIT 28.9 % (36.0-47.0); HEMOGLOBIN 9.2 g/dL (12.0-15.5); LYMPH # 1.5 x10^3/uL (1.0-4.8); LYMPH % 10 % (24-48); MEAN CORPUSCULAR HEMOGLOBIN 22 pg (25-35); MEAN CORPUSCULAR HGB CONC 32 g/dL (31-37); MEAN CORPUSCULAR VOLUME 70 fL (79-100); MONO # 0.7 x10^3/uL (0.0-1.1); MONO % 5 % (0-9); NEUT # 12.8 x10^3/uL (1.8-7.7); NEUT % 83 % (31-73); PLATELET COUNT 99 x10^3/uL (140-400); RED BLOOD COUNT 4.14 x10^6/uL (3.50-5.40); WHITE BLOOD COUNT 15.3 x10^3/uL (4.0-11.0)
[2019-12-08 08:11] LABS: BASE EXCESS ABG 1 mmol/L (-3-3); HCO3 ABG 26 mmol/L (21-28); PCO2 ABG 45 mmHg (35-46); PO2 ABG 73 mmHg (65-108); SAT O2 ABG 93 % (92-99)
[2019-12-08 08:11] LABS: CALCIUM 7.6 mg/dL (8.5-10.1); CREATININE 1.7 mg/dL (0.6-1.0); GFR 30.6; POTASSIUM 3.8 mmol/L (3.5-5.1)
[2019-12-08 08:14] LABS: FIO2 ABG 35% BIPAP
[2019-12-08] MEDS: ELECTROLYTE (ICU) PROTOCOL. MC SCH (09:00)
--- NOTE | 2019-12-08 09:48 | RAD ---
AP chest. HISTORY: Pulmonary edema AP view was taken of the chest. There are bilateral diffuse alveolar and interstitial changes consistent with pulmonary edema although an atypical pneumonia can also have this pattern. There has been no change compared to one day ago. IMPRESSION: 1. No significant change. Electronically signed by: Jhon Monge MD (12/08/2019 9:46 AM) [facility]
[2019-12-08] MEDS: MICAFUNGIN 100 MG in IV DEXTROSE 5% 100ML 100 ML IV SCH (10:30)
--- NOTE | 2019-12-08 11:48 | PDOC ---
G I PROGRESS NOTE Subjective OIff BIPAP and on mask. Denies much pain. No N, V. Physical Exam Paty;ngs clear anteriorly. RRR Abdomen soft, tender most left lower mid-abdomen. Review of Relevant I have reviewed the following items jing (where applicable) has been applied. Labs Laboratory Tests Test 12/06/19 15:40 12/07/19 08:15 12/07/19 14:45 12/08/19 07:45 Ammonia 18 mcmol/L (11-34) O2 Saturation 95 % (92-99) Arterial Blood pH 7.30 (7.35-7.45) Arterial Blood pCO2 at Patient Temp 44 mmHg (35-46) Arterial Blood pO2 at Patient Temp 91 mmHg (65-108) Arterial Blood HCO3 21 mmol/L (21-28) Arterial Blood Base Excess -5 mmol/L (-3-3) FiO2 40% bipap White Blood Count 17.4 x10^3/uL (4.0-11.0) 15.3 x10^3/uL (4.0-11.0) Red Blood Count 4.15 x10^6/uL (3.50-5.40) 4.14 x10^6/uL (3.50-5.40) Hemoglobin 9.3 g/dL (12.0-15.5) 9.2 g/dL (12.0-15.5) Hematocrit 29.1 % (36.0-47.0) 28.9 % (36.0-47.0) Mean Corpuscular Volume 70 fL (79-100) 70 fL (79-100) Mean Corpuscular Hemoglobin 22 pg (25-35) 22 pg (25-35) Mean Corpuscular Hemoglobin Concent 32 g/dL (31-37) 32 g/dL (31-37) Red Cell Distribution Width 17.4 % (11.5-14.5) 17.0 % (11.5-14.5) Platelet Count 81 x10^3/uL (140-400) 99 x10^3/uL (140-400) Neutrophils (%) (Auto) 85 % (31-73) 83 % (31-73) Lymphocytes (%) (Auto) 9 % (24-48) 10 % (24-48) Monocytes (%) (Auto) 5 % (0-9) 5 % (0-9) Eosinophils (%) (Auto) 1 % (0-3) 2 % (0-3) Basophils (%) (Auto) 0 % (0-3) 0 % (0-3) Neutrophils # (Auto) 14.8 x10^3/uL (1.8-7.7) 12.8 x10^3/uL (1.8-7.7) Lymphocytes # (Auto) 1.5 x10^3/uL (1.0-4.8) 1.5 x10^3/uL (1.0-4.8) Monocytes # (Auto) 0.8 x10^3/uL (0.0-1.1) 0.7 x10^3/uL (0.0-1.1) Eosinophils # (Auto) 0.2 x10^3/uL (0.0-0.7) 0.3 x10^3/uL (0.0-0.7) Basophils # (Auto) 0.0 x10^3/uL (0.0-0.2) 0.0 x10^3/uL (0.0-0.2) Segmented Neutrophils % 73 % (35-66) Band Neutrophils % 12 % (0-9) Lymphocytes % 7 % (24-48) Monocytes % 3 % (0-10) Eosinophils % 4 % (0-5) Metamyelocytes % 1 % (0-0) Nucleated Red Blood Cells 2 Toxic Granulation Mod Platelet Estimate Decreased (ADEQUATE) Hypochromasia Mod Poikilocytosis Present Basophilic Stippling Present Anisocytosis Slight Microcytosis Mod Target Cells Present Tear Drop Cells Occ Ovalocytes Few Schistocytes Few Sodium Level 140 mmol/L (136-145) 141 mmol/L (136-145) Potassium Level 4.0 mmol/L (3.5-5.1) 3.8 mmol/L (3.5-5.1) Chloride Level 108 mmol/L (98-107) 107 mmol/L (98-107) Carbon Dioxide Level 26 mmol/L (21-32) 27 mmol/L (21-32) Anion Gap 6 (6-14) 7 (6-14) Blood Urea Nitrogen 60 mg/dL (7-20) 64 mg/dL (7-20) Creatinine 1.6 mg/dL (0.6-1.0) 1.7 mg/dL (0.6-1.0) Estimated GFR (Cockcroft-Gault) 32.8 30.6 BUN/Creatinine Ratio 38 (6-20) Glucose Level 107 mg/dL (70-99) 91 mg/dL (70-99) Calcium Level 7.6 mg/dL (8.5-10.1) 7.6 mg/dL (8.5-10.1) Phosphorus Level 3.7 mg/dL (2.6-4.7) Magnesium Level 2.2 mg/dL (1.8-2.4) 2.1 mg/dL (1.8-2.4) Total Bilirubin 4.0 mg/dL (0.2-1.0) Aspartate Amino Transf (AST/SGOT) 68 U/L (15-37) Alanine Aminotransferase (ALT/SGPT) 43 U/L (14-59) Alkaline Phosphatase 95 U/L (46-116) Total Protein 5.4 g/dL (6.4-8.2) Albumin 1.7 g/dL (3.4-5.0) Albumin/Globulin Ratio 0.5 (1.0-1.7) Procalcitonin 4.07 ng/mL (0.00-0.10) Test 12/08/19 08:00 O2 Saturation 93 % (92-99) Arterial Blood pH 7.39 (7.35-7.45) Arterial Blood pCO2 at Patient Temp 45 mmHg (35-46) Arterial Blood pO2 at Patient Temp 73 mmHg (65-108) Arterial Blood HCO3 26 mmol/L (21-28) Arterial Blood Base Excess 1 mmol/L (-3-3) FiO2 35% bipap Laboratory Tests Test 12/07/19 14:45 12/08/19 07:45 12/08/19 08:00 White Blood Count 17.4 x10^3/uL (4.0-11.0) 15.3 x10^3/uL (4.0-11.0) Red Blood Count 4.15 x10^6/uL (3.50-5.40) 4.14 x10^6/uL (3.50-5.40) Hemoglobin 9.3 g/dL (12.0-15.5) 9.2 g/dL (12.0-15.5) Hematocrit 29.1 % (36.0-47.0) 28.9 % (36.0-47.0) Mean Corpuscular Volume 70 fL (79-100) 70 fL (79-100) Mean Corpuscular Hemoglobin 22 pg (25-35) 22 pg (25-35) Mean Corpuscular Hemoglobin Concent 32 g/dL (31-37) 32 g/dL (31-37) Red Cell Distribution Width 17.4 % (11.5-14.5) 17.0 % (11.5-14.5) Platelet Count 81 x10^3/uL (140-400) 99 x10^3/uL (140-400) Neutrophils (%) (Auto) 85 % (31-73) 83 % (31-73) Lymphocytes (%) (Auto) 9 % (24-48) 10 % (24-48) Monocytes (%) (Auto) 5 % (0-9) 5 % (0-9) Eosinophils (%) (Auto) 1 % (0-3) 2 % (0-3) Basophils (%) (Auto) 0 % (0-3) 0 % (0-3) Neutrophils # (Auto) 14.8 x10^3/uL (1.8-7.7) 12.8 x10^3/uL (1.8-7.7) Lymphocytes # (Auto) 1.5 x10^3/uL (1.0-4.8) 1.5 x10^3/uL (1.0-4.8) Monocytes # (Auto) 0.8 x10^3/uL (0.0-1.1) 0.7 x10^3/uL (0.0-1.1) Eosinophils # (Auto) 0.2 x10^3/uL (0.0-0.7) 0.3 x10^3/uL (0.0-0.7) Basophils # (Auto) 0.0 x10^3/uL (0.0-0.2) 0.0 x10^3/uL (0.0-0.2) Segmented Neutrophils % 73 % (35-66) Band Neutrophils % 12 % (0-9) Lymphocytes % 7 % (24-48) Monocytes % 3 % (0-10) Eosinophils % 4 % (0-5) Metamyelocytes % 1 % (0-0) Nucleated Red Blood Cells 2 Toxic Granulation Mod Platelet Estimate Decreased (ADEQUATE) Hypochromasia Mod Poikilocytosis Present Basophilic Stippling Present Anisocytosis Slight Microcytosis Mod Target Cells Present Tear Drop Cells Occ Ovalocytes Few Schistocytes Few Sodium Level 140 mmol/L (136-145) 141 mmol/L (136-145) Potassium Level 4.0 mmol/L (3.5-5.1) 3.8 mmol/L (3.5-5.1) Chloride Level 108 mmol/L (98-107) 107 mmol/L (98-107) Carbon Dioxide Level 26 mmol/L (21-32) 27 mmol/L (21-32) Anion Gap 6 (6-14) 7 (6-14) Blood Urea Nitrogen 60 mg/dL (7-20) 64 mg/dL (7-20) Creatinine 1.6 mg/dL (0.6-1.0) 1.7 mg/dL (0.6-1.0) Estimated GFR (Cockcroft-Gault) 32.8 30.6 BUN/Creatinine Ratio 38 (6-20) Glucose Level 107 mg/dL (70-99) 91 mg/dL (70-99) Calcium Level 7.6 mg/dL (8.5-10.1) 7.6 mg/dL (8.5-10.1) Phosphorus Level 3.7 mg/dL (2.6-4.7) Magnesium Level 2.2 mg/dL (1.8-2.4) 2.1 mg/dL (1.8-2.4) Total Bilirubin 4.0 mg/dL (0.2-1.0) Aspartate Amino Transf (AST/SGOT) 68 U/L (15-37) Alanine Aminotransferase (ALT/SGPT) 43 U/L (14-59) Alkaline Phosphatase 95 U/L (46-116) Total Protein 5.4 g/dL (6.4-8.2) Albumin 1.7 g/dL (3.4-5.0) Albumin/Globulin Ratio 0.5 (1.0-1.7) Procalcitonin 4.07 ng/mL (0.00-0.10) O2 Saturation 93 % (92-99) Arterial Blood pH 7.39 (7.35-7.45) Arterial Blood pCO2 at Patient Temp 45 mmHg (35-46) Arterial Blood pO2 at Patient Temp 73 mmHg (65-108) Arterial Blood HCO3 26 mmol/L (21-28) Arterial Blood Base Excess 1 mmol/L (-3-3) FiO2 35% bipap Microbiology 12/02/19 Urine Culture - Final, Complete White count falling. Platelet count up. Vitals/I & O Vital Sign - Last 24 Hours 12/07/19 12/07/19 12/07/19 12/07/19 12:00 12:00 13:00 13:35 Temp 97.5 97.5 Pulse 76 74 B/P (MAP) 103/55 (71) 98/50 (66) Pulse Ox 95 95 96 O2 Delivery Bi-pap BiPAP/CPAP BiPAP/CPAP BiPAP/CPAP 12/07/19 12/07/19 12/07/19 12/07/19 14:00 15:00 15:47 16:00 Temp 98.0 98.0 Pulse 77 78 76 Resp 29 28 29 B/P (MAP) 109/54 (72) 98/55 (69) 106/50 (68) Pulse Ox 95 96 95 95 O2 Delivery BiPAP/CPAP BiPAP/CPAP BiPAP/CPAP BiPAP/CPAP 12/07/19 12/07/19 12/07/19 12/07/19 16:00 17:00 17:40 18:00 Pulse 77 79 Resp 28 25 B/P (MAP) 99/47 (64) 94/46 (62) Pulse Ox 96 96 99 O2 Delivery Bi-pap BiPAP/CPAP BiPAP/CPAP BiPAP/CPAP 12/07/19 12/07/19 12/07/19 12/07/19 19:00 19:59 20:00 20:00 Temp 98.2 98.2 Pulse 74 70 Resp 23 23 B/P (MAP) 115/59 (77) 115/56 (75) Pulse Ox 99 98 99 O2 Delivery BiPAP/CPAP BiPAP/CPAP Bi-pap BiPAP/CPAP 12/07/19 12/07/19 12/07/19 12/08/19 21:00 22:00 23:00 00:00 Pulse 75 73 80 Resp 24 21 20 B/P (MAP) 116/60 (78) 109/57 (74) 114/56 (75) Pulse Ox 99 99 94 O2 Delivery BiPAP/CPAP BiPAP/CPAP BiPAP/CPAP Bi-pap 12/08/19 12/08/19 12/08/19 12/08/19 00:00 01:00 01:10 02:00 Temp 98.4 98.4 Pulse 68 72 68 Resp 22 22 22 B/P (MAP) 113/61 (78) 111/60 (77) 111/61 (78) Pulse Ox 97 97 97 98 O2 Delivery BiPAP/CPAP BiPAP/CPAP BiPAP/CPAP BiPAP/CPAP 12/08/19 12/08/19 12/08/19 12/08/19 03:00 03:34 04:00 04:00 Temp 97.8 97.8 Pulse 66 70 Resp 27 24 B/P (MAP) 114/54 (74) 122/63 (82) Pulse Ox 98 95 98 O2 Delivery BiPAP/CPAP BiPAP/CPAP BiPAP/CPAP Bi-pap 12/08/19 12/08/19 12/08/19 12/08/19 05:00 05:10 06:00 07:25 Pulse 74 71 Resp 26 26 B/P (MAP) 115/60 (78) 102/61 (75) Pulse Ox 98 95 98 95 O2 Delivery BiPAP/CPAP BiPAP/CPAP BiPAP/CPAP BiPAP/CPAP 12/08/19 09:39 Pulse Ox 97 O2 Delivery BiPAP/CPAP Intake and Output 12/07/19 12/07/19 12/08/19 15:00 23:00 07:00 Intake Total 450 ml 60 ml Output Total 510 ml 665 ml 200 ml Balance -60 ml -605 ml -200 ml Problem List Problems Medical Problems: (1) Diverticulitis Status: Acute Assessment Diverticulitis, stable. Cirrhosis, from HCV, compensating. Plan of Care Note Continue as now. Justicifation of Admission Dx: Justifications for Admission: Justification of Admission Dx: Yes MARTY CURRY MD Dec 08, 2019 11:48
--- NOTE | 2019-12-08 12:02 | PDOC ---
PULMONARY PROGRESS NOTES Subjective used bipap 21/10, rr 18, overnight, on vm 40% now, is weak, has cough, sob Vitals Vital Signs Date Time Temp Pulse Resp B/P (MAP) Pulse Ox O2 Delivery O2 Flow Rate FiO2 12/08/19 09:39 97 BiPAP/CPAP 12/08/19 06:00 71 26 102/61 (75) 12/08/19 04:00 97.8 97.8 12/07/19 10:00 6.0 Comments ros as mentioned above otherwise neg General: Alert HEENT: Other (nc at perrl bipap mask on neck no lad no thyromegaly) Lungs: Crackles Cardiovascular: S1, S2 Abdomen: Soft Neuro Exam: Alert Extremities: Other Skin: Warm Labs Laboratory Tests Test 12/06/19 15:40 12/07/19 08:15 12/07/19 14:45 12/08/19 07:45 Ammonia 18 mcmol/L (11-34) O2 Saturation 95 % (92-99) Arterial Blood pH 7.30 (7.35-7.45) Arterial Blood pCO2 at Patient Temp 44 mmHg (35-46) Arterial Blood pO2 at Patient Temp 91 mmHg (65-108) Arterial Blood HCO3 21 mmol/L (21-28) Arterial Blood Base Excess -5 mmol/L (-3-3) FiO2 40% bipap White Blood Count 17.4 x10^3/uL (4.0-11.0) 15.3 x10^3/uL (4.0-11.0) Red Blood Count 4.15 x10^6/uL (3.50-5.40) 4.14 x10^6/uL (3.50-5.40) Hemoglobin 9.3 g/dL (12.0-15.5) 9.2 g/dL (12.0-15.5) Hematocrit 29.1 % (36.0-47.0) 28.9 % (36.0-47.0) Mean Corpuscular Volume 70 fL (79-100) 70 fL (79-100) Mean Corpuscular Hemoglobin 22 pg (25-35) 22 pg (25-35) Mean Corpuscular Hemoglobin Concent 32 g/dL (31-37) 32 g/dL (31-37) Red Cell Distribution Width 17.4 % (11.5-14.5) 17.0 % (11.5-14.5) Platelet Count 81 x10^3/uL (140-400) 99 x10^3/uL (140-400) Neutrophils (%) (Auto) 85 % (31-73) 83 % (31-73) Lymphocytes (%) (Auto) 9 % (24-48) 10 % (24-48) Monocytes (%) (Auto) 5 % (0-9) 5 % (0-9) Eosinophils (%) (Auto) 1 % (0-3) 2 % (0-3) Basophils (%) (Auto) 0 % (0-3) 0 % (0-3) Neutrophils # (Auto) 14.8 x10^3/uL (1.8-7.7) 12.8 x10^3/uL (1.8-7.7) Lymphocytes # (Auto) 1.5 x10^3/uL (1.0-4.8) 1.5 x10^3/uL (1.0-4.8) Monocytes # (Auto) 0.8 x10^3/uL (0.0-1.1) 0.7 x10^3/uL (0.0-1.1) Eosinophils # (Auto) 0.2 x10^3/uL (0.0-0.7) 0.3 x10^3/uL (0.0-0.7) Basophils # (Auto) 0.0 x10^3/uL (0.0-0.2) 0.0 x10^3/uL (0.0-0.2) Segmented Neutrophils % 73 % (35-66) Band Neutrophils % 12 % (0-9) Lymphocytes % 7 % (24-48) Monocytes % 3 % (0-10) Eosinophils % 4 % (0-5) Metamyelocytes % 1 % (0-0) Nucleated Red Blood Cells 2 Toxic Granulation Mod Platelet Estimate Decreased (ADEQUATE) Hypochromasia Mod Poikilocytosis Present Basophilic Stippling Present Anisocytosis Slight Microcytosis Mod Target Cells Present Tear Drop Cells Occ Ovalocytes Few Schistocytes Few Sodium Level 140 mmol/L (136-145) 141 mmol/L (136-145) Potassium Level 4.0 mmol/L (3.5-5.1) 3.8 mmol/L (3.5-5.1) Chloride Level 108 mmol/L (98-107) 107 mmol/L (98-107) Carbon Dioxide Level 26 mmol/L (21-32) 27 mmol/L (21-32) Anion Gap 6 (6-14) 7 (6-14) Blood Urea Nitrogen 60 mg/dL (7-20) 64 mg/dL (7-20) Creatinine 1.6 mg/dL (0.6-1.0) 1.7 mg/dL (0.6-1.0) Estimated GFR (Cockcroft-Gault) 32.8 30.6 BUN/Creatinine Ratio 38 (6-20) Glucose Level 107 mg/dL (70-99) 91 mg/dL (70-99) Calcium Level 7.6 mg/dL (8.5-10.1) 7.6 mg/dL (8.5-10.1) Phosphorus Level 3.7 mg/dL (2.6-4.7) Magnesium Level 2.2 mg/dL (1.8-2.4) 2.1 mg/dL (1.8-2.4) Total Bilirubin 4.0 mg/dL (0.2-1.0) Aspartate Amino Transf (AST/SGOT) 68 U/L (15-37) Alanine Aminotransferase (ALT/SGPT) 43 U/L (14-59) Alkaline Phosphatase 95 U/L (46-116) Total Protein 5.4 g/dL (6.4-8.2) Albumin 1.7 g/dL (3.4-5.0) Albumin/Globulin Ratio 0.5 (1.0-1.7) Procalcitonin 4.07 ng/mL (0.00-0.10) Test 12/08/19 08:00 O2 Saturation 93 % (92-99) Arterial Blood pH 7.39 (7.35-7.45) Arterial Blood pCO2 at Patient Temp 45 mmHg (35-46) Arterial Blood pO2 at Patient Temp 73 mmHg (65-108) Arterial Blood HCO3 26 mmol/L (21-28) Arterial Blood Base Excess 1 mmol/L (-3-3) FiO2 35% bipap Laboratory Tests Test 12/07/19 14:45 12/08/19 07:45 12/08/19 08:00 White Blood Count 17.4 x10^3/uL (4.0-11.0) 15.3 x10^3/uL (4.0-11.0) Red Blood Count 4.15 x10^6/uL (3.50-5.40) 4.14 x10^6/uL (3.50-5.40) Hemoglobin 9.3 g/dL (12.0-15.5) 9.2 g/dL (12.0-15.5) Hematocrit 29.1 % (36.0-47.0) 28.9 % (36.0-47.0) Mean Corpuscular Volume 70 fL (79-100) 70 fL (79-100) Mean Corpuscular Hemoglobin 22 pg (25-35) 22 pg (25-35) Mean Corpuscular Hemoglobin Concent 32 g/dL (31-37) 32 g/dL (31-37) Red Cell Distribution Width 17.4 % (11.5-14.5) 17.0 % (11.5-14.5) Platelet Count 81 x10^3/uL (140-400) 99 x10^3/uL (140-400) Neutrophils (%) (Auto) 85 % (31-73) 83 % (31-73) Lymphocytes (%) (Auto) 9 % (24-48) 10 % (24-48) Monocytes (%) (Auto) 5 % (0-9) 5 % (0-9) Eosinophils (%) (Auto) 1 % (0-3) 2 % (0-3) Basophils (%) (Auto) 0 % (0-3) 0 % (0-3) Neutrophils # (Auto) 14.8 x10^3/uL (1.8-7.7) 12.8 x10^3/uL (1.8-7.7) Lymphocytes # (Auto) 1.5 x10^3/uL (1.0-4.8) 1.5 x10^3/uL (1.0-4.8) Monocytes # (Auto) 0.8 x10^3/uL (0.0-1.1) 0.7 x10^3/uL (0.0-1.1) Eosinophils # (Auto) 0.2 x10^3/uL (0.0-0.7) 0.3 x10^3/uL (0.0-0.7) Basophils # (Auto) 0.0 x10^3/uL (0.0-0.2) 0.0 x10^3/uL (0.0-0.2) Segmented Neutrophils % 73 % (35-66) Band Neutrophils % 12 % (0-9) Lymphocytes % 7 % (24-48) Monocytes % 3 % (0-10) Eosinophils % 4 % (0-5) Metamyelocytes % 1 % (0-0) Nucleated Red Blood Cells 2 Toxic Granulation Mod Platelet Estimate Decreased (ADEQUATE) Hypochromasia Mod Poikilocytosis Present Basophilic Stippling Present Anisocytosis Slight Microcytosis Mod Target Cells Present Tear Drop Cells Occ Ovalocytes Few Schistocytes Few Sodium Level 140 mmol/L (136-145) 141 mmol/L (136-145) Potassium Level 4.0 mmol/L (3.5-5.1) 3.8 mmol/L (3.5-5.1) Chloride Level 108 mmol/L (98-107) 107 mmol/L (98-107) Carbon Dioxide Level 26 mmol/L (21-32) 27 mmol/L (21-32) Anion Gap 6 (6-14) 7 (6-14) Blood Urea Nitrogen 60 mg/dL (7-20) 64 mg/dL (7-20) Creatinine 1.6 mg/dL (0.6-1.0) 1.7 mg/dL (0.6-1.0) Estimated GFR (Cockcroft-Gault) 32.8 30.6 BUN/Creatinine Ratio 38 (6-20) Glucose Level 107 mg/dL (70-99) 91 mg/dL (70-99) Calcium Level 7.6 mg/dL (8.5-10.1) 7.6 mg/dL (8.5-10.1) Phosphorus Level 3.7 mg/dL (2.6-4.7) Magnesium Level 2.2 mg/dL (1.8-2.4) 2.1 mg/dL (1.8-2.4) Total Bilirubin 4.0 mg/dL (0.2-1.0) Aspartate Amino Transf (AST/SGOT) 68 U/L (15-37) Alanine Aminotransferase (ALT/SGPT) 43 U/L (14-59) Alkaline Phosphatase 95 U/L (46-116) Total Protein 5.4 g/dL (6.4-8.2) Albumin 1.7 g/dL (3.4-5.0) Albumin/Globulin Ratio 0.5 (1.0-1.7) Procalcitonin 4.07 ng/mL (0.00-0.10) O2 Saturation 93 % (92-99) Arterial Blood pH 7.39 (7.35-7.45) Arterial Blood pCO2 at Patient Temp 45 mmHg (35-46) Arterial Blood pO2 at Patient Temp 73 mmHg (65-108) Arterial Blood HCO3 26 mmol/L (21-28) Arterial Blood Base Excess 1 mmol/L (-3-3) FiO2 35% bipap Medications Active Scripts Medications Dose Route/Sig Max Daily Dose Days Date Category Klor-Con M20 (Potassium Chloride) 20 Meq Tab.er.prt 20 Meq PO DAILYWBKFT 10/14/15 Rx Oxycodone-Acetaminophen 5-325 (Oxycodone Hcl/Acetaminophen) 1 Each Tablet 1 Tab PO PRN Q4HRS PRN 10/14/15 Rx Mag-Oxide (Magnesium Oxide) 400 Mg Tablet 400 Mg PO DAILY 10/14/15 Rx Lisinopril 20 Mg Tablet 20 Mg PO DAILY 10/14/15 Rx Tylenol (Acetaminophen) 325 Mg Tablet 650 Mg PO PRN Q4-6HRS PRN 10/05/15 Reported NICODERM CQ 7mg (Nicotine) 1 Each Patch.td24 1 Patch TD DAILY 10/02/15 Rx Slow Release Iron (Ferrous Sulfate) 142 Mg Tablet.er 142 Mg PO DAILYWBKFT 10/02/15 Rx Comments cxr reviewed bilateral perihilar and basilar opacities.no change Impression . IMPRESSION: 1. Acute hypoxic respiratory failure, likely secondary acute diastolic chf, acute lung injury/acute respiratory distress syndrome resulting from acute diverticulitis with contained perforation and possible aspiration. 2. Underlying chronic obstructive pulmonary disease. Unknown FEV1. 3. Abnormal chest x-ray . 4. Acute diverticulitis with contained perforation. 5. Prerenal azotemia. 6. History of cirrhosis with splenomegaly and cholelithiasis. 7. Severe protein-calorie malnutrition. 8. Thrombocytopenia, likely sepsis induced. improving 9. Marked leukocytosis secondary to infectious etiology. improving Plan . RECOMME 1. continue with BiPAP prn during day, cont at night, setting reviewed and 02 titration, keep saturation 90% 2. Continue broad-spectrum antibiotics. 3. Monitor renal function closely lasix prn. 4. Monitor the clinical response to treatment. 5. Continue nutrition per GI. 6. DVT and stress ulcer prophylaxis. She is currently on Lovenox. 7. Discussed with RN and RT. 8. Monitor platelets, wbc, cr discussed w marylin rt ANGELA WATERMAN MD Dec 08, 2019 12:02
--- NOTE | 2019-12-08 12:08 | PDOC ---
[facility] PROGRESS NOTE Chief Complaint Chief Complaint Assessment/Plan Acute pulmonary edema with bilateral infiltrates seen on chest x-rayminimal improvement compared to 12/06/2019 chest x-ray Acute diverticulitis -with prior perforation, high risk. Continue with Zyvox and Zosyn. And micafungin. No surgery at this time Chronic anemia - possibly thalassemia versus chronic iron deficiency anemia related to occult GI blood loss vs 2/2 Hep C. Has never had a colonoscopy due to loss to follow up from lack of health insurance since 2016. Hepatitis C - chronic, not treated. GI consulted for consideration of anti- viral treatment, also needs alpha-fetoprotein level checked and ultrasound monitoring every 6 months. 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 MELD 15, 6% 3 month mortality. GI consulted Thrombocytopenialikely secondary to her cirrhosis. Will monitor Transaminitis likely secondary to hepatitis C versus acute diverticulitis, will monitor. GERD - on omeprazole Asymptomatic cholelithiasis elevated lactic acid without evidence of shock Sepsis secondary to diverticulitis, continue to follow hemodynamics closely I have discussed with nursing staff to reach out if she becomes unstable Acute pulmonary edema40 mg Lasix IV x1. Acute electrolyte derangementsreplace with IV 40 mEq of potassium Acute metabolic encephalopathytitrate bowel movements to at least 3 times per day. Schedule lactulose to titrate at least 2-3 bowel movements per day Chronic respiratory acidosis -appropriate compensation. Continue BiPAP PRN Appreciate pulmonary evaluation. Patient was diuresed appropriately yesterday Repeat chest x-ray stable FEN - Clear liquid diet, PPX - lovenox FULL CODE Dispo -transferred to telemetry monitoring for Total total critical care time spent over 35 minutes History of Present Illness History of Present Illness 12/07/2019 No acute events overnight. Patient is tolerated nocturnal BiPAP. Patient's chart, labs, images were reviewed and discussed with RN 12/06/2019 No acute events overnight. Patient is tolerating BiPAP. No altered mental status at this time. Patient's chart, labs, images were reviewed and discussed with RN 12/05/2019 No acute events overnight. Patient seen and examined bedside. Patient is tolerating clear liquid diet. Patient does have some confusion on examination. Patient's chart, labs, images were reviewed and discussed with RN 12/04/2019 No acute events overnight. Patient is tolerating clear liquid diet. Abdominal pain has improved. Patient's chart, labs, images were reviewed and discussed with RN 12/03/2019 No acute events overnight. Patient remains on vasopressors for hemodynamic support. She has already received about 5 L of fluids. She has not had any bloody stools since transferred to the ICU. 12/01: No acute events reported overnight, case discussed with nursing staff patient in no acute distress no complaints during my visit Vitals/I&O Vitals/I&O: Vital Signs Date Time Temp Pulse Resp B/P (MAP) Pulse Ox O2 Delivery O2 Flow Rate FiO2 12/08/19 12:02 94 Venturi Mask 15.0 12/08/19 06:00 71 26 102/61 (75) 12/08/19 04:00 97.8 97.8 I & O 12/07/19 12/07/19 12/08/19 15:00 23:00 07:00 Intake Total 450 ml 60 ml Output Total 510 ml 665 ml 200 ml Balance -60 ml -605 ml -200 ml Physical Exam Physical Exam: CONSTITUTIONAL: She is lying in bed. She is on Bipap. She looks comfortable. She is in no acute distress. More alert. looks better HEENT: Normal conjunctivae. NECK: Supple. Good range of motion. LUNGS: Brian rhonchi R> L HEART: S1, S2. ABDOMEN: Obese. It is mildly distended. There is no guarding. There is no gross tenderness. : Vital EXTREMITIES: Without clubbing, cyanosis or gross edema. SKIN: Warm to touch without signs of rash. NEUROLOGIC: She is alert, nonfocal but confused PSYCHIATRIC: Affect is appropriate. REJ 12/01 General: Alert, moderate distress Heart: Regular rate (SR), Normal S1, Normal S2, No murmurs Lungs: Crackles Abdomen: Soft, No tenderness Extremities: No cyanosis Skin: No breakdown Labs Labs: Laboratory Tests Test 12/07/19 14:45 12/08/19 07:45 12/08/19 08:00 White Blood Count 17.4 x10^3/uL (4.0-11.0) 15.3 x10^3/uL (4.0-11.0) Red Blood Count 4.15 x10^6/uL (3.50-5.40) 4.14 x10^6/uL (3.50-5.40) Hemoglobin 9.3 g/dL (12.0-15.5) 9.2 g/dL (12.0-15.5) Hematocrit 29.1 % (36.0-47.0) 28.9 % (36.0-47.0) Mean Corpuscular Volume 70 fL (79-100) 70 fL (79-100) Mean Corpuscular Hemoglobin 22 pg (25-35) 22 pg (25-35) Mean Corpuscular Hemoglobin Concent 32 g/dL (31-37) 32 g/dL (31-37) Red Cell Distribution Width 17.4 % (11.5-14.5) 17.0 % (11.5-14.5) Platelet Count 81 x10^3/uL (140-400) 99 x10^3/uL (140-400) Neutrophils (%) (Auto) 85 % (31-73) 83 % (31-73) Lymphocytes (%) (Auto) 9 % (24-48) 10 % (24-48) Monocytes (%) (Auto) 5 % (0-9) 5 % (0-9) Eosinophils (%) (Auto) 1 % (0-3) 2 % (0-3) Basophils (%) (Auto) 0 % (0-3) 0 % (0-3) Neutrophils # (Auto) 14.8 x10^3/uL (1.8-7.7) 12.8 x10^3/uL (1.8-7.7) Lymphocytes # (Auto) 1.5 x10^3/uL (1.0-4.8) 1.5 x10^3/uL (1.0-4.8) Monocytes # (Auto) 0.8 x10^3/uL (0.0-1.1) 0.7 x10^3/uL (0.0-1.1) Eosinophils # (Auto) 0.2 x10^3/uL (0.0-0.7) 0.3 x10^3/uL (0.0-0.7) Basophils # (Auto) 0.0 x10^3/uL (0.0-0.2) 0.0 x10^3/uL (0.0-0.2) Segmented Neutrophils % 73 % (35-66) Band Neutrophils % 12 % (0-9) Lymphocytes % 7 % (24-48) Monocytes % 3 % (0-10) Eosinophils % 4 % (0-5) Metamyelocytes % 1 % (0-0) Nucleated Red Blood Cells 2 Toxic Granulation Mod Platelet Estimate Decreased (ADEQUATE) Hypochromasia Mod Poikilocytosis Present Basophilic Stippling Present Anisocytosis Slight Microcytosis Mod Target Cells Present Tear Drop Cells Occ Ovalocytes Few Schistocytes Few Sodium Level 140 mmol/L (136-145) 141 mmol/L (136-145) Potassium Level 4.0 mmol/L (3.5-5.1) 3.8 mmol/L (3.5-5.1) Chloride Level 108 mmol/L (98-107) 107 mmol/L (98-107) Carbon Dioxide Level 26 mmol/L (21-32) 27 mmol/L (21-32) Anion Gap 6 (6-14) 7 (6-14) Blood Urea Nitrogen 60 mg/dL (7-20) 64 mg/dL (7-20) Creatinine 1.6 mg/dL (0.6-1.0) 1.7 mg/dL (0.6-1.0) Estimated GFR (Cockcroft-Gault) 32.8 30.6 BUN/Creatinine Ratio 38 (6-20) Glucose Level 107 mg/dL (70-99) 91 mg/dL (70-99) Calcium Level 7.6 mg/dL (8.5-10.1) 7.6 mg/dL (8.5-10.1) Phosphorus Level 3.7 mg/dL (2.6-4.7) Magnesium Level 2.2 mg/dL (1.8-2.4) 2.1 mg/dL (1.8-2.4) Total Bilirubin 4.0 mg/dL (0.2-1.0) Aspartate Amino Transf (AST/SGOT) 68 U/L (15-37) Alanine Aminotransferase (ALT/SGPT) 43 U/L (14-59) Alkaline Phosphatase 95 U/L (46-116) Total Protein 5.4 g/dL (6.4-8.2) Albumin 1.7 g/dL (3.4-5.0) Albumin/Globulin Ratio 0.5 (1.0-1.7) Procalcitonin 4.07 ng/mL (0.00-0.10) O2 Saturation 93 % (92-99) Arterial Blood pH 7.39 (7.35-7.45) Arterial Blood pCO2 at Patient Temp 45 mmHg (35-46) Arterial Blood pO2 at Patient Temp 73 mmHg (65-108) Arterial Blood HCO3 26 mmol/L (21-28) Arterial Blood Base Excess 1 mmol/L (-3-3) FiO2 35% bipap Assessment and Plan Assessmemt and Plan Problems Medical Problems: (1) Diverticulitis Status: Acute Comment Review of Relevant I have reviewed the following items jing (where applicable) has been applied. Medications: Current Medications Medications (Trade) Dose Ordered Sig/Ubaldo Route PRN Reason Start Time Stop Time Status Last Admin Dose Admin Furosemide (Lasix) 60 mg 1X ONCE IVP 12/07/19 15:30 12/07/19 15:31 DC 12/07/19 15:48 Justicifation of Admission Dx: Justifications for Admission: Justification of Admission Dx: Yes DANNI ARNDT MD Dec 08, 2019 12:08
--- NOTE | 2019-12-08 12:09 | PDOC ---
Renal-Progress Notes Subjective Notes Notes WEAKNESS History of Present Illness Hx of present illness STABLE Vitals Vitals Vital Signs Date Time Temp Pulse Resp B/P (MAP) Pulse Ox O2 Delivery O2 Flow Rate FiO2 12/08/19 12:02 94 Venturi Mask 15.0 12/08/19 06:00 71 26 102/61 (75) 12/08/19 04:00 97.8 97.8 Weight Weight [ ] I.O. Intake and Output Intake and Output 12/08/19 07:00 Intake Total 510 ml Output Total 1375 ml Balance -865 ml Intake Oral 210 ml IV Total 300 ml Output Urine Total 1375 ml Labs Labs Laboratory Tests Test 12/07/19 14:45 12/08/19 07:45 12/08/19 08:00 White Blood Count 17.4 x10^3/uL (4.0-11.0) 15.3 x10^3/uL (4.0-11.0) Red Blood Count 4.15 x10^6/uL (3.50-5.40) 4.14 x10^6/uL (3.50-5.40) Hemoglobin 9.3 g/dL (12.0-15.5) 9.2 g/dL (12.0-15.5) Hematocrit 29.1 % (36.0-47.0) 28.9 % (36.0-47.0) Mean Corpuscular Volume 70 fL (79-100) 70 fL (79-100) Mean Corpuscular Hemoglobin 22 pg (25-35) 22 pg (25-35) Mean Corpuscular Hemoglobin Concent 32 g/dL (31-37) 32 g/dL (31-37) Red Cell Distribution Width 17.4 % (11.5-14.5) 17.0 % (11.5-14.5) Platelet Count 81 x10^3/uL (140-400) 99 x10^3/uL (140-400) Neutrophils (%) (Auto) 85 % (31-73) 83 % (31-73) Lymphocytes (%) (Auto) 9 % (24-48) 10 % (24-48) Monocytes (%) (Auto) 5 % (0-9) 5 % (0-9) Eosinophils (%) (Auto) 1 % (0-3) 2 % (0-3) Basophils (%) (Auto) 0 % (0-3) 0 % (0-3) Neutrophils # (Auto) 14.8 x10^3/uL (1.8-7.7) 12.8 x10^3/uL (1.8-7.7) Lymphocytes # (Auto) 1.5 x10^3/uL (1.0-4.8) 1.5 x10^3/uL (1.0-4.8) Monocytes # (Auto) 0.8 x10^3/uL (0.0-1.1) 0.7 x10^3/uL (0.0-1.1) Eosinophils # (Auto) 0.2 x10^3/uL (0.0-0.7) 0.3 x10^3/uL (0.0-0.7) Basophils # (Auto) 0.0 x10^3/uL (0.0-0.2) 0.0 x10^3/uL (0.0-0.2) Segmented Neutrophils % 73 % (35-66) Band Neutrophils % 12 % (0-9) Lymphocytes % 7 % (24-48) Monocytes % 3 % (0-10) Eosinophils % 4 % (0-5) Metamyelocytes % 1 % (0-0) Nucleated Red Blood Cells 2 Toxic Granulation Mod Platelet Estimate Decreased (ADEQUATE) Hypochromasia Mod Poikilocytosis Present Basophilic Stippling Present Anisocytosis Slight Microcytosis Mod Target Cells Present Tear Drop Cells Occ Ovalocytes Few Schistocytes Few Sodium Level 140 mmol/L (136-145) 141 mmol/L (136-145) Potassium Level 4.0 mmol/L (3.5-5.1) 3.8 mmol/L (3.5-5.1) Chloride Level 108 mmol/L (98-107) 107 mmol/L (98-107) Carbon Dioxide Level 26 mmol/L (21-32) 27 mmol/L (21-32) Anion Gap 6 (6-14) 7 (6-14) Blood Urea Nitrogen 60 mg/dL (7-20) 64 mg/dL (7-20) Creatinine 1.6 mg/dL (0.6-1.0) 1.7 mg/dL (0.6-1.0) Estimated GFR (Cockcroft-Gault) 32.8 30.6 BUN/Creatinine Ratio 38 (6-20) Glucose Level 107 mg/dL (70-99) 91 mg/dL (70-99) Calcium Level 7.6 mg/dL (8.5-10.1) 7.6 mg/dL (8.5-10.1) Phosphorus Level 3.7 mg/dL (2.6-4.7) Magnesium Level 2.2 mg/dL (1.8-2.4) 2.1 mg/dL (1.8-2.4) Total Bilirubin 4.0 mg/dL (0.2-1.0) Aspartate Amino Transf (AST/SGOT) 68 U/L (15-37) Alanine Aminotransferase (ALT/SGPT) 43 U/L (14-59) Alkaline Phosphatase 95 U/L (46-116) Total Protein 5.4 g/dL (6.4-8.2) Albumin 1.7 g/dL (3.4-5.0) Albumin/Globulin Ratio 0.5 (1.0-1.7) Procalcitonin 4.07 ng/mL (0.00-0.10) O2 Saturation 93 % (92-99) Arterial Blood pH 7.39 (7.35-7.45) Arterial Blood pCO2 at Patient Temp 45 mmHg (35-46) Arterial Blood pO2 at Patient Temp 73 mmHg (65-108) Arterial Blood HCO3 26 mmol/L (21-28) Arterial Blood Base Excess 1 mmol/L (-3-3) FiO2 35% bipap Micro Micro Microbiology 12/02/19 Urine Culture - Final, Complete Review of Systems Constitutional: yes: weakness, alert Ears/Nose/Throat: Yes: no symptom reported Eyes: Yes: no symptom reported Pulmonary: Yes no symptom reported Cardiovascular: Yes no symptom reported Gastrointestional: Yes: no symptom reported Musculoskeletal: Yes: no symptom reported Psychiatric/Neurological: Yes: no symptom reported Physical Exam General Appearance: no apparent distress Skin: warm Respiratory: decreased breath sounds Heart: S1S2 Abdomen: soft, bowel sounds present Genitourinary: hurley catheter Extremities: pulses present, no edema Neurology: alert Assessment Assessment IMP MICHELLE MUCH BETTER WITH CR DOWN TO 1.7 LOW MAG HYPERVOLEMIA LEUCOCYTOSIS URINARY TRACT INFECTION ACUTE DIVERTICULITIS HEP C HX CIRRHOSIS SEPSIS HYPOTENSION-BETTER PLAN ANTIBIOTICS STOP HER IVF'S OFF PRESSORS IV LASIX PRN CONT HURLEY D/W PT WILL FOLLOW THERAPY WORKING WITH HER TODAY ERIC LEMA MD Dec 08, 2019 12:08
--- NOTE | 2019-12-08 14:09 | PDOC ---
CARDIOLOGY PROGRESS NOTE SUBJECTIVE: No new issues. OBJECTIVE: Vital Signs/I&O: Vital Signs Date Time Temp Pulse Resp B/P (MAP) Pulse Ox O2 Delivery O2 Flow Rate FiO2 12/08/19 12:02 94 Venturi Mask 15.0 12/08/19 09:00 88 109/48 (68) 12/08/19 08:00 97.8 97.8 12/08/19 06:00 26 I & O 12/07/19 12/07/19 12/08/19 15:00 23:00 07:00 Intake Total 450 ml 60 ml Output Total 510 ml 665 ml 200 ml Balance -60 ml -605 ml -200 ml Objective: Sleeping on venti mask normal heart tones no significant edema soft abd CURRENT MEDICATIONS: Current Medications Medications (Trade) Dose Ordered Sig/Ubaldo Route PRN Reason Start Time Stop Time Status Last Admin Dose Admin Furosemide (Lasix) 60 mg 1X ONCE IVP 12/07/19 15:30 12/07/19 15:31 DC 12/07/19 15:48 DIAGNOSTIC TESTING: Labs reviewed Labs: Laboratory Tests 12/08/19 07:45 Laboratory Tests Test 12/07/19 14:45 12/08/19 07:45 12/08/19 08:00 White Blood Count 17.4 x10^3/uL (4.0-11.0) H 15.3 x10^3/uL (4.0-11.0) H Red Blood Count 4.15 x10^6/uL (3.50-5.40) 4.14 x10^6/uL (3.50-5.40) Hemoglobin 9.3 g/dL (12.0-15.5) L 9.2 g/dL (12.0-15.5) L Hematocrit 29.1 % (36.0-47.0) L 28.9 % (36.0-47.0) L Mean Corpuscular Volume 70 fL (79-100) L 70 fL (79-100) L Mean Corpuscular Hemoglobin 22 pg (25-35) L 22 pg (25-35) L Mean Corpuscular Hemoglobin Concent 32 g/dL (31-37) 32 g/dL (31-37) Red Cell Distribution Width 17.4 % (11.5-14.5) H 17.0 % (11.5-14.5) H Platelet Count 81 x10^3/uL (140-400) L 99 x10^3/uL (140-400) L Neutrophils (%) (Auto) 85 % (31-73) H 83 % (31-73) H Lymphocytes (%) (Auto) 9 % (24-48) L 10 % (24-48) L Monocytes (%) (Auto) 5 % (0-9) 5 % (0-9) Eosinophils (%) (Auto) 1 % (0-3) 2 % (0-3) Basophils (%) (Auto) 0 % (0-3) 0 % (0-3) Neutrophils # (Auto) 14.8 x10^3/uL (1.8-7.7) H 12.8 x10^3/uL (1.8-7.7) H Lymphocytes # (Auto) 1.5 x10^3/uL (1.0-4.8) 1.5 x10^3/uL (1.0-4.8) Monocytes # (Auto) 0.8 x10^3/uL (0.0-1.1) 0.7 x10^3/uL (0.0-1.1) Eosinophils # (Auto) 0.2 x10^3/uL (0.0-0.7) 0.3 x10^3/uL (0.0-0.7) Basophils # (Auto) 0.0 x10^3/uL (0.0-0.2) 0.0 x10^3/uL (0.0-0.2) Segmented Neutrophils % 73 % (35-66) H Band Neutrophils % 12 % (0-9) H Lymphocytes % 7 % (24-48) L Monocytes % 3 % (0-10) Eosinophils % 4 % (0-5) Metamyelocytes % 1 % (0-0) H Nucleated Red Blood Cells 2 Toxic Granulation Mod Platelet Estimate Decreased (ADEQUATE) Hypochromasia Mod Poikilocytosis Present Basophilic Stippling Present Anisocytosis Slight Microcytosis Mod Target Cells Present Tear Drop Cells Occ Ovalocytes Few Schistocytes Few Sodium Level 140 mmol/L (136-145) 141 mmol/L (136-145) Potassium Level 4.0 mmol/L (3.5-5.1) 3.8 mmol/L (3.5-5.1) Chloride Level 108 mmol/L (98-107) H 107 mmol/L (98-107) Carbon Dioxide Level 26 mmol/L (21-32) 27 mmol/L (21-32) Anion Gap 6 (6-14) 7 (6-14) Blood Urea Nitrogen 60 mg/dL (7-20) H 64 mg/dL (7-20) H Creatinine 1.6 mg/dL (0.6-1.0) H 1.7 mg/dL (0.6-1.0) H Estimated GFR (Cockcroft-Gault) 32.8 30.6 BUN/Creatinine Ratio 38 (6-20) H Glucose Level 107 mg/dL (70-99) H 91 mg/dL (70-99) Calcium Level 7.6 mg/dL (8.5-10.1) L 7.6 mg/dL (8.5-10.1) L Phosphorus Level 3.7 mg/dL (2.6-4.7) Total Bilirubin 4.0 mg/dL (0.2-1.0) H Aspartate Amino Transf (AST/SGOT) 68 U/L (15-37) H Alkaline Phosphatase 95 U/L (46-116) Total Protein 5.4 g/dL (6.4-8.2) L Albumin 1.7 g/dL (3.4-5.0) L Albumin/Globulin Ratio 0.5 (1.0-1.7) L Procalcitonin 4.07 ng/mL (0.00-0.10) H O2 Saturation 93 % (92-99) Arterial Blood pH 7.39 (7.35-7.45) Arterial Blood pCO2 at Patient Temp 45 mmHg (35-46) Arterial Blood pO2 at Patient Temp 73 mmHg (65-108) Arterial Blood HCO3 26 mmol/L (21-28) Arterial Blood Base Excess 1 mmol/L (-3-3) FiO2 35% bipap ASSESSMENT: 1. Acute diastolic HF with MICHELLE and sepsis 2. Possible asp PNA PLAN: 1. agree with diuresis to maintain slightly negative. 2. No CV issues. Will follow along as needed. Thanks Justicifation of Admission Dx: Justifications for Admission: Justification of Admission Dx: Yes DORIAN MCKEON MD Dec 08, 2019 14:09
--- NOTE | 2019-12-08 15:12 | PDOC ---
SURGICAL PROGRESS NOTE Subjective Pt appears comfortable on bipap, no very conversant Vital Signs Vital Signs Date Time Temp Pulse Resp B/P (MAP) Pulse Ox O2 Delivery O2 Flow Rate FiO2 12/08/19 12:02 94 Venturi Mask 15.0 12/08/19 09:00 88 109/48 (68) 12/08/19 08:00 97.8 97.8 12/08/19 06:00 26 I&O Intake and Output 12/08/19 07:00 Intake Total 510 ml Output Total 1400 ml Balance -890 ml Intake Oral 210 ml IV Total 300 ml Output Urine Total 1400 ml General: Alert, No acute distress Abdomen: Soft, No tenderness Labs Laboratory Tests Test 12/06/19 15:40 12/07/19 08:15 12/07/19 14:45 12/08/19 07:45 Ammonia 18 mcmol/L (11-34) O2 Saturation 95 % (92-99) Arterial Blood pH 7.30 (7.35-7.45) Arterial Blood pCO2 at Patient Temp 44 mmHg (35-46) Arterial Blood pO2 at Patient Temp 91 mmHg (65-108) Arterial Blood HCO3 21 mmol/L (21-28) Arterial Blood Base Excess -5 mmol/L (-3-3) FiO2 40% bipap White Blood Count 17.4 x10^3/uL (4.0-11.0) 15.3 x10^3/uL (4.0-11.0) Red Blood Count 4.15 x10^6/uL (3.50-5.40) 4.14 x10^6/uL (3.50-5.40) Hemoglobin 9.3 g/dL (12.0-15.5) 9.2 g/dL (12.0-15.5) Hematocrit 29.1 % (36.0-47.0) 28.9 % (36.0-47.0) Mean Corpuscular Volume 70 fL (79-100) 70 fL (79-100) Mean Corpuscular Hemoglobin 22 pg (25-35) 22 pg (25-35) Mean Corpuscular Hemoglobin Concent 32 g/dL (31-37) 32 g/dL (31-37) Red Cell Distribution Width 17.4 % (11.5-14.5) 17.0 % (11.5-14.5) Platelet Count 81 x10^3/uL (140-400) 99 x10^3/uL (140-400) Neutrophils (%) (Auto) 85 % (31-73) 83 % (31-73) Lymphocytes (%) (Auto) 9 % (24-48) 10 % (24-48) Monocytes (%) (Auto) 5 % (0-9) 5 % (0-9) Eosinophils (%) (Auto) 1 % (0-3) 2 % (0-3) Basophils (%) (Auto) 0 % (0-3) 0 % (0-3) Neutrophils # (Auto) 14.8 x10^3/uL (1.8-7.7) 12.8 x10^3/uL (1.8-7.7) Lymphocytes # (Auto) 1.5 x10^3/uL (1.0-4.8) 1.5 x10^3/uL (1.0-4.8) Monocytes # (Auto) 0.8 x10^3/uL (0.0-1.1) 0.7 x10^3/uL (0.0-1.1) Eosinophils # (Auto) 0.2 x10^3/uL (0.0-0.7) 0.3 x10^3/uL (0.0-0.7) Basophils # (Auto) 0.0 x10^3/uL (0.0-0.2) 0.0 x10^3/uL (0.0-0.2) Segmented Neutrophils % 73 % (35-66) Band Neutrophils % 12 % (0-9) Lymphocytes % 7 % (24-48) Monocytes % 3 % (0-10) Eosinophils % 4 % (0-5) Metamyelocytes % 1 % (0-0) Nucleated Red Blood Cells 2 Toxic Granulation Mod Platelet Estimate Decreased (ADEQUATE) Hypochromasia Mod Poikilocytosis Present Basophilic Stippling Present Anisocytosis Slight Microcytosis Mod Target Cells Present Tear Drop Cells Occ Ovalocytes Few Schistocytes Few Sodium Level 140 mmol/L (136-145) 141 mmol/L (136-145) Potassium Level 4.0 mmol/L (3.5-5.1) 3.8 mmol/L (3.5-5.1) Chloride Level 108 mmol/L (98-107) 107 mmol/L (98-107) Carbon Dioxide Level 26 mmol/L (21-32) 27 mmol/L (21-32) Anion Gap 6 (6-14) 7 (6-14) Blood Urea Nitrogen 60 mg/dL (7-20) 64 mg/dL (7-20) Creatinine 1.6 mg/dL (0.6-1.0) 1.7 mg/dL (0.6-1.0) Estimated GFR (Cockcroft-Gault) 32.8 30.6 BUN/Creatinine Ratio 38 (6-20) Glucose Level 107 mg/dL (70-99) 91 mg/dL (70-99) Calcium Level 7.6 mg/dL (8.5-10.1) 7.6 mg/dL (8.5-10.1) Phosphorus Level 3.7 mg/dL (2.6-4.7) Magnesium Level 2.2 mg/dL (1.8-2.4) 2.1 mg/dL (1.8-2.4) Total Bilirubin 4.0 mg/dL (0.2-1.0) Aspartate Amino Transf (AST/SGOT) 68 U/L (15-37) Alanine Aminotransferase (ALT/SGPT) 43 U/L (14-59) Alkaline Phosphatase 95 U/L (46-116) Total Protein 5.4 g/dL (6.4-8.2) Albumin 1.7 g/dL (3.4-5.0) Albumin/Globulin Ratio 0.5 (1.0-1.7) Procalcitonin 4.07 ng/mL (0.00-0.10) Test 12/08/19 08:00 O2 Saturation 93 % (92-99) Arterial Blood pH 7.39 (7.35-7.45) Arterial Blood pCO2 at Patient Temp 45 mmHg (35-46) Arterial Blood pO2 at Patient Temp 73 mmHg (65-108) Arterial Blood HCO3 26 mmol/L (21-28) Arterial Blood Base Excess 1 mmol/L (-3-3) FiO2 35% bipap Laboratory Tests Test 12/08/19 07:45 12/08/19 08:00 White Blood Count 15.3 x10^3/uL (4.0-11.0) Red Blood Count 4.14 x10^6/uL (3.50-5.40) Hemoglobin 9.2 g/dL (12.0-15.5) Hematocrit 28.9 % (36.0-47.0) Mean Corpuscular Volume 70 fL (79-100) Mean Corpuscular Hemoglobin 22 pg (25-35) Mean Corpuscular Hemoglobin Concent 32 g/dL (31-37) Red Cell Distribution Width 17.0 % (11.5-14.5) Platelet Count 99 x10^3/uL (140-400) Neutrophils (%) (Auto) 83 % (31-73) Lymphocytes (%) (Auto) 10 % (24-48) Monocytes (%) (Auto) 5 % (0-9) Eosinophils (%) (Auto) 2 % (0-3) Basophils (%) (Auto) 0 % (0-3) Neutrophils # (Auto) 12.8 x10^3/uL (1.8-7.7) Lymphocytes # (Auto) 1.5 x10^3/uL (1.0-4.8) Monocytes # (Auto) 0.7 x10^3/uL (0.0-1.1) Eosinophils # (Auto) 0.3 x10^3/uL (0.0-0.7) Basophils # (Auto) 0.0 x10^3/uL (0.0-0.2) Sodium Level 141 mmol/L (136-145) Potassium Level 3.8 mmol/L (3.5-5.1) Chloride Level 107 mmol/L (98-107) Carbon Dioxide Level 27 mmol/L (21-32) Anion Gap 7 (6-14) Blood Urea Nitrogen 64 mg/dL (7-20) Creatinine 1.7 mg/dL (0.6-1.0) Estimated GFR (Cockcroft-Gault) 30.6 Glucose Level 91 mg/dL (70-99) Calcium Level 7.6 mg/dL (8.5-10.1) Magnesium Level 2.1 mg/dL (1.8-2.4) O2 Saturation 93 % (92-99) Arterial Blood pH 7.39 (7.35-7.45) Arterial Blood pCO2 at Patient Temp 45 mmHg (35-46) Arterial Blood pO2 at Patient Temp 73 mmHg (65-108) Arterial Blood HCO3 26 mmol/L (21-28) Arterial Blood Base Excess 1 mmol/L (-3-3) FiO2 35% bipap Problem List Problems Medical Problems: (1) Diverticulitis Status: Acute Assessment/Plan cont abx and supportive care no surgical plans Justicifation of Admission Dx: Justifications for Admission: Justification of Admission Dx: Yes CRISTIAN LUIS MD Dec 08, 2019 15:12
[2019-12-08] MEDS: PSYLLIUM HUSK (SUGAR FREE) 1 PKT PACKET PO SCH (18:00)
[2019-12-08] MEDS: ENOXAPARIN 30 MG/0.3 ML SYRINGE. SQ SCH (18:13)
[2019-12-09] VITALS (24 sets, daily range): BP systolic 109–155; BP diastolic 58–85
[2019-12-09] MEDS: PIPERACILLIN/TAZOBACTAM 3.375 GM in IV NORMAL SALINE 50ML 50 ML IV SCH ×4 (00:10→18:01)
--- NOTE | 2019-12-09 07:30 | PDOC ---
Infectious Disease Note Subjective Subjective pt says she is feeling better, on Vmask ROS ROS no n/v/d/ Vital Sign Vital Signs Vital Signs Date Time Temp Pulse Resp B/P (MAP) Pulse Ox O2 Delivery O2 Flow Rate FiO2 12/09/19 06:00 75 27 136/65 (88) 95 Venturi Mask 12/09/19 03:35 12.0 12/09/19 03:00 98.2 98.2 Physical Exam PHYSICAL EXAM CONSTITUTIONAL: She is lying in bed. She is on Bipap. She looks comfortable. She is in no acute distress. More alert. looks better HEENT: Normal conjunctivae. NECK: Supple. Good range of motion. LUNGS: Brian rhonchi R> L HEART: S1, S2. ABDOMEN: Obese. It is mildly distended. There is no guarding. There is no gross tenderness. : Vital EXTREMITIES: Without clubbing, cyanosis or gross edema. SKIN: Warm to touch without signs of rash. NEUROLOGIC: She is alert, nonfocal but confused PSYCHIATRIC: Affect is appropriate. REJ 12/01 Labs Lab Laboratory Tests Test 12/08/19 07:45 12/08/19 08:00 White Blood Count 15.3 x10^3/uL (4.0-11.0) Red Blood Count 4.14 x10^6/uL (3.50-5.40) Hemoglobin 9.2 g/dL (12.0-15.5) Hematocrit 28.9 % (36.0-47.0) Mean Corpuscular Volume 70 fL (79-100) Mean Corpuscular Hemoglobin 22 pg (25-35) Mean Corpuscular Hemoglobin Concent 32 g/dL (31-37) Red Cell Distribution Width 17.0 % (11.5-14.5) Platelet Count 99 x10^3/uL (140-400) Neutrophils (%) (Auto) 83 % (31-73) Lymphocytes (%) (Auto) 10 % (24-48) Monocytes (%) (Auto) 5 % (0-9) Eosinophils (%) (Auto) 2 % (0-3) Basophils (%) (Auto) 0 % (0-3) Neutrophils # (Auto) 12.8 x10^3/uL (1.8-7.7) Lymphocytes # (Auto) 1.5 x10^3/uL (1.0-4.8) Monocytes # (Auto) 0.7 x10^3/uL (0.0-1.1) Eosinophils # (Auto) 0.3 x10^3/uL (0.0-0.7) Basophils # (Auto) 0.0 x10^3/uL (0.0-0.2) Sodium Level 141 mmol/L (136-145) Potassium Level 3.8 mmol/L (3.5-5.1) Chloride Level 107 mmol/L (98-107) Carbon Dioxide Level 27 mmol/L (21-32) Anion Gap 7 (6-14) Blood Urea Nitrogen 64 mg/dL (7-20) Creatinine 1.7 mg/dL (0.6-1.0) Estimated GFR (Cockcroft-Gault) 30.6 Glucose Level 91 mg/dL (70-99) Calcium Level 7.6 mg/dL (8.5-10.1) Magnesium Level 2.1 mg/dL (1.8-2.4) O2 Saturation 93 % (92-99) Arterial Blood pH 7.39 (7.35-7.45) Arterial Blood pCO2 at Patient Temp 45 mmHg (35-46) Arterial Blood pO2 at Patient Temp 73 mmHg (65-108) Arterial Blood HCO3 26 mmol/L (21-28) Arterial Blood Base Excess 1 mmol/L (-3-3) FiO2 35% bipap Micro Microbiology 12/02/19 Urine Culture - Final, Complete Objective Assessment Sepsis - Off Levophed - Acute Hypoxic resp failure on Bipap - was off for an hour lst pm MICHELLE - improved Acute Sigmoid Diverticulitis Leukocytosis - better Lung infiltrates - stable Thrombocytopenia - better Encephalopathy Transaminitis- better CHF - elevated BNP Cirrhosis H/o Hep C Possible UTI but a lot of squamous cells -cults neg Ongoing tobacco abuse Plan Plan of Care Zyvox 12/05with CXR and 02 changes With increasing WBC will D/c Meropenem and begin Zosyn 12/05 Discont Fluconoazole 12/02 begin Micafungin F/u labs - pending in am and cults Critically ill D/w nursing JENNI NOGUERA MD Dec 09, 2019 07:29
[2019-12-09] MEDS: IPRATRPIUM/ALBUTEROL 0.5/2.5MG 3 ML NEBU. NEB SCH ×4 (08:06→19:49)
--- NOTE | 2019-12-09 08:49 | PDOC ---
SURGICAL PROGRESS NOTE Subjective mild pain abdomen at times, but overall feels better no n/v Vital Signs Vital Signs Date Time Temp Pulse Resp B/P (MAP) Pulse Ox O2 Delivery O2 Flow Rate FiO2 12/09/19 08:06 94 Venturi Mask 12.0 12/09/19 06:00 75 27 136/65 (88) 12/09/19 03:00 98.2 98.2 I&O Intake and Output 12/09/19 07:00 Intake Total 795 ml Output Total 1245 ml Balance -450 ml Intake Oral 795 ml Output Urine Total 1245 ml # Bowel Movements 1 General: Alert, Cooperative Abdomen: Soft, No tenderness Labs Laboratory Tests Test 12/07/19 14:45 12/08/19 07:45 12/08/19 08:00 White Blood Count 17.4 x10^3/uL (4.0-11.0) 15.3 x10^3/uL (4.0-11.0) Red Blood Count 4.15 x10^6/uL (3.50-5.40) 4.14 x10^6/uL (3.50-5.40) Hemoglobin 9.3 g/dL (12.0-15.5) 9.2 g/dL (12.0-15.5) Hematocrit 29.1 % (36.0-47.0) 28.9 % (36.0-47.0) Mean Corpuscular Volume 70 fL (79-100) 70 fL (79-100) Mean Corpuscular Hemoglobin 22 pg (25-35) 22 pg (25-35) Mean Corpuscular Hemoglobin Concent 32 g/dL (31-37) 32 g/dL (31-37) Red Cell Distribution Width 17.4 % (11.5-14.5) 17.0 % (11.5-14.5) Platelet Count 81 x10^3/uL (140-400) 99 x10^3/uL (140-400) Neutrophils (%) (Auto) 85 % (31-73) 83 % (31-73) Lymphocytes (%) (Auto) 9 % (24-48) 10 % (24-48) Monocytes (%) (Auto) 5 % (0-9) 5 % (0-9) Eosinophils (%) (Auto) 1 % (0-3) 2 % (0-3) Basophils (%) (Auto) 0 % (0-3) 0 % (0-3) Neutrophils # (Auto) 14.8 x10^3/uL (1.8-7.7) 12.8 x10^3/uL (1.8-7.7) Lymphocytes # (Auto) 1.5 x10^3/uL (1.0-4.8) 1.5 x10^3/uL (1.0-4.8) Monocytes # (Auto) 0.8 x10^3/uL (0.0-1.1) 0.7 x10^3/uL (0.0-1.1) Eosinophils # (Auto) 0.2 x10^3/uL (0.0-0.7) 0.3 x10^3/uL (0.0-0.7) Basophils # (Auto) 0.0 x10^3/uL (0.0-0.2) 0.0 x10^3/uL (0.0-0.2) Segmented Neutrophils % 73 % (35-66) Band Neutrophils % 12 % (0-9) Lymphocytes % 7 % (24-48) Monocytes % 3 % (0-10) Eosinophils % 4 % (0-5) Metamyelocytes % 1 % (0-0) Nucleated Red Blood Cells 2 Toxic Granulation Mod Platelet Estimate Decreased (ADEQUATE) Hypochromasia Mod Poikilocytosis Present Basophilic Stippling Present Anisocytosis Slight Microcytosis Mod Target Cells Present Tear Drop Cells Occ Ovalocytes Few Schistocytes Few Sodium Level 140 mmol/L (136-145) 141 mmol/L (136-145) Potassium Level 4.0 mmol/L (3.5-5.1) 3.8 mmol/L (3.5-5.1) Chloride Level 108 mmol/L (98-107) 107 mmol/L (98-107) Carbon Dioxide Level 26 mmol/L (21-32) 27 mmol/L (21-32) Anion Gap 6 (6-14) 7 (6-14) Blood Urea Nitrogen 60 mg/dL (7-20) 64 mg/dL (7-20) Creatinine 1.6 mg/dL (0.6-1.0) 1.7 mg/dL (0.6-1.0) Estimated GFR (Cockcroft-Gault) 32.8 30.6 BUN/Creatinine Ratio 38 (6-20) Glucose Level 107 mg/dL (70-99) 91 mg/dL (70-99) Calcium Level 7.6 mg/dL (8.5-10.1) 7.6 mg/dL (8.5-10.1) Phosphorus Level 3.7 mg/dL (2.6-4.7) Magnesium Level 2.2 mg/dL (1.8-2.4) 2.1 mg/dL (1.8-2.4) Total Bilirubin 4.0 mg/dL (0.2-1.0) Aspartate Amino Transf (AST/SGOT) 68 U/L (15-37) Alanine Aminotransferase (ALT/SGPT) 43 U/L (14-59) Alkaline Phosphatase 95 U/L (46-116) Total Protein 5.4 g/dL (6.4-8.2) Albumin 1.7 g/dL (3.4-5.0) Albumin/Globulin Ratio 0.5 (1.0-1.7) Procalcitonin 4.07 ng/mL (0.00-0.10) O2 Saturation 93 % (92-99) Arterial Blood pH 7.39 (7.35-7.45) Arterial Blood pCO2 at Patient Temp 45 mmHg (35-46) Arterial Blood pO2 at Patient Temp 73 mmHg (65-108) Arterial Blood HCO3 26 mmol/L (21-28) Arterial Blood Base Excess 1 mmol/L (-3-3) FiO2 35% bipap Problem List Problems Medical Problems: (1) Diverticulitis Status: Acute Assessment/Plan supportive measures no surgical plans Justicifation of Admission Dx: Justifications for Admission: Justification of Admission Dx: Yes WILBERT WHALEY SKEIN DRIER Dec 09, 2019 08:49
[2019-12-09] MEDS: NICOTINE 21MG PATCH. TD SCH (09:00)
[2019-12-09] MEDS: SENNOSIDES/DOCUSATE 8.6/50MG TABLET. PO SCH ×2 (09:00→20:38)
[2019-12-09] MEDS: ELECTROLYTE (ICU) PROTOCOL. MC SCH (09:00)
[2019-12-09] MEDS: BENZONATATE 100 MG CAPSULE. PO SCH ×3 (09:06→20:38)
--- NOTE | 2019-12-09 09:16 | PDOC ---
SUBJECTIVE ROS Stable OBJECTIVE Vital Signs Vital Signs Date Time Temp Pulse Resp B/P (MAP) Pulse Ox O2 Delivery O2 Flow Rate FiO2 12/09/19 08:06 94 Venturi Mask 12.0 12/09/19 06:00 75 27 136/65 (88) 12/09/19 03:00 98.2 98.2 I & 0 Intake and Output 12/09/19 07:00 Intake Total 795 ml Output Total 1245 ml Balance -450 ml Intake Oral 795 ml Output Urine Total 1245 ml # Bowel Movements 1 PHYSICAL EXAM Physical Exam GEN : on venturi mask HEENT: Normal conjunctivae. NECK: Supple. LUNGS: Brian rhonchi R> L HEART: S1, S2. ABDOMEN: Obese. no tenderness. : Vital EXTREMITIES: No clubbing, cyanosis or gross edema. SKIN: Warm to touch without signs of rash. NEUROLOGIC: She is alert, nonfocal but confused DIAGNOSIS/ASSESSMENT Assessment & Plan MICHELLE- Improving, stable , peaked at 3.4 Cr 1.7, not at baseline , E Lytes stable Supportive care, avoid nephrotoxins, strict I/O HypoMg- Normal Mg UTI -, Cx negative , per ID Acute Diverticulitis Hx of Hep C Cirrhosis HypoAlbuminemia - severe Sepsis - Improving, Off Pressors COMMENT/RELEVANT DATA Meds Current Medications Medications (Trade) Dose Ordered Sig/Ubaldo Start Time Stop Time Status Last Admin Dose Admin Albumin Human 500 ml @ 125 mls/hr 1X ONCE 12/06/19 16:00 12/06/19 19:59 DC 12/06/19 16:42 125 MLS/HR Albuterol Sulfate (Ventolin Neb Soln) 2.5 mg 1X ONCE 12/04/19 02:15 12/04/19 02:16 DC 12/04/19 02:42 2.5 MG Albuterol/ Ipratropium (Duoneb) 3 ml RTQID 12/04/19 17:00 12/09/19 08:06 3 ML Benzonatate (Tessalon Perle) 100 mg [id number] 12/05/19 09:00 12/09/19 09:06 100 MG Cefepime HCl (Maxipime) 2 gm Q12HR 12/02/19 14:00 12/03/19 06:41 DC 12/02/19 21:37 2 GM Ciprofloxacin/ Dextrose 200 ml @ 200 mls/hr DAILY 12/02/19 09:00 UNV Daptomycin 440 mg/ Sodium Chloride 50 ml @ 100 mls/hr QODAY 12/03/19 09:00 12/06/19 07:48 DC 12/05/19 09:12 100 MLS/HR Dextrose/Sodium Chloride 1,000 ml @ 100 mls/hr Q10H 12/03/19 11:45 12/03/19 11:44 DC Dobutamine HCl/ Dextrose 250 ml @ 0 mls/hr CONT PRN 12/02/19 13:30 Enoxaparin Sodium (Lovenox 30mg Syringe) 30 mg Q24H 12/03/19 16:00 12/08/19 18:13 30 MG Enoxaparin Sodium (Lovenox 40mg Syringe) 40 mg Q24H 12/01/19 16:00 12/03/19 11:15 DC 12/02/19 16:53 40 MG Fentanyl Citrate (Fentanyl 2ml Vial) 75 mcg 1X ONCE 12/01/19 10:45 12/01/19 10:46 DC 12/01/19 10:50 75 MCG Fluconazole/ Sodium Chloride 100 ml @ 100 mls/hr Q24H 12/03/19 06:30 12/06/19 07:57 DC 12/06/19 06:31 100 MLS/HR Furosemide (Lasix) 60 mg 1X ONCE 12/07/19 15:30 12/07/19 15:31 DC 12/07/19 15:48 60 MG Hydromorphone HCl (Dilaudid) 1 mg PRN Q4HRS PRN 12/01/19 15:30 12/07/19 15:22 DC 12/06/19 00:40 1 MG Info (Icu Electrolyte Protocol) 1 ea DAILY 12/03/19 09:00 12/06/19 09:00 1 EA Iohexol (Omnipaque 300 Mg/ml) 75 ml 1X ONCE 12/01/19 09:45 12/01/19 09:46 DC 12/01/19 10:10 75 ML Lactobacillus Rhamnosus (Culturelle) 1 cap BID 12/09/19 21:00 Lactulose (Lactulose) 20 gm PRN Q12HR PRN 12/02/19 13:30 Linezolid/Dextrose 300 ml @ 300 mls/hr Q12HR 12/06/19 09:00 12/09/19 09:06 300 MLS/HR Lorazepam (Ativan Inj) 0.5 mg PRN Q6HRS PRN 12/02/19 13:30 12/08/19 10:32 0.5 MG Magnesium Sulfate 50 ml @ 25 mls/hr 1X ONCE 12/06/19 11:15 12/06/19 13:35 DC Meropenem 500 mg/ Sodium Chloride 50 ml @ 100 mls/hr Q8HRS 12/05/19 07:00 12/06/19 07:48 DC 12/06/19 05:26 100 MLS/HR Metronidazole 100 ml @ 100 mls/hr Q12HR 12/01/19 21:00 12/03/19 06:41 DC 12/02/19 21:36 100 MLS/HR Micafungin Sodium 100 mg/Dextrose 100 ml @ 100 mls/hr Q24H 12/06/19 10:00 12/08/19 10:30 100 MLS/HR Morphine Sulfate (Morphine Sulfate) 4 mg PRN Q2HR PRN 12/01/19 10:45 12/01/19 15:26 DC 12/01/19 13:37 4 MG Naloxone HCl (Narcan) 0.4 mg PRN Q2MIN PRN 12/06/19 05:00 12/06/19 05:19 0.4 MG Nicotine (Nicoderm Cq 21mg) 1 patch DAILY 12/03/19 09:00 Norepinephrine Bitartrate 8 mg/ Dextrose 258 ml @ 14.067 mls/ hr CONT PRN 12/02/19 16:15 12/04/19 16:29 16.881 MLS/HR Ondansetron HCl (Zofran) 4 mg PRN Q6HRS PRN 12/02/19 13:30 Piperacillin Sod/ Tazobactam Sod 3.375 gm/Sodium Chloride 50 ml @ 100 mls/hr Q6HRS 12/06/19 08:00 12/09/19 05:28 100 MLS/HR Potassium Chloride/Water 100 ml @ 100 mls/hr Q1H 12/05/19 10:00 12/05/19 13:59 DC 12/05/19 15:28 100 MLS/HR Prochlorperazine Edisylate (Compazine) 10 mg PRN Q6HRS PRN 12/01/19 23:30 Psyllium Hydrophilic Mucilloid (Metamucil Fiber Packet) 1 pkt QPM 12/01/19 18:00 12/01/19 17:40 1 PKT Ringer's Solution 1,000 ml @ 75 mls/hr [id number] 12/05/19 09:00 12/07/19 15:22 DC 12/07/19 00:08 75 MLS/HR Senna/Docusate Sodium (Senna Plus) 1 tab BID 12/02/19 14:00 12/07/19 21:02 1 TAB Sodium Bicarbonate 50 meq/Dextrose/ Sodium Chloride 1,050 ml @ 100 mls/hr [id number] 12/03/19 12:00 12/05/19 09:00 DC 12/05/19 08:36 100 MLS/HR Sodium Chloride 500 ml @ 1,000 mls/hr PRN Q30MIN PRN 12/02/19 13:30 12/07/19 15:22 DC Results All relevant outside records, renal labs, imaging studies, telemetry/EKG's were reviewed. Justicifation of Admission Dx: Justifications for Admission: Justification of Admission Dx: Yes ANA PALOMINO MD Dec 09, 2019 09:16
--- NOTE | 2019-12-09 09:29 | PDOC ---
[employer] PROGRESS NOTE Chief Complaint Chief Complaint Assessment/Plan Acute pulmonary edema with bilateral infiltrates seen on chest xray - unchanged compared to 12/06/2019 chest x-ray. likely secondary acute diastolic chf, acute lung injury/acute respiratory distress syndrome resulting from acute diverticulitis with contained perforation and possible aspiration. Acute diverticulitis -with prior perforation, high risk. Continue with Zyvox and Zosyn. And micafungin. No surgery at this time Chronic anemia - possibly thalassemia versus chronic iron deficiency anemia related to occult GI blood loss vs 2/2 Hep C. Has never had a colonoscopy due to loss to follow up from lack of health insurance since 2016. Hepatitis C - chronic, not treated. GI consulted for consideration of anti- viral treatment, also needs alpha-fetoprotein level checked and ultrasound monitoring every 6 months. 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 MELD 15, 6% 3 month mortality. GI consulted Thrombocytopenialikely secondary to her cirrhosis. Will monitor Transaminitis likely secondary to hepatitis C versus acute diverticulitis, will monitor. GERD - on omeprazole Asymptomatic cholelithiasis elevated lactic acid without evidence of shock Sepsis secondary to diverticulitis, continue to follow hemodynamics closely I have discussed with nursing staff to reach out if she becomes unstable Acute pulmonary edema40 mg Lasix IV x1. Acute electrolyte derangementsreplace with IV 40 mEq of potassium Acute metabolic encephalopathytitrate bowel movements to at least 3 times per day. Schedule lactulose to titrate at least 2-3 bowel movements per day Chronic respiratory acidosis -appropriate compensation. Continue BiPAP PRN MICHELLE - vasomotor nephropathy, improving Severe protein-calorie malnutrition. Covid-19 pending Appreciate pulmonary evaluation. Patient was diuresed appropriately yesterday Repeat chest x-ray stable FEN - Clear liquid diet, PPX - lovenox FULL CODE Dispo -transferred to telemetry monitoring for Total total critical care time spent over 35 minutes History of Present Illness History of Present Illness 12/01: No acute events reported overnight, case discussed with nursing staff patient in no acute distress no complaints during my visit 12/02: No acute events overnight. Patient remains on vasopressors for hemodynamic support. She has already received about 5 L of fluids. She has not had any bloody stools since transferred to the ICU. 12/03: No acute events overnight. Patient is tolerating clear liquid diet. Abdominal pain has improved. Patient's chart, labs, images were reviewed and discussed with RN 7/30: No acute events overnight. Patient seen and examined bedside. Patient is tolerating clear liquid diet. Patient does have some confusion on examination. Patient's chart, labs, images were reviewed and discussed with RN 12/05: No acute events overnight. Patient is tolerating BiPAP. No altered mental status at this time. Patient's chart, labs, images were reviewed and d iscussed with RN 12/06: No acute events overnight. Patient is tolerated nocturnal BiPAP. Patient's chart, labs, images were reviewed and discussed with RN Seen in ICU on ventimask 12/min. She states she feels better. Very swollen in bilateral UE and LE. Afebrile. CXR unchanged. No pain complaints. Vitals/I&O Vitals/I&O: Vital Signs Date Time Temp Pulse Resp B/P (MAP) Pulse Ox O2 Delivery O2 Flow Rate FiO2 12/09/19 08:06 94 Venturi Mask 12.0 12/09/19 06:00 75 27 136/65 (88) 12/09/19 03:00 98.2 98.2 I & O 12/08/19 12/08/19 12/09/19 15:00 23:00 07:00 Intake Total 550 ml 245 ml Output Total 245 ml 150 ml 850 ml Balance 305 ml 95 ml -850 ml Physical Exam Physical Exam: CONSTITUTIONAL: She is lying in bed. She is on Bipap. She looks comfortable. She is in no acute distress. More alert. looks better HEENT: Normal conjunctivae. NECK: Supple. Good range of motion. LUNGS: Brian rhonchi R> L HEART: S1, S2. ABDOMEN: Obese. It is mildly distended. There is no guarding. There is no g ross tenderness. : Vital EXTREMITIES: Without clubbing, cyanosis or gross edema. SKIN: Warm to touch without signs of rash. NEUROLOGIC: She is alert, nonfocal but confused PSYCHIATRIC: Affect is appropriate. REJ 12/01 General: Alert, Cooperative Heart: Regular rate (SR), Normal S1, Normal S2, No murmurs Lungs: Crackles Abdomen: Soft, No tenderness Extremities: No cyanosis Skin: No breakdown Assessment and Plan Assessmemt and Plan Problems Medical Problems: (1) Diverticulitis Status: Acute Comment Review of Relevant I have reviewed the following items jing (where applicable) has been applied. Justicifation of Admission Dx: Justifications for Admission: Justification of Admission Dx: Yes BANDAR PRUITT MD Dec 09, 2019 09:29
--- NOTE | 2019-12-09 10:00 | PDOC ---
Subjective: Subjective: Feeling better abdomen-maunel. Objective: Objective: D/w nurse - stooling - softeners held. Now being checked for COVID-19. On clears. Vital Signs: Vital Signs Date Time Temp Pulse Resp B/P (MAP) Pulse Ox O2 Delivery O2 Flow Rate FiO2 12/09/19 08:06 94 Venturi Mask 12.0 12/09/19 06:00 75 27 136/65 (88) 12/09/19 03:00 98.2 98.2 Labs: URINE CULTURE Final Final No Growth on 12/04/19 at 0919 Imaging: CXR 12/07 AP view was taken of the chest. There are bilateral diffuse alveolar and interstitial changes consistent with pulmonary edema although an atypical pneumonia can also have this pattern. There has been no change compared toone day ago. IMPRESSION: 1. No significant change. PE: GEN: up in chair LUNGS: breathing mask HEART: RRR ABD: non-distended NEURO/PSYCH: A & O 3, flat A/P: Diverticulitis/microperf - recurrent Resp failure Leukocytosis, chronic anemia, thrombocytopenia, MICHELLE Hep C cirrhosis - outpt treatment previously discussed along w/ need for interval US and AFP checks w/ increased risk of HCC GERD, asymptomatic cholelithiasis CRC screen - none R/o COVID-19 -- Await COVID testing, continue antibiotics. Justicifation of Admission Dx: Justifications for Admission: Justification of Admission Dx: Yes SKYE JARAMILLO Dec 09, 2019 10:00
--- NOTE | 2019-12-09 10:25 | PDOC ---
PULMONARY PROGRESS NOTES Subjective Remains off BIPAP, on Venti-mask, continued non-productive cough, SOB and weakness Afebrile Vitals Vital Signs Date Time Temp Pulse Resp B/P (MAP) Pulse Ox O2 Delivery O2 Flow Rate FiO2 12/09/19 08:06 94 Venturi Mask 12.0 12/09/19 06:00 75 27 136/65 (88) 12/09/19 03:00 98.2 98.2 ROS: No Nausea, No Chest Pain, No Abdominal Pain General: Alert, Oriented X4 HEENT: Other (nc at perrl bipap mask on neck no lad no thyromegaly) Lungs: Crackles Cardiovascular: S1, S2 Abdomen: Soft Neuro Exam: Alert Extremities: Other Skin: Warm Labs Laboratory Tests Test 12/07/19 14:45 12/08/19 07:45 12/08/19 08:00 White Blood Count 17.4 x10^3/uL (4.0-11.0) 15.3 x10^3/uL (4.0-11.0) Red Blood Count 4.15 x10^6/uL (3.50-5.40) 4.14 x10^6/uL (3.50-5.40) Hemoglobin 9.3 g/dL (12.0-15.5) 9.2 g/dL (12.0-15.5) Hematocrit 29.1 % (36.0-47.0) 28.9 % (36.0-47.0) Mean Corpuscular Volume 70 fL (79-100) 70 fL (79-100) Mean Corpuscular Hemoglobin 22 pg (25-35) 22 pg (25-35) Mean Corpuscular Hemoglobin Concent 32 g/dL (31-37) 32 g/dL (31-37) Red Cell Distribution Width 17.4 % (11.5-14.5) 17.0 % (11.5-14.5) Platelet Count 81 x10^3/uL (140-400) 99 x10^3/uL (140-400) Neutrophils (%) (Auto) 85 % (31-73) 83 % (31-73) Lymphocytes (%) (Auto) 9 % (24-48) 10 % (24-48) Monocytes (%) (Auto) 5 % (0-9) 5 % (0-9) Eosinophils (%) (Auto) 1 % (0-3) 2 % (0-3) Basophils (%) (Auto) 0 % (0-3) 0 % (0-3) Neutrophils # (Auto) 14.8 x10^3/uL (1.8-7.7) 12.8 x10^3/uL (1.8-7.7) Lymphocytes # (Auto) 1.5 x10^3/uL (1.0-4.8) 1.5 x10^3/uL (1.0-4.8) Monocytes # (Auto) 0.8 x10^3/uL (0.0-1.1) 0.7 x10^3/uL (0.0-1.1) Eosinophils # (Auto) 0.2 x10^3/uL (0.0-0.7) 0.3 x10^3/uL (0.0-0.7) Basophils # (Auto) 0.0 x10^3/uL (0.0-0.2) 0.0 x10^3/uL (0.0-0.2) Segmented Neutrophils % 73 % (35-66) Band Neutrophils % 12 % (0-9) Lymphocytes % 7 % (24-48) Monocytes % 3 % (0-10) Eosinophils % 4 % (0-5) Metamyelocytes % 1 % (0-0) Nucleated Red Blood Cells 2 Toxic Granulation Mod Platelet Estimate Decreased (ADEQUATE) Hypochromasia Mod Poikilocytosis Present Basophilic Stippling Present Anisocytosis Slight Microcytosis Mod Target Cells Present Tear Drop Cells Occ Ovalocytes Few Schistocytes Few Sodium Level 140 mmol/L (136-145) 141 mmol/L (136-145) Potassium Level 4.0 mmol/L (3.5-5.1) 3.8 mmol/L (3.5-5.1) Chloride Level 108 mmol/L (98-107) 107 mmol/L (98-107) Carbon Dioxide Level 26 mmol/L (21-32) 27 mmol/L (21-32) Anion Gap 6 (6-14) 7 (6-14) Blood Urea Nitrogen 60 mg/dL (7-20) 64 mg/dL (7-20) Creatinine 1.6 mg/dL (0.6-1.0) 1.7 mg/dL (0.6-1.0) Estimated GFR (Cockcroft-Gault) 32.8 30.6 BUN/Creatinine Ratio 38 (6-20) Glucose Level 107 mg/dL (70-99) 91 mg/dL (70-99) Calcium Level 7.6 mg/dL (8.5-10.1) 7.6 mg/dL (8.5-10.1) Phosphorus Level 3.7 mg/dL (2.6-4.7) Magnesium Level 2.2 mg/dL (1.8-2.4) 2.1 mg/dL (1.8-2.4) Total Bilirubin 4.0 mg/dL (0.2-1.0) Aspartate Amino Transf (AST/SGOT) 68 U/L (15-37) Alanine Aminotransferase (ALT/SGPT) 43 U/L (14-59) Alkaline Phosphatase 95 U/L (46-116) Total Protein 5.4 g/dL (6.4-8.2) Albumin 1.7 g/dL (3.4-5.0) Albumin/Globulin Ratio 0.5 (1.0-1.7) Procalcitonin 4.07 ng/mL (0.00-0.10) O2 Saturation 93 % (92-99) Arterial Blood pH 7.39 (7.35-7.45) Arterial Blood pCO2 at Patient Temp 45 mmHg (35-46) Arterial Blood pO2 at Patient Temp 73 mmHg (65-108) Arterial Blood HCO3 26 mmol/L (21-28) Arterial Blood Base Excess 1 mmol/L (-3-3) FiO2 35% bipap Medications Active Scripts Medications Dose Route/Sig Max Daily Dose Days Date Category Klor-Con M20 (Potassium Chloride) 20 Meq Tab.er.prt 20 Meq PO DAILYWBKFT 10/14/15 Rx Oxycodone-Acetaminophen 5-325 (Oxycodone Hcl/Acetaminophen) 1 Each Tablet 1 Tab PO PRN Q4HRS PRN 10/14/15 Rx Mag-Oxide (Magnesium Oxide) 400 Mg Tablet 400 Mg PO DAILY 10/14/15 Rx Lisinopril 20 Mg Tablet 20 Mg PO DAILY 10/14/15 Rx Tylenol (Acetaminophen) 325 Mg Tablet 650 Mg PO PRN Q4-6HRS PRN 10/05/15 Reported NICODERM CQ 7mg (Nicotine) 1 Each Patch.td24 1 Patch TD DAILY 10/02/15 Rx Slow Release Iron (Ferrous Sulfate) 142 Mg Tablet.er 142 Mg PO DAILYWBKFT 10/02/15 Rx Comments cxr reviewed 12/08/2019 bilateral perihilar and basilar opacities.no change Impression . IMPRESSION: 1. Acute hypoxic respiratory failure, likely secondary acute diastolic chf, acute lung injury/acute respiratory distress syndrome resulting from acute diverticulitis with contained perforation and possible aspiration. 2. Underlying chronic obstructive pulmonary disease. Unknown FEV1. 3. Abnormal chest x-ray -ongoing 4. Acute diverticulitis with contained perforation. 5. Prerenal azotemia- improving 6. History of cirrhosis with splenomegaly and cholelithiasis. 7. Severe protein-calorie malnutrition. 8. Thrombocytopenia, likely sepsis induced. improving 9. Marked leukocytosis secondary to infectious etiology. improving 10. Covid-19 pending Plan . 1. continue supplemental oxygen currently venti-mask and with BiPAP prn during day, cont at night, setting reviewed and 02 titration, keep saturation 90% 2. Continue antibiotics per ID, follow cultures 3. Monitor renal function 4. Monitor the clinical response to treatment. 5. Continue nutrition per GI. 6. DVT and stress ulcer prophylaxis. 7. Discussed with RN and RT. 8. Monitor platelets, wbc, cr 9. Await Covid-19 test results, continue isolation precautions, will add steroids D/W RN and RT LAUREN GONZALEZ MD Dec 09, 2019 10:25
[2019-12-09] MEDS: methylPREDNISolone SOD SUCC PF 40 MG/ML VIAL. IV SCH (11:50)
[2019-12-09] MEDS: MICAFUNGIN 100 MG in IV DEXTROSE 5% 100ML 100 ML IV SCH (11:51)
--- NOTE | 2019-12-09 12:38 | NUR ---
SS following up with discharge planning. SS reviewed pt chart and discussed with pt RN. Pt is currently on Venturi mask. Pt on IV Micafungin, IV Zosyn, and IV Zyvox. COVID19 test pending. Pt accepted at [facility], ; fax [phone], pending insurance authorization. Per [facility], [place], denied authorization on 12/06/2019, stating that pt was too critical and needed to remain in the hospital. No peer to peer option provided. [facility] resubmitting for insurance authorization today. SS phoned and faxed clinical updates to [facility]. SS will continue to follow for discharge planning.
--- NOTE | 2019-12-09 13:17 | PDOC ---
ZENAIDA ABEL [employer] MACHINE 12/09/19 1317: CARDIO Progress Notes Date and Time Date of Service 12/09/19 Time of Evaluation 1310 Subjective Subjective: Other (resting in chair ) Vitals Vitals Vital Signs Date Time Temp Pulse Resp B/P (MAP) Pulse Ox O2 Delivery O2 Flow Rate FiO2 12/09/19 12:00 97.9 80 28 117/58 (77) 92 Venturi Mask 97.9 12/09/19 11:28 12.0 Weight Weight [ ] Input and Output Intake and Output Intake and Output 12/09/19 07:00 Intake Total 795 ml Output Total 1305 ml Balance -510 ml Intake Oral 795 ml Output Urine Total 1305 ml # Bowel Movements 1 Microbiology Micro Microbiology 12/02/19 Urine Culture - Final, Complete Review of Systems Constitutional: yes: weakness, alert Ears/Nose/Throat: Yes: no symptom reported Eyes: Yes: no symptom reported Pulmonary: Yes no symptom reported Cardiovascular: Yes no symptom reported Gastrointestional: Yes: no symptom reported Musculoskeletal: Yes: no symptom reported Psychiatric/Neurological: Yes: no symptom reported Physical Exam HEENT: Neck Supple W Full Motion Chest: Symmetric LUNGS: Other (ventimask ) Heart: RRR (tele SR) Extremities: Other (anasarca) Neurology: other (sleeping ) Other Exams visual exam conducted due to pending COVID. D/w feather edger Assessment 1. Acute respiratory failure with acute diastolic CHF and possible aspiration PNA. COVID pending 2. Mild troponin elevation; peak 0.2. Most probably type II, demand ischemia. Echo with preserved LV systolic function. 3. Acute diverticulitis, contained perforation 4. Leukocytosis, lactic acidosis, sepsis 5. Thrombocytopenia 6. MICHELLE; improving 7. H/o cirrhosis 8. Severe protein-calorie malnutrition. Recommendations O2 support. BiPAP PRN Ongoing antibiotic therapy Lasix PRN Monitor PLTs Lipids Consider outpatient ischemic evaluation Ongoing support Justicifation of Admission Dx: Justifications for Admission: Justification of Admission Dx: Yes LILIANA NANCE MD 12/09/192026: CARDIO Progress Notes Assessment Assessment Patient seen and examined. Agree with KNITTING TEACHER's assessment and plan. Continue treatment or acute resp failure per pulm team. Covid test pending. Slight trop elevation prob demand ischemia 2D echo showed normal LVF Tele showed predominantly SR with few brief episodes of AT Continue current medical regimen. We will consider ischemic evaluation as outpatient. ZENAIDA ABEL APRN Dec 09, 2019 13:17 LILIANA NANCE MD Dec 09, 2019 20:27
[2019-12-09] MEDS: ENOXAPARIN 30 MG/0.3 ML SYRINGE. SQ SCH (16:05)
[2019-12-09 16:28] LABS: HDLC 7 mg/dL (40-60); TRIGLYCERIDES 76 mg/dL (0-150); VLDLC 15 mg/dL (0-40)
[2019-12-09 17:07] LABS: CHOLESTEROL < 50 mg/dL (0-200)
[2019-12-09] MEDS: PSYLLIUM HUSK (SUGAR FREE) 1 PKT PACKET PO SCH (17:19)
[2019-12-09] MEDS: LACTOBACILLUS RHAMNOSUS GG 1 CAPSULE. PO SCH (20:38)
[2019-12-09] MEDS: FAMOTIDINE 20 MG TABLET. PO SCH (20:38)
[2019-12-10] VITALS (24 sets, daily range): BP systolic 104–174; BP diastolic 67–93
[2019-12-10] MEDS: PIPERACILLIN/TAZOBACTAM 3.375 GM in IV NORMAL SALINE 50ML 50 ML IV SCH ×4 (00:29→18:25)
[2019-12-10 05:54] LABS: CALCIUM 7.9 mg/dL (8.5-10.1); CREATININE 1.5 mg/dL (0.6-1.0); GFR 35.3; POTASSIUM 4.3 mmol/L (3.5-5.1)
[2019-12-10] MEDS: SENNOSIDES/DOCUSATE 8.6/50MG TABLET. PO SCH ×2 (07:58→21:00)
[2019-12-10] MEDS: NICOTINE 21MG PATCH. TD SCH (07:59)
[2019-12-10] MEDS: ELECTROLYTE (ICU) PROTOCOL. MC SCH (08:19)
--- NOTE | 2019-12-10 08:57 | PDOC ---
Infectious Disease Note Subjective Subjective pt says she is feeling better, ROS ROS no n/v/d/sob Vital Sign Vital Signs Vital Signs Date Time Temp Pulse Resp B/P (MAP) Pulse Ox O2 Delivery O2 Flow Rate FiO2 12/10/19 08:00 97.4 64 24 151/85 (107) 96 Nasal Cannula 4.0 97.4 Physical Exam PHYSICAL EXAM CONSTITUTIONAL: comfortable. She is in no acute distress. More alert. looks better HEENT: Normal conjunctivae. NECK: Supple. Good range of motion. LUNGS: Brian rhonchi R> L HEART: S1, S2. ABDOMEN: Obese. It is mildly distended. There is no guarding. There is no gross tenderness. : Vital EXTREMITIES: Without clubbing, cyanosis or gross edema. SKIN: Warm to touch without signs of rash. NEUROLOGIC: She is alert, nonfocal but confused PSYCHIATRIC: Affect is appropriate. REJ 12/01 Labs Lab Laboratory Tests Test 12/09/19 13:00 12/10/19 04:40 C-Reactive Protein, Quantitative 96.0 mg/L (0-3.3) Triglycerides Level 76 mg/dL (0-150) Cholesterol Level < 50 mg/dL (0-200) LDL Cholesterol, Calculated mg/dL (0-100) VLDL Cholesterol, Calculated 15 mg/dL (0-40) Non-HDL Cholesterol Calculated mg/dL (0-129) HDL Cholesterol 7 mg/dL (40-60) Cholesterol/HDL Ratio Sodium Level 138 mmol/L (136-145) Potassium Level 4.3 mmol/L (3.5-5.1) Chloride Level 104 mmol/L (98-107) Carbon Dioxide Level 29 mmol/L (21-32) Anion Gap 5 (6-14) Blood Urea Nitrogen 65 mg/dL (7-20) Creatinine 1.5 mg/dL (0.6-1.0) Estimated GFR (Cockcroft-Gault) 35.3 Glucose Level 127 mg/dL (70-99) Calcium Level 7.9 mg/dL (8.5-10.1) Micro Microbiology 12/02/19 Urine Culture - Final, Complete Objective Assessment Sepsis - Off Levophed - Acute Hypoxic resp failure MICHELLE - improved Acute Sigmoid Diverticulitis Leukocytosis - better Lung infiltrates - stable Thrombocytopenia - better Encephalopathy Transaminitis- better CHF - elevated BNP Cirrhosis H/o Hep C Possible UTI but a lot of squamous cells -cults neg Ongoing tobacco abuse Plan Plan of Care d/c zyvox and micafungin cont zosyn covid pending F/u labs - pending in am and cults D/w nursing JENNI NOGUERA MD Dec 10, 2019 08:57
[2019-12-10] MEDS: IPRATRPIUM/ALBUTEROL 0.5/2.5MG 3 ML NEBU. NEB SCH ×4 (09:02→19:54)
--- NOTE | 2019-12-10 09:05 | PDOC ---
DATE OF SERVICE DATE: 12/10/19 SUBJECTIVE ROS Better OBJECTIVE Vital Signs Vital Signs Date Time Temp Pulse Resp B/P (MAP) Pulse Ox O2 Delivery O2 Flow Rate FiO2 12/10/19 08:00 97.4 64 24 151/85 (107) 96 Nasal Cannula 4.0 97.4 I & 0 Intake and Output 12/10/19 07:00 Intake Total 950 ml Output Total 1020 ml Balance -70 ml Intake Oral 100 ml IV Total 850 ml Output Urine Total 1020 ml PHYSICAL EXAM Physical Exam GEN : NAD HEENT: OM moist, O2 by NC NECK: Supple. LUNGS: Brian rhonchi R> L HEART: S1, S2. ABDOMEN: Obese. no tenderness. : Vital EXTREMITIES: No clubbing, cyanosis or gross edema. SKIN: Warm to touch without signs of rash. NEUROLOGIC alert DIAGNOSIS/ASSESSMENT Assessment & Plan MICHELLE- Improving, stable , peaked at 3.4 Cr 1.5, not at baseline , E Lytes stable Supportive care, avoid nephrotoxins, strict I/O HypoMg- Normal Mg UTI -, Cx negative , per ID Acute hypoxic respiratory failure, likely secondary acute diastolic chf, acute lung injury/acute respiratory distress syndrome resulting from acute diverticulitis with contained perforation and possible aspiration. Improving, Currently on O2 by VT Acute Diverticulitis with contained perforation. Hx of Hep C Cirrhosis HypoCalcemia- Normal after correcting for albumin HypoAlbuminemia - severe Sepsis - Improving COMMENT/RELEVANT DATA Meds Current Medications Medications (Trade) Dose Ordered Sig/Ubaldo Start Time Stop Time Status Last Admin Dose Admin Albumin Human 500 ml @ 125 mls/hr 1X ONCE 12/06/19 16:00 12/06/19 19:59 DC 12/06/19 16:42 125 MLS/HR Albuterol Sulfate (Ventolin Neb Soln) 2.5 mg 1X ONCE 12/04/19 02:15 12/04/19 02:16 DC 12/04/19 02:42 2.5 MG Albuterol/ Ipratropium (Duoneb) 3 ml RTQID 12/04/19 17:00 12/09/19 19:49 3 ML Benzonatate (Tessalon Perle) 100 mg [id number] 12/05/19 09:00 12/09/19 20:38 100 MG Cefepime HCl (Maxipime) 2 gm Q12HR 12/02/19 14:00 12/03/19 06:41 DC 12/02/19 21:37 2 GM Ciprofloxacin/ Dextrose 200 ml @ 200 mls/hr DAILY 12/02/19 09:00 UNV Daptomycin 440 mg/ Sodium Chloride 50 ml @ 100 mls/hr QODAY 12/03/19 09:00 12/06/19 07:48 DC 12/05/19 09:12 100 MLS/HR Dextrose/Sodium Chloride 1,000 ml @ 100 mls/hr Q10H 12/03/19 11:45 12/03/19 11:44 DC Dobutamine HCl/ Dextrose 250 ml @ 0 mls/hr CONT PRN 12/02/19 13:30 Enoxaparin Sodium (Lovenox 30mg Syringe) 30 mg Q24H 12/03/19 16:00 12/09/19 16:05 30 MG Enoxaparin Sodium (Lovenox 40mg Syringe) 40 mg Q24H 12/01/19 16:00 12/03/19 11:15 DC 12/02/19 16:53 40 MG Famotidine (Pepcid) 20 mg QHS 12/09/19 21:00 12/09/19 20:38 20 MG Fentanyl Citrate (Fentanyl 2ml Vial) 75 mcg 1X ONCE 12/01/19 10:45 12/01/19 10:46 DC 12/01/19 10:50 75 MCG Fluconazole/ Sodium Chloride 100 ml @ 100 mls/hr Q24H 12/03/19 06:30 12/06/19 07:57 DC 12/06/19 06:31 100 MLS/HR Furosemide (Lasix) 60 mg 1X ONCE 12/07/19 15:30 12/07/19 15:31 DC 12/07/19 15:48 60 MG Hydromorphone HCl (Dilaudid) 1 mg PRN Q4HRS PRN 12/01/19 15:30 12/07/19 15:22 DC 12/06/19 00:40 1 MG Info (Icu Electrolyte Protocol) 1 ea DAILY 12/03/19 09:00 12/06/19 09:00 1 EA Iohexol (Omnipaque 300 Mg/ml) 75 ml 1X ONCE 12/01/19 09:45 12/01/19 09:46 DC 12/01/19 10:10 75 ML Lactobacillus Rhamnosus (Culturelle) 1 cap BID 12/09/19 21:00 12/09/19 20:38 1 CAP Lactulose (Lactulose) 20 gm PRN Q12HR PRN 12/02/19 13:30 Linezolid/Dextrose 300 ml @ 300 mls/hr Q12HR 12/06/19 09:00 12/10/19 08:57 DC 12/09/19 20:38 300 MLS/HR Lorazepam (Ativan Inj) 0.5 mg PRN Q6HRS PRN 12/02/19 13:30 12/08/19 10:32 0.5 MG Magnesium Sulfate 50 ml @ 25 mls/hr 1X ONCE 12/06/19 11:15 12/06/19 13:35 DC Meropenem 500 mg/ Sodium Chloride 50 ml @ 100 mls/hr Q8HRS 12/05/19 07:00 12/06/19 07:48 DC 12/06/19 05:26 100 MLS/HR Methylprednisolone Sodium Succinate (SOLU-Medrol 40MG VIAL) 40 mg DAILY 12/09/19 11:00 12/09/19 11:50 40 MG Metronidazole 100 ml @ 100 mls/hr Q12HR 12/01/19 21:00 12/03/19 06:41 DC 12/02/19 21:36 100 MLS/HR Micafungin Sodium 100 mg/Dextrose 100 ml @ 100 mls/hr Q24H 12/06/19 10:00 12/10/19 08:57 DC 12/09/19 11:51 100 MLS/HR Morphine Sulfate (Morphine Sulfate) 4 mg PRN Q2HR PRN 12/01/19 10:45 12/01/19 15:26 DC 12/01/19 13:37 4 MG Naloxone HCl (Narcan) 0.4 mg PRN Q2MIN PRN 12/06/19 05:00 12/06/19 05:19 0.4 MG Nicotine (Nicoderm Cq 21mg) 1 patch DAILY 12/03/19 09:00 Norepinephrine Bitartrate 8 mg/ Dextrose 258 ml @ 14.067 mls/ hr CONT PRN 12/02/19 16:15 12/04/19 16:29 16.881 MLS/HR Ondansetron HCl (Zofran) 4 mg PRN Q6HRS PRN 12/02/19 13:30 Piperacillin Sod/ Tazobactam Sod 3.375 gm/Sodium Chloride 50 ml @ 100 mls/hr Q6HRS 12/06/19 08:00 12/10/19 06:18 100 MLS/HR Potassium Chloride/Water 100 ml @ 100 mls/hr Q1H 12/05/19 10:00 12/05/19 13:59 DC 12/05/19 15:28 100 MLS/HR Prochlorperazine Edisylate (Compazine) 10 mg PRN Q6HRS PRN 12/01/19 23:30 Psyllium Hydrophilic Mucilloid (Metamucil Fiber Packet) 1 pkt QPM 12/01/19 18:00 12/09/19 17:19 1 PKT Ringer's Solution 1,000 ml @ 75 mls/hr [id number] 12/05/19 09:00 12/07/19 15:22 DC 12/07/19 00:08 75 MLS/HR Senna/Docusate Sodium (Senna Plus) 1 tab BID 12/02/19 14:00 12/09/19 20:38 1 TAB Sodium Bicarbonate 50 meq/Dextrose/ Sodium Chloride 1,050 ml @ 100 mls/hr [id number] 12/03/19 12:00 12/05/19 09:00 DC 12/05/19 08:36 100 MLS/HR Sodium Chloride 500 ml @ 1,000 mls/hr PRN Q30MIN PRN 12/02/19 13:30 12/07/19 15:22 DC Lab Laboratory Tests Test 12/09/19 13:00 12/10/19 04:40 C-Reactive Protein, Quantitative 96.0 mg/L (0-3.3) Triglycerides Level 76 mg/dL (0-150) Cholesterol Level < 50 mg/dL (0-200) LDL Cholesterol, Calculated mg/dL (0-100) VLDL Cholesterol, Calculated 15 mg/dL (0-40) Non-HDL Cholesterol Calculated mg/dL (0-129) HDL Cholesterol 7 mg/dL (40-60) Cholesterol/HDL Ratio Sodium Level 138 mmol/L (136-145) Potassium Level 4.3 mmol/L (3.5-5.1) Chloride Level 104 mmol/L (98-107) Carbon Dioxide Level 29 mmol/L (21-32) Anion Gap 5 (6-14) Blood Urea Nitrogen 65 mg/dL (7-20) Creatinine 1.5 mg/dL (0.6-1.0) Estimated GFR (Cockcroft-Gault) 35.3 Glucose Level 127 mg/dL (70-99) Calcium Level 7.9 mg/dL (8.5-10.1) Results All relevant outside records, renal labs, imaging studies, telemetry/EKG's were reviewed. Justicifation of Admission Dx: Justifications for Admission: Justification of Admission Dx: Yes ANA PALOMINO MD Dec 10, 2019 09:05
[2019-12-10] MEDS: BENZONATATE 100 MG CAPSULE. PO SCH ×3 (09:51→21:06)
[2019-12-10] MEDS: LACTOBACILLUS RHAMNOSUS GG 1 CAPSULE. PO SCH ×2 (09:51→21:06)
[2019-12-10] MEDS: methylPREDNISolone SOD SUCC PF 40 MG/ML VIAL. IV SCH (09:55)
--- NOTE | 2019-12-10 09:58 | PDOC ---
Date of Service: DATE: 12/10/19 TIME: 09:54 Objective: Objective: Reviewed w/ nurse - stable GI-manuel, pulm status improved. Vital Signs: Vital Signs Date Time Temp Pulse Resp B/P (MAP) Pulse Ox O2 Delivery O2 Flow Rate FiO2 12/10/19 09:02 100 Nasal Cannula 4.0 12/10/19 09:00 64 21 156/93 (114) 12/10/19 08:00 97.4 97.4 Labs: Laboratory Tests Test 12/09/19 13:00 12/10/19 04:40 C-Reactive Protein, Quantitative 96.0 mg/L Triglycerides Level 76 mg/dL Cholesterol Level < 50 mg/dL LDL Cholesterol, Calculated mg/dL VLDL Cholesterol, Calculated 15 mg/dL Non-HDL Cholesterol Calculated mg/dL HDL Cholesterol 7 mg/dL Cholesterol/HDL Ratio Sodium Level 138 mmol/L Potassium Level 4.3 mmol/L Chloride Level 104 mmol/L Carbon Dioxide Level 29 mmol/L Anion Gap 5 Blood Urea Nitrogen 65 mg/dL Creatinine 1.5 mg/dL Estimated GFR (Cockcroft-Gault) 35.3 Glucose Level 127 mg/dL Calcium Level 7.9 mg/dL PE: GEN: NAD in COVID isolation in ICU LUNGS: 4L NC HEART: RRR ABD: non-distended NEURO/PSYCH: asleep in recliner A/P: Diverticulitis/microperf Resp failure, pending COVID testing Hep C cirrhosis -- Better GI-manuel - ?advance diet Awaiting COVID testing. Ultimately needs outpt screening colonoscopy (and EGD) and Hep C treatment. Justicifation of Admission Dx: Justifications for Admission: Justification of Admission Dx: Yes SKYE JARAMILLO Dec 10, 2019 09:58
--- NOTE | 2019-12-10 10:17 | NUR ---
SS following up with discharge planning. SS reviewed pt chart and discussed with pt RN. Pt is currently on 4 liters nasal canula. Pt on IV Zosyn. PT/OT recommending longterm unit. COVID19 pending. SS met with pt and discussed longterm unit and discharge planning. Pt agreeable to longterm unit. Pt reported that she lives in [place] and wants referral phoned and faxed to [facility], ; fax [phone]. SS phoned and faxed referral as requested. SS will await acceptance decision and insurance determination and will proceed accordingly with discharge planning.
--- NOTE | 2019-12-10 10:40 | PDOC ---
PULMONARY PROGRESS NOTES DATE: 12/10/19 TIME: 10:37 Subjective wore BIPAP for short peroid overnight, oxygenation has improved now on 4 liters N/C no increased SOB or Cough, No CP Vitals Vital Signs Date Time Temp Pulse Resp B/P (MAP) Pulse Ox O2 Delivery O2 Flow Rate FiO2 12/10/19 10:00 64 21 146/80 (102) 96 Nasal Cannula 4.0 12/10/19 08:00 97.4 97.4 ROS: No Nausea, No Chest Pain, No Abdominal Pain, No Increase Cough General: Alert, Oriented X4 HEENT: Other (nc at perrl bipap mask on neck no lad no thyromegaly) Lungs: Crackles Cardiovascular: S1, S2 Abdomen: Soft Neuro Exam: Alert Extremities: Other Skin: Warm Labs Laboratory Tests Test 12/09/19 13:00 12/10/19 04:40 C-Reactive Protein, Quantitative 96.0 mg/L (0-3.3) Triglycerides Level 76 mg/dL (0-150) Cholesterol Level < 50 mg/dL (0-200) LDL Cholesterol, Calculated mg/dL (0-100) VLDL Cholesterol, Calculated 15 mg/dL (0-40) Non-HDL Cholesterol Calculated mg/dL (0-129) HDL Cholesterol 7 mg/dL (40-60) Cholesterol/HDL Ratio Sodium Level 138 mmol/L (136-145) Potassium Level 4.3 mmol/L (3.5-5.1) Chloride Level 104 mmol/L (98-107) Carbon Dioxide Level 29 mmol/L (21-32) Anion Gap 5 (6-14) Blood Urea Nitrogen 65 mg/dL (7-20) Creatinine 1.5 mg/dL (0.6-1.0) Estimated GFR (Cockcroft-Gault) 35.3 Glucose Level 127 mg/dL (70-99) Calcium Level 7.9 mg/dL (8.5-10.1) Laboratory Tests Test 12/09/19 13:00 12/10/19 04:40 C-Reactive Protein, Quantitative 96.0 mg/L (0-3.3) Triglycerides Level 76 mg/dL (0-150) Cholesterol Level < 50 mg/dL (0-200) LDL Cholesterol, Calculated mg/dL (0-100) VLDL Cholesterol, Calculated 15 mg/dL (0-40) Non-HDL Cholesterol Calculated mg/dL (0-129) HDL Cholesterol 7 mg/dL (40-60) Cholesterol/HDL Ratio Sodium Level 138 mmol/L (136-145) Potassium Level 4.3 mmol/L (3.5-5.1) Chloride Level 104 mmol/L (98-107) Carbon Dioxide Level 29 mmol/L (21-32) Anion Gap 5 (6-14) Blood Urea Nitrogen 65 mg/dL (7-20) Creatinine 1.5 mg/dL (0.6-1.0) Estimated GFR (Cockcroft-Gault) 35.3 Glucose Level 127 mg/dL (70-99) Calcium Level 7.9 mg/dL (8.5-10.1) Medications Active Scripts Medications Dose Route/Sig Max Daily Dose Days Date Category Klor-Con M20 (Potassium Chloride) 20 Meq Tab.er.prt 20 Meq PO DAILYWBKFT 10/14/15 Rx Oxycodone-Acetaminophen 5-325 (Oxycodone Hcl/Acetaminophen) 1 Each Tablet 1 Tab PO PRN Q4HRS PRN 10/14/15 Rx Mag-Oxide (Magnesium Oxide) 400 Mg Tablet 400 Mg PO DAILY 10/14/15 Rx Lisinopril 20 Mg Tablet 20 Mg PO DAILY 10/14/15 Rx Tylenol (Acetaminophen) 325 Mg Tablet 650 Mg PO PRN Q4-6HRS PRN 10/05/15 Reported NICODERM CQ 7mg (Nicotine) 1 Each Patch.td24 1 Patch TD DAILY 10/02/15 Rx Slow Release Iron (Ferrous Sulfate) 142 Mg Tablet.er 142 Mg PO DAILYWBKFT 10/02/15 Rx Comments cxr reviewed 12/08/2019 bilateral perihilar and basilar opacities.no change Impression . IMPRESSION: 1. Acute hypoxic respiratory failure, likely secondary acute diastolic chf, acute lung injury/acute respiratory distress syndrome resulting from acute diverticulitis with contained perforation and possible aspiration--improved 2. Underlying chronic obstructive pulmonary disease. Unknown FEV1. 3. Abnormal chest x-ray -ongoing 4. Acute diverticulitis with contained perforation. 5. Prerenal azotemia- improving 6. History of cirrhosis with splenomegaly and cholelithiasis. 7. Severe protein-calorie malnutrition. 8. Thrombocytopenia, likely sepsis induced. improving 9. Marked leukocytosis secondary to infectious etiology. improving 10. Covid-19 pending Plan . Continue supplemental oxygen currently 4 liters N/C and with BiPAP PRN at night, setting reviewed and 02 titration, keep saturation 90% Continue antibiotics per ID, follow cultures Monitor renal function -- cr. is improving Monitor the clinical response to treatment. Continue nutrition per GI-- clear liquids DVT and stress ulcer prophylaxis. Await Covid-19 test results, continue isolation precautions, continue steroids D/W RN and RT LAUREN GONZALEZ MD Dec 10, 2019 10:40
--- NOTE | 2019-12-10 10:41 | PDOC ---
JOHANNE ALLEN COMPUTER REPAIR INSTRUCTOR 12/10/19 1041: CARDIO Progress Notes Date and Time Date of Service 12/10/2019 Time of Evaluation 0900 Subjective Subjective: Other (on chair and asleep) Vitals Vitals Vital Signs Date Time Temp Pulse Resp B/P (MAP) Pulse Ox O2 Delivery O2 Flow Rate FiO2 12/10/19 10:00 64 21 146/80 (102) 96 Nasal Cannula 4.0 12/10/19 08:00 97.4 97.4 Weight Weight [ ] Input and Output Intake and Output Intake and Output 12/10/19 07:00 Intake Total 950 ml Output Total 1020 ml Balance -70 ml Intake Oral 100 ml IV Total 850 ml Output Urine Total 1020 ml Laboratory Labs Laboratory Tests Test 12/09/19 13:00 12/10/19 04:40 C-Reactive Protein, Quantitative 96.0 mg/L (0-3.3) Triglycerides Level 76 mg/dL (0-150) Cholesterol Level < 50 mg/dL (0-200) LDL Cholesterol, Calculated mg/dL (0-100) VLDL Cholesterol, Calculated 15 mg/dL (0-40) Non-HDL Cholesterol Calculated mg/dL (0-129) HDL Cholesterol 7 mg/dL (40-60) Cholesterol/HDL Ratio Sodium Level 138 mmol/L (136-145) Potassium Level 4.3 mmol/L (3.5-5.1) Chloride Level 104 mmol/L (98-107) Carbon Dioxide Level 29 mmol/L (21-32) Anion Gap 5 (6-14) Blood Urea Nitrogen 65 mg/dL (7-20) Creatinine 1.5 mg/dL (0.6-1.0) Estimated GFR (Cockcroft-Gault) 35.3 Glucose Level 127 mg/dL (70-99) Calcium Level 7.9 mg/dL (8.5-10.1) Microbiology Micro Microbiology 12/02/19 Urine Culture - Final, Complete Review of Systems Constitutional: yes: weakness, alert Ears/Nose/Throat: Yes: no symptom reported Eyes: Yes: no symptom reported Pulmonary: Yes no symptom reported Cardiovascular: Yes no symptom reported Gastrointestional: Yes: no symptom reported Musculoskeletal: Yes: no symptom reported Psychiatric/Neurological: Yes: no symptom reported Physical Exam HEENT: Neck Supple W Full Motion Chest: Symmetric LUNGS: Other (diminsihed) Heart: RRR (SR) Extremities: Other (anasarca) Other Exams discuss with RN, AOx3 Assessment Assessment 1. Acute respiratory failure with acute diastolic CHF and possible aspiration PNA. COVID pending. SOA better 2. Mild troponin elevation; peak 0.2. Most probably type II, demand ischemia. Echo with preserved LV systolic function. 3. Acute diverticulitis, contained perforation 4. Leukocytosis, lactic acidosis, sepsis 5. Thrombocytopenia: PLT better at 99 6. MICHELLE; much better 7. H/o cirrhosis 8. Severe protein-calorie malnutrition. Recommendations 1. O2 support. BiPAP PRN 2. Ongoing antibiotic therapy 3. Lasix PRN 4. Consider outpatient ischemic workup 5. BP stable, no arrhythmias. Will follow as needed. Justicifation of Admission Dx: Justifications for Admission: Justification of Admission Dx: Yes LILIANA NANCE MD 12/11/19 1051: CARDIO Progress Notes Assessment Assessment Patient seen and examined 12/10/19. Agree with ROOFING LABORER's assessment and plan. Acute respiratory failure improving. COVID test pending. Pulmonary team following. Acute on chronic diastolic heart failure better compensated. Telemetry did not show any significant arrhythmias. Slight troponin elevation probably demand ischemia. We will consider outpatient ischemic evaluation. JOHANNE ALLEN APRN Dec 10, 2019 10:41 LILIANA NANCE MD Dec 11, 2019 10:51
--- NOTE | 2019-12-10 12:51 | PDOC ---
[employer] PROGRESS NOTE Date of Service DOS: DATE: 12/10/19 TIME: 12:46 Chief Complaint Chief Complaint Assessment/Plan Acute pulmonary edema with bilateral infiltrates seen on chest xray - unchanged compared to 12/06/2019 chest x-ray. likely secondary acute diastolic chf, acute lung injury/acute respiratory distress syndrome resulting from acute diverticulitis with contained perforation and possible aspiration. Acute diverticulitis -with prior perforation, high risk. Continue with Zyvox and Zosyn. And micafungin. No surgery at this time Chronic anemia - possibly thalassemia versus chronic iron deficiency anemia related to occult GI blood loss vs 2/2 Hep C. Has never had a colonoscopy due to loss to follow up from lack of health insurance since 2015. Hepatitis C - chronic, not treated. GI consulted for consideration of anti- viral treatment, also needs alpha-fetoprotein level checked and ultrasound monitoring every 6 months. 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 MELD 15, 6% 3 month mortality. GI consulted Thrombocytopenialikely secondary to her cirrhosis. Will monitor Transaminitis likely secondary to hepatitis C versus acute diverticulitis, will monitor. GERD - on omeprazole Asymptomatic cholelithiasis elevated lactic acid without evidence of shock Sepsis secondary to diverticulitis, continue to follow hemodynamics closely I have discussed with nursing staff to reach out if she becomes unstable Acute pulmonary edema40 mg Lasix IV x1. Acute electrolyte derangementsreplace with IV 40 mEq of potassium Acute metabolic encephalopathytitrate bowel movements to at least 3 times per day. Schedule lactulose to titrate at least 2-3 bowel movements per day Chronic respiratory acidosis -appropriate compensation. Continue BiPAP PRN MICHELLE - vasomotor nephropathy, improving Severe protein-calorie malnutrition. Covid-19 pending Appreciate pulmonary evaluation. Patient was diuresed appropriately yesterday Repeat chest x-ray stable FEN - Clear liquid diet, PPX - lovenox FULL CODE Dispo -transferred to telemetry monitoring for Total total critical care time spent over 35 minutes History of Present Illness History of Present Illness Ms Joyner is a 59 year old female w/ PMHx diverticulosis with prior perforation from diverticulitis, former smoker, active Hepatitis C who was brought here by EMS from home due to left lower abdominal pain for 5 days prior to admission. The pain became more intensified so she called EMS to take her here for evaluation. Patient denies any fever, no diarrhea. Patient denies any cough. No exposure to anybody who tested positive for COVID-19. CT scan of the abdomen. Reveals diverticulitis in the sigmoid colon without perforation or leak. Also revealed cirrhosis with splenomegaly and cholelithiasis. Consulted ID, GI, General surgery, Pulmonology 12/01: No acute events reported overnight, case discussed with nursing staff patient in no acute distress no complaints during my visit 12/02: No acute events overnight. Patient remains on vasopressors for hemodynamic support. She has already received about 5 L of fluids. She has not had any bloody stools since transferred to the ICU. 12/03: No acute events overnight. Patient is tolerating clear liquid diet. Abdominal pain has improved. Patient's chart, labs, images were reviewed and discussed with RN 12/04: No acute events overnight. Patient seen and examined bedside. Patient is tolerating clear liquid diet. Patient does have some confusion on examination. Patient's chart, labs, images were reviewed and discussed with RN 12/05: No acute events overnight. Patient is tolerating BiPAP. No altered mental status at this time. Patient's chart, labs, images were reviewed and discussed with RN 12/06: No acute events overnight. Patient is tolerated nocturnal BiPAP. Patient's chart, labs, images were reviewed and discussed with RN 8/3: Seen in ICU on ventimask 12/min. She states she feels better. Very swollen in bilateral UE and LE. Afebrile. CXR unchanged. No pain complaints. Seen in ICU on 4 L nasal cannulated oxygen. COVID-19 testing is pending. She says she is exhausted feels better. Still pretty swollen. Afebrile. cr down to 1.5 Vitals/I&O Vitals/I&O: Vital Signs Date Time Temp Pulse Resp B/P (MAP) Pulse Ox O2 Delivery O2 Flow Rate FiO2 12/10/19 11:00 62 22 151/83 (105) 94 Nasal Cannula 4.0 12/10/19 08:00 97.4 97.4 I & O 12/09/19 12/09/19 12/10/19 15:00 23:00 07:00 Intake Total 550 ml 350 ml 50 ml Output Total 440 ml 305 ml 275 ml Balance 110 ml 45 ml -225 ml Physical Exam Physical Exam: CONSTITUTIONAL: comfortable. She is in no acute distress. More alert. looks better HEENT: Normal conjunctivae. NECK: Supple. Good range of motion. LUNGS: Brian rhonchi R> L HEART: S1, S2. ABDOMEN: Obese. It is mildly distended. There is no guarding. There is no gross tenderness. : Vital EXTREMITIES: Without clubbing, cyanosis or gross edema. SKIN: Warm to touch without signs of rash. NEUROLOGIC: She is alert, nonfocal but confused PSYCHIATRIC: Affect is appropriate. REJ 12/01 General: Alert, Cooperative Heart: Regular rate (SR), Normal S1, Normal S2, No murmurs Lungs: Crackles Abdomen: Soft, No tenderness Extremities: No cyanosis Skin: No breakdown Labs Labs: Laboratory Tests Test 12/09/19 13:00 12/10/19 04:40 C-Reactive Protein, Quantitative 96.0 mg/L (0-3.3) Triglycerides Level 76 mg/dL (0-150) Cholesterol Level < 50 mg/dL (0-200) LDL Cholesterol, Calculated mg/dL (0-100) VLDL Cholesterol, Calculated 15 mg/dL (0-40) Non-HDL Cholesterol Calculated mg/dL (0-129) HDL Cholesterol 7 mg/dL (40-60) Cholesterol/HDL Ratio Sodium Level 138 mmol/L (136-145) Potassium Level 4.3 mmol/L (3.5-5.1) Chloride Level 104 mmol/L (98-107) Carbon Dioxide Level 29 mmol/L (21-32) Anion Gap 5 (6-14) Blood Urea Nitrogen 65 mg/dL (7-20) Creatinine 1.5 mg/dL (0.6-1.0) Estimated GFR (Cockcroft-Gault) 35.3 Glucose Level 127 mg/dL (70-99) Calcium Level 7.9 mg/dL (8.5-10.1) Assessment and Plan Assessmemt and Plan Problems Medical Problems: (1) Diverticulitis Status: Acute Comment Review of Relevant I have reviewed the following items jing (where applicable) has been applied. Medications: Current Medications Medications (Trade) Dose Ordered Sig/Ubaldo Route PRN Reason Start Time Stop Time Status Last Admin Dose Admin Lactobacillus Rhamnosus (Culturelle) 1 cap BID PO 12/09/19 21:00 12/10/19 09:51 Famotidine (Pepcid) 20 mg QHS PO 12/09/19 21:00 12/09/19 20:38 Justicifation of Admission Dx: Justifications for Admission: Justification of Admission Dx: Yes BANDAR PRUITT MD Dec 10, 2019 12:50
--- NOTE | 2019-12-10 13:25 | PDOC ---
WILBERT WHALEY INFORMATION SECURITY ANALYST 12/10/19 1325: SURGICAL PROGRESS NOTE DATE: 12/10/19 TIME: 1345 Subjective covid testing pending, now in isolation d.w nurse--stable, advancing diet will FU tomorrow Vital Signs Vital Signs Date Time Temp Pulse Resp B/P (MAP) Pulse Ox O2 Delivery O2 Flow Rate FiO2 12/10/19 13:00 70 24 151/78 (102) 96 Nasal Cannula 4.0 12/10/19 12:00 97.8 97.8 I&O Intake and Output 12/10/19 07:00 Intake Total 950 ml Output Total 1020 ml Balance -70 ml Intake Oral 100 ml IV Total 850 ml Output Urine Total 1020 ml Labs Laboratory Tests Test 12/09/19 13:00 12/10/19 04:40 C-Reactive Protein, Quantitative 96.0 mg/L (0-3.3) Triglycerides Level 76 mg/dL (0-150) Cholesterol Level < 50 mg/dL (0-200) LDL Cholesterol, Calculated mg/dL (0-100) VLDL Cholesterol, Calculated 15 mg/dL (0-40) Non-HDL Cholesterol Calculated mg/dL (0-129) HDL Cholesterol 7 mg/dL (40-60) Cholesterol/HDL Ratio Sodium Level 138 mmol/L (136-145) Potassium Level 4.3 mmol/L (3.5-5.1) Chloride Level 104 mmol/L (98-107) Carbon Dioxide Level 29 mmol/L (21-32) Anion Gap 5 (6-14) Blood Urea Nitrogen 65 mg/dL (7-20) Creatinine 1.5 mg/dL (0.6-1.0) Estimated GFR (Cockcroft-Gault) 35.3 Glucose Level 127 mg/dL (70-99) Calcium Level 7.9 mg/dL (8.5-10.1) Laboratory Tests Test 12/10/19 04:40 Sodium Level 138 mmol/L (136-145) Potassium Level 4.3 mmol/L (3.5-5.1) Chloride Level 104 mmol/L (98-107) Carbon Dioxide Level 29 mmol/L (21-32) Anion Gap 5 (6-14) Blood Urea Nitrogen 65 mg/dL (7-20) Creatinine 1.5 mg/dL (0.6-1.0) Estimated GFR (Cockcroft-Gault) 35.3 Glucose Level 127 mg/dL (70-99) Calcium Level 7.9 mg/dL (8.5-10.1) Problem List Problems Medical Problems: (1) Diverticulitis Status: Acute Justicifation of Admission Dx: Justifications for Admission: Justification of Admission Dx: Yes HELEN DE SANTIAGO MD 12/10/19 1423: SURGICAL PROGRESS NOTE Assessment/Plan Agree with above WILBERT WHALEY APRN Dec 10, 2019 13:25 HELEN DE SANTIAGO MD Dec 10, 2019 14:23
--- NOTE | 2019-12-10 13:57 | NUR ---
SS following up with discharge planning. [facility] contacted SS and notified SS that they are out of network with pt's insurance. SS met with pt and discussed. Pt requested referral be phoned and faxed to [facility], ; fax [phone]. SS phoned and faxed referral as requested. SS will await acceptance decision and insurance determination and will proceed accordingly with discharge planning.
--- NOTE | 2019-12-10 15:10 | NUR ---
SS following up with discharge planning. [facility], ; fax [phone], accepted pending COVID19 result, insurance authorization, and bed availability.
[2019-12-10] MEDS: ENOXAPARIN 30 MG/0.3 ML SYRINGE. SQ SCH (16:26)
[2019-12-10] MEDS: PSYLLIUM HUSK (SUGAR FREE) 1 PKT PACKET PO SCH (18:25)
[2019-12-10] MEDS: FAMOTIDINE 20 MG TABLET. PO SCH (21:06)
[2019-12-11] VITALS (15 sets, daily range): BP systolic 114–180; BP diastolic 74–106
[2019-12-11] MEDS: PIPERACILLIN/TAZOBACTAM 3.375 GM in IV NORMAL SALINE 50ML 50 ML IV SCH ×2 (00:18→06:04)
[2019-12-11 07:09] LABS: BASO % 1 % (0-3); EOS % 0 % (0-3); HEMATOCRIT 31.6 % (36.0-47.0); HEMOGLOBIN 10.2 g/dL (12.0-15.5); LYMPH # 1.1 x10^3/uL (1.0-4.8); LYMPH % 13 % (24-48); MEAN CORPUSCULAR HEMOGLOBIN 23 pg (25-35); MEAN CORPUSCULAR HGB CONC 32 g/dL (31-37); MEAN CORPUSCULAR VOLUME 70 fL (79-100); MONO # 0.2 x10^3/uL (0.0-1.1); MONO % 3 % (0-9); NEUT # 6.6 x10^3/uL (1.8-7.7); NEUT % 83 % (31-73); PLATELET COUNT 114 x10^3/uL (140-400); RED BLOOD COUNT 4.52 x10^6/uL (3.50-5.40)
--- NOTE | 2019-12-11 07:26 | NUR ---
0700 IV infiltrate earlier. Failed attempted restart. Day nurse attempted restart w/o success. Communication w Dr Malloy ie antibiotic change to po. See orders.
[2019-12-11 07:30] LABS: ALBUMIN 1.5 g/dL (3.4-5.0); ALBUMIN/GLOBULIN RATIO 0.3 (1.0-1.7); CALCIUM 8.1 mg/dL (8.5-10.1); CREATININE 1.2 mg/dL (0.6-1.0); GFR 45.7; POTASSIUM 4.2 mmol/L (3.5-5.1); TOTAL BILIRUBIN 2.7 mg/dL (0.2-1.0); TOTAL PROTEIN 6.1 g/dL (6.4-8.2)
--- NOTE | 2019-12-11 07:40 | PDOC ---
Infectious Disease Note Subjective Subjective pt says she is feeling better, ROS ROS no n/v/d/sob Vital Sign Vital Signs Vital Signs Date Time Temp Pulse Resp B/P (MAP) Pulse Ox O2 Delivery O2 Flow Rate FiO2 12/11/19 07:00 64 24 168/78 (108) 95 Nasal Cannula 3.0 12/11/19 04:00 97.4 97.4 Physical Exam PHYSICAL EXAM CONSTITUTIONAL: comfortable. She is in no acute distress. More alert. looks better HEENT: Normal conjunctivae. NECK: Supple. Good range of motion. LUNGS: clear HEART: S1, S2. ABDOMEN: Obese. It is mildly distended. There is no guarding. There is no gross tenderness. : Vital EXTREMITIES: Without clubbing, cyanosis or gross edema. SKIN: Warm to touch without signs of rash. NEUROLOGIC: She is alert, nonfocal but confused PSYCHIATRIC: Affect is appropriate. Labs Lab Laboratory Tests Test 12/11/19 07:00 White Blood Count 8.0 x10^3/uL (4.0-11.0) Red Blood Count 4.52 x10^6/uL (3.50-5.40) Hemoglobin 10.2 g/dL (12.0-15.5) Hematocrit 31.6 % (36.0-47.0) Mean Corpuscular Volume 70 fL (79-100) Mean Corpuscular Hemoglobin 23 pg (25-35) Mean Corpuscular Hemoglobin Concent 32 g/dL (31-37) Red Cell Distribution Width 17.0 % (11.5-14.5) Platelet Count 114 x10^3/uL (140-400) Neutrophils (%) (Auto) 83 % (31-73) Lymphocytes (%) (Auto) 13 % (24-48) Monocytes (%) (Auto) 3 % (0-9) Eosinophils (%) (Auto) 0 % (0-3) Basophils (%) (Auto) 1 % (0-3) Neutrophils # (Auto) 6.6 x10^3/uL (1.8-7.7) Lymphocytes # (Auto) 1.1 x10^3/uL (1.0-4.8) Monocytes # (Auto) 0.2 x10^3/uL (0.0-1.1) Eosinophils # (Auto) 0.0 x10^3/uL (0.0-0.7) Basophils # (Auto) 0.0 x10^3/uL (0.0-0.2) Sodium Level 136 mmol/L (136-145) Potassium Level 4.2 mmol/L (3.5-5.1) Chloride Level 104 mmol/L (98-107) Carbon Dioxide Level 28 mmol/L (21-32) Anion Gap 4 (6-14) Blood Urea Nitrogen 59 mg/dL (7-20) Creatinine 1.2 mg/dL (0.6-1.0) Estimated GFR (Cockcroft-Gault) 45.7 BUN/Creatinine Ratio 49 (6-20) Glucose Level 121 mg/dL (70-99) Calcium Level 8.1 mg/dL (8.5-10.1) Total Bilirubin 2.7 mg/dL (0.2-1.0) Aspartate Amino Transf (AST/SGOT) 55 U/L (15-37) Alanine Aminotransferase (ALT/SGPT) 31 U/L (14-59) Alkaline Phosphatase 97 U/L (46-116) Total Protein 6.1 g/dL (6.4-8.2) Albumin 1.5 g/dL (3.4-5.0) Albumin/Globulin Ratio 0.3 (1.0-1.7) Micro Microbiology 12/02/19 Urine Culture - Final, Complete Objective Assessment Sepsis - resolved Acute Hypoxic resp failure ,improved MICHELLE - improved Acute Sigmoid Diverticulitis Leukocytosis - better Lung infiltrates - stable Thrombocytopenia - better Encephalopathy Transaminitis- better CHF - elevated BNP Cirrhosis H/o Hep C Possible UTI but a lot of squamous cells -cults neg Ongoing tobacco abuse COVID neg Plan Plan of Care change zosyn to po augmentin ok to d/c to SNF D/w nursing JENNI NOGUERA MD Dec 11, 2019 07:40
[2019-12-11] MEDS: IPRATRPIUM/ALBUTEROL 0.5/2.5MG 3 ML NEBU. NEB SCH ×4 (08:00→20:13)
[2019-12-11] MEDS: LACTOBACILLUS RHAMNOSUS GG 1 CAPSULE. PO SCH ×2 (08:31→21:05)
[2019-12-11] MEDS: SENNOSIDES/DOCUSATE 8.6/50MG TABLET. PO SCH ×2 (08:31→21:05)
[2019-12-11] MEDS: BENZONATATE 100 MG CAPSULE. PO SCH ×3 (08:31→21:05)
[2019-12-11] MEDS: NICOTINE 21MG PATCH. TD SCH (08:31)
[2019-12-11] MEDS: AMOXICILLIN/K CLAV 875/125MG TABLET. PO SCH ×2 (08:31→21:05)
[2019-12-11] MEDS: methylPREDNISolone SOD SUCC PF 40 MG/ML VIAL. IV SCH (08:33)
[2019-12-11] MEDS: ELECTROLYTE (ICU) PROTOCOL. MC SCH (08:35)
[2019-12-11] MEDS ORDERED: predniSONE 20 MG TABLET PO ONE (09:00)
[2019-12-11] MEDS ORDERED: DEXTROSE 50% 25 GM / 50ML DISP.SYRIN. IV PRN (09:00)
--- NOTE | 2019-12-11 09:15 | PDOC ---
DATE OF SERVICE DATE: 12/11/19 TIME: 09:14 SUBJECTIVE ROS feeling Better, covid negative , transferred out of icu OBJECTIVE Vital Signs Vital Signs Date Time Temp Pulse Resp B/P (MAP) Pulse Ox O2 Delivery O2 Flow Rate FiO2 12/11/19 08:00 97 Nasal Cannula 3.0 12/11/19 07:00 64 24 168/78 (108) 12/11/19 04:00 97.4 97.4 I & 0 Intake and Output 12/11/19 07:00 Intake Total 150 ml Output Total 1505 ml Balance -1355 ml IV Total 150 ml Output Urine Total 1505 ml # Bowel Movements 1 PHYSICAL EXAM Physical Exam GEN : NAD HEENT: OM moist, O2 by [place] NECK: Supple. LUNGS: Brian rhonchi R> L HEART: S1, S2. ABDOMEN: Obese. no tenderness. : Vital EXTREMITIES: No clubbing, cyanosis or gross edema. SKIN: Warm to touch without signs of rash. NEUROLOGIC alert DIAGNOSIS/ASSESSMENT Assessment & Plan MICHELLE- Improving, stable , peaked at 3.4 Cr 1.2, E Lytes stable Supportive care, avoid nephrotoxins, strict I/O HypoMg- Normal Mg UTI -, Cx negative , per ID Acute hypoxic respiratory failure, likely secondary acute diastolic chf, acute lung injury/acute respiratory distress syndrome resulting from acute diver ticulitis with contained perforation and possible aspiration. Improving, Currently on O2 by [place] Acute Diverticulitis with contained perforation. Hx of Hep C Cirrhosis HypoCalcemia- Normal after correcting for albumin HypoAlbuminemia - severe Sepsis - Improving COMMENT/RELEVANT DATA Meds Current Medications Medications (Trade) Dose Ordered Sig/Ubaldo Start Time Stop Time Status Last Admin Dose Admin Albumin Human 500 ml @ 125 mls/hr 1X ONCE 12/06/19 16:00 12/06/19 19:59 DC 12/06/19 16:42 125 MLS/HR Albuterol Sulfate (Ventolin Neb Soln) 2.5 mg 1X ONCE 12/04/19 02:15 12/04/19 02:16 DC 12/04/19 02:42 2.5 MG Albuterol/ Ipratropium (Duoneb) 3 ml RTQID 12/04/19 17:00 12/11/19 08:00 3 ML Amoxicillin/ Clavulanate Potassium (Augmentin 875/ 125mg) 1 tab BID 12/11/19 09:00 12/11/19 08:31 1 TAB Benzonatate (Tessalon Perle) 100 mg QHY075 12/05/19 09:00 12/11/19 08:31 100 MG Cefepime HCl (Maxipime) 2 gm Q12HR 12/02/19 14:00 12/03/19 06:41 DC 12/02/19 21:37 2 GM Ciprofloxacin/ Dextrose 200 ml @ 200 mls/hr DAILY 12/02/19 09:00 UNV Daptomycin 440 mg/ Sodium Chloride 50 ml @ 100 mls/hr QODAY 12/03/19 09:00 12/06/19 07:48 DC 12/05/19 09:12 100 MLS/HR Dextrose (Dextrose 50%-Water Syringe) 12.5 gm PRN Q15MIN PRN 12/11/19 09:00 Dextrose/Sodium Chloride 1,000 ml @ 100 mls/hr Q10H 12/03/19 11:45 12/03/19 11:44 DC Dobutamine HCl/ Dextrose 250 ml @ 0 mls/hr CONT PRN 12/02/19 13:30 12/11/19 08:54 DC Enoxaparin Sodium (Lovenox 30mg Syringe) 30 mg Q24H 12/03/19 16:00 12/10/19 16:26 30 MG Enoxaparin Sodium (Lovenox 40mg Syringe) 40 mg Q24H 12/01/19 16:00 12/03/19 11:15 DC 12/02/19 16:53 40 MG Famotidine (Pepcid) 20 mg QHS 12/09/19 21:00 12/10/19 21:06 20 MG Fentanyl Citrate (Fentanyl 2ml Vial) 75 mcg 1X ONCE 12/01/19 10:45 12/01/19 10:46 DC 12/01/19 10:50 75 MCG Fluconazole/ Sodium Chloride 100 ml @ 100 mls/hr Q24H 12/03/19 06:30 12/06/19 07:57 DC 12/06/19 06:31 100 MLS/HR Furosemide (Lasix) 60 mg 1X ONCE 12/07/19 15:30 12/07/19 15:31 DC 12/07/19 15:48 60 MG Hydromorphone HCl (Dilaudid) 1 mg PRN Q4HRS PRN 12/01/19 15:30 12/07/19 15:22 DC 12/06/19 00:40 1 MG Info (Icu Electrolyte Protocol) 1 ea DAILY 12/03/19 09:00 12/11/19 08:35 1 EA Insulin Human Lispro (HumaLOG) 0-5 UNITS TIDACHC 12/11/19 11:30 Iohexol (Omnipaque 300 Mg/ml) 75 ml 1X ONCE 12/01/19 09:45 12/01/19 09:46 DC 12/01/19 10:10 75 ML Lactobacillus Rhamnosus (Culturelle) 1 cap BID 12/09/19 21:00 12/11/19 08:31 1 CAP Lactulose (Lactulose) 20 gm PRN Q12HR PRN 12/02/19 13:30 Linezolid/Dextrose 300 ml @ 300 mls/hr Q12HR 12/06/19 09:00 12/10/19 08:57 DC 12/09/19 20:38 300 MLS/HR Lorazepam (Ativan Inj) 0.5 mg PRN Q6HRS PRN 12/02/19 13:30 12/08/19 10:32 0.5 MG Magnesium Sulfate 50 ml @ 25 mls/hr 1X ONCE 12/06/19 11:15 12/06/19 13:35 DC Meropenem 500 mg/ Sodium Chloride 50 ml @ 100 mls/hr Q8HRS 12/05/19 07:00 12/06/19 07:48 DC 12/06/19 05:26 100 MLS/HR Methylprednisolone Sodium Succinate (SOLU-Medrol 40MG VIAL) 40 mg DAILY 12/09/19 11:00 12/11/19 08:54 DC 12/10/19 09:55 40 MG Metronidazole 100 ml @ 100 mls/hr Q12HR 12/01/19 21:00 12/03/19 06:41 DC 12/02/19 21:36 100 MLS/HR Micafungin Sodium 100 mg/Dextrose 100 ml @ 100 mls/hr Q24H 12/06/19 10:00 12/10/19 08:57 DC 12/09/19 11:51 100 MLS/HR Morphine Sulfate (Morphine Sulfate) 4 mg PRN Q2HR PRN 12/01/19 10:45 12/01/19 15:26 DC 12/01/19 13:37 4 MG Naloxone HCl (Narcan) 0.4 mg PRN Q2MIN PRN 12/06/19 05:00 12/06/19 05:19 0.4 MG Nicotine (Nicoderm Cq 21mg) 1 patch DAILY 12/03/19 09:00 12/11/19 08:54 DC Norepinephrine Bitartrate 8 mg/ Dextrose 258 ml @ 14.067 mls/ hr CONT PRN 12/02/19 16:15 12/11/19 08:54 DC 12/04/19 16:29 16.881 MLS/HR Ondansetron HCl (Zofran) 4 mg PRN Q6HRS PRN 12/02/19 13:30 Piperacillin Sod/ Tazobactam Sod 3.375 gm/Sodium Chloride 50 ml @ 100 mls/hr Q6HRS 12/06/19 08:00 12/11/19 07:39 DC 12/11/19 00:18 100 MLS/HR Potassium Chloride/Water 100 ml @ 100 mls/hr Q1H 12/05/19 10:00 12/05/19 13:59 DC 12/05/19 15:28 100 MLS/HR Prednisone (Prednisone) 60 mg 1X ONCE 12/11/19 09:00 12/11/19 09:09 DC Prochlorperazine Edisylate (Compazine) 10 mg PRN Q6HRS PRN 12/01/19 23:30 Psyllium Hydrophilic Mucilloid (Metamucil Fiber Packet) 1 pkt QPM 12/01/19 18:00 12/10/19 18:25 1 PKT Ringer's Solution 1,000 ml @ 75 mls/hr [id number] 12/05/19 09:00 12/07/19 15:22 DC 12/07/19 00:08 75 MLS/HR Senna/Docusate Sodium (Senna Plus) 1 tab BID 12/02/19 14:00 12/09/19 20:38 1 TAB Sodium Bicarbonate 50 meq/Dextrose/ Sodium Chloride 1,050 ml @ 100 mls/hr [id number] 12/03/19 12:00 12/05/19 09:00 DC 12/05/19 08:36 100 MLS/HR Sodium Chloride 500 ml @ 1,000 mls/hr PRN Q30MIN PRN 12/02/19 13:30 12/07/19 15:22 DC Lab Laboratory Tests Test 12/11/19 07:00 White Blood Count 8.0 x10^3/uL (4.0-11.0) Red Blood Count 4.52 x10^6/uL (3.50-5.40) Hemoglobin 10.2 g/dL (12.0-15.5) Hematocrit 31.6 % (36.0-47.0) Mean Corpuscular Volume 70 fL (79-100) Mean Corpuscular Hemoglobin 23 pg (25-35) Mean Corpuscular Hemoglobin Concent 32 g/dL (31-37) Red Cell Distribution Width 17.0 % (11.5-14.5) Platelet Count 114 x10^3/uL (140-400) Neutrophils (%) (Auto) 83 % (31-73) Lymphocytes (%) (Auto) 13 % (24-48) Monocytes (%) (Auto) 3 % (0-9) Eosinophils (%) (Auto) 0 % (0-3) Basophils (%) (Auto) 1 % (0-3) Neutrophils # (Auto) 6.6 x10^3/uL (1.8-7.7) Lymphocytes # (Auto) 1.1 x10^3/uL (1.0-4.8) Monocytes # (Auto) 0.2 x10^3/uL (0.0-1.1) Eosinophils # (Auto) 0.0 x10^3/uL (0.0-0.7) Basophils # (Auto) 0.0 x10^3/uL (0.0-0.2) Sodium Level 136 mmol/L (136-145) Potassium Level 4.2 mmol/L (3.5-5.1) Chloride Level 104 mmol/L (98-107) Carbon Dioxide Level 28 mmol/L (21-32) Anion Gap 4 (6-14) Blood Urea Nitrogen 59 mg/dL (7-20) Creatinine 1.2 mg/dL (0.6-1.0) Estimated GFR (Cockcroft-Gault) 45.7 BUN/Creatinine Ratio 49 (6-20) Glucose Level 121 mg/dL (70-99) Calcium Level 8.1 mg/dL (8.5-10.1) Total Bilirubin 2.7 mg/dL (0.2-1.0) Aspartate Amino Transf (AST/SGOT) 55 U/L (15-37) Alanine Aminotransferase (ALT/SGPT) 31 U/L (14-59) Alkaline Phosphatase 97 U/L (46-116) Total Protein 6.1 g/dL (6.4-8.2) Albumin 1.5 g/dL (3.4-5.0) Albumin/Globulin Ratio 0.3 (1.0-1.7) Results All relevant outside records, renal labs, imaging studies, telemetry/EKG's were reviewed. Justicifation of Admission Dx: Justifications for Admission: Justification of Admission Dx: Yes ANA PALOMINO MD Dec 11, 2019 09:15
--- NOTE | 2019-12-11 09:22 | PDOC ---
[employer] PROGRESS NOTE Date of Service DOS: DATE: 12/11/19 TIME: 09:20 Chief Complaint Chief Complaint Assessment/Plan Acute pulmonary edema with bilateral infiltrates seen on chest xray - unchanged compared to 12/06/2019 chest x-ray. likely secondary acute diastolic chf, acute lung injury/acute respiratory distress syndrome resulting from acute diverticulitis with contained perforation and possible aspiration. Acute diverticulitis -with prior perforation, high risk. Continue with Zyvox and Zosyn. And micafungin. No surgery at this time Chronic anemia - possibly thalassemia versus chronic iron deficiency anemia related to occult GI blood loss vs 2/2 Hep C. Has never had a colonoscopy due to loss to follow up from lack of health insurance since 2015. Hepatitis C - chronic, not treated. GI consulted for consideration of anti- viral treatment, also needs alpha-fetoprotein level checked and ultrasound monitoring every 6 months. 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 MELD 15, 6% 3 month mortality. GI consulted Thrombocytopenialikely secondary to her cirrhosis. Will monitor Transaminitis likely secondary to hepatitis C versus acute diverticulitis, will monitor. GERD - on omeprazole Asymptomatic cholelithiasis elevated lactic acid without evidence of shock Sepsis secondary to diverticulitis, continue to follow hemodynamics closely I have discussed with nursing staff to reach out if she becomes unstable Acute pulmonary edema40 mg Lasix IV x1. Acute electrolyte derangementsreplace with IV 40 mEq of potassium Acute metabolic encephalopathytitrate bowel movements to at least 3 times per day. Schedule lactulose to titrate at least 2-3 bowel movements per day Chronic respiratory acidosis -appropriate compensation. Continue BiPAP PRN MICHELLE - vasomotor nephropathy, improving Severe protein-calorie malnutrition. Covid-19 pending Appreciate pulmonary evaluation. Patient was diuresed appropriately yesterday Repeat chest x-ray stable FEN - Clear liquid diet, PPX - lovenox FULL CODE Dispo -transferred to telemetry monitoring for Total total critical care time spent over 35 minutes History of Present Illness History of Present Illness Ms Joyner is a 59 year old female w/ PMHx diverticulosis with prior perforation from diverticulitis, former smoker, active Hepatitis C who was brought here by EMS from home due to left lower abdominal pain for 5 days prior to admission. The pain became more intensified so she called EMS to take her here for evaluation. Patient denies any fever, no diarrhea. Patient denies any cough. No exposure to anybody who tested positive for COVID-19. CT scan of the abdomen. Reveals diverticulitis in the sigmoid colon without perforation or leak. Also revealed cirrhosis with splenomegaly and cholelithiasis. Consulted ID, GI, General surgery, Pulmonology 12/01: No acute events reported overnight, case discussed with nursing staff patient in no acute distress no complaints during my visit 12/02: No acute events overnight. Patient remains on vasopressors for hemodynamic support. She has already received about 5 L of fluids. She has not had any bloody stools since transferred to the ICU. 12/03: No acute events overnight. Patient is tolerating clear liquid diet. Abdominal pain has improved. Patient's chart, labs, images were reviewed and discussed with RN 12/04: No acute events overnight. Patient seen and examined bedside. Patient is tolerating clear liquid diet. Patient does have some confusion on examination. Patient's chart, labs, images were reviewed and discussed with RN 12/05: No acute events overnight. Patient is tolerating BiPAP. No altered mental status at this time. Patient's chart, labs, images were reviewed and discussed with RN 12/06: No acute events overnight. Patient is tolerated nocturnal BiPAP. Patient's chart, labs, images were reviewed and discussed with RN 12/08: Seen in ICU on ventimask 12/min. She states she feels better. Very swollen in bilateral UE and LE. Afebrile. CXR unchanged. No pain complaints. 12/09: Seen in ICU on 4 L nasal cannulated oxygen. COVID-19 testing is pending. She says she is exhausted feels better. Still pretty swollen. Afebrile. cr down to 1.5 Seen in ICU on 3 L nasal cannulated oxygen. COVID-19 testing negative. She slept great but still required BiPAP overnight. Creatinine down to 1.2, WBC 8. Swelling improved. Having bowel movements. Her only complaint is loss of IV access and difficulty getting a new IV, she currently does not have IV access. Have discussed with ID to transition to oral antibiotics and to transition to oral steroids. She has no other IV needs at this time. plan: Continue DC planning. Wean O2 as tolerated continue nightly BiPAP continue oral meds Plan DC to rehab in the next 24 to 48 hours Vitals/I&O Vitals/I&O: Vital Signs Date Time Temp Pulse Resp B/P (MAP) Pulse Ox O2 Delivery O2 Flow Rate FiO2 12/11/19 08:00 97 Nasal Cannula 3.0 12/11/19 07:00 64 24 168/78 (108) 12/11/19 04:00 97.4 97.4 I & O 12/10/19 12/10/19 12/11/19 15:00 23:00 07:00 Intake Total 50 ml 50 ml 50 ml Output Total 155 ml 850 ml 500 ml Balance -105 ml -800 ml -450 ml Physical Exam Physical Exam: CONSTITUTIONAL: comfortable. She is in no acute distress. More alert. looks better HEENT: Normal conjunctivae. NECK: Supple. Good range of motion. LUNGS: clear HEART: S1, S2. ABDOMEN: Obese. It is mildly distended. There is no guarding. There is no gross tenderness. : Vital EXTREMITIES: Without clubbing, cyanosis or gross edema. SKIN: Warm to touch without signs of rash. NEUROLOGIC: She is alert, nonfocal but confused PSYCHIATRIC: Affect is appropriate. General: Alert, Cooperative Heart: Regular rate (SR), Normal S1, Normal S2, No murmurs Lungs: Crackles Abdomen: Soft, No tenderness Extremities: No cyanosis Skin: No breakdown Labs Labs: Laboratory Tests Test 12/11/19 07:00 White Blood Count 8.0 x10^3/uL (4.0-11.0) Red Blood Count 4.52 x10^6/uL (3.50-5.40) Hemoglobin 10.2 g/dL (12.0-15.5) Hematocrit 31.6 % (36.0-47.0) Mean Corpuscular Volume 70 fL (79-100) Mean Corpuscular Hemoglobin 23 pg (25-35) Mean Corpuscular Hemoglobin Concent 32 g/dL (31-37) Red Cell Distribution Width 17.0 % (11.5-14.5) Platelet Count 114 x10^3/uL (140-400) Neutrophils (%) (Auto) 83 % (31-73) Lymphocytes (%) (Auto) 13 % (24-48) Monocytes (%) (Auto) 3 % (0-9) Eosinophils (%) (Auto) 0 % (0-3) Basophils (%) (Auto) 1 % (0-3) Neutrophils # (Auto) 6.6 x10^3/uL (1.8-7.7) Lymphocytes # (Auto) 1.1 x10^3/uL (1.0-4.8) Monocytes # (Auto) 0.2 x10^3/uL (0.0-1.1) Eosinophils # (Auto) 0.0 x10^3/uL (0.0-0.7) Basophils # (Auto) 0.0 x10^3/uL (0.0-0.2) Sodium Level 136 mmol/L (136-145) Potassium Level 4.2 mmol/L (3.5-5.1) Chloride Level 104 mmol/L (98-107) Carbon Dioxide Level 28 mmol/L (21-32) Anion Gap 4 (6-14) Blood Urea Nitrogen 59 mg/dL (7-20) Creatinine 1.2 mg/dL (0.6-1.0) Estimated GFR (Cockcroft-Gault) 45.7 BUN/Creatinine Ratio 49 (6-20) Glucose Level 121 mg/dL (70-99) Calcium Level 8.1 mg/dL (8.5-10.1) Total Bilirubin 2.7 mg/dL (0.2-1.0) Aspartate Amino Transf (AST/SGOT) 55 U/L (15-37) Alanine Aminotransferase (ALT/SGPT) 31 U/L (14-59) Alkaline Phosphatase 97 U/L (46-116) Total Protein 6.1 g/dL (6.4-8.2) Albumin 1.5 g/dL (3.4-5.0) Albumin/Globulin Ratio 0.3 (1.0-1.7) Assessment and Plan Assessmemt and Plan Problems Medical Problems: (1) Diverticulitis Status: Acute Comment Review of Relevant I have reviewed the following items jing (where applicable) has been applied. Medications: Current Medications Medications (Trade) Dose Ordered Sig/Ubaldo Route PRN Reason Start Time Stop Time Status Last Admin Dose Admin Amoxicillin/ Clavulanate Potassium (Augmentin 875/ 125mg) 1 tab BID PO 12/11/19 09:00 12/11/19 08:31 Justicifation of Admission Dx: Justifications for Admission: Justification of Admission Dx: Yes BANDAR PRUITT MD Dec 11, 2019 09:21
--- NOTE | 2019-12-11 09:28 | PDOC ---
Date of Service: DATE: 12/11/19 TIME: 09:25 Subjective: Subjective: No specific abdominal complaints but "hurts all over from being poked and prodded." Objective: Objective: D/w nurse - no GI concerns, tolerating full liquids, moving out of ICU today. Vital Signs: Vital Signs Date Time Temp Pulse Resp B/P (MAP) Pulse Ox O2 Delivery O2 Flow Rate FiO2 12/11/19 08:00 97 Nasal Cannula 3.0 12/11/19 07:00 64 24 168/78 (108) 12/11/19 04:00 97.4 97.4 Labs: Laboratory Tests Test 12/11/19 07:00 White Blood Count 8.0 x10^3/uL Red Blood Count 4.52 x10^6/uL Hemoglobin 10.2 g/dL Hematocrit 31.6 % Mean Corpuscular Volume 70 fL Mean Corpuscular Hemoglobin 23 pg Mean Corpuscular Hemoglobin Concent 32 g/dL Red Cell Distribution Width 17.0 % Platelet Count 114 x10^3/uL Neutrophils (%) (Auto) 83 % Lymphocytes (%) (Auto) 13 % Monocytes (%) (Auto) 3 % Eosinophils (%) (Auto) 0 % Basophils (%) (Auto) 1 % Neutrophils # (Auto) 6.6 x10^3/uL Lymphocytes # (Auto) 1.1 x10^3/uL Monocytes # (Auto) 0.2 x10^3/uL Eosinophils # (Auto) 0.0 x10^3/uL Basophils # (Auto) 0.0 x10^3/uL Sodium Level 136 mmol/L Potassium Level 4.2 mmol/L Chloride Level 104 mmol/L Carbon Dioxide Level 28 mmol/L Anion Gap 4 Blood Urea Nitrogen 59 mg/dL Creatinine 1.2 mg/dL Estimated GFR (Cockcroft-Gault) 45.7 BUN/Creatinine Ratio 49 Glucose Level 121 mg/dL Calcium Level 8.1 mg/dL Total Bilirubin 2.7 mg/dL Aspartate Amino Transf (AST/SGOT) 55 U/L Alanine Aminotransferase (ALT/SGPT) 31 U/L Alkaline Phosphatase 97 U/L Total Protein 6.1 g/dL Albumin 1.5 g/dL Albumin/Globulin Ratio 0.3 PE: GEN: NAD - up in chair eating breakfast LUNGS: decreased, NC HEART: RRR ABD: NABS, S/ND/NT NEURO/PSYCH: A & O 3, flat A/P: Diverticulitis/microperf Resp failure, leukocytosis, MICHELLE, elevated LFTs - better Hep C cirrhosis (w/ stable anemia and thrombocytopenia) COVID negative -- Okay to ADAT. Outpt scopes and Hep C treatment. Justicifation of Admission Dx: Justifications for Admission: Justification of Admission Dx: Yes SKYE JARAMILLO Dec 11, 2019 09:28
--- NOTE | 2019-12-11 10:25 | PDOC ---
PULMONARY PROGRESS NOTES DATE: 12/11/19 TIME: 10:24 Subjective oxygenation has improved now on 4 liters N/C no increased SOB or Cough, No CP Vitals Vital Signs Date Time Temp Pulse Resp B/P (MAP) Pulse Ox O2 Delivery O2 Flow Rate FiO2 12/11/19 08:00 97 Nasal Cannula 3.0 12/11/19 07:00 64 24 168/78 (108) 12/11/19 04:00 97.4 97.4 ROS: No Nausea, No Chest Pain, No Abdominal Pain, No Increase Cough General: Alert, Oriented X4 HEENT: Other (nc at perrl bipap mask on neck no lad no thyromegaly) Lungs: Crackles Cardiovascular: S1, S2 Abdomen: Soft Neuro Exam: Alert Extremities: Other Skin: Warm Labs Laboratory Tests Test 12/09/19 13:00 12/10/19 04:40 12/11/19 07:00 C-Reactive Protein, Quantitative 96.0 mg/L (0-3.3) Triglycerides Level 76 mg/dL (0-150) Cholesterol Level < 50 mg/dL (0-200) LDL Cholesterol, Calculated mg/dL (0-100) VLDL Cholesterol, Calculated 15 mg/dL (0-40) Non-HDL Cholesterol Calculated mg/dL (0-129) HDL Cholesterol 7 mg/dL (40-60) Cholesterol/HDL Ratio Sodium Level 138 mmol/L (136-145) 136 mmol/L (136-145) Potassium Level 4.3 mmol/L (3.5-5.1) 4.2 mmol/L (3.5-5.1) Chloride Level 104 mmol/L (98-107) 104 mmol/L (98-107) Carbon Dioxide Level 29 mmol/L (21-32) 28 mmol/L (21-32) Anion Gap 5 (6-14) 4 (6-14) Blood Urea Nitrogen 65 mg/dL (7-20) 59 mg/dL (7-20) Creatinine 1.5 mg/dL (0.6-1.0) 1.2 mg/dL (0.6-1.0) Estimated GFR (Cockcroft-Gault) 35.3 45.7 Glucose Level 127 mg/dL (70-99) 121 mg/dL (70-99) Calcium Level 7.9 mg/dL (8.5-10.1) 8.1 mg/dL (8.5-10.1) White Blood Count 8.0 x10^3/uL (4.0-11.0) Red Blood Count 4.52 x10^6/uL (3.50-5.40) Hemoglobin 10.2 g/dL (12.0-15.5) Hematocrit 31.6 % (36.0-47.0) Mean Corpuscular Volume 70 fL (79-100) Mean Corpuscular Hemoglobin 23 pg (25-35) Mean Corpuscular Hemoglobin Concent 32 g/dL (31-37) Red Cell Distribution Width 17.0 % (11.5-14.5) Platelet Count 114 x10^3/uL (140-400) Neutrophils (%) (Auto) 83 % (31-73) Lymphocytes (%) (Auto) 13 % (24-48) Monocytes (%) (Auto) 3 % (0-9) Eosinophils (%) (Auto) 0 % (0-3) Basophils (%) (Auto) 1 % (0-3) Neutrophils # (Auto) 6.6 x10^3/uL (1.8-7.7) Lymphocytes # (Auto) 1.1 x10^3/uL (1.0-4.8) Monocytes # (Auto) 0.2 x10^3/uL (0.0-1.1) Eosinophils # (Auto) 0.0 x10^3/uL (0.0-0.7) Basophils # (Auto) 0.0 x10^3/uL (0.0-0.2) BUN/Creatinine Ratio 49 (6-20) Total Bilirubin 2.7 mg/dL (0.2-1.0) Aspartate Amino Transf (AST/SGOT) 55 U/L (15-37) Alanine Aminotransferase (ALT/SGPT) 31 U/L (14-59) Alkaline Phosphatase 97 U/L (46-116) Total Protein 6.1 g/dL (6.4-8.2) Albumin 1.5 g/dL (3.4-5.0) Albumin/Globulin Ratio 0.3 (1.0-1.7) Laboratory Tests Test 12/11/19 07:00 White Blood Count 8.0 x10^3/uL (4.0-11.0) Red Blood Count 4.52 x10^6/uL (3.50-5.40) Hemoglobin 10.2 g/dL (12.0-15.5) Hematocrit 31.6 % (36.0-47.0) Mean Corpuscular Volume 70 fL (79-100) Mean Corpuscular Hemoglobin 23 pg (25-35) Mean Corpuscular Hemoglobin Concent 32 g/dL (31-37) Red Cell Distribution Width 17.0 % (11.5-14.5) Platelet Count 114 x10^3/uL (140-400) Neutrophils (%) (Auto) 83 % (31-73) Lymphocytes (%) (Auto) 13 % (24-48) Monocytes (%) (Auto) 3 % (0-9) Eosinophils (%) (Auto) 0 % (0-3) Basophils (%) (Auto) 1 % (0-3) Neutrophils # (Auto) 6.6 x10^3/uL (1.8-7.7) Lymphocytes # (Auto) 1.1 x10^3/uL (1.0-4.8) Monocytes # (Auto) 0.2 x10^3/uL (0.0-1.1) Eosinophils # (Auto) 0.0 x10^3/uL (0.0-0.7) Basophils # (Auto) 0.0 x10^3/uL (0.0-0.2) Sodium Level 136 mmol/L (136-145) Potassium Level 4.2 mmol/L (3.5-5.1) Chloride Level 104 mmol/L (98-107) Carbon Dioxide Level 28 mmol/L (21-32) Anion Gap 4 (6-14) Blood Urea Nitrogen 59 mg/dL (7-20) Creatinine 1.2 mg/dL (0.6-1.0) Estimated GFR (Cockcroft-Gault) 45.7 BUN/Creatinine Ratio 49 (6-20) Glucose Level 121 mg/dL (70-99) Calcium Level 8.1 mg/dL (8.5-10.1) Total Bilirubin 2.7 mg/dL (0.2-1.0) Aspartate Amino Transf (AST/SGOT) 55 U/L (15-37) Alanine Aminotransferase (ALT/SGPT) 31 U/L (14-59) Alkaline Phosphatase 97 U/L (46-116) Total Protein 6.1 g/dL (6.4-8.2) Albumin 1.5 g/dL (3.4-5.0) Albumin/Globulin Ratio 0.3 (1.0-1.7) Medications Active Scripts Medications Dose Route/Sig Max Daily Dose Days Date Category Klor-Con M20 (Potassium Chloride) 20 Meq Tab.er.prt 20 Meq PO DAILYWBKFT 10/14/15 Rx Oxycodone-Acetaminophen 5-325 (Oxycodone Hcl/Acetaminophen) 1 Each Tablet 1 Tab PO PRN Q4HRS PRN 10/14/15 Rx Mag-Oxide (Magnesium Oxide) 400 Mg Tablet 400 Mg PO DAILY 10/14/15 Rx Lisinopril 20 Mg Tablet 20 Mg PO DAILY 10/14/15 Rx Tylenol (Acetaminophen) 325 Mg Tablet 650 Mg PO PRN Q4-6HRS PRN 10/05/15 Reported NICODERM CQ 7mg (Nicotine) 1 Each Patch.td24 1 Patch TD DAILY 10/02/15 Rx Slow Release Iron (Ferrous Sulfate) 142 Mg Tablet.er 142 Mg PO DAILYWBKFT 10/02/15 Rx Comments cxr reviewed 12/08/2019 bilateral perihilar and basilar opacities.no change Impression . IMPRESSION: 1. Acute hypoxic respiratory failure, likely secondary acute diastolic chf, acute lung injury/acute respiratory distress syndrome resulting from acute diverticulitis with contained perforation and possible aspiration--improved 2. Underlying chronic obstructive pulmonary disease. Unknown FEV1. 3. Abnormal chest x-ray -ongoing 4. Acute diverticulitis with contained perforation. 5. Prerenal azotemia- improving 6. History of cirrhosis with splenomegaly and cholelithiasis. 7. Severe protein-calorie malnutrition. 8. Thrombocytopenia, likely sepsis induced. improving 9. Marked leukocytosis secondary to infectious etiology. improving 10. Covid-19 neg Plan . Continue supplemental oxygen currently 4 liters N/C and with BiPAP PRN at night, setting and 02 titration, keep saturation 90% Continue antibiotics per ID, follow cultures Monitor renal function -- cr. is improving Monitor the clinical response to treatment. Continue nutrition per GI-- clear liquids DVT and stress ulcer prophylaxis. Covid-19 neg continue steroids f/u cxr in am D/W RN and RT LAUREN GONZALEZ MD Dec 11, 2019 10:25
--- NOTE | 2019-12-11 11:17 | PDOC ---
JOHANNE ALLEN NEUROSCIENCE SPECIALIST 12/11/19 1117: CARDIO Progress Notes Date and Time Date of Service 12/11/2019 Time of Evaluation 1000 Subjective Subjective: No Chest Pain, No shortness of breath, No Palpitations, Other (feels better today) Vitals Vitals Vital Signs Date Time Temp Pulse Resp B/P (MAP) Pulse Ox O2 Delivery O2 Flow Rate FiO2 12/11/19 08:00 97 Nasal Cannula 3.0 12/11/19 07:00 64 24 168/78 (108) 12/11/19 04:00 97.4 97.4 Weight Weight [ ] Input and Output Intake and Output Intake and Output 12/11/19 07:00 Intake Total 150 ml Output Total 1505 ml Balance -1355 ml IV Total 150 ml Output Urine Total 1505 ml # Bowel Movements 1 Laboratory Labs Laboratory Tests Test 12/11/19 07:00 White Blood Count 8.0 x10^3/uL (4.0-11.0) Red Blood Count 4.52 x10^6/uL (3.50-5.40) Hemoglobin 10.2 g/dL (12.0-15.5) Hematocrit 31.6 % (36.0-47.0) Mean Corpuscular Volume 70 fL (79-100) Mean Corpuscular Hemoglobin 23 pg (25-35) Mean Corpuscular Hemoglobin Concent 32 g/dL (31-37) Red Cell Distribution Width 17.0 % (11.5-14.5) Platelet Count 114 x10^3/uL (140-400) Neutrophils (%) (Auto) 83 % (31-73) Lymphocytes (%) (Auto) 13 % (24-48) Monocytes (%) (Auto) 3 % (0-9) Eosinophils (%) (Auto) 0 % (0-3) Basophils (%) (Auto) 1 % (0-3) Neutrophils # (Auto) 6.6 x10^3/uL (1.8-7.7) Lymphocytes # (Auto) 1.1 x10^3/uL (1.0-4.8) Monocytes # (Auto) 0.2 x10^3/uL (0.0-1.1) Eosinophils # (Auto) 0.0 x10^3/uL (0.0-0.7) Basophils # (Auto) 0.0 x10^3/uL (0.0-0.2) Sodium Level 136 mmol/L (136-145) Potassium Level 4.2 mmol/L (3.5-5.1) Chloride Level 104 mmol/L (98-107) Carbon Dioxide Level 28 mmol/L (21-32) Anion Gap 4 (6-14) Blood Urea Nitrogen 59 mg/dL (7-20) Creatinine 1.2 mg/dL (0.6-1.0) Estimated GFR (Cockcroft-Gault) 45.7 BUN/Creatinine Ratio 49 (6-20) Glucose Level 121 mg/dL (70-99) Calcium Level 8.1 mg/dL (8.5-10.1) Total Bilirubin 2.7 mg/dL (0.2-1.0) Aspartate Amino Transf (AST/SGOT) 55 U/L (15-37) Alanine Aminotransferase (ALT/SGPT) 31 U/L (14-59) Alkaline Phosphatase 97 U/L (46-116) Total Protein 6.1 g/dL (6.4-8.2) Albumin 1.5 g/dL (3.4-5.0) Albumin/Globulin Ratio 0.3 (1.0-1.7) Microbiology Micro Microbiology 12/09/19 Blood Culture - Preliminary, Resulted NO GROWTH AFTER 1 DAY 12/02/19 Urine Culture - Final, Complete Review of Systems Constitutional: yes: weakness, alert Ears/Nose/Throat: Yes: no symptom reported Eyes: Yes: no symptom reported Pulmonary: Yes no symptom reported Cardiovascular: Yes no symptom reported Gastrointestional: Yes: no symptom reported Musculoskeletal: Yes: no symptom reported Psychiatric/Neurological: Yes: no symptom reported Physical Exam HEENT: Neck Supple W Full Motion Chest: Symmetric LUNGS: Other (diminsihed) Heart: RRR (SR) Abdomen: Other (soft) Extremities: Other (anasarca) Neurology: alert, oriented, follow commands Assessment Assessment 1. Acute respiratory failure with acute diastolic CHF and possible aspiration PNA. COVID neg. compensated 2. Mild troponin elevation; peak 0.2. Most probably type II, demand ischemia. Echo with preserved LV systolic function. 3. Acute diverticulitis, contained perforation 4. Leukocytosis, lactic acidosis, sUTI, epsis 5. Thrombocytopenia: PLT better at 114 6. MICHELLE; much better 7. H/o cirrhosis 8. Anasarca with cirrhosis and severe protein-calorie malnutrition. 9. Arrhythmia: noted prior NSVT, nothing significant overnight. Recommendations 1. O2 support. BiPAP PRN 2. Ongoing antibiotic therapy 3. Lasix PRN. Check Mg 4. Consider outpatient ischemic workup 5. BP stable, no arrhythmias. Will follow as needed. Justicifation of Admission Dx: Justifications for Admission: Justification of Admission Dx: Yes LILIANA NANCE MD 12/11/191957: CARDIO Progress Notes Assessment Assessment Patient seen and examined. Agree with ENTRY EXAMINER's assessment and plan. Acute respiratory failure improved. COVID test negative. Pulmonary team following. Acute on chronic diastolic heart failure better compensated. Telemetry did not show any significant arrhythmias. Slight troponin elevation probably demand ischemia. We will consider outpatient ischemic evaluation. JOHANNE ALLEN APRN Dec 11, 2019 11:17 LILIANA NANCE MD Dec 11, 2019 19:58
[2019-12-11] MEDS: INSULIN LISPRO 300 UNITS/3 ML VIAL. SQ SCH ×3 (11:30→21:00)
[2019-12-11] MEDS ORDERED: FUROSEMIDE 40 MG TABLET. PO ONE (11:30)
--- NOTE | 2019-12-11 11:30 | PDOC ---
SURGICAL PROGRESS NOTE DATE: 12/11/19 TIME: 11:29 Subjective Pt with c/o feeling sore all over, kishan some PO, min abd pain Vital Signs Vital Signs Date Time Temp Pulse Resp B/P (MAP) Pulse Ox O2 Delivery O2 Flow Rate FiO2 12/11/19 08:00 97 Nasal Cannula 3.0 12/11/19 07:00 64 24 168/78 (108) 12/11/19 04:00 97.4 97.4 I&O Intake and Output 12/11/19 07:00 Intake Total 150 ml Output Total 1505 ml Balance -1355 ml IV Total 150 ml Output Urine Total 1505 ml # Bowel Movements 1 General: Alert, Cooperative, No acute distress Abdomen: Soft, No tenderness Labs Laboratory Tests Test 12/09/19 13:00 12/10/19 04:40 12/11/19 07:00 C-Reactive Protein, Quantitative 96.0 mg/L (0-3.3) Triglycerides Level 76 mg/dL (0-150) Cholesterol Level < 50 mg/dL (0-200) LDL Cholesterol, Calculated mg/dL (0-100) VLDL Cholesterol, Calculated 15 mg/dL (0-40) Non-HDL Cholesterol Calculated mg/dL (0-129) HDL Cholesterol 7 mg/dL (40-60) Cholesterol/HDL Ratio Sodium Level 138 mmol/L (136-145) 136 mmol/L (136-145) Potassium Level 4.3 mmol/L (3.5-5.1) 4.2 mmol/L (3.5-5.1) Chloride Level 104 mmol/L (98-107) 104 mmol/L (98-107) Carbon Dioxide Level 29 mmol/L (21-32) 28 mmol/L (21-32) Anion Gap 5 (6-14) 4 (6-14) Blood Urea Nitrogen 65 mg/dL (7-20) 59 mg/dL (7-20) Creatinine 1.5 mg/dL (0.6-1.0) 1.2 mg/dL (0.6-1.0) Estimated GFR (Cockcroft-Gault) 35.3 45.7 Glucose Level 127 mg/dL (70-99) 121 mg/dL (70-99) Calcium Level 7.9 mg/dL (8.5-10.1) 8.1 mg/dL (8.5-10.1) White Blood Count 8.0 x10^3/uL (4.0-11.0) Red Blood Count 4.52 x10^6/uL (3.50-5.40) Hemoglobin 10.2 g/dL (12.0-15.5) Hematocrit 31.6 % (36.0-47.0) Mean Corpuscular Volume 70 fL (79-100) Mean Corpuscular Hemoglobin 23 pg (25-35) Mean Corpuscular Hemoglobin Concent 32 g/dL (31-37) Red Cell Distribution Width 17.0 % (11.5-14.5) Platelet Count 114 x10^3/uL (140-400) Neutrophils (%) (Auto) 83 % (31-73) Lymphocytes (%) (Auto) 13 % (24-48) Monocytes (%) (Auto) 3 % (0-9) Eosinophils (%) (Auto) 0 % (0-3) Basophils (%) (Auto) 1 % (0-3) Neutrophils # (Auto) 6.6 x10^3/uL (1.8-7.7) Lymphocytes # (Auto) 1.1 x10^3/uL (1.0-4.8) Monocytes # (Auto) 0.2 x10^3/uL (0.0-1.1) Eosinophils # (Auto) 0.0 x10^3/uL (0.0-0.7) Basophils # (Auto) 0.0 x10^3/uL (0.0-0.2) BUN/Creatinine Ratio 49 (6-20) Total Bilirubin 2.7 mg/dL (0.2-1.0) Aspartate Amino Transf (AST/SGOT) 55 U/L (15-37) Alanine Aminotransferase (ALT/SGPT) 31 U/L (14-59) Alkaline Phosphatase 97 U/L (46-116) Total Protein 6.1 g/dL (6.4-8.2) Albumin 1.5 g/dL (3.4-5.0) Albumin/Globulin Ratio 0.3 (1.0-1.7) Laboratory Tests Test 12/11/19 07:00 White Blood Count 8.0 x10^3/uL (4.0-11.0) Red Blood Count 4.52 x10^6/uL (3.50-5.40) Hemoglobin 10.2 g/dL (12.0-15.5) Hematocrit 31.6 % (36.0-47.0) Mean Corpuscular Volume 70 fL (79-100) Mean Corpuscular Hemoglobin 23 pg (25-35) Mean Corpuscular Hemoglobin Concent 32 g/dL (31-37) Red Cell Distribution Width 17.0 % (11.5-14.5) Platelet Count 114 x10^3/uL (140-400) Neutrophils (%) (Auto) 83 % (31-73) Lymphocytes (%) (Auto) 13 % (24-48) Monocytes (%) (Auto) 3 % (0-9) Eosinophils (%) (Auto) 0 % (0-3) Basophils (%) (Auto) 1 % (0-3) Neutrophils # (Auto) 6.6 x10^3/uL (1.8-7.7) Lymphocytes # (Auto) 1.1 x10^3/uL (1.0-4.8) Monocytes # (Auto) 0.2 x10^3/uL (0.0-1.1) Eosinophils # (Auto) 0.0 x10^3/uL (0.0-0.7) Basophils # (Auto) 0.0 x10^3/uL (0.0-0.2) Sodium Level 136 mmol/L (136-145) Potassium Level 4.2 mmol/L (3.5-5.1) Chloride Level 104 mmol/L (98-107) Carbon Dioxide Level 28 mmol/L (21-32) Anion Gap 4 (6-14) Blood Urea Nitrogen 59 mg/dL (7-20) Creatinine 1.2 mg/dL (0.6-1.0) Estimated GFR (Cockcroft-Gault) 45.7 BUN/Creatinine Ratio 49 (6-20) Glucose Level 121 mg/dL (70-99) Calcium Level 8.1 mg/dL (8.5-10.1) Total Bilirubin 2.7 mg/dL (0.2-1.0) Aspartate Amino Transf (AST/SGOT) 55 U/L (15-37) Alanine Aminotransferase (ALT/SGPT) 31 U/L (14-59) Alkaline Phosphatase 97 U/L (46-116) Total Protein 6.1 g/dL (6.4-8.2) Albumin 1.5 g/dL (3.4-5.0) Albumin/Globulin Ratio 0.3 (1.0-1.7) Problem List Problems Medical Problems: (1) Diverticulitis Status: Acute Assessment/Plan appears to be improving ADAT no surgical plans. Justicifation of Admission Dx: Justifications for Admission: Justification of Admission Dx: Yes CRISTIAN LUIS MD Dec 11, 2019 11:30
--- NOTE | 2019-12-11 14:46 | NUR ---
SS following up with discharge planning. SS reviewed pt chart and discussed with pt RN. Pt currently requiring oxygen. COVID19 negative. SS faxed COVID19 results to [facility]. Pt accepted at [facility], ; fax [phone]. Pt insurance stating that pt needs to meet out of pocket max of $2200 before [facility] unit will be covered by insurance. SS met with pt and discussed with pt's sister via phone. Pt's sister reporting that she will take care of the $2200 for rehab. Pt's sister to call facility after work and discuss and provide payment. Pt transferred to room 208. SS will continue to follow for discharge planning.
[2019-12-11] MEDS: ENOXAPARIN 40 MG/0.4 ML SYRINGE. SQ SCH (18:37)
[2019-12-11] MEDS: PSYLLIUM HUSK (SUGAR FREE) 1 PKT PACKET PO SCH (18:40)
[2019-12-11] MEDS: FAMOTIDINE 20 MG TABLET. PO SCH (21:05)
[2019-12-12 03:48] VITALS: BP 167/83
[2019-12-12 07:00] VITALS: BP 179/92
[2019-12-12] MEDS: INSULIN LISPRO 300 UNITS/3 ML VIAL. SQ SCH ×2 (07:30→11:30)
[2019-12-12] MEDS: IPRATRPIUM/ALBUTEROL 0.5/2.5MG 3 ML NEBU. NEB SCH ×3 (07:47→16:10)
[2019-12-12] MEDS: ELECTROLYTE (ICU) PROTOCOL. MC SCH (07:56)
--- NOTE | 2019-12-12 08:35 | PDOC ---
Infectious Disease Note Subjective Subjective pt says she is feeling better, ROS ROS no n/v/d/ Vital Sign Vital Signs Vital Signs Date Time Temp Pulse Resp B/P (MAP) Pulse Ox O2 Delivery O2 Flow Rate FiO2 12/12/19 07:48 97 Nasal Cannula 3.0 12/12/19 07:00 97.5 68 16 179/92 (121) 97.5 Physical Exam PHYSICAL EXAM CONSTITUTIONAL: comfortable. She is in no acute distress. More alert. looks better HEENT: Normal conjunctivae. NECK: Supple. Good range of motion. LUNGS: clear HEART: S1, S2. ABDOMEN: Obese. It is mildly distended. There is no guarding. There is no g ross tenderness. EC fistula + : Vital EXTREMITIES: Without clubbing, cyanosis or gross edema. SKIN: Warm to touch without signs of rash. NEUROLOGIC: She is alert, nonfocal but confused PSYCHIATRIC: Affect is appropriate. Labs Lab Laboratory Tests Test 12/11/19 12:09 12/11/19 16:55 12/11/19 20:42 12/12/19 07:42 Glucose (Fingerstick) 144 mg/dL (70-99) 118 mg/dL (70-99) 145 mg/dL (70-99) 96 mg/dL (70-99) Micro Microbiology 12/02/19 Urine Culture - Final, Complete Objective Assessment Sepsis - resolved Acute Hypoxic resp failure ,improved MICHELLE - improved Acute Sigmoid Diverticulitis Leukocytosis - better Lung infiltrates - stable Thrombocytopenia - better Encephalopathy Transaminitis- better CHF - elevated BNP Cirrhosis H/o Hep C Possible UTI but a lot of squamous cells -cults neg Ongoing tobacco abuse COVID neg Plan Plan of Care off antibiotics D/w nursing JENNI NOGUERA MD Dec 12, 2019 08:35
[2019-12-12] MEDS ORDERED: AMOXICILLIN/K CLAV 875/125MG TABLET. PO SCH (09:00)
[2019-12-12] MEDS: LACTOBACILLUS RHAMNOSUS GG 1 CAPSULE. PO SCH (09:13)
[2019-12-12] MEDS: SENNOSIDES/DOCUSATE 8.6/50MG TABLET. PO SCH (09:13)
[2019-12-12] MEDS: BENZONATATE 100 MG CAPSULE. PO SCH ×2 (09:13→14:02)
--- NOTE | 2019-12-12 10:32 | PDOC ---
Date of Service: DATE: 12/12/19 TIME: 10:28 Objective: Objective: Nurse concerned w/ shortness of breath, loose stools but pt unaware she's having stools - wondering if needs recheck for COVID. Tolerating full liquids. Vital Signs: Vital Signs Date Time Temp Pulse Resp B/P (MAP) Pulse Ox O2 Delivery O2 Flow Rate FiO2 12/12/19 07:48 97 Nasal Cannula 3.0 12/12/19 07:00 97.5 68 16 179/92 (121) 97.5 Labs: Laboratory Tests Test 12/11/19 12:09 12/11/19 16:55 12/11/19 20:42 12/12/19 07:42 Glucose (Fingerstick) 144 mg/dL 118 mg/dL 145 mg/dL 96 mg/dL Imaging: CXR 12/11 pending PE: GEN: on commode - observed from doorway LUNGS: has nasal cannula HEART: RR per monitor ABD: non-distended NEURO/PSYCH: awake and alert, doesn't say much today A/P: Diverticulitis/microperf, loose stools - PO atbx per ID Resp failure (COVID negative x 1) Hep C cirrhosis -- ?worse overall today Monitor stooling - can check stool tests if indicated. Will review w/ Dr. Ventura. Justicifation of Admission Dx: Justifications for Admission: Justification of Admission Dx: Yes SKYE JARAMILLO Dec 12, 2019 10:32
--- NOTE | 2019-12-12 10:38 | PDOC ---
DATE OF SERVICE DATE: 12/12/19 TIME: 10:36 SUBJECTIVE ROS states she had a large BM tis am OBJECTIVE Vital Signs Vital Signs Date Time Temp Pulse Resp B/P (MAP) Pulse Ox O2 Delivery O2 Flow Rate FiO2 12/12/19 07:48 97 Nasal Cannula 3.0 12/12/19 07:00 97.5 68 16 179/92 (121) 97.5 I & 0 Intake and Output 12/12/19 07:00 Intake Total 1120 ml Output Total 2200 ml Balance -1080 ml Intake Oral 1120 ml Output Urine Total 2200 ml PHYSICAL EXAM Physical Exam Physical Exam GEN : NAD HEENT: OM moist, O2 by NC NECK: Supple. LUNGS: Brian rhonchi R> L HEART: S1, S2. ABDOMEN: Obese. no tenderness. : Vital EXTREMITIES: No clubbing, cyanosis or gross edema. SKIN: Warm to touch without signs of rash. NEUROLOGIC alert DIAGNOSIS/ASSESSMENT Assessment & Plan MICHELLE- Improving, stable , peaked at 3.4 Cr 1.2, E Lytes stable , No labs this am Supportive care, avoid nephrotoxins, strict I/O UTI -, Cx negative , per ID Acute hypoxic respiratory failure, likely secondary acute diastolic chf, acute lung injury/acute respiratory distress syndrome resulting from acute diverticulitis with contained perforation and possible aspiration. Improving, Currently on O2 by IA Acute Diverticulitis with contained perforation. Hx of Hep C Cirrhosis HypoCalcemia- Normal after correcting for albumin HypoAlbuminemia - severe Sepsis - Improving COMMENT/RELEVANT DATA Meds Current Medications Medications (Trade) Dose Ordered Sig/Ubaldo Start Time Stop Time Status Last Admin Dose Admin Albumin Human 500 ml @ 125 mls/hr 1X ONCE 12/06/19 16:00 12/06/19 19:59 DC 12/06/19 16:42 125 MLS/HR Albuterol Sulfate (Ventolin Neb Soln) 2.5 mg 1X ONCE 12/04/19 02:15 12/04/19 02:16 DC 12/04/19 02:42 2.5 MG Albuterol/ Ipratropium (Duoneb) 3 ml RTQID 12/04/19 17:00 12/12/19 07:47 3 ML Amoxicillin/ Clavulanate Potassium (Augmentin 875/ 125mg) 1 tab BID 12/12/19 09:00 12/12/19 09:13 1 TAB Benzonatate (Tessalon Perle) 100 mg [id number] 12/05/19 09:00 12/12/19 09:13 100 MG Cefepime HCl (Maxipime) 2 gm Q12HR 12/02/19 14:00 12/03/19 06:41 DC 12/02/19 21:37 2 GM Ciprofloxacin/ Dextrose 200 ml @ 200 mls/hr DAILY 12/02/19 09:00 UNV Daptomycin 440 mg/ Sodium Chloride 50 ml @ 100 mls/hr QODAY 12/03/19 09:00 12/06/19 07:48 DC 12/05/19 09:12 100 MLS/HR Dextrose (Dextrose 50%-Water Syringe) 12.5 gm PRN Q15MIN PRN 12/11/19 09:00 Dextrose/Sodium Chloride 1,000 ml @ 100 mls/hr Q10H 12/03/19 11:45 12/03/19 11:44 DC Dobutamine HCl/ Dextrose 250 ml @ 0 mls/hr CONT PRN 12/02/19 13:30 12/11/19 08:54 DC Enoxaparin Sodium (Lovenox 30mg Syringe) 30 mg Q24H 12/03/19 16:00 12/11/19 09:44 DC 12/10/19 16:26 30 MG Enoxaparin Sodium (Lovenox 40mg Syringe) 40 mg Q24H 12/11/19 16:00 12/11/19 18:37 40 MG Famotidine (Pepcid) 20 mg QHS 12/09/19 21:00 12/11/19 21:05 20 MG Fentanyl Citrate (Fentanyl 2ml Vial) 75 mcg 1X ONCE 12/01/19 10:45 12/01/19 10:46 DC 12/01/19 10:50 75 MCG Fluconazole/ Sodium Chloride 100 ml @ 100 mls/hr Q24H 12/03/19 06:30 12/06/19 07:57 DC 12/06/19 06:31 100 MLS/HR Furosemide (Lasix) 40 mg 1X ONCE 12/11/19 11:30 12/11/19 11:31 DC 12/11/19 12:27 40 MG Hydromorphone HCl (Dilaudid) 1 mg PRN Q4HRS PRN 12/01/19 15:30 12/07/19 15:22 DC 12/06/19 00:40 1 MG Info (Icu Electrolyte Protocol) 1 ea DAILY 12/03/19 09:00 12/11/19 08:35 1 EA Insulin Human Lispro (HumaLOG) 0-5 UNITS TIDACHC 12/11/19 11:30 Iohexol (Omnipaque 300 Mg/ml) 75 ml 1X ONCE 12/01/19 09:45 12/01/19 09:46 DC 12/01/19 10:10 75 ML Lactobacillus Rhamnosus (Culturelle) 1 cap BID 12/09/19 21:00 12/12/19 09:13 1 CAP Lactulose (Lactulose) 20 gm PRN Q12HR PRN 12/02/19 13:30 Linezolid/Dextrose 300 ml @ 300 mls/hr Q12HR 12/06/19 09:00 12/10/19 08:57 DC 12/09/19 20:38 300 MLS/HR Lorazepam (Ativan Inj) 0.5 mg PRN Q6HRS PRN 12/02/19 13:30 12/08/19 10:32 0.5 MG Magnesium Sulfate 50 ml @ 25 mls/hr 1X ONCE 12/06/19 11:15 12/06/19 13:35 DC Meropenem 500 mg/ Sodium Chloride 50 ml @ 100 mls/hr Q8HRS 12/05/19 07:00 12/06/19 07:48 DC 12/06/19 05:26 100 MLS/HR Methylprednisolone Sodium Succinate (SOLU-Medrol 40MG VIAL) 40 mg DAILY 12/09/19 11:00 12/11/19 08:54 DC 12/10/19 09:55 40 MG Metronidazole 100 ml @ 100 mls/hr Q12HR 12/01/19 21:00 12/03/19 06:41 DC 12/02/19 21:36 100 MLS/HR Micafungin Sodium 100 mg/Dextrose 100 ml @ 100 mls/hr Q24H 12/06/19 10:00 12/10/19 08:57 DC 12/09/19 11:51 100 MLS/HR Morphine Sulfate (Morphine Sulfate) 4 mg PRN Q2HR PRN 12/01/19 10:45 12/01/19 15:26 DC 12/01/19 13:37 4 MG Naloxone HCl (Narcan) 0.4 mg PRN Q2MIN PRN 12/06/19 05:00 12/06/19 05:19 0.4 MG Nicotine (Nicoderm Cq 21mg) 1 patch DAILY 12/03/19 09:00 12/11/19 08:54 DC Norepinephrine Bitartrate 8 mg/ Dextrose 258 ml @ 14.067 mls/ hr CONT PRN 12/02/19 16:15 12/11/19 08:54 DC 12/04/19 16:29 16.881 MLS/HR Ondansetron HCl (Zofran) 4 mg PRN Q6HRS PRN 12/02/19 13:30 Piperacillin Sod/ Tazobactam Sod 3.375 gm/Sodium Chloride 50 ml @ 100 mls/hr Q6HRS 12/06/19 08:00 12/11/19 07:39 DC 12/11/19 00:18 100 MLS/HR Potassium Chloride/Water 100 ml @ 100 mls/hr Q1H 12/05/19 10:00 12/05/19 13:59 DC 12/05/19 15:28 100 MLS/HR Prednisone (Prednisone) 60 mg 1X ONCE 12/11/19 09:00 12/11/19 09:09 DC 12/11/19 10:50 60 MG Prochlorperazine Edisylate (Compazine) 10 mg PRN Q6HRS PRN 12/01/19 23:30 Psyllium Hydrophilic Mucilloid (Metamucil Fiber Packet) 1 pkt QPM 12/01/19 18:00 12/11/19 18:40 1 PKT Ringer's Solution 1,000 ml @ 75 mls/hr [id number] 12/05/19 09:00 12/07/19 15:22 DC 12/07/19 00:08 75 MLS/HR Senna/Docusate Sodium (Senna Plus) 1 tab BID 12/02/19 14:00 12/12/19 09:13 1 TAB Sodium Bicarbonate 50 meq/Dextrose/ Sodium Chloride 1,050 ml @ 100 mls/hr [id number] 12/03/19 12:00 12/05/19 09:00 DC 12/05/19 08:36 100 MLS/HR Sodium Chloride 500 ml @ 1,000 mls/hr PRN Q30MIN PRN 12/02/19 13:30 12/07/19 15:22 DC Lab Laboratory Tests Test 12/11/19 12:09 12/11/19 16:55 12/11/19 20:42 12/12/19 07:42 Glucose (Fingerstick) 144 mg/dL (70-99) 118 mg/dL (70-99) 145 mg/dL (70-99) 96 mg/dL (70-99) Results All relevant outside records, renal labs, imaging studies, telemetry/EKG's were reviewed. Justicifation of Admission Dx: Justifications for Admission: Justification of Admission Dx: Yes ANA PALOMINO MD Dec 12, 2019 10:38
--- NOTE | 2019-12-12 10:38 | RAD ---
PORTABLE CHEST 1V 12/12/2019 8:00 AM INDICATION: Pneumonia COMPARISON: 12/08/2019 TECHNIQUE: Portable frontal view of the chest is provided. FINDINGS: The cardiomediastinal silhouette is similar in appearance. There is improving aeration of the upper lobes as compared to prior examination. There is persistent mixed interstitial and alveolar airspace disease in the bilateral perihilar distribution. Lower lobes appear preserved. No pleural effusions or pneumothorax. IMPRESSION: Improving aeration of the lungs with persistent perihilar mixed interstitial and alveolar airspace disease. No new airspace consolidation. Electronically signed by: Shakira Otoole MD (12/12/2019 10:34 AM) [id number]
[2019-12-12 10:55] VITALS: BP 194/74
--- NOTE | 2019-12-12 11:20 | PDOC ---
PULMONARY PROGRESS NOTES DATE: 12/12/19 TIME: 11:18 Subjective Continues on 4 liters N/C Nursing reports increased cough and SOB on exertion Vitals Vital Signs Date Time Temp Pulse Resp B/P (MAP) Pulse Ox O2 Delivery O2 Flow Rate FiO2 12/12/19 10:55 98.4 67 16 194/74 (114) 100 Nasal Cannula 3.0 98.4 ROS: No Nausea, No Chest Pain, No Abdominal Pain General: Alert, Oriented X4 HEENT: Other (nc at perrl bipap mask on neck no lad no thyromegaly) Lungs: Crackles Cardiovascular: S1, S2 Abdomen: Soft Neuro Exam: Alert Extremities: Other Skin: Warm Labs Laboratory Tests Test 12/11/19 07:00 12/11/19 12:09 12/11/19 16:55 12/11/19 20:42 White Blood Count 8.0 x10^3/uL (4.0-11.0) Red Blood Count 4.52 x10^6/uL (3.50-5.40) Hemoglobin 10.2 g/dL (12.0-15.5) Hematocrit 31.6 % (36.0-47.0) Mean Corpuscular Volume 70 fL (79-100) Mean Corpuscular Hemoglobin 23 pg (25-35) Mean Corpuscular Hemoglobin Concent 32 g/dL (31-37) Red Cell Distribution Width 17.0 % (11.5-14.5) Platelet Count 114 x10^3/uL (140-400) Neutrophils (%) (Auto) 83 % (31-73) Lymphocytes (%) (Auto) 13 % (24-48) Monocytes (%) (Auto) 3 % (0-9) Eosinophils (%) (Auto) 0 % (0-3) Basophils (%) (Auto) 1 % (0-3) Neutrophils # (Auto) 6.6 x10^3/uL (1.8-7.7) Lymphocytes # (Auto) 1.1 x10^3/uL (1.0-4.8) Monocytes # (Auto) 0.2 x10^3/uL (0.0-1.1) Eosinophils # (Auto) 0.0 x10^3/uL (0.0-0.7) Basophils # (Auto) 0.0 x10^3/uL (0.0-0.2) Sodium Level 136 mmol/L (136-145) Potassium Level 4.2 mmol/L (3.5-5.1) Chloride Level 104 mmol/L (98-107) Carbon Dioxide Level 28 mmol/L (21-32) Anion Gap 4 (6-14) Blood Urea Nitrogen 59 mg/dL (7-20) Creatinine 1.2 mg/dL (0.6-1.0) Estimated GFR (Cockcroft-Gault) 45.7 BUN/Creatinine Ratio 49 (6-20) Glucose Level 121 mg/dL (70-99) Calcium Level 8.1 mg/dL (8.5-10.1) Magnesium Level 2.0 mg/dL (1.8-2.4) Total Bilirubin 2.7 mg/dL (0.2-1.0) Aspartate Amino Transf (AST/SGOT) 55 U/L (15-37) Alanine Aminotransferase (ALT/SGPT) 31 U/L (14-59) Alkaline Phosphatase 97 U/L (46-116) Total Protein 6.1 g/dL (6.4-8.2) Albumin 1.5 g/dL (3.4-5.0) Albumin/Globulin Ratio 0.3 (1.0-1.7) Glucose (Fingerstick) 144 mg/dL (70-99) 118 mg/dL (70-99) 145 mg/dL (70-99) Test 12/12/19 07:42 Glucose (Fingerstick) 96 mg/dL (70-99) Laboratory Tests Test 12/11/19 12:09 12/11/19 16:55 12/11/19 20:42 12/12/19 07:42 Glucose (Fingerstick) 144 mg/dL (70-99) 118 mg/dL (70-99) 145 mg/dL (70-99) 96 mg/dL (70-99) Medications Active Scripts Medications Dose Route/Sig Max Daily Dose Days Date Category Klor-Con M20 (Potassium Chloride) 20 Meq Tab.er.prt 20 Meq PO [id number] 10/14/15 Rx Oxycodone-Acetaminophen 5-325 (Oxycodone Hcl/Acetaminophen) 1 Each Tablet 1 Tab PO PRN Q4HRS PRN 10/14/15 Rx Mag-Oxide (Magnesium Oxide) 400 Mg Tablet 400 Mg PO DAILY 10/14/15 Rx Lisinopril 20 Mg Tablet 20 Mg PO DAILY 10/14/15 Rx Tylenol (Acetaminophen) 325 Mg Tablet 650 Mg PO PRN Q4-6HRS PRN 10/05/15 Reported NICODERM CQ 7mg (Nicotine) 1 Each Patch.td24 1 Patch TD DAILY 10/02/15 Rx Slow Release Iron (Ferrous Sulfate) 142 Mg Tablet.er 142 Mg PO DAILYWBKFT 10/02/15 Rx Comments cxr reviewed12/12/2019 IMPRESSION: Improving aeration of the lungs with persistent perihilar mixed interstitial and alveolar airspace disease. No new airspace consolidation. Impression . IMPRESSION: 1. Acute hypoxic respiratory failure, likely secondary acute diastolic chf, acute lung injury/acute respiratory distress syndrome resulting from acute diverticulitis with contained perforation and possible aspiration--improved 2. Underlying chronic obstructive pulmonary disease. Unknown FEV1. 3. Abnormal chest x-ray -ongoing 4. Acute diverticulitis with contained perforation. 5. Prerenal azotemia- improving 6. History of cirrhosis with splenomegaly and cholelithiasis. 7. Severe protein-calorie malnutrition. 8. Thrombocytopenia, likely sepsis induced. improving 9. Marked leukocytosis secondary to infectious etiology. improving 10. Covid-19 neg Plan . Continue supplemental oxygen currently 4 liters N/C and with BiPAP PRN at night, setting reviewed and 02 titration, keep saturation 90% Continue antibiotics per ID, follow cultures Monitor renal function -- cr. is improving Monitor the clinical response to treatment. Continue nutrition per GI DVT and stress ulcer prophylaxis. Covid-19 neg continue steroids, pt. CXR today significantly improved, likely acute lung injury with good response to steroids D/W RN and RT LAUREN GONZALEZ MD Dec 12, 2019 11:20
--- NOTE | 2019-12-12 11:26 | NUR ---
SS following up with discharge planning. SS reviewed pt chart and discussed with pt RN. Pt accepted at [facility], ; fax [phone]. Pt's sister and brother in law contacted [facility] and took care of the financial requirements for insurance. SS phoned and faxed [facility] clinical updates. Bed available today if ready. Per RN, pt having cough and diarrhea this morning. Considering rescreen for COVID19. Physician notified. SS will continue to follow for discharge planning.
--- NOTE | 2019-12-12 11:34 | PDOC ---
[employer] PROGRESS NOTE Date of Service DOS: DATE: 12/12/19 TIME: 11:34 Chief Complaint Chief Complaint A/P: Acute pulmonary edema with bilateral infiltrates seen on chest xray - unchanged compared to 12/06/2019 chest x-ray. likely secondary acute diastolic chf, acute lung injury/acute respiratory distress syndrome resulting from acute diverticulitis with contained perforation and possible aspiration. Acute diverticulitis -with prior perforation, high risk. Continue with Zyvox and Zosyn. And micafungin. No surgery at this time Chronic anemia - possibly thalassemia versus chronic iron deficiency anemia related to occult GI blood loss vs 2/2 Hep C. Has never had a colonoscopy due to loss to follow up from lack of health insurance since 2015. Hepatitis C - chronic, not treated. GI consulted for consideration of anti- viral treatment, also needs alpha-fetoprotein level checked and ultrasound monitoring every 6 months. 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 MELD 15, 6% 3 month mortality. GI consulted Thrombocytopenialikely secondary to her cirrhosis. Will monitor Transaminitis likely secondary to hepatitis C versus acute diverticulitis, will monitor. GERD - on omeprazole Asymptomatic cholelithiasis elevated lactic acid without evidence of shock Sepsis secondary to diverticulitis, continue to follow hemodynamics closely I h ave discussed with nursing staff to reach out if she becomes unstable Acute pulmonary edema40 mg Lasix IV x1. Acute electrolyte derangementsreplace with IV 40 mEq of potassium Acute metabolic encephalopathytitrate bowel movements to at least 3 times per day. Schedule lactulose to titrate at least 2-3 bowel movements per day Chronic respiratory acidosis -appropriate compensation. Continue BiPAP PRN MICHELLE - vasomotor nephropathy, improving Severe protein-calorie malnutrition. Covid-19 negative Appreciate pulmonary evaluation. Patient was diuresed appropriately yesterday Repeat chest x-ray stable FEN - Clear liquid diet, PPX - lovenox FULL CODE Dispo -transferred to telemetry monitoring for History of Present Illness History of Present Illness Ms Joyner is a 59 year old female w/ PMHx diverticulosis with prior perforation from diverticulitis, former smoker, active Hepatitis C who was brought here by EMS from home due to left lower abdominal pain for 5 days prior to admission. The pain became more intensified so she called EMS to take her here for evaluation. Patient denies any fever, no diarrhea. Patient denies any cough. No exposure to anybody who tested positive for COVID-19. CT scan of the abdomen. Reveals diverticulitis in the sigmoid colon without perforation or leak. Also revealed cirrhosis with splenomegaly and cholelithiasis. Consulted ID, GI, General surgery, Pulmonology 12/01: No acute events reported overnight, case discussed with nursing staff patient in no acute distress no complaints during my visit 12/02: No acute events overnight. Patient remains on vasopressors for hemodynamic support. She has already received about 5 L of fluids. She has not had any bloody stools since transferred to the ICU. 12/03: No acute events overnight. Patient is tolerating clear liquid diet. Abdominal pain has improved. Patient's chart, labs, images were reviewed and discussed with RN 12/04: No acute events overnight. Patient seen and examined bedside. Patient is tolerating clear liquid diet. Patient does have some confusion on examination. Patient's chart, labs, images were reviewed and discussed with RN 12/05: No acute events overnight. Patient is tolerating BiPAP. No altered mental status at this time. Patient's chart, labs, images were reviewed and discussed with RN 12/06: No acute events overnight. Patient is tolerated nocturnal BiPAP. Remy mathews's chart, labs, images were reviewed and discussed with RN 12/08: Seen in ICU on ventimask 12/min. She states she feels better. Very swollen in bilateral UE and LE. Afebrile. CXR unchanged. No pain complaints. 12/09: Seen in ICU on 4 L nasal cannulated oxygen. COVID-19 testing is pending. She says she is exhausted feels better. Still pretty swollen. Afebrile. cr down to 1.5 12/10: Seen in ICU on 3 L nasal cannulated oxygen. COVID-19 testing negative. She slept great but still required BiPAP overnight. Creatinine down to 1.2, WBC 8. Swelling improved. Having bowel movements. Her only complaint is loss of IV access Seen for 3 L nasal cannulated oxygen. She had a very large bowel movement this morning. Slept great on BiPAP overnight. Have discussed with ID to transition to oral antibiotics and to transition to oral steroids. CXR improved plan: Wean O2 as tolerated continue nightly BiPAP continue oral meds Plan DC to rehab on 5 days steroids, augmentin Vitals/I&O Vitals/I&O: Vital Signs Date Time Temp Pulse Resp B/P (MAP) Pulse Ox O2 Delivery O2 Flow Rate FiO2 12/12/19 10:55 98.4 67 16 194/74 (114) 100 Nasal Cannula 3.0 98.4 I & O 12/11/19 12/11/19 12/12/19 15:00 23:00 07:00 Intake Total 500 ml 300 ml 320 ml Output Total 400 ml 1200 ml 600 ml Balance 100 ml -900 ml -280 ml Physical Exam Physical Exam: CONSTITUTIONAL: comfortable. She is in no acute distress. More alert. looks better HEENT: Normal conjunctivae. NECK: Supple. Good range of motion. LUNGS: clear HEART: S1, S2. ABDOMEN: Obese. It is mildly distended. There is no guarding. There is no gross tenderness. EC fistula + : Vital EXTREMITIES: Without clubbing, cyanosis or gross edema. SKIN: Warm to touch without signs of rash. NEUROLOGIC: She is alert, nonfocal but confused PSYCHIATRIC: Affect is appropriate. General: Alert, Cooperative, No acute distress Heart: Regular rate (SR), Normal S1, Normal S2, No murmurs Lungs: Crackles Abdomen: Soft, No tenderness Extremities: No cyanosis Skin: No breakdown Labs Labs: Laboratory Tests Test 12/11/19 12:09 12/11/19 16:55 12/11/19 20:42 12/12/19 07:42 Glucose (Fingerstick) 144 mg/dL (70-99) 118 mg/dL (70-99) 145 mg/dL (70-99) 96 mg/dL (70-99) Assessment and Plan Assessmemt and Plan Problems Medical Problems: (1) Diverticulitis Status: Acute Comment Review of Relevant I have reviewed the following items jing (where applicable) has been applied. Medications: Current Medications Medications (Trade) Dose Ordered Sig/Ubaldo Route PRN Reason Start Time Stop Time Status Last Admin Dose Admin Enoxaparin Sodium (Lovenox 40mg Syringe) 40 mg Q24H SQ 12/11/19 16:00 12/11/19 18:37 Amoxicillin/ Clavulanate Potassium (Augmentin 875/ 125mg) 1 tab BID PO 12/12/19 09:00 12/12/19 09:13 Justicifation of Admission Dx: Justifications for Admission: Justification of Admission Dx: Yes RIFFEL,CHRISTOPHER S MD Dec 12, 2019 11:34
[2019-12-12] MEDS ORDERED: PSYL3.4P PO (12:12)
[2019-12-12] MEDS ORDERED: FURO40TA4 PO (12:12)
[2019-12-12] MEDS ORDERED: FAMO20TA5 PO (12:12)
[2019-12-12] MEDS ORDERED: AMOX1TAB11 PO (12:12)
[2019-12-12] MEDS ORDERED: IPRA3AMP29 NEB (12:12)
[2019-12-12] MEDS ORDERED: LACT20SO PO (12:12)
[2019-12-12] MEDS ORDERED: LACT1CAP19 PO (12:12)
--- NOTE | 2019-12-12 12:13 | SNU/HH DC ---
DISCHARGE ORDERS DISCHARGE INFORMATION: DISCHARGE DATE: Dec 12, 2019 FINAL DIAGNOSIS Problems Medical Problems: (1) Diverticulitis Status: Acute CONDITION ON DISCHARGE: Stable CODE STATUS: Code Status: Full NURSING HOME: SNF STAY <30 DAYS: Yes POST DISCHARGE ORDERS: ACTIVITY ORDERS: Activity as tolerated DIET AFTER DISCHARGE: Cardiac WOUND/INCISION CARE: Reinforce dressing PRN CHECKS AFTER DISCHARGE: CHECKS AFTER DISCHARGE: Check blood press - daily, Check your Temp as needed FOLLOW-UP: LAB ORDERS FOR FOLLOW-UP: BMP, Mag q3 days TREATMENT/EQUIPMENT ORDERS: ADAPTIVE EQUIPMENT NEEDED: None RESPIRATORY EQUIPMENT NEEDED: Oxygen (3L NCO2), Nebulizer, BiPAP (16/8, 18/min, 35% FiO2 - 3L NCO2) Physical Therapy For: Evalulation/Treatment Occupational Therapy For: Evaluation/Treatment Speech Language Pathology For: Evaluation/Treatment DISCHARGE MEDICATIONS: Home Meds Active Scripts Prednisone (PREDNISONE) 20 Mg Tablet, 1 TAB PO DAILY for Bronchitis for 5 Days, #5 TAB Prov:BANDAR PRUITT MD 12/12/19 Furosemide (FUROSEMIDE) 40 Mg Tablet, 1 TAB PO DAILY for Swelling/Cirrhosis for 30 Days, #30 TAB 5 Refills Prov:BANDAR PRUITT MD 12/12/19 Lactobacillus Rhamnosus Gg (CULTURELLE) 1 Each Cap.sprink, 1 CAP PO BID for Diarhea for 7 Days, #14 CAP Prov:BANDAR PRUITT MD 12/12/19 Famotidine (FAMOTIDINE) 20 Mg Tablet, 20 MG PO QHS for GERD for 30 Days, #30 TAB Prov:BANDAR PRUITT MD 12/12/19 Psyllium Husk/Aspartame (METAMUCIL FIBER SINGLES PACKET) 3.4 Gm Powd.pack, 1 PKT PO QPM for Constipation/diarrhea for 30 Days, #30 PKT Prov:BANDAR PRUITT MD 12/12/19 Lactulose (LACTULOSE) 20 Gm/30 Ml Solution, 20 GM PO PRN Q12HR PRN for CONST IPATION for 30 Days, #1200 MISC Prov:BANDAR PRUITT MD 12/12/19 Ipratropium/Albuterol Sulfate (DUONEB 0.5-3(2.5) MG/3 ML) 3 Ml Ampul.neb, 3 ML NEB RTQID for COPD for 30 Days, #120 EACH Prov:BANDAR PRUITT MD 12/12/19 Amoxicillin/Potassium Clav (AMOX TR-K CLV 875-125 MG TAB) 1 Each Tablet, 1 TAB PO BID for Pneumonia for 5 Days, #10 TAB Prov:BANDAR PRUITT MD 12/12/19 Potassium Chloride (KLOR-CON M20) 20 Meq Tab.er.prt, 20 MEQ PO DAILYWBKFT, #10 Prov:YAHAIRA ROSE MD 10/14/15 Oxycodone Hcl/Acetaminophen (OXYCODONE-ACETAMINOPHEN 5-325) 1 Each Tablet, 1 TAB PO PRN Q4HRS PRN for MODERATE PAIN, #10 Prov:YAHAIRA ROSE MD 10/14/15 Magnesium Oxide (MAG-OXIDE) 400 Mg Tablet, 400 MG PO DAILY, #10 Prov:YAHAIRA ROSE MD 10/14/15 Ferrous Sulfate (SLOW RELEASE IRON) 142 Mg Tablet.er, 142 MG PO DAILYWBKFT, #60 Prov:LYN JONES MD 10/02/15 Reported Medications Acetaminophen (TYLENOL) 325 Mg Tablet, 650 MG PO PRN Q4-6HRS PRN for PAIN 10/05/15 Discontinued Scripts Lisinopril (LISINOPRIL) 20 Mg Tablet, 20 MG PO DAILY, #30 Prov:YAHAIRA ROSE MD 10/14/15 Nicotine (NICODERM CQ 7mg) 1 Each Patch.td24, 1 PATCH TD DAILY, #5 PATCH Prov:LYN JONES MD 10/02/15 BANDAR PRUITT MD Dec 12, 2019 12:13
[2019-12-12] MEDS ORDERED: PRED20TA PO (12:28)
--- NOTE | 2019-12-12 12:41 | PDOC3 ---
Discharge Summary Visit Information Date of Admission: Dec 01, 2019 Date of Discharge: Dec 12, 2019 Admitting Diagnosis: Diverticulitis Final Diagnosis Problems Medical Problems: (1) Diverticulitis Status: Acute Brief Hospital Course Allergies Allergies Coded Allergies Type Severity Reaction Last Updated Verified No Known Drug Allergies 09/26/15 No Vital Signs Vital Signs Date Time Temp Pulse Resp B/P (MAP) Pulse Ox O2 Delivery O2 Flow Rate FiO2 12/12/19 12:00 3.0 12/12/19 11:39 98 Nasal Cannula 12/12/19 10:55 98.4 67 16 194/74 (114) 98.4 Lab Results Laboratory Tests Test 12/11/19 07:00 12/11/19 12:09 12/11/19 16:55 12/11/19 20:42 White Blood Count 8.0 x10^3/uL (4.0-11.0) Red Blood Count 4.52 x10^6/uL (3.50-5.40) Hemoglobin 10.2 g/dL (12.0-15.5) Hematocrit 31.6 % (36.0-47.0) Mean Corpuscular Volume 70 fL (79-100) Mean Corpuscular Hemoglobin 23 pg (25-35) Mean Corpuscular Hemoglobin Concent 32 g/dL (31-37) Red Cell Distribution Width 17.0 % (11.5-14.5) Platelet Count 114 x10^3/uL (140-400) Neutrophils (%) (Auto) 83 % (31-73) Lymphocytes (%) (Auto) 13 % (24-48) Monocytes (%) (Auto) 3 % (0-9) Eosinophils (%) (Auto) 0 % (0-3) Basophils (%) (Auto) 1 % (0-3) Neutrophils # (Auto) 6.6 x10^3/uL (1.8-7.7) Lymphocytes # (Auto) 1.1 x10^3/uL (1.0-4.8) Monocytes # (Auto) 0.2 x10^3/uL (0.0-1.1) Eosinophils # (Auto) 0.0 x10^3/uL (0.0-0.7) Basophils # (Auto) 0.0 x10^3/uL (0.0-0.2) Sodium Level 136 mmol/L (136-145) Potassium Level 4.2 mmol/L (3.5-5.1) Chloride Level 104 mmol/L (98-107) Carbon Dioxide Level 28 mmol/L (21-32) Anion Gap 4 (6-14) Blood Urea Nitrogen 59 mg/dL (7-20) Creatinine 1.2 mg/dL (0.6-1.0) Estimated GFR (Cockcroft-Gault) 45.7 BUN/Creatinine Ratio 49 (6-20) Glucose Level 121 mg/dL (70-99) Calcium Level 8.1 mg/dL (8.5-10.1) Magnesium Level 2.0 mg/dL (1.8-2.4) Total Bilirubin 2.7 mg/dL (0.2-1.0) Aspartate Amino Transf (AST/SGOT) 55 U/L (15-37) Alanine Aminotransferase (ALT/SGPT) 31 U/L (14-59) Alkaline Phosphatase 97 U/L (46-116) Total Protein 6.1 g/dL (6.4-8.2) Albumin 1.5 g/dL (3.4-5.0) Albumin/Globulin Ratio 0.3 (1.0-1.7) Glucose (Fingerstick) 144 mg/dL (70-99) 118 mg/dL (70-99) 145 mg/dL (70-99) Test 12/12/19 07:42 12/12/19 11:47 Glucose (Fingerstick) 96 mg/dL (70-99) 106 mg/dL (70-99) Laboratory Tests Test 12/11/19 16:55 12/11/19 20:42 12/12/19 07:42 12/12/19 11:47 Glucose (Fingerstick) 118 mg/dL (70-99) 145 mg/dL (70-99) 96 mg/dL (70-99) 106 mg/dL (70-99) Brief Hospital Course Ms Joyner is a 59 year old female w/ PMHx diverticulosis with prior perforation from diverticulitis, former smoker, active Hepatitis C who was brought here by EMS from home due to left lower abdominal pain for 5 days prior to admission. The pain became more intensified so she called EMS to take her here for evaluation. Patient denies any fever, no diarrhea. Patient denies any cough. No exposure to anybody who tested positive for COVID-19. CT scan of the abdomen. Reveals diverticulitis in the sigmoid colon without perforation or leak. Also revealed cirrhosis with splenomegaly and cholelit hiasis. Consulted ID, GI, General surgery, Pulmonology 12/01: No acute events reported overnight, case discussed with nursing staff patient in no acute distress no complaints during my visit 12/02: No acute events overnight. Patient remains on vasopressors for hemodynamic support. She has already received about 5 L of fluids. She has not had any bloody stools since transferred to the ICU. 12/03: No acute events overnight. Patient is tolerating clear liquid diet. Abdominal pain has improved. Patient's chart, labs, images were reviewed and discussed with RN 12/04: No acute events overnight. Patient seen and examined bedside. Patient is tolerating clear liquid diet. Patient does have some confusion on examination. Patient's chart, labs, images were reviewed and discussed with RN 12/05: No acute events overnight. Patient is tolerating BiPAP. No altered mental status at this time. Patient's chart, labs, images were reviewed and discussed with RN 12/06: No acute events overnight. Patient is tolerated nocturnal BiPAP. Patient's chart, labs, images were reviewed and discussed with RN 12/08: Seen in ICU on ventimask 12/min. She states she feels better. Very swollen in bilateral UE and LE. Afebrile. CXR unchanged. No pain complaints. 12/09: Seen in ICU on 4 L nasal cannulated oxygen. COVID-19 testing is pending. She says she is exhausted feels better. Still pretty swollen. Afebrile. cr down to 1.5 12/10: Seen in ICU on 3 L nasal cannulated oxygen. COVID-19 testing negative. She slept great but still required BiPAP overnight. Creatinine down to 1.2, WBC 8. Swelling improved. Having bowel movements. Her only complaint is loss of IV access Seen on 3 L nasal cannulated oxygen. She had a very large bowel movement this morning. Slept great on BiPAP overnight. Have discussed with ID to transition to oral antibiotics and to transition to oral steroids. CXR improved Consults: GI, general surgery, Pulm, cardiology, ID Problem list: Acute hypoxic respiratory failure, likely secondary acute diastolic chf, acute lung injury/acute respiratory distress syndrome resulting from acute diverticulitis with contained perforation and possible aspiration--improved Pulmonary hypertension - almost certainly related to underlying COPD with RVSP 46 on echocardiogram, with cor pulmonale will benefit from O2, outpatient PFTs and nightly BIPAP 21/10 at rate of 18 and 35% FiO2 Underlying chronic obstructive pulmonary disease. Unknown FEV1. Acute pulmonary edema with bilateral infiltrates seen on chest xray - unchanged compared to 12/06/2019 chest x-ray. likely secondary acute diastolic chf, acute lung injury/acute respiratory distress syndrome resulting from acute diverticulitis with contained perforation and possible aspiration. Acute diverticulitis -with prior perforation, high risk. completed Zyvox and Zosyn. And micafungin. No surgery at this time, on oral augmentin Chronic anemia - possibly thalassemia versus chronic iron deficiency anemia related to occult GI blood loss vs 2/2 Hep C. Has never had a colonoscopy due to loss to follow up from lack of health insurance since 2016. Hepatitis C - chronic, not treated. GI consulted for consideration of anti- viral treatment, also needs alpha-fetoprotein level checked and ultrasound monitoring every 6 months. 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 MELD 15, 6% 3 month mortality. GI consulted Thrombocytopenialikely secondary to her cirrhosis. Will monitor Transaminitis likely secondary to hepatitis C versus acute diverticulitis, will monitor. GERD - on omeprazole Asymptomatic cholelithiasis elevated lactic acid without evidence of shock - resolved Sepsis secondary to diverticulitis - Resolved Acute electrolyte derangementsreplaced, will monitor Acute metabolic encephalopathytitrate bowel movements to at least 3 times per day. Schedule lactulose to titrate at least 2-3 bowel movements per day Chronic respiratory acidosis -appropriate compensation. Continue BiPAP PRN MICHELLE - vasomotor nephropathy, improving Severe protein-calorie malnutrition - likely related to cirrhosis Covid-19 negative plan: Wean O2 as tolerated continue nightly BiPAP continue oral meds Plan DC to rehab on 5 days steroids, augmentin Greater than 30 minutes spent on d/c to [facility] Discharge Information Condition at Discharge: Improved Follow Up: Weeks (2) Disposition/Orders: D/C to Another Facility Scheduled Amoxicillin/Potassium Clav (Amox Tr-K Clv 875-125 Mg Tab) 1 Each Tablet, 1 TAB PO BID for Pneumonia for 5 Days, #10 Prescribed by: BANDAR PRUITT MD on 12/12/19 1212 Famotidine (Famotidine) 20 Mg Tablet, 20 MG PO QHS for GERD for 30 Days, #30 Prescribed by: BANDAR PRUITT MD on 12/12/19 1212 Ferrous Sulfate (Slow Release Iron) 142 Mg Tablet.er, 142 MG PO DAILYWBKFT, #60 Prescribed by: LYN JONES on 10/02/15 1441 Furosemide (Furosemide) 40 Mg Tablet, 1 TAB PO DAILY for Swelling/Cirrhosis for 30 Days, #30 Ref 5 Prescribed by: BANDAR PRUITT MD on 12/12/19 1212 Ipratropium/Albuterol Sulfate (Duoneb 0.5-3(2.5) Mg/3 Ml) 3 Ml Ampul.neb, 3 ML NEB RTQID for COPD for 30 Days, #120 Prescribed by: BANDAR PRUITT MD on 12/12/19 1212 Lactobacillus Rhamnosus Gg (Culturelle) 1 Each Cap.sprink, 1 CAP PO BID for Diarhea for 7 Days, #14 Prescribed by: BANDAR PRUITT MD on 12/12/19 1212 Magnesium Oxide (Mag-Oxide) 400 Mg Tablet, 400 MG PO DAILY, #10 Prescribed by: YAHAIRA ROSE MD on 10/14/15 1216 Potassium Chloride (Klor-Con M20) 20 Meq Tab.er.prt, 20 MEQ PO DAILYWBKFT, #10 Prescribed by: YAHAIRA ROSE MD on 10/14/15 1216 Prednisone (Prednisone) 20 Mg Tablet, 1 TAB PO DAILY for Bronchitis for 5 Days, #5 Prescribed by: BANDAR PRUITT MD on 12/12/19 1228 Psyllium Husk/Aspartame (Metamucil Fiber Singles Packet) 3.4 Gm Powd.pack, 1 PKT PO QPM for Constipation/diarrhea for 30 Days, #30 Prescribed by: BANDAR PRUITT MD on 12/12/19 1212 Scheduled PRN Acetaminophen (Tylenol) 325 Mg Tablet, 650 MG PO PRN Q4-6HRS PRN for PAIN, (Reported) Entered as Reported by: JAMI RAMÍREZ on 10/05/15 210 Lactulose (Lactulose) 20 Gm/30 Ml Solution, 20 GM PO PRN Q12HR PRN for CONSTIPATION for 30 Days, #1200 Prescribed by: BANDAR PRUITT MD on 12/12/19 1212 Oxycodone Hcl/Acetaminophen (Oxycodone-Acetaminophen 5-325) 1 Each Tablet, 1 TAB PO PRN Q4HRS PRN for MODERATE PAIN, #10 Prescribed by: YAHAIRA ROSE MD on 10/14/15 1216 Discontinued Medications Lisinopril (Lisinopril) 20 Mg Tablet, 20 MG PO DAILY, #30 Prescribed by: YAHAIRA ROSE MD on 10/14/15 1216 Last Action: HELD on 12/02/19 1334 by MEGHAN CHERY MD Nicotine (NICODERM CQ 7mg) 1 Each Patch.td24, 1 PATCH TD DAILY, #5 Prescribed by: LYN JONES on 10/02/15 1441 Justicifation of Admission Dx: Justifications for Admission: Justification of Admission Dx: Yes BANDAR PRUITT MD Dec 12, 2019 12:41
--- NOTE | 2019-12-12 12:48 | NUR ---
SS following up with discharge planning. Discharge orders received. SS phoned and faxed discharge orders to [facility], ; fax [phone]. SS currently awaiting transportation time. SS will continue to follow for discharge planning.
[2019-12-12] MEDS ORDERED: FUROSEMIDE 40 MG/4 ML VIAL. IVP ONE (13:00)
[2019-12-12] MEDS ORDERED: FUROSEMIDE 40 MG TABLET. PO ONE (14:15)
[2019-12-12 14:57] VITALS: BP 178/71
--- NOTE | 2019-12-12 15:26 | PDOC ---
SURGICAL PROGRESS NOTE DATE: 12/12/19 TIME: 15:25 Subjective no significant abdominal pain tolerating diet Vital Signs Vital Signs Date Time Temp Pulse Resp B/P (MAP) Pulse Ox O2 Delivery O2 Flow Rate FiO2 12/12/19 14:57 97.7 76 16 178/71 (106) 97 Nasal Cannula 3.0 97.7 I&O Intake and Output 12/12/19 07:00 Intake Total 1120 ml Output Total 2200 ml Balance -1080 ml Intake Oral 1120 ml Output Urine Total 2200 ml General: Alert, Oriented X3, Cooperative Abdomen: Soft, No tenderness Labs Laboratory Tests Test 12/11/19 07:00 12/11/19 12:09 12/11/19 16:55 12/11/19 20:42 White Blood Count 8.0 x10^3/uL (4.0-11.0) Red Blood Count 4.52 x10^6/uL (3.50-5.40) Hemoglobin 10.2 g/dL (12.0-15.5) Hematocrit 31.6 % (36.0-47.0) Mean Corpuscular Volume 70 fL (79-100) Mean Corpuscular Hemoglobin 23 pg (25-35) Mean Corpuscular Hemoglobin Concent 32 g/dL (31-37) Red Cell Distribution Width 17.0 % (11.5-14.5) Platelet Count 114 x10^3/uL (140-400) Neutrophils (%) (Auto) 83 % (31-73) Lymphocytes (%) (Auto) 13 % (24-48) Monocytes (%) (Auto) 3 % (0-9) Eosinophils (%) (Auto) 0 % (0-3) Basophils (%) (Auto) 1 % (0-3) Neutrophils # (Auto) 6.6 x10^3/uL (1.8-7.7) Lymphocytes # (Auto) 1.1 x10^3/uL (1.0-4.8) Monocytes # (Auto) 0.2 x10^3/uL (0.0-1.1) Eosinophils # (Auto) 0.0 x10^3/uL (0.0-0.7) Basophils # (Auto) 0.0 x10^3/uL (0.0-0.2) Sodium Level 136 mmol/L (136-145) Potassium Level 4.2 mmol/L (3.5-5.1) Chloride Level 104 mmol/L (98-107) Carbon Dioxide Level 28 mmol/L (21-32) Anion Gap 4 (6-14) Blood Urea Nitrogen 59 mg/dL (7-20) Creatinine 1.2 mg/dL (0.6-1.0) Estimated GFR (Cockcroft-Gault) 45.7 BUN/Creatinine Ratio 49 (6-20) Glucose Level 121 mg/dL (70-99) Calcium Level 8.1 mg/dL (8.5-10.1) Magnesium Level 2.0 mg/dL (1.8-2.4) Total Bilirubin 2.7 mg/dL (0.2-1.0) Aspartate Amino Transf (AST/SGOT) 55 U/L (15-37) Alanine Aminotransferase (ALT/SGPT) 31 U/L (14-59) Alkaline Phosphatase 97 U/L (46-116) Total Protein 6.1 g/dL (6.4-8.2) Albumin 1.5 g/dL (3.4-5.0) Albumin/Globulin Ratio 0.3 (1.0-1.7) Glucose (Fingerstick) 144 mg/dL (70-99) 118 mg/dL (70-99) 145 mg/dL (70-99) Test 12/12/19 07:42 12/12/19 11:47 Glucose (Fingerstick) 96 mg/dL (70-99) 106 mg/dL (70-99) Laboratory Tests Test 12/11/19 16:55 12/11/19 20:42 12/12/19 07:42 12/12/19 11:47 Glucose (Fingerstick) 118 mg/dL (70-99) 145 mg/dL (70-99) 96 mg/dL (70-99) 106 mg/dL (70-99) Problem List Problems Medical Problems: (1) Diverticulitis Status: Acute Assessment/Plan stable no surgical plans Justicifation of Admission Dx: Justifications for Admission: Justification of Admission Dx: Yes WILBERT WHALEY APRN Dec 12, 2019 15:26
--- NOTE | 2019-12-12 15:34 | NUR ---
SS following up with discharge planning. Pt will discharge today and go to [facility] at [address] [facility] to provide transportation. Pt, pt's RN, and pt's family notified.
[2019-12-12] MEDS: ENOXAPARIN 40 MG/0.4 ML SYRINGE. SQ SCH (16:00)
--- NOTE | 2019-12-12 16:24 | NUR ---
Discharge Note: ISIAH DESIR Discharge instructions and discharge home medications reviewed with Other facility and a copy given. All questions have been answered and understanding verbalized. The following instructions and handouts were given: cirrohsis, diverticultis Discontinued lines and drains: Peripheral IV intact. Patient discharged to Longterm Facility with Self via Wheelchair
== END 2019-12-12 16:25 | DRG 871 ==
LOC: ER 08:35 → 4 NORTH 11:06 → 1 WEST ICU 12-02 14:12 → 2 NORTH 12-11 11:48
PROVIDERS: ADMIT Internal Medicine; ATTEND Internal Medicine
PROC: 5A09457 Assistance with Respiratory Ventilation, 24-96 Consecutive Hours, Continuous Positive Airway Pressure (ICD-10-PCS; principal; 2019-12-06)
PROC: 5A09357 Assistance with Respiratory Ventilation, Less than 24 Consecutive Hours, Continuous Positive Airway Pressure (ICD-10-PCS; 2019-12-08)
PROC: 5A09357 Assistance with Respiratory Ventilation, Less than 24 Consecutive Hours, Continuous Positive Airway Pressure (ICD-10-PCS; 2019-12-09)
PROC: 5A09357 Assistance with Respiratory Ventilation, Less than 24 Consecutive Hours, Continuous Positive Airway Pressure (ICD-10-PCS; 2019-12-10)
PROC: 5A09357 Assistance with Respiratory Ventilation, Less than 24 Consecutive Hours, Continuous Positive Airway Pressure (ICD-10-PCS; 2019-12-11)
DX: A41.9 Sepsis, unspecified organism (principal); E43 Unspecified severe protein-calorie malnutrition; G93.41 Metabolic encephalopathy; I50.33 Acute on chronic diastolic (congestive) heart failure; J96.01 Acute respiratory failure with hypoxia; N17.0 Acute kidney failure with tubular necrosis; R65.21 Severe sepsis with septic shock; I24.8 Other forms of acute ischemic heart disease; K57.20 Diverticulitis of large intestine with perforation and abscess without bleeding; N39.0 Urinary tract infection, site not specified; B19.20 Unspecified viral hepatitis C without hepatic coma; D50.9 Iron deficiency anemia, unspecified; D69.59 Other secondary thrombocytopenia; F17.210 Nicotine dependence, cigarettes, uncomplicated; I11.0 Hypertensive heart disease with heart failure; I27.29 Other secondary pulmonary hypertension; I27.81 Cor pulmonale (chronic); J44.9 Chronic obstructive pulmonary disease, unspecified; K21.9 Gastro-esophageal reflux disease without esophagitis; K74.60 Unspecified cirrhosis of liver; K80.20 Calculus of gallbladder without cholecystitis without obstruction; Z20.828 Contact with and (suspected) exposure to other viral communicable diseases
CPT/HCPCS: 36415; 36600; 71045; 74018; 74176; 74177; 80048; 80053; 80061; 81001; 82140; 82550; 82607; 82805; 82962; 83020; 83540; 83550; 83605; 83690; 83735; 83880; 84100; 84145; 84443; 84484; 85007; 85025; 85610; 85730; 86140; 87040; 87086; 93005; 93306; 94640; 94660; 94760; 96361; 96365; 96375; J0692; J0744; J0878; J1170; J1450; J1650; J1815; J1940; J2020; J2060; J2185; J2248; J2270; J2310; J2405; J2543; J2920; J3010; J3475; J3480; J3490; J7030; J7042; J7060; J7120; J7512; P9045; Q9967; 92610-GN; 97110-GO; 97110-GP; 97116-GP; 97530-GO; 97530-GP; 97535-GO; 99285-25; G0378; J7613; U0003-CS